=== PATIENT | female | born 1990 | race African-American/Black ===

== ENCOUNTER 2017-10-10 09:12 | Inpatient (IN) | payer SELFPAY, MEDICARE ==
[2017-10-10 10:10] LABS: ADD MAN DIFF? NO
[2017-10-10 10:18] LABS: BASO % 1 % (0-3); EOS % 1 % (0-3); HEMATOCRIT 29.9 % (36.0-47.0); HEMOGLOBIN 9.7 g/dL (12.0-15.5); LYMPH # 0.8 x10^3/uL (1.0-4.8); LYMPH % 16 % (24-48); MEAN CORPUSCULAR HEMOGLOBIN 27 pg (25-35); MEAN CORPUSCULAR HGB CONC 33 g/dL (31-37); MEAN CORPUSCULAR VOLUME 83 fL (79-100); MONO # 0.3 x10^3/uL (0.0-1.1); MONO % 7 % (0-9); NEUT # 3.6 x10^3uL (1.8-7.7); NEUT % 76 % (31-73); PLATELET COUNT 118 x10^3/uL (140-400); RED BLOOD COUNT 3.63 x10^6/uL (3.50-5.40); WHITE BLOOD COUNT 4.8 x10^3/uL (4.0-11.0)
[2017-10-10] MEDS: hydrALAZINE 20 MG/ML VIAL. IVP ×8 (10:20→19:43)
[2017-10-10 10:22] LABS: ANION GAP 11 (6-14); BLOOD UREA NITROGEN 45 mg/dL (7-20); CALCIUM 8.9 mg/dL (8.5-10.1); CARBON DIOXIDE 25 mmol/L (21-32); CHLORIDE 101 mmol/L (98-107); CREATININE 5.6 mg/dL (0.6-1.0); GLUCOSE 120 mg/dL (70-99); POTASSIUM 3.2 mmol/L (3.5-5.1); SODIUM 137 mmol/L (136-145)
[2017-10-10] MEDS ORDERED: ONDANSETRON PF 4 MG/2 ML VIAL. IV ×4 (11:45→14:45)
[2017-10-10] MEDS ORDERED: MAGNESIUM SULFATE 2GM 50 ML IV ×2 (13:15)
[2017-10-10] MEDS ORDERED: ACETAMINOPHEN 325 MG TABLET. PO ×2 (14:45)
[2017-10-10] MEDS ORDERED: DOCUSATE SODIUM 100 MG CAPSULE. PO ×2 (14:45)
[2017-10-10] MEDS ORDERED: MORPHINE SULFATE 2 MG/ML DISP.SYRIN. IV ×2 (14:45)
[2017-10-10] MEDS ORDERED: traMADol 50 MG TABLET PO ×2 (14:45)
[2017-10-10] MEDS: LABETALOL 20 MG/4 ML DISP.SYRIN. IVP ×4 (14:49→18:40)
[2017-10-10] MEDS ORDERED: HALOPERIDOL LACTATE 5 MG/ML VIAL. IVP ×2 (15:00)
[2017-10-10] MEDS: LABETALOL HCL 200 MG TABLET PO ×4 (15:30→20:51)
[2017-10-10] MEDS: FOLIC ACID 1 MG TABLET. PO ×4 (15:30→20:55)
[2017-10-10] MEDS ORDERED: IV NORMAL SALINE 1000ML BAG 1,000 ML IV ×4 (15:56)
[2017-10-10] MEDS ORDERED: diphenhydrAMINE 50 MG/ML VIAL IV ×2 (16:00)
[2017-10-10] MEDS ORDERED: ALBUMIN HUMAN 25% 200 ML IV ×2 (16:00)
[2017-10-10] MEDS ORDERED: DIALYSIS PATIENT. MC ×2 (16:00)
[2017-10-10] MEDS ORDERED: ACETAMINOPHEN 500 MG TABLET PO ×2 (16:00)
[2017-10-10] MEDS ORDERED: LABETALOL 20 MG/4 ML DISP.SYRIN. IVP ×2 (16:00)
[2017-10-10] MEDS: hydrOXYzine PAMOATE 25 MG CAPSULE PO ×4 (17:00→20:54)
[2017-10-10 17:12] LABS: THYROID STIM HORMONE (TSH) 1.193 uIU/mL (0.358-3.74)
[2017-10-10 17:53] LABS: VITAMIN-B12 610 pg/mL (247-911)
[2017-10-10] MEDS ORDERED: POTASSIUM CHLORIDE 20 MEQ TABLET.ER. PO ×2 (18:15)
[2017-10-10] MEDS: diphenhydrAMINE 50 MG/ML VIAL IV ×2 (19:07)
[2017-10-10] MEDS: ERGOCALCIFEROL (VITAMIN D2) 50,000 UNIT CAPSULE. PO ×2 (20:49)
[2017-10-10] MEDS: FAMOTIDINE 20 MG TABLET. PO ×2 (20:49)
[2017-10-10] MEDS: TORSEMIDE 20 MG TABLET. PO ×2 (20:51)
[2017-10-10] MEDS: SPIRONOLACTONE 25 MG TABLET PO ×2 (20:51)
[2017-10-10] MEDS: LOSARTAN POTASSIUM 50 MG TABLET. PO ×2 (20:51)
[2017-10-10] MEDS: QUEtiapine 25 MG TABLET. PO ×2 (20:51)
[2017-10-10] MEDS: amLODIPine BESYLATE 10 MG TABLET PO ×2 (20:53)
[2017-10-10] MEDS: HEPARIN PF for SUB-Q USE 5,000 UNIT/0.5 ML VIAL. SQ ×2 (21:05)
[2017-10-11] MEDS: LABETALOL HCL 200 MG TABLET PO ×6 (00:01→21:24)
[2017-10-11] MEDS: HEPARIN PF for SUB-Q USE 5,000 UNIT/0.5 ML VIAL. SQ ×6 (04:54→22:36)
[2017-10-11 04:57] LABS: ADD MAN DIFF? NO
[2017-10-11 05:12] LABS: BASO % 1 % (0-3); EOS # 0.1 x10^3/uL (0.0-0.7); EOS % 1 % (0-3); HEMATOCRIT 31.1 % (36.0-47.0); HEMOGLOBIN 10.2 g/dL (12.0-15.5); LYMPH # 1.2 x10^3/uL (1.0-4.8); LYMPH % 29 % (24-48); MEAN CORPUSCULAR HEMOGLOBIN 27 pg (25-35); MEAN CORPUSCULAR HGB CONC 33 g/dL (31-37); MEAN CORPUSCULAR VOLUME 83 fL (79-100); MONO # 0.4 x10^3/uL (0.0-1.1); MONO % 11 % (0-9); NEUT # 2.3 x10^3uL (1.8-7.7); NEUT % 58 % (31-73); PLATELET COUNT 146 x10^3/uL (140-400); RED BLOOD COUNT 3.77 x10^6/uL (3.50-5.40); RED CELL DISTRIBUTION WIDTH 16.1 % (11.5-14.5)
[2017-10-11 05:33] LABS: BARBITURATES NEG (NEG); BENZODIAZEPINES NEG (NEG); CANNABINOIDS POS (NEG); COCAINE NEG (NEG); METHADONE NEG (NEG); OPIATES NEG (NEG); PHENCYCLIDINE NEG (NEG)
[2017-10-11 05:34] LABS: AMPHETAMINE/METHAMPHETAMINE NEG (NEG); ETHANOL, URINE NEG (NEG)
[2017-10-11 05:50] LABS: ALBUMIN 3.3 g/dL (3.4-5.0); ANION GAP 13 (6-14); BLOOD UREA NITROGEN 29 mg/dL (7-20); CALCIUM 9.2 mg/dL (8.5-10.1); CARBON DIOXIDE 28 mmol/L (21-32); CHLORIDE 99 mmol/L (98-107); GFR 16.1; GLUCOSE 81 mg/dL (70-99); MAGNESIUM 1.9 mg/dL (1.8-2.4); PHOSPHORUS 4.4 mg/dL (2.6-4.7); SODIUM 140 mmol/L (136-145)
[2017-10-11 05:54] LABS: POTASSIUM 2.9 mmol/L (3.5-5.1)
[2017-10-11] MEDS: FOLIC ACID 1 MG TABLET. PO ×2 (08:22)
[2017-10-11] MEDS: POTASSIUM CHLORIDE 20 MEQ TABLET.ER. PO ×6 (08:22→21:25)
[2017-10-11] MEDS: cloNIDine HCL 0.1 MG TABLET PO ×2 (08:22)
[2017-10-11] MEDS: hydrOXYzine PAMOATE 25 MG CAPSULE PO ×8 (08:23→21:25)
[2017-10-11] MEDS: amLODIPine BESYLATE 10 MG TABLET PO ×2 (08:24)
[2017-10-11] MEDS: SPIRONOLACTONE 25 MG TABLET PO ×2 (08:25)
[2017-10-11] MEDS: TORSEMIDE 20 MG TABLET. PO ×2 (08:25)
[2017-10-11] MEDS: LOSARTAN POTASSIUM 50 MG TABLET. PO ×2 (08:25)
[2017-10-11] MEDS ORDERED: ERGOCALCIFEROL (VITAMIN D2) 50,000 UNIT CAPSULE. PO ×2 (12:15)
[2017-10-11] MEDS ORDERED: DIALYSIS PATIENT. MC ×4 (15:45)
[2017-10-11 20:10] LABS: PROGESTERONE <0.1 ng/mL (.)
[2017-10-11] MEDS: PHENYTOIN SODIUM EXTENDED 100 MG CAPSULE PO ×2 (21:25)
[2017-10-11] MEDS: QUEtiapine 25 MG TABLET. PO ×2 (21:26)
[2017-10-12 05:19] LABS: ALBUMIN 2.9 g/dL (3.4-5.0); ANION GAP 10 (6-14); BLOOD UREA NITROGEN 40 mg/dL (7-20); CALCIUM 9.4 mg/dL (8.5-10.1); CARBON DIOXIDE 27 mmol/L (21-32); CHLORIDE 104 mmol/L (98-107); CREATININE 5.7 mg/dL (0.6-1.0); GFR 10.7; GLUCOSE 84 mg/dL (70-99); PHOSPHORUS 5.1 mg/dL (2.6-4.7); POTASSIUM 4.2 mmol/L (3.5-5.1); SODIUM 141 mmol/L (136-145)
[2017-10-12] MEDS: HEPARIN PF for SUB-Q USE 5,000 UNIT/0.5 ML VIAL. SQ ×4 (05:38→14:00)
[2017-10-12] MEDS: hydrOXYzine PAMOATE 25 MG CAPSULE PO ×6 (09:02→17:15)
[2017-10-12] MEDS: SPIRONOLACTONE 25 MG TABLET PO ×2 (09:02)
[2017-10-12] MEDS: POTASSIUM CHLORIDE 20 MEQ TABLET.ER. PO ×4 (09:03→14:00)
[2017-10-12] MEDS: amLODIPine BESYLATE 10 MG TABLET PO ×2 (09:03)
[2017-10-12] MEDS: LOSARTAN POTASSIUM 50 MG TABLET. PO ×2 (09:04)
[2017-10-12] MEDS: LABETALOL HCL 200 MG TABLET PO ×2 (09:04)
[2017-10-12] MEDS: FOLIC ACID 1 MG TABLET. PO ×2 (09:04)
[2017-10-12] MEDS ORDERED: IV NORMAL SALINE 1000ML BAG 1,000 ML IV ×2 (13:44)
[2017-10-12] MEDS ORDERED: DIALYSIS PATIENT. MC ×4 (13:45)
[2017-10-12] MEDS ORDERED: FAMOTIDINE 20 MG TABLET. PO ×2 (21:00)
== END 2017-10-12 18:31 | disposition home or self-care (01) | DRG 77 ==
LOC: ER 09:12 → 5 NORTH 12:20
PROC: 5A1D70Z Performance of Urinary Filtration, Intermittent, Less than 6 Hours Per Day (ICD-10-PCS; principal; 2017-10-12)
DX: I67.4 Hypertensive encephalopathy (principal); N18.6 End stage renal disease; G93.41 Metabolic encephalopathy; D69.6 Thrombocytopenia, unspecified; I12.0 Hypertensive chronic kidney disease with stage 5 chronic kidney disease or end stage renal disease; I16.1 Hypertensive emergency; E87.6 Hypokalemia; E55.9 Vitamin D deficiency, unspecified; F41.9 Anxiety disorder, unspecified; D63.1 Anemia in chronic kidney disease; F12.10 Cannabis abuse, uncomplicated; Z99.2 Dependence on renal dialysis; G40.909 Epilepsy, unspecified, not intractable, without status epilepticus; Z85.72 Personal history of non-Hodgkin lymphomas; Z88.8 Allergy status to other drugs, medicaments and biological substances; Z91.048 Other nonmedicinal substance allergy status; Z91.15 Patient's noncompliance with renal dialysis; Z82.49 Family history of ischemic heart disease and other diseases of the circulatory system
CPT/HCPCS: 36415; 80048; 80069; 80307; 82306; 82607; 83735; 84144; 84443; 84702; 85025; 93005; 93931; 95816; 96374; 96376; 99285; 99285-25; J0360; J1200; J2060; J3490; Q0177

== ENCOUNTER 2017-10-13 13:46 | Inpatient (IN) | payer SELFPAY ==
[2017-10-13 14:30] LABS: ADD MAN DIFF? NO
[2017-10-13] MEDS: hydrALAZINE 20 MG/ML VIAL. IVP ×3 (14:36→20:19)
[2017-10-13 14:41] LABS: ANION GAP 10 (6-14); BLOOD UREA NITROGEN 23 mg/dL (7-20); BUN/CREATININE RATIO 5 (6-20); CALCIUM 9.4 mg/dL (8.5-10.1); CARBON DIOXIDE 27 mmol/L (21-32); CHLORIDE 98 mmol/L (98-107); CREATININE 4.6 mg/dL (0.6-1.0); GFR 13.7; GLUCOSE 170 mg/dL (70-99); INR 1.2 (0.8-1.1); PARTIAL THROMBOPLASTIN TIME 34 SEC (24-38); POTASSIUM 3.8 mmol/L (3.5-5.1); PROTHROMBIN TIME PATIENT 14.3 SEC (11.7-14.0); SODIUM 135 mmol/L (136-145)
[2017-10-13 14:46] LABS: BASO % 1 % (0-3); EOS # 0.3 x10^3/uL (0.0-0.7); EOS % 7 % (0-3); HEMATOCRIT 34.6 % (36.0-47.0); HEMOGLOBIN 11.4 g/dL (12.0-15.5); LYMPH # 0.9 x10^3/uL (1.0-4.8); LYMPH % 24 % (24-48); MEAN CORPUSCULAR HEMOGLOBIN 27 pg (25-35); MEAN CORPUSCULAR HGB CONC 33 g/dL (31-37); MEAN CORPUSCULAR VOLUME 82 fL (79-100); MONO # 0.5 x10^3/uL (0.0-1.1); MONO % 14 % (0-9); NEUT # 1.9 x10^3uL (1.8-7.7); NEUT % 53 % (31-73); PLATELET COUNT 196 x10^3/uL (140-400); RED BLOOD COUNT 4.21 x10^6/uL (3.50-5.40); RED CELL DISTRIBUTION WIDTH 15.5 % (11.5-14.5); WHITE BLOOD COUNT 3.7 x10^3/uL (4.0-11.0)
[2017-10-13 14:47] LABS: ALBUMIN 3.3 g/dL (3.4-5.0); ALBUMIN/GLOBULIN RATIO 0.7 (1.0-1.7); ALK PHOS 110 U/L (46-116); ALT (SGPT) 25 U/L (14-59); AST (SGOT) 17 U/L (15-37); TOTAL BILIRUBIN 0.5 mg/dL (0.2-1.0); TOTAL PROTEIN 8.2 g/dL (6.4-8.2)
[2017-10-13 14:50] LABS: TROPONINI 0.046 ng/mL (0.000-0.055)
[2017-10-13 14:53] LABS: NT-PRO BNP 26160 pg/mL (0-124)
[2017-10-13] MEDS ORDERED: MORPHINE SULFATE 2 MG/ML DISP.SYRIN. IV (15:30)
[2017-10-13] MEDS ORDERED: ONDANSETRON PF 4 MG/2 ML VIAL. IV ×2 (15:30→16:00)
[2017-10-13] MEDS: ACETAMINOPHEN 325 MG TABLET. PO (15:34)
[2017-10-13] MEDS ORDERED: diphenhydrAMINE HCL 25 MG CAPSULE PO (16:00)
[2017-10-13] MEDS: oxyCODONE/APAP 5/325 1 TAB TABLET PO ×2 (17:36→21:33)
[2017-10-13] MEDS: LABETALOL 20 MG/4 ML DISP.SYRIN. IVP (17:37)
[2017-10-13 19:25] LABS: TROPONINI 0.064 ng/mL (0.000-0.055)
[2017-10-13] MEDS: QUEtiapine 25 MG TABLET. PO (21:32)
[2017-10-13] MEDS: FAMOTIDINE 20 MG TABLET. PO (21:32)
[2017-10-13] MEDS: hydrOXYzine PAMOATE 25 MG CAPSULE PO (21:32)
[2017-10-13] MEDS: LABETALOL HCL 200 MG TABLET PO (21:33)
[2017-10-13 22:13] LABS: BILIRUBIN,URINE SMALL (NEG); CLARITY,URINE CLEAR; COLOR,URINE YELLOW; GLUCOSE,URINE NEGATIVE (NEG); NITRITE,URINE NEGATIVE (NEG); PROTEIN,URINE >=300 mg/dL (NEG-TRACE)
[2017-10-13 22:17] LABS: TROPONINI 0.074 ng/mL (0.000-0.055)
[2017-10-13 22:19] LABS: BACTERIA,URINE FEW /HPF (0-FEW); BARBITURATES NEG (NEG); BENZODIAZEPINES NEG (NEG); CANNABINOIDS POS (NEG); COCAINE NEG (NEG); METHADONE NEG (NEG); OPIATES NEG (NEG); PHENCYCLIDINE NEG (NEG); RBC,URINE 0 /HPF (0-2); SQUAMOUS EPITHELIAL CELL,UR MOD /LPF
[2017-10-13 22:20] LABS: AMPHETAMINE/METHAMPHETAMINE NEG (NEG); ETHANOL, URINE NEG (NEG)
[2017-10-14 08:13] LABS: ADD MAN DIFF? NO
[2017-10-14 08:22] LABS: BASO % 1 % (0-3); EOS # 0.2 x10^3/uL (0.0-0.7); EOS % 8 % (0-3); HEMATOCRIT 37.2 % (36.0-47.0); LYMPH % 34 % (24-48); MEAN CORPUSCULAR HEMOGLOBIN 27 pg (25-35); MEAN CORPUSCULAR HGB CONC 32 g/dL (31-37); MEAN CORPUSCULAR VOLUME 82 fL (79-100); MONO # 0.5 x10^3/uL (0.0-1.1); MONO % 16 % (0-9); NEUT # 1.2 x10^3uL (1.8-7.7); NEUT % 40 % (31-73); PLATELET COUNT 203 x10^3/uL (140-400); RED BLOOD COUNT 4.51 x10^6/uL (3.50-5.40); RED CELL DISTRIBUTION WIDTH 16.1 % (11.5-14.5); WHITE BLOOD COUNT 2.9 x10^3/uL (4.0-11.0)
[2017-10-14 08:31] LABS: ANION GAP 11 (6-14); BLOOD UREA NITROGEN 27 mg/dL (7-20); CALCIUM 9.9 mg/dL (8.5-10.1); CARBON DIOXIDE 28 mmol/L (21-32); CHLORIDE 98 mmol/L (98-107); CREATININE 5.3 mg/dL (0.6-1.0); GFR 11.7; GLUCOSE 96 mg/dL (70-99); SODIUM 137 mmol/L (136-145)
[2017-10-14] MEDS ORDERED: LOSARTAN POTASSIUM 50 MG TABLET. PO (09:00)
[2017-10-14] MEDS: diphenhydrAMINE 50 MG/ML VIAL IVP (09:45)
[2017-10-14] MEDS ORDERED: DIALYSIS PATIENT. MC (09:45)
[2017-10-14] MEDS: LOSARTAN POTASSIUM 50 MG TABLET. PO (09:45)
[2017-10-14] MEDS: FOLIC ACID 1 MG TABLET. PO (09:46)
[2017-10-14] MEDS: hydrOXYzine PAMOATE 25 MG CAPSULE PO ×4 (09:46→20:05)
[2017-10-14] MEDS: amLODIPine BESYLATE 10 MG TABLET PO (09:47)
[2017-10-14] MEDS: CALCIUM CARBONATE 500 MG TABLET PO (09:47)
[2017-10-14] MEDS: LABETALOL 20 MG/4 ML DISP.SYRIN. IVP (12:00)
[2017-10-14] MEDS: ALBUTEROL SULFATE 2.5 MG/3 ML NEBU. NEB (14:00)
[2017-10-14] MEDS: TORSEMIDE 20 MG TABLET. PO (14:02)
[2017-10-14] MEDS: LABETALOL HCL 200 MG TABLET PO ×2 (14:03→20:05)
[2017-10-14] MEDS: SPIRONOLACTONE 25 MG TABLET PO (14:03)
[2017-10-14] MEDS: QUEtiapine 25 MG TABLET. PO (20:04)
[2017-10-14] MEDS: oxyCODONE/APAP 5/325 1 TAB TABLET PO (20:05)
[2017-10-14] MEDS: ONDANSETRON PF 4 MG/2 ML VIAL. IV (21:03)
[2017-10-15] MEDS: oxyCODONE/APAP 5/325 1 TAB TABLET PO ×2 (02:26→19:17)
[2017-10-15] MEDS: hydrOXYzine PAMOATE 25 MG CAPSULE PO ×4 (09:02→20:55)
[2017-10-15] MEDS: LABETALOL HCL 200 MG TABLET PO ×2 (09:02→20:55)
[2017-10-15] MEDS: TORSEMIDE 20 MG TABLET. PO (09:02)
[2017-10-15] MEDS: SPIRONOLACTONE 25 MG TABLET PO (09:03)
[2017-10-15] MEDS: FOLIC ACID 1 MG TABLET. PO (09:04)
[2017-10-15] MEDS: amLODIPine BESYLATE 10 MG TABLET PO (09:04)
[2017-10-15] MEDS: CALCIUM CARBONATE 500 MG TABLET PO (09:04)
[2017-10-15] MEDS: LOSARTAN POTASSIUM 50 MG TABLET. PO (09:04)
[2017-10-15] MEDS: levETIRAcetam 250 MG TABLET PO ×2 (17:33→20:55)
[2017-10-15] MEDS: QUEtiapine 25 MG TABLET. PO (20:55)
[2017-10-16] MEDS: oxyCODONE/APAP 5/325 1 TAB TABLET PO (03:42)
[2017-10-16] MEDS: TORSEMIDE 20 MG TABLET. PO (07:43)
[2017-10-16] MEDS: FOLIC ACID 1 MG TABLET. PO (07:44)
[2017-10-16] MEDS: SPIRONOLACTONE 25 MG TABLET PO (07:44)
[2017-10-16] MEDS: LOSARTAN POTASSIUM 50 MG TABLET. PO (07:44)
[2017-10-16] MEDS: levETIRAcetam 250 MG TABLET PO ×2 (07:44→20:47)
[2017-10-16] MEDS: amLODIPine BESYLATE 10 MG TABLET PO (07:45)
[2017-10-16] MEDS: CALCIUM CARBONATE 500 MG TABLET PO (07:45)
[2017-10-16] MEDS: LABETALOL HCL 200 MG TABLET PO ×2 (07:45→20:47)
[2017-10-16] MEDS: hydrOXYzine PAMOATE 25 MG CAPSULE PO (07:45)
[2017-10-16] MEDS ORDERED: FAMOTIDINE 20 MG TABLET. PO (15:00)
[2017-10-16] MEDS: QUEtiapine 25 MG TABLET. PO (20:47)
[2017-10-16] MEDS: FAMOTIDINE 20 MG TABLET. PO (20:47)
[2017-10-17] MEDS ORDERED: IV NORMAL SALINE 1000ML BAG 1,000 ML IV ×2 (08:13)
[2017-10-17] MEDS ORDERED: DIALYSIS PATIENT. MC ×2 (08:15)
[2017-10-17] MEDS: TORSEMIDE 20 MG TABLET. PO (13:27)
[2017-10-17] MEDS: CALCIUM CARBONATE 500 MG TABLET PO (13:27)
[2017-10-17] MEDS: LOSARTAN POTASSIUM 50 MG TABLET. PO (13:28)
[2017-10-17] MEDS: amLODIPine BESYLATE 10 MG TABLET PO (13:28)
[2017-10-17] MEDS: SPIRONOLACTONE 25 MG TABLET PO (13:29)
[2017-10-17] MEDS: CARVEDILOL 3.125 MG TABLET. PO ×2 (13:29→17:42)
[2017-10-17] MEDS: FOLIC ACID 1 MG TABLET. PO (13:30)
[2017-10-17] MEDS: levETIRAcetam 250 MG TABLET PO ×2 (13:30→21:15)
[2017-10-17] MEDS: LABETALOL HCL 200 MG TABLET PO ×2 (13:30→21:16)
[2017-10-17] MEDS: QUEtiapine 25 MG TABLET. PO (21:16)
[2017-10-18] MEDS: LABETALOL HCL 200 MG TABLET PO ×3 (09:00→20:43)
[2017-10-18] MEDS: SPIRONOLACTONE 25 MG TABLET PO (09:21)
[2017-10-18] MEDS: levETIRAcetam 250 MG TABLET PO ×2 (09:21→20:43)
[2017-10-18] MEDS: amLODIPine BESYLATE 10 MG TABLET PO (09:21)
[2017-10-18] MEDS: FOLIC ACID 1 MG TABLET. PO (09:22)
[2017-10-18] MEDS: CALCIUM CARBONATE 500 MG TABLET PO (09:22)
[2017-10-18] MEDS: LOSARTAN POTASSIUM 50 MG TABLET. PO (09:22)
[2017-10-18] MEDS: TORSEMIDE 20 MG TABLET. PO (09:22)
[2017-10-18 12:16] LABS: HEP B SURFACE ABDY Reactive (.); HEP B SURFACE AG Negative (Negative)
[2017-10-18] MEDS: DOXAZOSIN MESYLATE 1 MG TABLET. PO (12:16)
[2017-10-18] MEDS: QUEtiapine 25 MG TABLET. PO (20:43)
[2017-10-18] MEDS: FAMOTIDINE 20 MG TABLET. PO (20:44)
[2017-10-19 03:51] LABS: ADD MAN DIFF? NO
[2017-10-19 03:57] LABS: BASO % 1 % (0-3); EOS # 0.3 x10^3/uL (0.0-0.7); EOS % 7 % (0-3); HEMATOCRIT 33.2 % (36.0-47.0); HEMOGLOBIN 10.8 g/dL (12.0-15.5); LYMPH # 1.2 x10^3/uL (1.0-4.8); LYMPH % 29 % (24-48); MEAN CORPUSCULAR HEMOGLOBIN 27 pg (25-35); MEAN CORPUSCULAR HGB CONC 33 g/dL (31-37); MEAN CORPUSCULAR VOLUME 82 fL (79-100); MONO # 0.5 x10^3/uL (0.0-1.1); MONO % 14 % (0-9); NEUT % 49 % (31-73); PLATELET COUNT 194 x10^3/uL (140-400); RED BLOOD COUNT 4.05 x10^6/uL (3.50-5.40); RED CELL DISTRIBUTION WIDTH 15.5 % (11.5-14.5)
[2017-10-19 04:11] LABS: ANION GAP 8 (6-14); BLOOD UREA NITROGEN 55 mg/dL (7-20); CALCIUM 9.3 mg/dL (8.5-10.1); CARBON DIOXIDE 30 mmol/L (21-32); CHLORIDE 95 mmol/L (98-107); CREATININE 6.4 mg/dL (0.6-1.0); GFR 9.4; GLUCOSE 82 mg/dL (70-99); POTASSIUM 4.6 mmol/L (3.5-5.1); SODIUM 133 mmol/L (136-145)
[2017-10-19] MEDS: LOSARTAN POTASSIUM 50 MG TABLET. PO (08:13)
[2017-10-19] MEDS: TORSEMIDE 20 MG TABLET. PO (08:14)
[2017-10-19] MEDS: CALCIUM CARBONATE 500 MG TABLET PO (08:14)
[2017-10-19] MEDS: DOXAZOSIN MESYLATE 1 MG TABLET. PO (08:14)
[2017-10-19] MEDS: FOLIC ACID 1 MG TABLET. PO (08:14)
[2017-10-19] MEDS: levETIRAcetam 250 MG TABLET PO ×2 (08:14→20:26)
[2017-10-19] MEDS: amLODIPine BESYLATE 10 MG TABLET PO (08:15)
[2017-10-19] MEDS: LABETALOL HCL 200 MG TABLET PO ×2 (08:15→20:26)
[2017-10-19] MEDS ORDERED: IV NORMAL SALINE 1000ML BAG 1,000 ML IV (13:19)
[2017-10-19] MEDS ORDERED: DIALYSIS PATIENT. MC (13:30)
[2017-10-19] MEDS: QUEtiapine 25 MG TABLET. PO (20:26)
[2017-10-20 06:38] LABS: ADD MAN DIFF? NO
[2017-10-20 06:51] LABS: BASO % 1 % (0-3); EOS # 0.2 x10^3/uL (0.0-0.7); EOS % 7 % (0-3); HEMATOCRIT 34.1 % (36.0-47.0); LYMPH # 0.9 x10^3/uL (1.0-4.8); LYMPH % 28 % (24-48); MEAN CORPUSCULAR HEMOGLOBIN 27 pg (25-35); MEAN CORPUSCULAR HGB CONC 32 g/dL (31-37); MEAN CORPUSCULAR VOLUME 83 fL (79-100); MONO # 0.4 x10^3/uL (0.0-1.1); MONO % 12 % (0-9); NEUT # 1.7 x10^3uL (1.8-7.7); NEUT % 53 % (31-73); PLATELET COUNT 179 x10^3/uL (140-400); RED BLOOD COUNT 4.13 x10^6/uL (3.50-5.40); RED CELL DISTRIBUTION WIDTH 15.7 % (11.5-14.5); WHITE BLOOD COUNT 3.2 x10^3/uL (4.0-11.0)
[2017-10-20 07:02] LABS: ANION GAP 5 (6-14); BLOOD UREA NITROGEN 33 mg/dL (7-20); CALCIUM 9.3 mg/dL (8.5-10.1); CARBON DIOXIDE 35 mmol/L (21-32); CHLORIDE 99 mmol/L (98-107); CREATININE 4.1 mg/dL (0.6-1.0); GFR 15.7; GLUCOSE 83 mg/dL (70-99); POTASSIUM 4.3 mmol/L (3.5-5.1); SODIUM 139 mmol/L (136-145)
[2017-10-20] MEDS: FOLIC ACID 1 MG TABLET. PO (09:20)
[2017-10-20] MEDS: levETIRAcetam 250 MG TABLET PO ×2 (09:20→21:06)
[2017-10-20] MEDS: ERGOCALCIFEROL (VITAMIN D2) 50,000 UNIT CAPSULE. PO (09:20)
[2017-10-20] MEDS: CALCIUM CARBONATE 500 MG TABLET PO (09:21)
[2017-10-20] MEDS: LABETALOL HCL 200 MG TABLET PO ×2 (09:21→21:07)
[2017-10-20] MEDS: DOXAZOSIN MESYLATE 1 MG TABLET. PO (09:21)
[2017-10-20] MEDS: TORSEMIDE 20 MG TABLET. PO (09:21)
[2017-10-20] MEDS: amLODIPine BESYLATE 10 MG TABLET PO (09:22)
[2017-10-20] MEDS: LOSARTAN POTASSIUM 50 MG TABLET. PO (09:23)
[2017-10-20] MEDS: ONDANSETRON PF 4 MG/2 ML VIAL. IV (18:28)
[2017-10-20] MEDS: FAMOTIDINE 20 MG TABLET. PO (21:06)
[2017-10-20] MEDS: QUEtiapine 25 MG TABLET. PO (21:06)
[2017-10-21 06:43] LABS: ADD MAN DIFF? NO
[2017-10-21 07:09] LABS: ANION GAP 10 (6-14); BLOOD UREA NITROGEN 58 mg/dL (7-20); CALCIUM 9.9 mg/dL (8.5-10.1); CARBON DIOXIDE 29 mmol/L (21-32); CHLORIDE 98 mmol/L (98-107); CREATININE 5.2 mg/dL (0.6-1.0); GFR 11.8; GLUCOSE 89 mg/dL (70-99); POTASSIUM 4.4 mmol/L (3.5-5.1); SODIUM 137 mmol/L (136-145)
[2017-10-21 07:10] LABS: BASO % 1 % (0-3); EOS # 0.3 x10^3/uL (0.0-0.7); EOS % 7 % (0-3); HEMATOCRIT 33.5 % (36.0-47.0); HEMOGLOBIN 10.8 g/dL (12.0-15.5); LYMPH % 28 % (24-48); MEAN CORPUSCULAR HEMOGLOBIN 27 pg (25-35); MEAN CORPUSCULAR HGB CONC 32 g/dL (31-37); MEAN CORPUSCULAR VOLUME 82 fL (79-100); MONO # 0.4 x10^3/uL (0.0-1.1); MONO % 12 % (0-9); NEUT # 1.8 x10^3uL (1.8-7.7); NEUT % 51 % (31-73); PLATELET COUNT 168 x10^3/uL (140-400); RED BLOOD COUNT 4.07 x10^6/uL (3.50-5.40); RED CELL DISTRIBUTION WIDTH 15.4 % (11.5-14.5); WHITE BLOOD COUNT 3.4 x10^3/uL (4.0-11.0)
[2017-10-21] MEDS ORDERED: IV NORMAL SALINE 1000ML BAG 1,000 ML IV ×2 (07:35)
[2017-10-21] MEDS ORDERED: DIALYSIS PATIENT. MC (07:45)
[2017-10-21] MEDS ORDERED: diphenhydrAMINE 50 MG/ML VIAL IV ×2 (07:45)
[2017-10-21] MEDS ORDERED: ACETAMINOPHEN 500 MG TABLET PO (07:45)
[2017-10-21] MEDS: CALCIUM CARBONATE 500 MG TABLET PO (14:27)
[2017-10-21] MEDS: DOXAZOSIN MESYLATE 1 MG TABLET. PO (14:27)
[2017-10-21] MEDS: TORSEMIDE 20 MG TABLET. PO (14:27)
[2017-10-21] MEDS: LOSARTAN POTASSIUM 50 MG TABLET. PO (14:27)
[2017-10-21] MEDS: levETIRAcetam 250 MG TABLET PO (14:28)
[2017-10-21] MEDS: amLODIPine BESYLATE 10 MG TABLET PO (14:28)
[2017-10-21] MEDS: LABETALOL HCL 200 MG TABLET PO (14:28)
[2017-10-21] MEDS: FOLIC ACID 1 MG TABLET. PO (14:28)
== END 2017-10-21 16:19 | disposition home or self-care (01) | DRG 77 ==
LOC: ER 13:46 → ED HOLD 14:58 → 2 SOUTH 20:06
PROC: 5A1D70Z Performance of Urinary Filtration, Intermittent, Less than 6 Hours Per Day (ICD-10-PCS; principal; 2017-10-14)
PROC: 5A1D70Z Performance of Urinary Filtration, Intermittent, Less than 6 Hours Per Day (ICD-10-PCS; 2017-10-17)
PROC: 5A1D70Z Performance of Urinary Filtration, Intermittent, Less than 6 Hours Per Day (ICD-10-PCS; 2017-10-19)
PROC: 5A1D70Z Performance of Urinary Filtration, Intermittent, Less than 6 Hours Per Day (ICD-10-PCS; 2017-10-21)
DX: I67.4 Hypertensive encephalopathy (principal); G93.41 Metabolic encephalopathy; I13.2 Hypertensive heart and chronic kidney disease with heart failure and with stage 5 chronic kidney disease, or end stage renal disease; N18.6 End stage renal disease; I50.33 Acute on chronic diastolic (congestive) heart failure; I16.1 Hypertensive emergency; F41.9 Anxiety disorder, unspecified; F12.10 Cannabis abuse, uncomplicated; R56.9 Unspecified convulsions; D63.1 Anemia in chronic kidney disease; Z82.49 Family history of ischemic heart disease and other diseases of the circulatory system; Z85.71 Personal history of Hodgkin lymphoma; Z91.19 Patient's noncompliance with other medical treatment and regimen; Z99.2 Dependence on renal dialysis; Z90.49 Acquired absence of other specified parts of digestive tract; Z91.041 Radiographic dye allergy status; Z91.048 Other nonmedicinal substance allergy status
CPT/HCPCS: 36415; 70450; 71045; 80048; 80053; 80307; 81001; 83880; 84484; 85025; 85610; 85730; 86704; 86705; 86706; 87086; 87340; 93005; 93306; 96374; 96375; 99285; 99285-25; J0360; J2060; J2405; J3490; J7050; Q0177

== ENCOUNTER 2017-12-13 11:15 | Emergency (ER) | payer OTHER ==
[2017-12-13] MEDS: IOHEXOL 240 MG/ML 50ML VIAL. PO (12:15)
[2017-12-13] MEDS ORDERED: CONTRAST GIVEN MC (12:15)
[2017-12-13 12:36] LABS: ADD MAN DIFF? NO
[2017-12-13 12:43] LABS: BASO % 1 % (0-3); EOS # 0.1 x10^3/uL (0.0-0.7); EOS % 2 % (0-3); HEMATOCRIT 29.1 % (36.0-47.0); HEMOGLOBIN 9.7 g/dL (12.0-15.5); LYMPH # 0.6 x10^3/uL (1.0-4.8); LYMPH % 10 % (24-48); MEAN CORPUSCULAR HEMOGLOBIN 27 pg (25-35); MEAN CORPUSCULAR HGB CONC 33 g/dL (31-37); MEAN CORPUSCULAR VOLUME 81 fL (79-100); MONO # 0.5 x10^3/uL (0.0-1.1); MONO % 9 % (0-9); NEUT # 4.4 x10^3uL (1.8-7.7); NEUT % 78 % (31-73); PLATELET COUNT 130 x10^3/uL (140-400); RED BLOOD COUNT 3.61 x10^6/uL (3.50-5.40); WHITE BLOOD COUNT 5.6 x10^3/uL (4.0-11.0)
[2017-12-13] MEDS: MORPHINE SULFATE 4 MG/ML DISP.SYRIN. IV (12:46)
[2017-12-13] MEDS: hydrALAZINE 20 MG/ML VIAL. IVP (12:47)
[2017-12-13 12:53] LABS: ANION GAP 11 (6-14); BLOOD UREA NITROGEN 55 mg/dL (7-20); BUN/CREATININE RATIO 12 (6-20); CALCIUM 8.8 mg/dL (8.5-10.1); CARBON DIOXIDE 24 mmol/L (21-32); CHLORIDE 102 mmol/L (98-107); CREATININE 4.7 mg/dL (0.6-1.0); GFR 13.3; GLUCOSE 95 mg/dL (70-99); POTASSIUM 3.6 mmol/L (3.5-5.1); SODIUM 137 mmol/L (136-145)
[2017-12-13 12:58] LABS: ALBUMIN 3.1 g/dL (3.4-5.0); ALBUMIN/GLOBULIN RATIO 0.7 (1.0-1.7); ALK PHOS 144 U/L (46-116); ALT (SGPT) 48 U/L (14-59); AST (SGOT) 51 U/L (15-37); LIPASE 277 U/L (73-393); TOTAL BILIRUBIN 0.9 mg/dL (0.2-1.0); TOTAL PROTEIN 7.4 g/dL (6.4-8.2)
[2017-12-13 13:51] LABS: BILIRUBIN,URINE NEGATIVE (NEG); CLARITY,URINE CLEAR; COLOR,URINE YELLOW; GLUCOSE,URINE NEGATIVE (NEG); NITRITE,URINE NEGATIVE (NEG); PROTEIN,URINE >=300 mg/dL (NEG-TRACE); UROBILINOGEN,URINE 0.2 mg/dL (0.2 mg/dL)
[2017-12-13 13:53] LABS: URINE HCG POC HCG NEGATIVE (Negative)
[2017-12-13 14:20] LABS: BACTERIA,URINE 0 /HPF (0-FEW); SQUAMOUS EPITHELIAL CELL,UR FEW /LPF
== END 2017-12-13 14:28 | disposition home or self-care (01) ==
LOC: ER 11:15
DX: R10.13 Epigastric pain (principal); R11.0 Nausea; R19.7 Diarrhea, unspecified; I12.0 Hypertensive chronic kidney disease with stage 5 chronic kidney disease or end stage renal disease; N18.6 End stage renal disease; Z99.2 Dependence on renal dialysis; Z90.49 Acquired absence of other specified parts of digestive tract; Z85.71 Personal history of Hodgkin lymphoma; Z88.8 Allergy status to other drugs, medicaments and biological substances; Z88.6 Allergy status to analgesic agent; Z91.041 Radiographic dye allergy status
CPT/HCPCS: 36415; 74176; 80053; 81001; 81025; 83690; 85025; 87086; 93005; 96374; 96375; 99285-25; J0360; J2270; Q9966

== ENCOUNTER 2018-03-14 02:10 | Inpatient (IN) | payer OTHER ==
[2018-03-14 03:26] LABS: BILIRUBIN,URINE NEGATIVE (NEG); CLARITY,URINE CLEAR; COLOR,URINE YELLOW; GLUCOSE,URINE NEGATIVE (NEG); NITRITE,URINE NEGATIVE (NEG); PH,URINE 7.5; PROTEIN,URINE 100 mg/dL (NEG-TRACE); UROBILINOGEN,URINE 0.2 mg/dL (0.2 mg/dL)
[2018-03-14] MEDS ORDERED: 0.9 % SOD CHL for STERILE FIELD 10 ML DISP.SYRIN. (03:36)
[2018-03-14 03:44] LABS: BACTERIA,URINE FEW /HPF (0-FEW); SQUAMOUS EPITHELIAL CELL,UR FEW /LPF
[2018-03-14] MEDS: MORPHINE SULFATE 4 MG/ML DISP.SYRIN. IV ×3 (04:14→12:41)
[2018-03-14] MEDS: hydrALAZINE 20 MG/ML VIAL. IVP ×4 (04:14→18:23)
[2018-03-14 04:18] LABS: ADD MAN DIFF? NO
[2018-03-14 04:25] LABS: BASO % 1 % (0-3); EOS # 0.2 x10^3/uL (0.0-0.7); EOS % 4 % (0-3); HEMATOCRIT 32.3 % (36.0-47.0); HEMOGLOBIN 10.7 g/dL (12.0-15.5); LYMPH # 0.8 x10^3/uL (1.0-4.8); LYMPH % 16 % (24-48); MEAN CORPUSCULAR HEMOGLOBIN 28 pg (25-35); MEAN CORPUSCULAR HGB CONC 33 g/dL (31-37); MEAN CORPUSCULAR VOLUME 84 fL (79-100); MONO # 0.6 x10^3/uL (0.0-1.1); MONO % 13 % (0-9); NEUT # 3.2 x10^3uL (1.8-7.7); NEUT % 66 % (31-73); PLATELET COUNT 101 x10^3/uL (140-400); RED BLOOD COUNT 3.84 x10^6/uL (3.50-5.40); RED CELL DISTRIBUTION WIDTH 14.8 % (11.5-14.5); WHITE BLOOD COUNT 4.9 x10^3/uL (4.0-11.0)
[2018-03-14] MEDS: LIDO:MAALOX 1:1 20 ML SINGLE DOSE. PO (04:33)
[2018-03-14 04:37] LABS: ANION GAP 11 (6-14); BLOOD UREA NITROGEN 52 mg/dL (7-20); CALCIUM 8.5 mg/dL (8.5-10.1); CARBON DIOXIDE 29 mmol/L (21-32); CHLORIDE 100 mmol/L (98-107); CREATININE 5.5 mg/dL (0.6-1.0); GFR 11.1; GLUCOSE 76 mg/dL (70-99); POTASSIUM 3.8 mmol/L (3.5-5.1); SODIUM 140 mmol/L (136-145)
[2018-03-14 04:43] LABS: ALBUMIN 3.4 g/dL (3.4-5.0); ALK PHOS 88 U/L (46-116); ALT (SGPT) 17 U/L (14-59); AST (SGOT) 21 U/L (15-37); DIRECT BILIRUBIN 0.1 mg/dL (0.0-0.2); LIPASE 289 U/L (73-393); TOTAL BILIRUBIN 0.5 mg/dL (0.2-1.0); TOTAL PROTEIN 7.8 g/dL (6.4-8.2)
[2018-03-14 04:45] LABS: LACTIC ACID 0.8 mmol/L (0.4-2.0); TROPONINI 0.025 ng/mL (0.000-0.055)
[2018-03-14 04:47] LABS: D-DIMER 0.31 ug/mlFEU (0.00-0.50)
[2018-03-14 04:52] LABS: NEG OBC UR NEG; POS OBC UR POS; U PREG PATIENT NEGATIVE (NEG)
[2018-03-14] MEDS: NITROGLYCERIN SUBLINGUAL 0.4 MG BOTTLE OF 25. SL (05:10)
[2018-03-14] MEDS ORDERED: MORPHINE SULFATE 10 MG/ML VIAL. (05:32)
[2018-03-14] MEDS: MORPHINE SULFATE 10 MG/ML VIAL. IV (05:37)
[2018-03-14] MEDS: LORazepam 1 MG TABLET PO (07:19)
[2018-03-14] MEDS: ACETAMINOPHEN 325 MG TABLET. PO (07:23)
[2018-03-14] MEDS: LABETALOL 20 MG/4 ML DISP.SYRIN. IVP ×2 (08:55→21:01)
[2018-03-14] MEDS: LABETALOL HCL 200 MG TABLET PO ×2 (09:00→20:34)
[2018-03-14] MEDS: amLODIPine BESYLATE 10 MG TABLET PO (09:44)
[2018-03-14] MEDS: cloNIDine HCL 0.2 MG TABLET PO ×2 (09:44→20:35)
[2018-03-14 10:31] LABS: TROPONINI 0.296 ng/mL (0.000-0.055)
[2018-03-14 10:40] LABS: INR 1.2 (0.8-1.1); PARTIAL THROMBOPLASTIN TIME 36 SEC (24-38); PROTHROMBIN TIME PATIENT 14.4 SEC (11.7-14.0)
[2018-03-14] MEDS: ONDANSETRON PF 4 MG/2 ML VIAL. IV (12:41)
[2018-03-14] MEDS: ALTEPLASE 2 MG VIAL INT CAT (12:58)
[2018-03-14 16:39] LABS: TROPONINI 0.264 ng/mL (0.000-0.055)
[2018-03-14] MEDS: PROCHLORPERAZINE 10 MG/2 ML VIAL. IV (18:52)
[2018-03-14] MEDS: levETIRAcetam 250 MG TABLET PO (20:35)
[2018-03-14] MEDS: QUEtiapine 25 MG TABLET. PO (20:37)
[2018-03-15] MEDS: hydrALAZINE 20 MG/ML VIAL. IVP ×2 (08:19→14:36)
[2018-03-15] MEDS: REGADENOSON 0.4 MG/5 ML DISP.SYRIN. IV (08:57)
[2018-03-15] MEDS: levETIRAcetam 250 MG TABLET PO ×2 (09:00→20:17)
[2018-03-15] MEDS: cloNIDine HCL 0.2 MG TABLET PO ×2 (09:00→20:17)
[2018-03-15] MEDS: LOSARTAN POTASSIUM 50 MG TABLET. PO ×2 (09:00→16:05)
[2018-03-15] MEDS: TORSEMIDE 20 MG TABLET. PO ×2 (09:00→16:05)
[2018-03-15] MEDS: amLODIPine BESYLATE 10 MG TABLET PO ×2 (09:00→16:03)
[2018-03-15] MEDS: LABETALOL HCL 200 MG TABLET PO ×2 (09:00→20:16)
[2018-03-15] MEDS: ONDANSETRON PF 4 MG/2 ML VIAL. IV (09:50)
[2018-03-15] MEDS: MORPHINE SULFATE 2 MG/ML DISP.SYRIN. IV ×2 (10:24→15:34)
[2018-03-15 13:32] LABS: ANION GAP 11 (6-14); BLOOD UREA NITROGEN 37 mg/dL (7-20); CALCIUM 9.8 mg/dL (8.5-10.1); CARBON DIOXIDE 29 mmol/L (21-32); CHLORIDE 97 mmol/L (98-107); CREATININE 5.4 mg/dL (0.6-1.0); GFR 11.3; GLUCOSE 122 mg/dL (70-99); POTASSIUM 4.6 mmol/L (3.5-5.1); SODIUM 137 mmol/L (136-145)
[2018-03-15] MEDS: LORazepam 1 MG TABLET PO (14:35)
[2018-03-15] MEDS ORDERED: NITROGLYCERIN SUBLINGUAL 0.4 MG BOTTLE OF 25. SL (15:45)
[2018-03-15] MEDS: NITROGLYCERIN SUBLINGUAL 0.4 MG BOTTLE OF 25. SL (15:48)
[2018-03-15] MEDS: IBUPROFEN 600 MG TABLET. PO (16:42)
[2018-03-15] MEDS: PANTOPRAZOLE 40 MG TABLET.DR. PO (16:44)
[2018-03-15] MEDS: QUEtiapine 25 MG TABLET. PO (20:17)
[2018-03-15] MEDS: HYDROcodone/APAP 5/325MG 1 TAB TABLET PO (21:35)
[2018-03-16] MEDS: PANTOPRAZOLE 40 MG TABLET.DR. PO (08:00)
[2018-03-16] MEDS: cloNIDine HCL 0.2 MG TABLET PO ×2 (09:00→21:17)
[2018-03-16] MEDS: levETIRAcetam 250 MG TABLET PO ×2 (09:00→21:17)
[2018-03-16] MEDS: LABETALOL HCL 200 MG TABLET PO ×2 (09:00→21:16)
[2018-03-16] MEDS ORDERED: IV NORMAL SALINE 1000ML BAG 1,000 ML IV (09:35)
[2018-03-16] MEDS ORDERED: DIALYSIS PATIENT. MC ×2 (09:45)
[2018-03-16] MEDS: LOSARTAN POTASSIUM 50 MG TABLET. PO (12:07)
[2018-03-16] MEDS: TORSEMIDE 20 MG TABLET. PO (12:08)
[2018-03-16] MEDS: amLODIPine BESYLATE 10 MG TABLET PO (12:08)
[2018-03-16] MEDS: HYDROcodone/APAP 5/325MG 1 TAB TABLET PO (13:18)
[2018-03-16] MEDS: LIDO:MAALOX 1:1 20 ML SINGLE DOSE. PO (14:38)
[2018-03-16] MEDS: MORPHINE SULFATE 2 MG/ML DISP.SYRIN. IV (15:39)
[2018-03-16] MEDS: QUEtiapine 25 MG TABLET. PO (21:16)
[2018-03-17] MEDS: PANTOPRAZOLE 40 MG TABLET.DR. PO (07:44)
[2018-03-17] MEDS: amLODIPine BESYLATE 10 MG TABLET PO (09:00)
[2018-03-17] MEDS: LABETALOL HCL 200 MG TABLET PO (09:00)
[2018-03-17] MEDS: LOSARTAN POTASSIUM 50 MG TABLET. PO (09:00)
[2018-03-17] MEDS: cloNIDine HCL 0.2 MG TABLET PO (09:00)
[2018-03-17] MEDS: TORSEMIDE 20 MG TABLET. PO (09:30)
[2018-03-17] MEDS: HYDROcodone/APAP 5/325MG 1 TAB TABLET PO ×2 (09:33→15:36)
[2018-03-17] MEDS: levETIRAcetam 250 MG TABLET PO (09:33)
[2018-03-17] MEDS: POLYETHYLENE GLYCOL 3350 17 GM PACKET. PO (11:30)
[2018-03-17] MEDS: HEPARIN PF 500 UNIT/5 ML DISP.SYRIN. IV (15:35)
== END 2018-03-17 15:45 | disposition home or self-care (01) | DRG 205 ==
LOC: ER 02:10 → 4 NORTH 03-15 18:08
PROC: 5A1D70Z Performance of Urinary Filtration, Intermittent, Less than 6 Hours Per Day (ICD-10-PCS; principal; 2018-03-16)
DX: M94.0 Chondrocostal junction syndrome [Tietze] (principal); N18.6 End stage renal disease; I16.1 Hypertensive emergency; I12.0 Hypertensive chronic kidney disease with stage 5 chronic kidney disease or end stage renal disease; F41.9 Anxiety disorder, unspecified; D63.1 Anemia in chronic kidney disease; E21.3 Hyperparathyroidism, unspecified; Z21 Asymptomatic human immunodeficiency virus [HIV] infection status; Z99.2 Dependence on renal dialysis; Z79.899 Other long term (current) drug therapy; Z85.72 Personal history of non-Hodgkin lymphomas; Z92.21 Personal history of antineoplastic chemotherapy; Z90.49 Acquired absence of other specified parts of digestive tract; Z88.3 Allergy status to other anti-infective agents; Z88.8 Allergy status to other drugs, medicaments and biological substances; Z82.49 Family history of ischemic heart disease and other diseases of the circulatory system; Z80.9 Family history of malignant neoplasm, unspecified
CPT/HCPCS: 36415; 71045; 71250; 74176; 78452; 80048; 80076; 81001; 81025; 83605; 83690; 84484; 85025; 85379; 85610; 85730; 93005; 93017; 96374; 96375; 96376; 99285; 99285-25; A9500; J0360; J0780; J2270; J2405; J2785; J2997; J3490

== ENCOUNTER 2018-03-17 20:23 | Inpatient (IN) | payer OTHER ==
[2018-03-17 20:54] LABS: ADD MAN DIFF? NO
[2018-03-17 20:57] LABS: BASO % 1 % (0-3); EOS # 0.4 x10^3/uL (0.0-0.7); EOS % 8 % (0-3); HEMATOCRIT 41.3 % (36.0-47.0); HEMOGLOBIN 13.7 g/dL (12.0-15.5); LYMPH % 19 % (24-48); MEAN CORPUSCULAR HEMOGLOBIN 28 pg (25-35); MEAN CORPUSCULAR HGB CONC 33 g/dL (31-37); MEAN CORPUSCULAR VOLUME 84 fL (79-100); MONO # 0.7 x10^3/uL (0.0-1.1); MONO % 14 % (0-9); NEUT # 2.9 x10^3uL (1.8-7.7); NEUT % 57 % (31-73); PLATELET COUNT 162 x10^3/uL (140-400); RED BLOOD COUNT 4.92 x10^6/uL (3.50-5.40); RED CELL DISTRIBUTION WIDTH 14.6 % (11.5-14.5)
[2018-03-17 21:11] LABS: ANION GAP 13 (6-14); BLOOD UREA NITROGEN 60 mg/dL (7-20); CALCIUM 9.4 mg/dL (8.5-10.1); CARBON DIOXIDE 28 mmol/L (21-32); CHLORIDE 91 mmol/L (98-107); CREATININE 8.7 mg/dL (0.6-1.0); GFR 6.5; GLUCOSE 109 mg/dL (70-99); POTASSIUM 5.9 mmol/L (3.5-5.1); SODIUM 132 mmol/L (136-145)
[2018-03-17 21:23] LABS: TROPONINI < 0.017 ng/mL (0.000-0.055)
[2018-03-17] MEDS: MORPHINE SULFATE 2 MG/ML DISP.SYRIN. IV (22:06)
[2018-03-17] MEDS: CALCIUM GLUCONATE 1,000 MG/10 ML VIAL. IVP (23:07)
[2018-03-17] MEDS: INSULIN REGULAR 100 UNIT/ML 3ML VIAL. IV (23:16)
[2018-03-17] MEDS: DEXTROSE 50% 25 GM / 50ML DISP.SYRIN. IV (23:17)
[2018-03-17] MEDS ORDERED: ACETAMINOPHEN 325 MG TABLET. PO (23:30)
[2018-03-18] MEDS: MORPHINE SULFATE 2 MG/ML DISP.SYRIN. IV (01:15)
[2018-03-18] MEDS: hydrALAZINE 20 MG/ML VIAL. IVP ×3 (05:23→20:13)
[2018-03-18] MEDS: LABETALOL 20 MG/4 ML DISP.SYRIN. IVP ×3 (06:03→21:47)
[2018-03-18] MEDS ORDERED: IV NORMAL SALINE 1000ML BAG 1,000 ML IV ×2 (07:52)
[2018-03-18] MEDS ORDERED: DIALYSIS PATIENT. MC ×2 (08:00)
[2018-03-18] MEDS ORDERED: C.DIFF MED SCREEN BY RX. MC (09:00)
[2018-03-18] MEDS: QUEtiapine 50 MG TAB.ER.24H. PO (09:00)
[2018-03-18 14:29] LABS: THYROID STIM HORMONE (TSH) 0.871 uIU/mL (0.358-3.74)
[2018-03-18] MEDS: ZOLPIDEM 5 MG TABLET. PO (19:26)
[2018-03-19] MEDS: QUEtiapine 50 MG TAB.ER.24H. PO (08:10)
[2018-03-19] MEDS: ALPRAZolam 0.5 MG TABLET PO (08:10)
[2018-03-19] MEDS: hydrALAZINE 20 MG/ML VIAL. IVP ×2 (08:12→11:39)
[2018-03-19] MEDS: ACETAMINOPHEN 325 MG TABLET. PO (16:16)
[2018-03-19] MEDS: amLODIPine BESYLATE 10 MG TABLET PO (16:17)
[2018-03-19] MEDS: TORSEMIDE 20 MG TABLET. PO (16:17)
[2018-03-19] MEDS: levETIRAcetam 250 MG TABLET PO ×2 (16:17→20:57)
[2018-03-19] MEDS: LOSARTAN POTASSIUM 50 MG TABLET. PO (16:18)
[2018-03-19] MEDS: PANTOPRAZOLE 40 MG TABLET.DR. PO (16:18)
[2018-03-19] MEDS: cloNIDine HCL 0.2 MG TABLET PO (20:57)
[2018-03-19] MEDS: ZOLPIDEM 5 MG TABLET. PO (20:57)
[2018-03-19] MEDS: LABETALOL HCL 200 MG TABLET PO (20:58)
[2018-03-20 04:42] LABS: ADD MAN DIFF? NO
[2018-03-20 04:47] LABS: BASO # 0.1 x10^3/uL (0.0-0.2); BASO % 2 % (0-3); EOS # 0.2 x10^3/uL (0.0-0.7); EOS % 5 % (0-3); HEMATOCRIT 34.2 % (36.0-47.0); HEMOGLOBIN 11.2 g/dL (12.0-15.5); LYMPH # 0.8 x10^3/uL (1.0-4.8); LYMPH % 26 % (24-48); MEAN CORPUSCULAR HEMOGLOBIN 28 pg (25-35); MEAN CORPUSCULAR HGB CONC 33 g/dL (31-37); MEAN CORPUSCULAR VOLUME 84 fL (79-100); MONO # 0.5 x10^3/uL (0.0-1.1); MONO % 15 % (0-9); NEUT # 1.7 x10^3uL (1.8-7.7); NEUT % 52 % (31-73); PLATELET COUNT 130 x10^3/uL (140-400); RED BLOOD COUNT 4.06 x10^6/uL (3.50-5.40); RED CELL DISTRIBUTION WIDTH 14.2 % (11.5-14.5); WHITE BLOOD COUNT 3.2 x10^3/uL (4.0-11.0)
[2018-03-20 05:05] LABS: ANION GAP 10 (6-14); BLOOD UREA NITROGEN 77 mg/dL (7-20); CALCIUM 8.7 mg/dL (8.5-10.1); CARBON DIOXIDE 27 mmol/L (21-32); CHLORIDE 94 mmol/L (98-107); CREATININE 8.4 mg/dL (0.6-1.0); GFR 6.8; GLUCOSE 85 mg/dL (70-99); POTASSIUM 4.3 mmol/L (3.5-5.1); SODIUM 131 mmol/L (136-145)
[2018-03-20] MEDS: ACETAMINOPHEN 325 MG TABLET. PO (05:53)
[2018-03-20] MEDS: ALPRAZolam 0.5 MG TABLET PO (05:58)
[2018-03-20] MEDS: levETIRAcetam 250 MG TABLET PO (08:11)
[2018-03-20] MEDS: QUEtiapine 50 MG TAB.ER.24H. PO (08:11)
[2018-03-20] MEDS: TORSEMIDE 20 MG TABLET. PO (08:12)
[2018-03-20] MEDS: PANTOPRAZOLE 40 MG TABLET.DR. PO (08:12)
[2018-03-20] MEDS: amLODIPine BESYLATE 10 MG TABLET PO (08:12)
[2018-03-20] MEDS: LABETALOL HCL 200 MG TABLET PO (08:13)
[2018-03-20] MEDS: cloNIDine HCL 0.2 MG TABLET PO (08:14)
[2018-03-20] MEDS: LOSARTAN POTASSIUM 50 MG TABLET. PO (08:14)
== END 2018-03-20 11:30 | disposition home or self-care (01) | DRG 205 ==
LOC: 5 SOUTH 03-18 00:01 → ER 20:23
PROC: 5A1D70Z Performance of Urinary Filtration, Intermittent, Less than 6 Hours Per Day (ICD-10-PCS; principal; 2018-03-18)
DX: M94.0 Chondrocostal junction syndrome [Tietze] (principal); N18.6 End stage renal disease; I13.11 Hypertensive heart and chronic kidney disease without heart failure, with stage 5 chronic kidney disease, or end stage renal disease; C81.90 Hodgkin lymphoma, unspecified, unspecified site; E87.5 Hyperkalemia; F41.9 Anxiety disorder, unspecified; Z88.8 Allergy status to other drugs, medicaments and biological substances; Z91.041 Radiographic dye allergy status; E11.22 Type 2 diabetes mellitus with diabetic chronic kidney disease; E21.3 Hyperparathyroidism, unspecified; Z82.49 Family history of ischemic heart disease and other diseases of the circulatory system; Z80.9 Family history of malignant neoplasm, unspecified; Z83.3 Family history of diabetes mellitus; Z76.5 Malingerer [conscious simulation]; Z91.19 Patient's noncompliance with other medical treatment and regimen; Z99.2 Dependence on renal dialysis; Z21 Asymptomatic human immunodeficiency virus [HIV] infection status
CPT/HCPCS: 36415; 80048; 84443; 84484; 85025; 93005; 96374; 96375; 96376; 99285; 99285-25; J0360; J0610; J1815; J2060; J2270; J3490; J7042

== ENCOUNTER 2018-03-21 12:34 | Emergency (ER) | payer OTHER ==
[2018-03-21] MEDS ORDERED: POTASSIUM CHLORIDE 20 MEQ TABLET.ER. PO (13:45)
[2018-03-21 14:47] LABS: ADD MAN DIFF? NO
[2018-03-21 15:00] LABS: BASO % 1 % (0-3); EOS # 0.2 x10^3/uL (0.0-0.7); EOS % 6 % (0-3); HEMATOCRIT 33.2 % (36.0-47.0); HEMOGLOBIN 11.1 g/dL (12.0-15.5); LYMPH # 0.5 x10^3/uL (1.0-4.8); LYMPH % 17 % (24-48); MEAN CORPUSCULAR HEMOGLOBIN 28 pg (25-35); MEAN CORPUSCULAR HGB CONC 33 g/dL (31-37); MEAN CORPUSCULAR VOLUME 83 fL (79-100); MONO # 0.4 x10^3/uL (0.0-1.1); MONO % 13 % (0-9); NEUT % 64 % (31-73); PLATELET COUNT 113 x10^3/uL (140-400); RED CELL DISTRIBUTION WIDTH 13.9 % (11.5-14.5); WHITE BLOOD COUNT 3.1 x10^3/uL (4.0-11.0)
[2018-03-21 15:09] LABS: ANION GAP 9 (6-14); BLOOD UREA NITROGEN 54 mg/dL (7-20); CALCIUM 8.7 mg/dL (8.5-10.1); CARBON DIOXIDE 29 mmol/L (21-32); CHLORIDE 97 mmol/L (98-107); CREATININE 5.8 mg/dL (0.6-1.0); GFR 10.4; GLUCOSE 88 mg/dL (70-99); POTASSIUM 3.6 mmol/L (3.5-5.1); SODIUM 135 mmol/L (136-145)
[2018-03-21 15:21] LABS: TROPONINI 0.017 ng/mL (0.000-0.055)
== END 2018-03-21 17:20 | disposition home or self-care (01) ==
LOC: ER 12:34
DX: R53.1 Weakness (principal); I12.0 Hypertensive chronic kidney disease with stage 5 chronic kidney disease or end stage renal disease; N18.6 End stage renal disease; Z99.2 Dependence on renal dialysis; Z88.5 Allergy status to narcotic agent; Z88.8 Allergy status to other drugs, medicaments and biological substances; Z91.041 Radiographic dye allergy status
CPT/HCPCS: 36415; 71045; 80048; 84484; 85025; 93005; 99285-25

== ENCOUNTER 2018-05-18 21:35 | Inpatient (IN) | payer OTHER ==
[~2018-05-18] VITALS: Ht 170.2 cm; Wt 68.5 kg
[~2018-05-18 21:35] MED LIST: AMLO10TA4 PO; AMLO10TA6 PO; AMOX1TAB58 PO; AMOX1TAB9 PO; CALC500T PO; CLON0.2T PO; CLON1PAT2 TD; DARU800T2 PO; DILT120C80 PO; DILT180C29 PO; DILT240C2 PO; DILT240C77 PO; DILT360C PO; DOXA2TAB2 PO; ERGO500027 PO; FAMO20TA5 PO; FOLI1TAB16 PO; HYDR-2758 PO; HYDR25TA PO; LABE200T4 PO; LACO150T PO; LEVE250T30 PO; LEVE500T6 PO; LISI-334 PO; LORA-434 PO; LOSA100T7 PO; LOSA50TA7 PO; NITR0.4T SL; NYST100054 PO; PANT20TA2 PO; Pantoprazole PO; QUET50TA5 PO; SPIR50TA4 PO; TORS20TA2 PO; TRIM300C17 PO
--- NOTE | 2018-05-18 22:11 | PHYS DOC ---
Past Medical History Past Medical History: Anxiety, Cancer, HIV, Hypertension, Renal Failure, Seizure, Other Additional Past Medical Histor: dialysis, hodgkins Past Surgical History: Appendectomy, Cholecystectomy, Other Additional Past Surgical Histo: L)upper arm fistula,R)upper chest port Alcohol Use: None Drug Use: None Adult General Chief Complaint Chief Complaint: LACERATION/AVULSION HPI HPI Patient is a 27-year-old female who has multiple medical problems, including a past history of Hodgkin's lymphoma, HIV infection, as well as ESRD, and an epilepsy disorder, who currently takes Keppra 250 mg twice daily, presents to the emergency department for evaluation. She reportedly had a seizure about 3 hours ago at home, but afterward appeared fine and ate dinner. She then went into her bedroom, and the patient's mother reports that she then found the patient with blood coming from her left forehead. She appears to have a laceration which is obscured by dried blood on her left eyebrow at this time. It is presumed that she might of had another seizure. She complains of chest discomfort, and generalized myalgias and malaise. She is not having any significant shortness of breath. She does report a generalized headache. Her last tetanus immunization is within the past year. She denies any neck pain or extremity pain or injuries. There are no alleviating or exacerbating factors to the patient's symptoms. The patient's last hemodialysis was today. She reports taking a dose of her Keppra this morning, and once again after dialysis. She is followed by Dr. Villeda, nephrology, after moving to this area from [place] about 9 months ago, but she does not otherwise have any physicians who she sees regularly. There are no alleviating, or exacerbating factors to her symptoms otherwise. Review of Systems Review of Systems Constitutional: Denies fever or chills [] Eyes: Denies change in visual acuity, redness, or eye pain [] HENT: Denies nasal congestion or sore throat [] Respiratory: Denies cough or shortness of breath [] Cardiovascular: The patient denies any shortness of breath, chest pain, palpitations, or orthopnea [] GI: Denies abdominal pain, nausea, vomiting, bloody stools or diarrhea [] : Denies dysuria or hematuria [] Musculoskeletal: Denies back pain or joint pain [] Integument: Denies rash or skin lesions [] Neurologic: Denies behavior change, lethargy, focal weakness or sensory changes [] Endocrine: Denies polyuria or polydipsia [] All other systems were reviewed and found to be within normal limits, except as documented in this note. Current Medications Current Medications Current Medications Medications (Trade) Dose Ordered Sig/Jackelyn Start Time Stop Time Status Last Admin Dose Admin Fentanyl Citrate (Fentanyl 2ml Vial) 50 mcg 1X ONCE 05/19/18 00:15 05/19/18 00:16 05/19/18 00:01 50 MCG Labetalol HCl (Normodyne Iv Push) 20 mg 1X ONCE 05/18/18 23:00 05/18/18 23:01 DC 05/18/18 22:57 20 MG Levetiracetam 500 mg/Dextrose 105 ml @ 420 mls/hr 1X ONCE 05/18/18 23:00 05/18/18 23:14 DC 05/18/18 22:56 420 MLS/HR Potassium Chloride (Klor-Con) 40 meq 1X ONCE 05/19/18 00:15 05/19/18 00:16 UNV Allergies Allergies Allergies Coded Allergies Type Severity Reaction Last Updated Verified diphenhydramine Allergy Severe Anxiety 03/18/18 Yes povidone-iodine Allergy Intermediate 10/11/17 Yes soap Allergy Intermediate 10/11/17 Yes lorazepam Allergy Mild Anxiety 03/18/18 Yes lisinopril Adverse Reaction Mild 11/04/17 Yes Physical Exam Physical Exam PHYSICAL EXAM: CONSTITUTIONAL: Well developed, well nourished HEAD: normocephalic, atraumatic EENT: PERRL, EOMI. Conjunctivae normal color, sclerae non-icteric; moist mucous membranes. There is tenderness to palpation above the left eyebrow. There is some fresh blood, with some dried blood on the left eyebrow, suggesting an underlying laceration. NECK: Supple, non-tender; no meningismus.There is full, painless range of motion of the cervical spine, without any focal bony midline tenderness to palpation. LUNGS: Lungs CTA, breathing even and unlabored. Normal air movement. HEART: Regular rate and rhythm, no murmur CHEST: No deformity; non-tender ABDOMEN: The abdomen is soft, there is mild diffuse tenderness to palpation of the abdomen without focal tenderness, rebound, or guarding, no masses or bruits. EXTREM: Normal ROM; no deformity, no calf tenderness. Normal pulses palpable in all extremities. There is no pedal edema. There is an AV fistula in the left arm. SKIN: No rash; no diaphoresis NEURO: Alert; normal speech and cognition; CN's grossly intact; strength grossly intact without focal deficit. BACK: No CVA TTP.There is no bony tenderness to palpation of the thoracic or lumbar spine. Current Patient Data Vital Signs Vital Signs Date Time Temp Pulse Resp B/P (MAP) Pulse Ox O2 Delivery O2 Flow Rate FiO2 05/18/18 22:57 99 210/108 05/18/18 22:06 98.4 18 99 Room Air 98.4 Lab Values Laboratory Tests Test 05/18/18 22:47 05/18/18 23:15 05/18/18 23:20 White Blood Count 7.0 x10^3/uL (4.0-11.0) Red Blood Count 3.63 x10^6/uL (3.50-5.40) Hemoglobin 9.9 g/dL (12.0-15.5) L Hematocrit 29.6 % (36.0-47.0) L Mean Corpuscular Volume 82 fL (79-100) Mean Corpuscular Hemoglobin 27 pg (25-35) Mean Corpuscular Hemoglobin Concent 33 g/dL (31-37) Red Cell Distribution Width 16.0 % (11.5-14.5) H Platelet Count 74 x10^3/uL (140-400) L Neutrophils (%) (Auto) 76 % (31-73) H Lymphocytes (%) (Auto) 9 % (24-48) L Monocytes (%) (Auto) 9 % (0-9) Eosinophils (%) (Auto) 5 % (0-3) H Basophils (%) (Auto) 1 % (0-3) Neutrophils # (Auto) 5.3 x10^3uL (1.8-7.7) Lymphocytes # (Auto) 0.7 x10^3/uL (1.0-4.8) L Monocytes # (Auto) 0.6 x10^3/uL (0.0-1.1) Eosinophils # (Auto) 0.3 x10^3/uL (0.0-0.7) Basophils # (Auto) 0.0 x10^3/uL (0.0-0.2) Maternal Serum HCG Beta Subunit 7 mIU/mL (0-5) H Prothrombin Time 13.8 SEC (11.7-14.0) Prothrombin Time INR 1.1 (0.8-1.1) Sodium Level 138 mmol/L (136-145) Potassium Level 2.9 mmol/L (3.5-5.1) *L Chloride Level 98 mmol/L (98-107) Carbon Dioxide Level 30 mmol/L (21-32) Anion Gap 10 (6-14) Blood Urea Nitrogen 21 mg/dL (7-20) H Creatinine 3.2 mg/dL (0.6-1.0) H Estimated GFR (Cockcroft-Gault) 20.7 BUN/Creatinine Ratio 7 (6-20) Glucose Level 119 mg/dL (70-99) H Calcium Level 9.1 mg/dL (8.5-10.1) Magnesium Level 1.7 mg/dL (1.8-2.4) L Total Bilirubin 1.0 mg/dL (0.2-1.0) Aspartate Amino Transferase (AST) 33 U/L (15-37) Alanine Aminotransferase (ALT) 30 U/L (14-59) Alkaline Phosphatase 106 U/L (46-116) Creatine Kinase 126 U/L (26-192) Creatine Kinase MB (Mass) 0.7 ng/mL (0.0-3.6) Creatine Kinase MB Relative Index 0.6 % (0-4) Troponin I Quantitative 0.225 ng/mL (0.000-0.055) AL-Lpo-E-Type Natriuretic Peptide > 77525 pg/mL (0-124) H Total Protein 8.3 g/dL (6.4-8.2) H Albumin 3.4 g/dL (3.4-5.0) Albumin/Globulin Ratio 0.7 (1.0-1.7) L Lipase 233 U/L (73-393) Laboratory Tests 05/18/18 22:47 Laboratory Tests 05/18/18 23:20 EKG EKG [Normal sinus rhythm at a rate of 112 beats for minute, left axis deviation, normal intervals, nonspecific ST/T changes without acute ischemic changes noted. Left ventricular hypertrophy pattern is present.] Radiology/Procedures Radiology/Procedures [ER physician preliminary chest XR interpretation: Cardiomegaly without acute disease.] PROCEDURE: CT HEAD WO CONTRAST PQRS Compliance Statement: One or more of the following individualized dose reduction techniques were utilized for this examination: 1. Automated exposure control 2. Adjustment of the mA and/or kV according to patient size 3. Use of iterative reconstruction technique CT HEAD WITHOUT CONTRAST History: seizure , head injury Comparison: CT head without contrast, October 13, 2017. Procedure: Axial images are obtained of the head from the skull base through the vertex without IV contrast. Findings: The ventricles and sulci are normal for the patient's age. No mass-effect, midline shift, hemorrhage, extra-axial fluid collection, or obvious acute infarction is identified. Basilar cisterns are patent. Bone windows demonstrate no acute calvarial abnormality. There is moderate left frontal scalp and left orbit preseptal hematoma. The globes are intact. The visualized paranasal sinuses are clear. Mastoid air cells are well aerated. IMPRESSION: 1. No acute intracranial abnormality. 2. Moderate left orbit preseptal hematoma. Course & Med Decision Making Course & Med Decision Making Pertinent Labs and Imaging studies reviewed. (See chart for details) [LACERATION PROCEDURE NOTE: After cleansing the left eyebrow area of some dried blood and pieces of paper towel that were adherent to the eyebrow, there is a 1 cm wound just superior to the left eyebrow that was visualized. Bleeding was controlled there was no foreign body seen. The wound was closed with tissue skin adhesive without difficulty.] 12:10 AM: The patient's condition remains stable. She has not had any recurrent seizures, but she states that she has had her last seizure was many months ago, she apparently had 2 episodes of seizures today. I discussed the case with the hospitalist will admit the patient overnight for further observation. Neurology consult be obtained in the morning. The patient states that she does not have a local neurologist since moving to this area many months ago. Dragon Disclaimer Dragon Disclaimer This electronic medical record was generated, in whole or in part, using a voice recognition dictation system. Departure Departure Impression: Primary Impression: Seizure Additional Impressions: Hypokalemia Closed head injury Disposition: ADMITTED INPATIENT Admitting Physician: Other (Lj) Condition: STABLE Referrals: NO PCP (PCP) Problem Qualifiers RENE LANDEROS MD May 18, 2018 22:10
--- NOTE | 2018-05-18 22:27 | RAD ---
RS Compliance Statement: One or more of the following individualized dose reduction techniques were utilized for this examination: 1. Automated exposure control 2. Adjustment of the mA and/or kV according to patient size 3. Use of iterative reconstruction technique CT HEAD WITHOUT CONTRAST History: seizure , head injury Comparison: CT head without contrast, October 13, 2017. Procedure: Axial images are obtained of the head from the skull base through the vertex without IV contrast. Findings: The ventricles and sulci are normal for the patient's age. No mass-effect, midline shift, hemorrhage, extra-axial fluid collection, or obvious acute infarction is identified. Basilar cisterns are patent. Bone windows demonstrate no acute calvarial abnormality. There is moderate left frontal scalp and left orbit preseptal hematoma. The globes are intact. The visualized paranasal sinuses are clear. Mastoid air cells are well aerated. IMPRESSION: 1. No acute intracranial abnormality. 2. Moderate left orbit preseptal hematoma. Electronically signed by: Gene Fuentes MD (05/18/2018 10:24 PM) [id number]
--- NOTE | 2018-05-18 22:31 | EKG ---
[facility] [address] [place] [address] Test Date: 2018-05-18 Test Time: 22:27:25 Pat Name: FRANCA MILES Department: Room: Gender: F Hem Inspector: KAREN : 1990 Requested By: RENE LANDEROS Order Number: [id number] Reading MD: Sanket Santamaria Measurements Intervals [place] Rate: 112 P: 62 [place]: 140 QRS: -29 QRSD: 94 T: 82 QT: 362 QTc: 495 Interpretive Statements SINUS TACHYCARDIA LEFT ATRIAL ABNORMALITY LEFTWARD AXIS CONSIDER LEFT VENTRICULAR HYPERTROPHY ABNORMAL ECG Electronically Signed On 05-22-2018 12:05:16 CDT by Sanket Santamaria
[2018-05-18] MEDS ORDERED: levETIRAcetam 500 MG in IV DEXTROSE 5% 100ML 100 ML IV ONE (23:00)
[2018-05-18] MEDS ORDERED: LABETALOL 20 MG/4 ML DISP.SYRIN. IVP ONE (23:00)
[2018-05-18 23:07] LABS: BASO % 1 % (0-3); EOS # 0.3 x10^3/uL (0.0-0.7); EOS % 5 % (0-3); HEMATOCRIT 29.6 % (36.0-47.0); HEMOGLOBIN 9.9 g/dL (12.0-15.5); LYMPH # 0.7 x10^3/uL (1.0-4.8); LYMPH % 9 % (24-48); MEAN CORPUSCULAR HEMOGLOBIN 27 pg (25-35); MEAN CORPUSCULAR HGB CONC 33 g/dL (31-37); MEAN CORPUSCULAR VOLUME 82 fL (79-100); MONO # 0.6 x10^3/uL (0.0-1.1); MONO % 9 % (0-9); NEUT # 5.3 x10^3uL (1.8-7.7); NEUT % 76 % (31-73); PLATELET COUNT 74 x10^3/uL (140-400); RED BLOOD COUNT 3.63 x10^6/uL (3.50-5.40)
[2018-05-18 23:45] LABS: PROTHROMBIN TIME PATIENT 13.8 SEC (11.7-14.0)
[2018-05-18 23:59] LABS: ALBUMIN 3.4 g/dL (3.4-5.0); ALBUMIN/GLOBULIN RATIO 0.7 (1.0-1.7); CALCIUM 9.1 mg/dL (8.5-10.1); CREATININE 3.2 mg/dL (0.6-1.0); GFR 20.7; MAGNESIUM 1.7 mg/dL (1.8-2.4); TOTAL PROTEIN 8.3 g/dL (6.4-8.2)
[2018-05-19] VITALS (9 sets, daily range): BP systolic 118–218; BP diastolic 58–130
[2018-05-19 00:02] LABS: POTASSIUM 2.9 mmol/L (3.5-5.1)
[2018-05-19 00:06] LABS: CREATINE KINASE 126 U/L (26-192)
[2018-05-19] MEDS ORDERED: fentaNYL PF VIAL 100 MCG/2 ML VIAL IV ONE (00:15)
[2018-05-19] MEDS ORDERED: POTASSIUM CHLORIDE 20 MEQ TABLET.ER. PO ONE (00:15)
[2018-05-19] MEDS: fentaNYL PF VIAL 100 MCG/2 ML VIAL IV PRN ×5 (03:26→21:13)
--- NOTE | 2018-05-19 05:23 | RAD ---
Indication:Seizure TECHNIQUE:Portable AP chest X-ray COMPARISON: 04/18/2018 FINDINGS: Stable position of right chest wall Chemo-Port. Heart is moderately enlarged in size. Lungs are clear. No pneumothorax or effusion. Visualized bony thorax within normal limits. IMPRESSION: Stable mild thyromegaly. No acute pulmonary process. Electronically signed by: Brian Marino DO (05/19/2018 5:20 AM) [id number]
[2018-05-19] MEDS: cloNIDine HCL 0.2 MG TABLET PO SCH ×2 (08:40→21:12)
[2018-05-19] MEDS: amLODIPine BESYLATE 10 MG TABLET PO SCH (08:41)
[2018-05-19] MEDS ORDERED: IV NORMAL SALINE 1000ML BAG 1,000 ML IV PRN ×2 (09:09)
[2018-05-19] MEDS ORDERED: DIALYSIS PATIENT. MC PRN (09:15)
[2018-05-19] MEDS: levETIRAcetam 500 MG TABLET PO SCH ×2 (09:17→21:11)
--- NOTE | 2018-05-19 09:54 | PDOC2 ---
NEUROLOGY CONSULT Date of Admission Date of Admission DATE: 05/19/18 TIME: 09:46 Reason for Consult Reason for Consult: Epilepsy Referring Physician Referring Physician: Dr. Gabriel Davidson Source Source: Chart review, Patient History of Present Illness History of Present Illness The patient is a 27-year-old right-handed female with a history of epilepsy since age 12. She also has HIV positivity and renal failure. She has a history of Hodgkin's lymphoma. She had at least 2 seizures yesterday. With the 2nd one, she fell and struck her left forehead and has headache as well as left rib pain. She has had EEG and MRI studies in the past, all negative. There is no history of stroke. She has had no further seizures here. Past Medical History Cardiovascular: HTN CENTRAL NERVOUS SYSTEM: Seizure GI: GERD Heme/Onc: Cancer (Hodgkin's lymphoma) Psych: Anxiety, Depression Infectious disease: HIV Renal/: Chronic renal failure Past Surgical History Past Surgical History: Appendectomy, Cholecystectomy, Other ( left arm dialysis fistula) Family History Family History: No pertinent hx ( negative for epilepsy) Social History Social History Single, lives with mother, recently moved here from [place], no alcohol, tobacco , street drugs Current Medications Current Medications Current Medications Levetiracetam 500 mg/Dextrose 105 ml @ 420 mls/hr 1X ONCE IV Last administered on 05/18/18at 22:56; Start 05/18/18 at 23:00; Stop 05/18/18 at 23:14 ; Status DC Labetalol HCl (Normodyne Iv Push) 20 mg 1X ONCE IVP Last administered on at 22:57; Start 05/18/18 at 23:00; Stop 05/18/18 at 23:01; Status DC Fentanyl Citrate (Fentanyl 2ml Vial) 50 mcg 1X ONCE IV Last administered on at 00:01; Start 05/19/18 at 00:15; Stop 05/19/18 at 00:16; Status DC Potassium Chloride (Klor-Con) 40 meq 1X ONCE PO Last administered on at 00:14; Start 05/19/18 at 00:15; Stop 05/19/18 at 00:18; Status DC Amlodipine Besylate (Norvasc) 10 mg DAILY PO Last administered on 05/19/18at 08: 41; Start 05/19/18 at 09:00 Clonidine HCl (Catapres) 0.2 mg BID PO Last administered on 05/19/18at 08:40; Start 05/19/18 at 09:00 Diltiazem HCl (Cardizem 24hr Cd) 240 mg DAILY PO Last administered on at 08:40; Start 05/19/18 at 09:00 Fentanyl Citrate (Fentanyl 2ml Vial) 50 mcg PRN Q3HRS PRN IV SEVERE PAIN Last administered on 05/19/18at 08:42; Start 05/19/18 at 03:00 Levetiracetam (Keppra) 500 mg BID PO Last administered on 05/19/18at 09:17; Start 05/19/18 at 09:00 Sodium Chloride 1,000 ml @ 1,000 mls/hr Q1H PRN IV hypotension; Start 05/19/18 at 09:09; Stop 05/19/18 at 15:08; Status Cancel Sodium Chloride 1,000 ml @ 400 mls/hr Q2H30M PRN IV PATENCY; Start 05/19/18 at 09:09; Stop 05/19/18 at 21:08; Status Cancel Info (PHARMACY MONITORING -- do not chart) 1 each PRN DAILY PRN MC SEE COMMENTS ; Start 05/19/18 at 09:15; Status Cancel Active Scripts Active [Pantoprazole] 40 MG Tablet.dr 40 Mg PO DAILYAC Ativan (Lorazepam) 1 Mg Tablet 1 Mg PO PRN Q6HRS PRN 30 Days Hydrocodone-Apap 5-325 (Hydrocodone Bit/Acetaminophen) 1 Each Tablet 1 Tab PO PRN Q6HRS PRN 30 Days Diltiazem 24Hr Cd (Diltiazem HCl) 240 Mg Cap.er.24h 240 Mg PO DAILY 30 Days Nitrostat (Nitroglycerin) 0.4 Mg Tab.subl 0.4 Mg SL PRN Q5MIN PRN 30 Days Reported Seroquel (Quetiapine Fumarate) 50 Mg Tablet 50 Mg PO HS Torsemide 20 Mg Tablet 1 Tab PO DAILY Labetalol Hcl 200 Mg Tablet 1 Tab PO BID Levetiracetam 500 Mg Tablet 250 Mg PO BID Clonidine Hcl 0.2 Mg Tablet 1 Tab PO BID Norvasc (Amlodipine Besylate) 10 Mg Tablet 10 Mg PO DAILY Labetalol Hcl 200 Mg Tablet 400 Mg PO BID Allergies Allergies: Coded Allergies: diphenhydramine (Verified Allergy, Severe, Anxiety, 03/18/18) Makes her feel "crazy" povidone-iodine (Verified Allergy, Intermediate, 10/11/17) soap (Verified Allergy, Intermediate, 10/11/17) lorazepam (Verified Allergy, Mild, Anxiety, 03/18/18) lisinopril (Verified Adverse Reaction, Mild, 11/04/17) Altered mental status per pt ROS Review of System Negative for fevers, chills, weight loss, shortness of breath, chest pain, indigestion, hematochezia, melena, dysuria. Full 14-point review systems is negative. Physical Exam Physical Examination General: Well-developed, well-nourished, Black female, who appears to be in pain HEENT: Normocephalic. Left forehead contusion and swollen around left orbit. Temporal arteriespulsatile and nontender. Neck: Supple without bruit, no meningismus Musculoskeletal: Stability:see neurologic. Gait exam:see neurologic. Tone:see neurologic. Strength:see neurologic. Neurological: Mental Status:intact, orientation, memory, attention span/concentration, language, fund of knowledge normal. Cranial Nerves:Pupils equal and reactive to light, extraocular movements areintact, visual miller are full to confrontation. Facial sensation is normal. There is no facial asymmetry, other than that from acute injury. Vestibulo-ocular reflex is intact. Palate elvates and tongue protrudes in midline. All other cranial related problems are negative except as mentioned before.Reflexes:2+ and symmetric with flexor plantar responses. Motor:5/5 strength with normal tone and bulk. Coordination: Finger-nose finger and [id number] testing are normal. Rapid alternating movements and fine finger movements are intact. Gait:Normal, including tandem. Sensory:Normal pinprick, vibration, light touch, proprioception. Vitals VITALS Vital Signs Date Time Temp Pulse Resp B/P (MAP) Pulse Ox O2 Delivery O2 Flow Rate FiO2 05/19/18 09:17 87 167/103 (124) 05/19/18 09:12 Room Air 05/19/18 07:00 98.1 14 97 98.1 Labs Labs Laboratory Tests Test 05/18/18 22:47 9/27/18 23:15 05/18/18 23:20 White Blood Count 7.0 x10^3/uL (4.0-11.0) Red Blood Count 3.63 x10^6/uL (3.50-5.40) Hemoglobin 9.9 g/dL (12.0-15.5) Hematocrit 29.6 % (36.0-47.0) Mean Corpuscular Volume 82 fL (79-100) Mean Corpuscular Hemoglobin 27 pg (25-35) Mean Corpuscular Hemoglobin Concent 33 g/dL (31-37) Red Cell Distribution Width 16.0 % (11.5-14.5) Platelet Count 74 x10^3/uL (140-400) Neutrophils (%) (Auto) 76 % (31-73) Lymphocytes (%) (Auto) 9 % (24-48) Monocytes (%) (Auto) 9 % (0-9) Eosinophils (%) (Auto) 5 % (0-3) Basophils (%) (Auto) 1 % (0-3) Neutrophils # (Auto) 5.3 x10^3uL (1.8-7.7) Lymphocytes # (Auto) 0.7 x10^3/uL (1.0-4.8) Monocytes # (Auto) 0.6 x10^3/uL (0.0-1.1) Eosinophils # (Auto) 0.3 x10^3/uL (0.0-0.7) Basophils # (Auto) 0.0 x10^3/uL (0.0-0.2) Maternal Serum HCG Beta Subunit 7 mIU/mL (0-5) Prothrombin Time 13.8 SEC (11.7-14.0) Prothromb Time International Ratio 1.1 (0.8-1.1) Sodium Level 138 mmol/L (136-145) Potassium Level 2.9 mmol/L (3.5-5.1) Chloride Level 98 mmol/L (98-107) Carbon Dioxide Level 30 mmol/L (21-32) Anion Gap 10 (6-14) Blood Urea Nitrogen 21 mg/dL (7-20) Creatinine 3.2 mg/dL (0.6-1.0) Estimated GFR (Cockcroft-Gault) 20.7 BUN/Creatinine Ratio 7 (6-20) Glucose Level 119 mg/dL (70-99) Calcium Level 9.1 mg/dL (8.5-10.1) Magnesium Level 1.7 mg/dL (1.8-2.4) Total Bilirubin 1.0 mg/dL (0.2-1.0) Aspartate Amino Transf (AST/SGOT) 33 U/L (15-37) Alanine Aminotransferase (ALT/SGPT) 30 U/L (14-59) Alkaline Phosphatase 106 U/L (46-116) Creatine Kinase 126 U/L (26-192) Creatine Kinase MB (Mass) 0.7 ng/mL (0.0-3.6) Creatine Kinase MB Relative Index 0.6 % (0-4) Troponin I Quantitative 0.225 ng/mL (0.000-0.055) DN-Sei-A-Type Natriuretic Peptide > 37147 pg/mL (0-124) Total Protein 8.3 g/dL (6.4-8.2) Albumin 3.4 g/dL (3.4-5.0) Albumin/Globulin Ratio 0.7 (1.0-1.7) Lipase 233 U/L (73-393) Laboratory Tests Test 05/18/18 22:47 05/18/18 23:15 05/18/18 23:20 White Blood Count 7.0 x10^3/uL (4.0-11.0) Red Blood Count 3.63 x10^6/uL (3.50-5.40) Hemoglobin 9.9 g/dL (12.0-15.5) Hematocrit 29.6 % (36.0-47.0) Mean Corpuscular Volume 82 fL (79-100) Mean Corpuscular Hemoglobin 27 pg (25-35) Mean Corpuscular Hemoglobin Concent 33 g/dL (31-37) Red Cell Distribution Width 16.0 % (11.5-14.5) Platelet Count 74 x10^3/uL (140-400) Neutrophils (%) (Auto) 76 % (31-73) Lymphocytes (%) (Auto) 9 % (24-48) Monocytes (%) (Auto) 9 % (0-9) Eosinophils (%) (Auto) 5 % (0-3) Basophils (%) (Auto) 1 % (0-3) Neutrophils # (Auto) 5.3 x10^3uL (1.8-7.7) Lymphocytes # (Auto) 0.7 x10^3/uL (1.0-4.8) Monocytes # (Auto) 0.6 x10^3/uL (0.0-1.1) Eosinophils # (Auto) 0.3 x10^3/uL (0.0-0.7) Basophils # (Auto) 0.0 x10^3/uL (0.0-0.2) Maternal Serum HCG Beta Subunit 7 mIU/mL (0-5) Prothrombin Time 13.8 SEC (11.7-14.0) Prothromb Time International Ratio 1.1 (0.8-1.1) Sodium Level 138 mmol/L (136-145) Potassium Level 2.9 mmol/L (3.5-5.1) Chloride Level 98 mmol/L (98-107) Carbon Dioxide Level 30 mmol/L (21-32) Anion Gap 10 (6-14) Blood Urea Nitrogen 21 mg/dL (7-20) Creatinine 3.2 mg/dL (0.6-1.0) Estimated GFR (Cockcroft-Gault) 20.7 BUN/Creatinine Ratio 7 (6-20) Glucose Level 119 mg/dL (70-99) Calcium Level 9.1 mg/dL (8.5-10.1) Magnesium Level 1.7 mg/dL (1.8-2.4) Total Bilirubin 1.0 mg/dL (0.2-1.0) Aspartate Amino Transf (AST/SGOT) 33 U/L (15-37) Alanine Aminotransferase (ALT/SGPT) 30 U/L (14-59) Alkaline Phosphatase 106 U/L (46-116) Creatine Kinase 126 U/L (26-192) Creatine Kinase MB (Mass) 0.7 ng/mL (0.0-3.6) Creatine Kinase MB Relative Index 0.6 % (0-4) Troponin I Quantitative 0.225 ng/mL (0.000-0.055) NT-Jlv-G-Type Natriuretic Peptide > 47259 pg/mL (0-124) Total Protein 8.3 g/dL (6.4-8.2) Albumin 3.4 g/dL (3.4-5.0) Albumin/Globulin Ratio 0.7 (1.0-1.7) Lipase 233 U/L (73-393) Images Images CT head: The ventricles and sulci are normal for the patient's age. No mass-effect, midline shift, hemorrhage, extra-axial fluid collection, or obvious acute infarction is identified. Basilar cisterns are patent. Bone windows demonstrate no acute calvarial abnormality. There is moderate left frontal scalp and left orbit preseptal hematoma. The globes are intact. The visualized paranasal sinuses are clear. Mastoid air cells are well aerated. IMPRESSION: 1. No acute intracranial abnormality. 2. Moderate left orbit preseptal hematoma. Assessment/Plan Assessment/Plan Impression: Epilepsy Closed head injury Multiple medical problems including renal failure and positive HIV as well as history of Hodgkin's lymphoma Recommendations: I increased the levetiracetam dose to 500 mg BID Because of persistent headache and head injury I will check in MRI I see no need to repeat EEG studies Aim for discharge as soon as tomorrow. Thank you for letting the help of the patient's care. STACIE SEGOVIA MD May 19, 2018 09:54
--- NOTE | 2018-05-19 11:58 | PDOC ---
PROGRESS NOTES Chief Complaint Chief Complaint Seizure with laceration to left eyebrow Past history of Hodgkin's lymphoma HIV infection ESRD on HD Epilepsy disorder History of Present Illness History of Present Illness Ms. Patterson is a 27 year old female with a PMH of HIV, ESRD, Hodgkin lymphoma and epilepsy disorder who presented to the ED after multiple seizures and a probable head laceration secondary to the seizure. Pt seen and examined Pt drowsy and lethargic, resting in NAD VSS DW nursing Vitals Vitals Vital Signs Date Time Temp Pulse Resp B/P (MAP) Pulse Ox O2 Delivery O2 Flow Rate FiO2 05/19/18 11:00 81 14 148/87 (107) 97 Room Air 05/19/18 07:00 98.1 98.1 Physical Exam General: No acute distress Heart: Regular rate, Normal S1, Normal S2 Lungs: Clear Abdomen: Soft Extremities: No clubbing Skin: No rashes Labs LABS Laboratory Tests Test 05/18/18 22:47 05/18/18 23:15 05/18/18 23:20 White Blood Count 7.0 x10^3/uL (4.0-11.0) Red Blood Count 3.63 x10^6/uL (3.50-5.40) Hemoglobin 9.9 g/dL (12.0-15.5) Hematocrit 29.6 % (36.0-47.0) Mean Corpuscular Volume 82 fL (79-100) Mean Corpuscular Hemoglobin 27 pg (25-35) Mean Corpuscular Hemoglobin Concent 33 g/dL (31-37) Red Cell Distribution Width 16.0 % (11.5-14.5) Platelet Count 74 x10^3/uL (140-400) Neutrophils (%) (Auto) 76 % (31-73) Lymphocytes (%) (Auto) 9 % (24-48) Monocytes (%) (Auto) 9 % (0-9) Eosinophils (%) (Auto) 5 % (0-3) Basophils (%) (Auto) 1 % (0-3) Neutrophils # (Auto) 5.3 x10^3uL (1.8-7.7) Lymphocytes # (Auto) 0.7 x10^3/uL (1.0-4.8) Monocytes # (Auto) 0.6 x10^3/uL (0.0-1.1) Eosinophils # (Auto) 0.3 x10^3/uL (0.0-0.7) Basophils # (Auto) 0.0 x10^3/uL (0.0-0.2) Maternal Serum HCG Beta Subunit 7 mIU/mL (0-5) Prothrombin Time 13.8 SEC (11.7-14.0) Prothromb Time International Ratio 1.1 (0.8-1.1) Sodium Level 138 mmol/L (136-145) Potassium Level 2.9 mmol/L (3.5-5.1) Chloride Level 98 mmol/L (98-107) Carbon Dioxide Level 30 mmol/L (21-32) Anion Gap 10 (6-14) Blood Urea Nitrogen 21 mg/dL (7-20) Creatinine 3.2 mg/dL (0.6-1.0) Estimated GFR (Cockcroft-Gault) 20.7 BUN/Creatinine Ratio 7 (6-20) Glucose Level 119 mg/dL (70-99) Calcium Level 9.1 mg/dL (8.5-10.1) Magnesium Level 1.7 mg/dL (1.8-2.4) Total Bilirubin 1.0 mg/dL (0.2-1.0) Aspartate Amino Transf (AST/SGOT) 33 U/L (15-37) Alanine Aminotransferase (ALT/SGPT) 30 U/L (14-59) Alkaline Phosphatase 106 U/L (46-116) Creatine Kinase 126 U/L (26-192) Creatine Kinase MB (Mass) 0.7 ng/mL (0.0-3.6) Creatine Kinase MB Relative Index 0.6 % (0-4) Troponin I Quantitative 0.225 ng/mL (0.000-0.055) DC-Vhm-U-Type Natriuretic Peptide > 01968 pg/mL (0-124) Total Protein 8.3 g/dL (6.4-8.2) Albumin 3.4 g/dL (3.4-5.0) Albumin/Globulin Ratio 0.7 (1.0-1.7) Lipase 233 U/L (73-393) Review of Systems Review of Systems Pt complains fo headache, complains of generalized weakness. Pt feels tired. Assessment and Plan Assessmemt and Plan Problems Medical Problems: (1) Closed head injury Status: Acute (2) Hypokalemia Status: Acute (3) Seizure Status: Acute Assessment: Seizure with laceration to left eyebrow Past history of Hodgkin's lymphoma HIV infection ESRD on HD Epilepsy disorder Plan: F/u neurology; appreciate input F/u nephrology; appreciate input Cardiac monitoring Continue HD for ESRD Seizure precautions Home medications Comment Review of Relevant I have reviewed the following items fiona (where applicable) has been applied. Labs Laboratory Tests Test 05/18/18 22:47 05/18/18 23:15 05/18/18 23:20 White Blood Count 7.0 x10^3/uL (4.0-11.0) Red Blood Count 3.63 x10^6/uL (3.50-5.40) Hemoglobin 9.9 g/dL (12.0-15.5) Hematocrit 29.6 % (36.0-47.0) Mean Corpuscular Volume 82 fL (79-100) Mean Corpuscular Hemoglobin 27 pg (25-35) Mean Corpuscular Hemoglobin Concent 33 g/dL (31-37) Red Cell Distribution Width 16.0 % (11.5-14.5) Platelet Count 74 x10^3/uL (140-400) Neutrophils (%) (Auto) 76 % (31-73) Lymphocytes (%) (Auto) 9 % (24-48) Monocytes (%) (Auto) 9 % (0-9) Eosinophils (%) (Auto) 5 % (0-3) Basophils (%) (Auto) 1 % (0-3) Neutrophils # (Auto) 5.3 x10^3uL (1.8-7.7) Lymphocytes # (Auto) 0.7 x10^3/uL (1.0-4.8) Monocytes # (Auto) 0.6 x10^3/uL (0.0-1.1) Eosinophils # (Auto) 0.3 x10^3/uL (0.0-0.7) Basophils # (Auto) 0.0 x10^3/uL (0.0-0.2) Maternal Serum HCG Beta Subunit 7 mIU/mL (0-5) Prothrombin Time 13.8 SEC (11.7-14.0) Prothromb Time International Ratio 1.1 (0.8-1.1) Sodium Level 138 mmol/L (136-145) Potassium Level 2.9 mmol/L (3.5-5.1) Chloride Level 98 mmol/L (98-107) Carbon Dioxide Level 30 mmol/L (21-32) Anion Gap 10 (6-14) Blood Urea Nitrogen 21 mg/dL (7-20) Creatinine 3.2 mg/dL (0.6-1.0) Estimated GFR (Cockcroft-Gault) 20.7 BUN/Creatinine Ratio 7 (6-20) Glucose Level 119 mg/dL (70-99) Calcium Level 9.1 mg/dL (8.5-10.1) Magnesium Level 1.7 mg/dL (1.8-2.4) Total Bilirubin 1.0 mg/dL (0.2-1.0) Aspartate Amino Transf (AST/SGOT) 33 U/L (15-37) Alanine Aminotransferase (ALT/SGPT) 30 U/L (14-59) Alkaline Phosphatase 106 U/L (46-116) Creatine Kinase 126 U/L (26-192) Creatine Kinase MB (Mass) 0.7 ng/mL (0.0-3.6) Creatine Kinase MB Relative Index 0.6 % (0-4) Troponin I Quantitative 0.225 ng/mL (0.000-0.055) WW-Zdv-X-Type Natriuretic Peptide > 33892 pg/mL (0-124) Total Protein 8.3 g/dL (6.4-8.2) Albumin 3.4 g/dL (3.4-5.0) Albumin/Globulin Ratio 0.7 (1.0-1.7) Lipase 233 U/L (73-393) Laboratory Tests Test 05/18/18 22:47 05/18/18 23:15 05/18/18 23:20 White Blood Count 7.0 x10^3/uL (4.0-11.0) Red Blood Count 3.63 x10^6/uL (3.50-5.40) Hemoglobin 9.9 g/dL (12.0-15.5) Hematocrit 29.6 % (36.0-47.0) Mean Corpuscular Volume 82 fL (79-100) Mean Corpuscular Hemoglobin 27 pg (25-35) Mean Corpuscular Hemoglobin Concent 33 g/dL (31-37) Red Cell Distribution Width 16.0 % (11.5-14.5) Platelet Count 74 x10^3/uL (140-400) Neutrophils (%) (Auto) 76 % (31-73) Lymphocytes (%) (Auto) 9 % (24-48) Monocytes (%) (Auto) 9 % (0-9) Eosinophils (%) (Auto) 5 % (0-3) Basophils (%) (Auto) 1 % (0-3) Neutrophils # (Auto) 5.3 x10^3uL (1.8-7.7) Lymphocytes # (Auto) 0.7 x10^3/uL (1.0-4.8) Monocytes # (Auto) 0.6 x10^3/uL (0.0-1.1) Eosinophils # (Auto) 0.3 x10^3/uL (0.0-0.7) Basophils # (Auto) 0.0 x10^3/uL (0.0-0.2) Maternal Serum HCG Beta Subunit 7 mIU/mL (0-5) Prothrombin Time 13.8 SEC (11.7-14.0) Prothromb Time International Ratio 1.1 (0.8-1.1) Sodium Level 138 mmol/L (136-145) Potassium Level 2.9 mmol/L (3.5-5.1) Chloride Level 98 mmol/L (98-107) Carbon Dioxide Level 30 mmol/L (21-32) Anion Gap 10 (6-14) Blood Urea Nitrogen 21 mg/dL (7-20) Creatinine 3.2 mg/dL (0.6-1.0) Estimated GFR (Cockcroft-Gault) 20.7 BUN/Creatinine Ratio 7 (6-20) Glucose Level 119 mg/dL (70-99) Calcium Level 9.1 mg/dL (8.5-10.1) Magnesium Level 1.7 mg/dL (1.8-2.4) Total Bilirubin 1.0 mg/dL (0.2-1.0) Aspartate Amino Transf (AST/SGOT) 33 U/L (15-37) Alanine Aminotransferase (ALT/SGPT) 30 U/L (14-59) Alkaline Phosphatase 106 U/L (46-116) Creatine Kinase 126 U/L (26-192) Creatine Kinase MB (Mass) 0.7 ng/mL (0.0-3.6) Creatine Kinase MB Relative Index 0.6 % (0-4) Troponin I Quantitative 0.225 ng/mL (0.000-0.055) NZ-Byt-B-Type Natriuretic Peptide > 01929 pg/mL (0-124) Total Protein 8.3 g/dL (6.4-8.2) Albumin 3.4 g/dL (3.4-5.0) Albumin/Globulin Ratio 0.7 (1.0-1.7) Lipase 233 U/L (73-393) Medications Current Medications Levetiracetam 500 mg/Dextrose 105 ml @ 420 mls/hr 1X ONCE IV Last administered on 05/18/18at 22:56; Start 05/18/18 at 23:00; Stop 05/18/18 at 23:14 ; Status DC Labetalol HCl (Normodyne Iv Push) 20 mg 1X ONCE IVP Last administered on at 22:57; Start 05/18/18 at 23:00; Stop 05/18/18 at 23:01; Status DC Fentanyl Citrate (Fentanyl 2ml Vial) 50 mcg 1X ONCE IV Last administered on at 00:01; Start 05/19/18 at 00:15; Stop 05/19/18 at 00:16; Status DC Potassium Chloride (Klor-Con) 40 meq 1X ONCE PO Last administered on at 00:14; Start 05/19/18 at 00:15; Stop 05/19/18 at 00:18; Status DC Amlodipine Besylate (Norvasc) 10 mg DAILY PO Last administered on 05/19/18at 08: 41; Start 05/19/18 at 09:00 Clonidine HCl (Catapres) 0.2 mg BID PO Last administered on 05/19/18at 08:40; Start 05/19/18 at 09:00 Diltiazem HCl (Cardizem 24hr Cd) 240 mg DAILY PO Last administered on at 08:40; Start 05/19/18 at 09:00 Fentanyl Citrate (Fentanyl 2ml Vial) 50 mcg PRN Q3HRS PRN IV SEVERE PAIN Last administered on 05/19/18at 08:42; Start 05/19/18 at 03:00 Levetiracetam (Keppra) 500 mg BID PO Last administered on 05/19/18at 09:17; Start 05/19/18 at 09:00 Sodium Chloride 1,000 ml @ 1,000 mls/hr Q1H PRN IV hypotension; Start 05/19/18 at 09:09; Stop 05/19/18 at 15:08; Status Cancel Sodium Chloride 1,000 ml @ 400 mls/hr Q2H30M PRN IV PATENCY; Start 05/19/18 at 09:09; Stop 05/19/18 at 21:08; Status Cancel Info (PHARMACY MONITORING -- do not chart) 1 each PRN DAILY PRN MC SEE COMMENTS ; Start 05/19/18 at 09:15; Status Cancel Active Scripts Active [Pantoprazole] 40 MG Tablet.dr 40 Mg PO DAILYAC Ativan (Lorazepam) 1 Mg Tablet 1 Mg PO PRN Q6HRS PRN 30 Days Hydrocodone-Apap 5-325 (Hydrocodone Bit/Acetaminophen) 1 Each Tablet 1 Tab PO PRN Q6HRS PRN 30 Days Diltiazem 24Hr Cd (Diltiazem HCl) 240 Mg Cap.er.24h 240 Mg PO DAILY 30 Days Nitrostat (Nitroglycerin) 0.4 Mg Tab.subl 0.4 Mg SL PRN Q5MIN PRN 30 Days Reported Seroquel (Quetiapine Fumarate) 50 Mg Tablet 50 Mg PO HS Torsemide 20 Mg Tablet 1 Tab PO DAILY Labetalol Hcl 200 Mg Tablet 1 Tab PO BID Levetiracetam 500 Mg Tablet 250 Mg PO BID Clonidine Hcl 0.2 Mg Tablet 1 Tab PO BID Norvasc (Amlodipine Besylate) 10 Mg Tablet 10 Mg PO DAILY Labetalol Hcl 200 Mg Tablet 400 Mg PO BID Vitals/I & O Vital Sign - Last 24 Hours 05/18/18 05/18/18 05/19/18 05/19/18 22:06 22:57 00:31 02:52 Temp 98.4 98.4 98.4 98.4 Pulse 110 99 103 Resp 18 16 B/P (MAP) 214/113 (146) 210/108 218/127 (157) Pulse Ox 99 99 O2 Delivery Room Air Room Air 9/28/18 9/28/18 9/28/18 9/28/18 03:26 03:27 03:56 07:00 Temp 98.4 98.1 98.4 98.1 Pulse 96 99 Resp 16 16 14 B/P (MAP) 181/108 (132) 180/113 (135) Pulse Ox 99 99 99 97 O2 Delivery Room Air Room Air 05/19/18 05/19/18 05/19/18 05/19/18 08:40 08:40 08:41 08:42 Pulse 99 B/P (MAP) 181/126 181/126 181/126 O2 Delivery Nasal Cannula 05/19/18 05/19/18 05/19/18 09:12 09:17 11:00 Pulse 87 81 Resp 14 B/P (MAP) 167/103 (124) 148/87 (107) Pulse Ox 97 O2 Delivery Room Air Room Air Intake and Output 05/18/18 05/18/18 05/19/18 15:00 23:00 07:00 Intake Total 100 ml Balance 100 ml LEANDRA CARRENO III DO May 19, 2018 11:58
--- NOTE | 2018-05-19 17:04 | RAD ---
MRI of the brain without contrast 05/19/2018 Clinical History: Seizures. Technique: Unenhanced T1-weighted sagittal and axial, T2-weighted axial and coronal and FLAIR and diffusion-weighted axial images of the brain were obtained. Additionally thin section FLAIR coronal images through the temporal lobes were obtained. Findings: Comparison is made to patient's CT scan of the head dated 05/18/2018. The ventricles and sulci are within normal limits in size and configuration. Patchy and a few small scattered areas of increased signal intensity are seen within the periventricular and subcortical white matter of both cerebral hemispheres which are felt to most likely represent areas of minimal small vessel ischemic disease. No acute parenchymal abnormality is seen. No extra-axial fluid collection is seen. There is no MRI evidence of acute ischemia/infarction. Images through the temporal lobes are within normal limits. Mild mucosal thickening is seen scattered throughout the paranasal sinuses. There are minimal bilateral mastoid effusions. Normal flow voids are seen within the major vascular structures surrounding the brain parenchyma. Impression: No acute parenchymal abnormality is seen. Electronically signed by: Joseph Hogue MD (05/19/2018 5:01 PM) [id number]
[2018-05-19] MEDS ORDERED: FUROSEMIDE 40 MG/4 ML VIAL. IVP ONE (23:45)
[2018-05-20] MEDS: fentaNYL PF VIAL 100 MCG/2 ML VIAL IV PRN ×6 (00:10→23:55)
[2018-05-20 02:29] VITALS: BP 180/112
[2018-05-20 07:10] VITALS: BP 190/112
[2018-05-20] MEDS ORDERED: IV NORMAL SALINE 1000ML BAG 1,000 ML IV PRN ×2 (08:00)
[2018-05-20] MEDS ORDERED: DIALYSIS PATIENT. MC PRN ×2 (10:45)
[2018-05-20] MEDS: amLODIPine BESYLATE 10 MG TABLET PO SCH (11:26)
[2018-05-20] MEDS: cloNIDine HCL 0.2 MG TABLET PO SCH ×2 (11:27→20:48)
--- NOTE | 2018-05-20 11:34 | PDOC ---
PROGRESS NOTES Chief Complaint Chief Complaint Seizure with laceration to left eyebrow Past history of Hodgkin's lymphoma HIV infection ESRD on HD Epilepsy disorder History of Present Illness History of Present Illness Pt seen and examined in dialysis Pt at baseline VSS DW nursing Vitals Vitals Vital Signs Date Time Temp Pulse Resp B/P (MAP) Pulse Ox O2 Delivery O2 Flow Rate FiO2 05/20/18 11:27 110 179/121 05/20/18 08:51 18 99 Room Air 05/20/18 07:10 97.9 97.9 Physical Exam General: Cooperative, No acute distress Heart: Regular rate, Normal S1, Normal S2 Lungs: Clear Abdomen: Normal bowel sounds, Soft Extremities: No clubbing, No cyanosis Skin: No rashes, No significant lesion Review of Systems Review of Systems Denies fever Mild hunger pain Assessment and Plan Assessmemt and Plan Assessment: Seizure with laceration to left eyebrow Past history of Hodgkin's lymphoma HIV infection ESRD on HD Epilepsy disorder Plan: HD Discharge Comment Review of Relevant I have reviewed the following items fiona (where applicable) has been applied. Labs Laboratory Tests Test 05/18/18 22:47 05/18/18 23:15 05/18/18 23:20 White Blood Count 7.0 x10^3/uL (4.0-11.0) Red Blood Count 3.63 x10^6/uL (3.50-5.40) Hemoglobin 9.9 g/dL (12.0-15.5) Hematocrit 29.6 % (36.0-47.0) Mean Corpuscular Volume 82 fL (79-100) Mean Corpuscular Hemoglobin 27 pg (25-35) Mean Corpuscular Hemoglobin Concent 33 g/dL (31-37) Red Cell Distribution Width 16.0 % (11.5-14.5) Platelet Count 74 x10^3/uL (140-400) Neutrophils (%) (Auto) 76 % (31-73) Lymphocytes (%) (Auto) 9 % (24-48) Monocytes (%) (Auto) 9 % (0-9) Eosinophils (%) (Auto) 5 % (0-3) Basophils (%) (Auto) 1 % (0-3) Neutrophils # (Auto) 5.3 x10^3uL (1.8-7.7) Lymphocytes # (Auto) 0.7 x10^3/uL (1.0-4.8) Monocytes # (Auto) 0.6 x10^3/uL (0.0-1.1) Eosinophils # (Auto) 0.3 x10^3/uL (0.0-0.7) Basophils # (Auto) 0.0 x10^3/uL (0.0-0.2) Maternal Serum HCG Beta Subunit 7 mIU/mL (0-5) Prothrombin Time 13.8 SEC (11.7-14.0) Prothromb Time International Ratio 1.1 (0.8-1.1) Sodium Level 138 mmol/L (136-145) Potassium Level 2.9 mmol/L (3.5-5.1) Chloride Level 98 mmol/L (98-107) Carbon Dioxide Level 30 mmol/L (21-32) Anion Gap 10 (6-14) Blood Urea Nitrogen 21 mg/dL (7-20) Creatinine 3.2 mg/dL (0.6-1.0) Estimated GFR (Cockcroft-Gault) 20.7 BUN/Creatinine Ratio 7 (6-20) Glucose Level 119 mg/dL (70-99) Calcium Level 9.1 mg/dL (8.5-10.1) Magnesium Level 1.7 mg/dL (1.8-2.4) Total Bilirubin 1.0 mg/dL (0.2-1.0) Aspartate Amino Transf (AST/SGOT) 33 U/L (15-37) Alanine Aminotransferase (ALT/SGPT) 30 U/L (14-59) Alkaline Phosphatase 106 U/L (46-116) Creatine Kinase 126 U/L (26-192) Creatine Kinase MB (Mass) 0.7 ng/mL (0.0-3.6) Creatine Kinase MB Relative Index 0.6 % (0-4) Troponin I Quantitative 0.225 ng/mL (0.000-0.055) WK-Hci-S-Type Natriuretic Peptide > 09862 pg/mL (0-124) Total Protein 8.3 g/dL (6.4-8.2) Albumin 3.4 g/dL (3.4-5.0) Albumin/Globulin Ratio 0.7 (1.0-1.7) Lipase 233 U/L (73-393) Medications Current Medications Levetiracetam 500 mg/Dextrose 105 ml @ 420 mls/hr 1X ONCE IV Last administered on 05/18/18at 22:56; Start 05/18/18 at 23:00; Stop 05/18/18 at 23:14 ; Status DC Labetalol HCl (Normodyne Iv Push) 20 mg 1X ONCE IVP Last administered on at 22:57; Start 05/18/18 at 23:00; Stop 05/18/18 at 23:01; Status DC Fentanyl Citrate (Fentanyl 2ml Vial) 50 mcg 1X ONCE IV Last administered on at 00:01; Start 05/19/18 at 00:15; Stop 05/19/18 at 00:16; Status DC Potassium Chloride (Klor-Con) 40 meq 1X ONCE PO Last administered on at 00:14; Start 05/19/18 at 00:15; Stop 05/19/18 at 00:18; Status DC Amlodipine Besylate (Norvasc) 10 mg DAILY PO Last administered on 05/20/18at 11: 26; Start 05/19/18 at 09:00 Clonidine HCl (Catapres) 0.2 mg BID PO Last administered on 05/20/18at 11:27; Start 05/19/18 at 09:00 Diltiazem HCl (Cardizem 24hr Cd) 240 mg DAILY PO Last administered on at 11:26; Start 05/19/18 at 09:00 Fentanyl Citrate (Fentanyl 2ml Vial) 50 mcg PRN Q3HRS PRN IV SEVERE PAIN Last administered on 05/20/18at 08:51; Start 05/19/18 at 03:00 Levetiracetam (Keppra) 500 mg BID PO Last administered on 05/19/18at 21:11; Start 05/19/18 at 09:00 Sodium Chloride 1,000 ml @ 1,000 mls/hr Q1H PRN IV hypotension; Start 05/19/18 at 09:09; Stop 05/19/18 at 15:08; Status Cancel Sodium Chloride 1,000 ml @ 400 mls/hr Q2H30M PRN IV PATENCY; Start 05/19/18 at 09:09; Stop 05/19/18 at 21:08; Status Cancel Info (PHARMACY MONITORING -- do not chart) 1 each PRN DAILY PRN MC SEE COMMENTS ; Start 05/19/18 at 09:15; Status Cancel Furosemide (Lasix) 40 mg 1X ONCE IVP Last administered on 05/19/18at 23:41; Start 05/19/18 at 23:45; Stop 05/19/18 at 23:46; Status DC Sodium Chloride 1,000 ml @ 1,000 mls/hr Q1H PRN IV hypotension; Start 05/20/18 at 08:00; Stop 05/20/18 at 13:59 Sodium Chloride 1,000 ml @ 400 mls/hr Q2H30M PRN IV PATENCY; Start 05/20/18 at 08:00; Stop 05/20/18 at 19:59 Info (PHARMACY MONITORING -- do not chart) 1 each PRN DAILY PRN MC SEE COMMENTS ; Start 05/20/18 at 10:45; Status UNV Info (PHARMACY MONITORING -- do not chart) 1 each PRN DAILY PRN MC SEE COMMENTS ; Start 05/20/18 at 10:45 Active Scripts Active [Pantoprazole] 40 MG Tablet.dr 40 Mg PO DAILYAC Ativan (Lorazepam) 1 Mg Tablet 1 Mg PO PRN Q6HRS PRN 30 Days Hydrocodone-Apap 5-325 (Hydrocodone Bit/Acetaminophen) 1 Each Tablet 1 Tab PO PRN Q6HRS PRN 30 Days Diltiazem 24Hr Cd (Diltiazem HCl) 240 Mg Cap.er.24h 240 Mg PO DAILY 30 Days Nitrostat (Nitroglycerin) 0.4 Mg Tab.subl 0.4 Mg SL PRN Q5MIN PRN 30 Days Reported Seroquel (Quetiapine Fumarate) 50 Mg Tablet 50 Mg PO HS Torsemide 20 Mg Tablet 1 Tab PO DAILY Labetalol Hcl 200 Mg Tablet 1 Tab PO BID Levetiracetam 500 Mg Tablet 250 Mg PO BID Clonidine Hcl 0.2 Mg Tablet 1 Tab PO BID Norvasc (Amlodipine Besylate) 10 Mg Tablet 10 Mg PO DAILY Labetalol Hcl 200 Mg Tablet 400 Mg PO BID Vitals/I & O Vital Sign - Last 24 Hours 05/19/18 05/19/18 05/19/18 05/19/18 14:06 15:00 16:40 17:44 Temp 98.1 98.1 Pulse 85 68 Resp 14 18 B/P (MAP) 155/87 (109) 118/58 (78) Pulse Ox 97 100 O2 Delivery Room Air Room Air Room Air Room Air 05/19/18 05/19/18 05/19/18 05/19/18 18:57 19:41 21:12 21:13 Temp 98.1 98.1 Pulse 85 96 Resp 16 B/P (MAP) 168/102 (124) 168/102 Pulse Ox 100 O2 Delivery Room Air Room Air Room Air 05/19/18 05/20/18 05/20/18 05/20/18 23:18 00:10 00:57 02:29 Temp 98.6 98.5 98.6 98.5 Pulse 16 87 Resp 16 16 16 16 B/P (MAP) 213/130 (157) 180/112 (134) Pulse Ox 99 99 O2 Delivery Room Air Room Air Room Air Room Air 05/20/18 05/20/18 05/20/18 05/20/18 07:10 08:00 08:51 11:26 Temp 97.9 97.9 Pulse 87 110 Resp 16 18 B/P (MAP) 190/112 (138) 179/121 Pulse Ox 99 99 O2 Delivery Room Air Room Air Room Air 05/20/18 05/20/18 11:26 11:27 Pulse 110 110 B/P (MAP) 179/121 179/121 Intake and Output 05/19/18 05/19/18 05/20/18 15:00 23:00 07:00 Intake Total 540 ml 1240 ml Balance 540 ml 1240 ml LEANDRA CARRENO III DO May 20, 2018 11:34
[2018-05-20] MEDS: levETIRAcetam 500 MG TABLET PO SCH ×2 (12:09→20:48)
--- NOTE | 2018-05-20 13:27 | PDOC2 ---
CONSULT Date of Consult Date of Consult DATE: 05/20/18 TIME: 13:23 Reason for Consult Reason for Consult: ESRD AND HTN Referring Physician Referring Physician: BAKARI Identification/Chief Complaint Chief Complaint SEIZURE Source Source: Chart review, Patient History of Present Illness Reason for Visit: THIS IS A 27 YR OLD WITH SEIZURE. LABS C/W ESRD AND LOW K. HAD OP HD VIA HER AV ACCESS ON . LAST HD WAS ON TUESDAY. ESRD DUE TO HTN Past Medical History Cardiovascular: HTN CENTRAL NERVOUS SYSTEM: Seizure GI: GERD Heme/Onc: Cancer (Hodgkin's lymphoma) Psych: Anxiety, Depression Infectious disease: HIV Renal/: Chronic renal failure Endocrine: Hyperparathyroidism Past Surgical History Past Surgical History: Appendectomy, Cholecystectomy, Other ( left arm dialysis fistula) Family History Family History: Heart Disease Social History ALCOHOL: none Drugs: None Lives: with Family Current Problem List Problem List Problems Medical Problems: (1) Closed head injury Status: Acute (2) Hypokalemia Status: Acute (3) Seizure Status: Acute Current Medications Current Medications Current Medications Levetiracetam 500 mg/Dextrose 105 ml @ 420 mls/hr 1X ONCE IV Last administered on 05/18/18at 22:56; Start 05/18/18 at 23:00; Stop 05/18/18 at 23:14 ; Status DC Labetalol HCl (Normodyne Iv Push) 20 mg 1X ONCE IVP Last administered on at 22:57; Start 05/18/18 at 23:00; Stop 05/18/18 at 23:01; Status DC Fentanyl Citrate (Fentanyl 2ml Vial) 50 mcg 1X ONCE IV Last administered on at 00:01; Start 05/19/18 at 00:15; Stop 05/19/18 at 00:16; Status DC Potassium Chloride (Klor-Con) 40 meq 1X ONCE PO Last administered on at 00:14; Start 05/19/18 at 00:15; Stop 05/19/18 at 00:18; Status DC Amlodipine Besylate (Norvasc) 10 mg DAILY PO Last administered on 05/20/18at 11: 26; Start 05/19/18 at 09:00 Clonidine HCl (Catapres) 0.2 mg BID PO Last administered on 05/20/18at 11:27; Start 05/19/18 at 09:00 Diltiazem HCl (Cardizem 24hr Cd) 240 mg DAILY PO Last administered on at 11:26; Start 05/19/18 at 09:00 Fentanyl Citrate (Fentanyl 2ml Vial) 50 mcg PRN Q3HRS PRN IV SEVERE PAIN Last administered on 05/20/18at 12:10; Start 05/19/18 at 03:00 Levetiracetam (Keppra) 500 mg BID PO Last administered on 05/20/18at 12:09; Start 05/19/18 at 09:00 Sodium Chloride 1,000 ml @ 1,000 mls/hr Q1H PRN IV hypotension; Start 05/19/18 at 09:09; Stop 05/19/18 at 15:08; Status Cancel Sodium Chloride 1,000 ml @ 400 mls/hr Q2H30M PRN IV PATENCY; Start 05/19/18 at 09:09; Stop 05/19/18 at 21:08; Status Cancel Info (PHARMACY MONITORING -- do not chart) 1 each PRN DAILY PRN MC SEE COMMENTS ; Start 05/19/18 at 09:15; Status Cancel Furosemide (Lasix) 40 mg 1X ONCE IVP Last administered on 05/19/18at 23:41; Start 05/19/18 at 23:45; Stop 05/19/18 at 23:46; Status DC Sodium Chloride 1,000 ml @ 1,000 mls/hr Q1H PRN IV hypotension; Start 05/20/18 at 08:00; Stop 05/20/18 at 13:59 Sodium Chloride 1,000 ml @ 400 mls/hr Q2H30M PRN IV PATENCY; Start 05/20/18 at 08:00; Stop 05/20/18 at 19:59 Info (PHARMACY MONITORING -- do not chart) 1 each PRN DAILY PRN MC SEE COMMENTS ; Start 05/20/18 at 10:45; Status UNV Info (PHARMACY MONITORING -- do not chart) 1 each PRN DAILY PRN MC SEE COMMENTS ; Start 05/20/18 at 10:45 Active Scripts Active [Pantoprazole] 40 MG Tablet.dr 40 Mg PO DAILYAC Ativan (Lorazepam) 1 Mg Tablet 1 Mg PO PRN Q6HRS PRN 30 Days Hydrocodone-Apap 5-325 (Hydrocodone Bit/Acetaminophen) 1 Each Tablet 1 Tab PO PRN Q6HRS PRN 30 Days Diltiazem 24Hr Cd (Diltiazem HCl) 240 Mg Cap.er.24h 240 Mg PO DAILY 30 Days Nitrostat (Nitroglycerin) 0.4 Mg Tab.subl 0.4 Mg SL PRN Q5MIN PRN 30 Days Reported Seroquel (Quetiapine Fumarate) 50 Mg Tablet 50 Mg PO HS Torsemide 20 Mg Tablet 1 Tab PO DAILY Labetalol Hcl 200 Mg Tablet 1 Tab PO BID Levetiracetam 500 Mg Tablet 250 Mg PO BID Clonidine Hcl 0.2 Mg Tablet 1 Tab PO BID Norvasc (Amlodipine Besylate) 10 Mg Tablet 10 Mg PO DAILY Labetalol Hcl 200 Mg Tablet 400 Mg PO BID Allergies Allergies: Coded Allergies: diphenhydramine (Verified Allergy, Severe, Anxiety, 03/18/18) Makes her feel "crazy" povidone-iodine (Verified Allergy, Intermediate, 10/11/17) soap (Verified Allergy, Intermediate, 10/11/17) lorazepam (Verified Allergy, Mild, Anxiety, 03/18/18) lisinopril (Verified Adverse Reaction, Mild, 11/04/17) Altered mental status per pt ROS Review of System FULL ROS NEG Neurological: Yes Other (SEIZURE) Physical Exam General: Alert, Oriented X3, Cooperative, No acute distress HEENT: Atraumatic, PERRLA Lungs: Clear to auscultation Heart: Regular rate, Normal S1 Abdomen: Normal bowel sounds, No tenderness Skin: No breakdown Neuro: Normal speech, Strength at 5/5 X4 ext, Cranial nerves 3-12 NL Psych/Mental Status: Mental status NL, Mood NL MUSCULOSKELETAL: No deformity, No swelling Vitals VITALS Vital Signs Date Time Temp Pulse Resp B/P (MAP) Pulse Ox O2 Delivery O2 Flow Rate FiO2 05/20/18 12:10 16 99 Room Air 05/20/18 11:27 110 179/121 05/20/18 07:10 97.9 97.9 Labs Labs Laboratory Tests Test 05/18/18 22:47 05/18/18 23:15 05/18/18 23:20 White Blood Count 7.0 x10^3/uL (4.0-11.0) Red Blood Count 3.63 x10^6/uL (3.50-5.40) Hemoglobin 9.9 g/dL (12.0-15.5) Hematocrit 29.6 % (36.0-47.0) Mean Corpuscular Volume 82 fL (79-100) Mean Corpuscular Hemoglobin 27 pg (25-35) Mean Corpuscular Hemoglobin Concent 33 g/dL (31-37) Red Cell Distribution Width 16.0 % (11.5-14.5) Platelet Count 74 x10^3/uL (140-400) Neutrophils (%) (Auto) 76 % (31-73) Lymphocytes (%) (Auto) 9 % (24-48) Monocytes (%) (Auto) 9 % (0-9) Eosinophils (%) (Auto) 5 % (0-3) Basophils (%) (Auto) 1 % (0-3) Neutrophils # (Auto) 5.3 x10^3uL (1.8-7.7) Lymphocytes # (Auto) 0.7 x10^3/uL (1.0-4.8) Monocytes # (Auto) 0.6 x10^3/uL (0.0-1.1) Eosinophils # (Auto) 0.3 x10^3/uL (0.0-0.7) Basophils # (Auto) 0.0 x10^3/uL (0.0-0.2) Maternal Serum HCG Beta Subunit 7 mIU/mL (0-5) Prothrombin Time 13.8 SEC (11.7-14.0) Prothromb Time International Ratio 1.1 (0.8-1.1) Sodium Level 138 mmol/L (136-145) Potassium Level 2.9 mmol/L (3.5-5.1) Chloride Level 98 mmol/L (98-107) Carbon Dioxide Level 30 mmol/L (21-32) Anion Gap 10 (6-14) Blood Urea Nitrogen 21 mg/dL (7-20) Creatinine 3.2 mg/dL (0.6-1.0) Estimated GFR (Cockcroft-Gault) 20.7 BUN/Creatinine Ratio 7 (6-20) Glucose Level 119 mg/dL (70-99) Calcium Level 9.1 mg/dL (8.5-10.1) Magnesium Level 1.7 mg/dL (1.8-2.4) Total Bilirubin 1.0 mg/dL (0.2-1.0) Aspartate Amino Transf (AST/SGOT) 33 U/L (15-37) Alanine Aminotransferase (ALT/SGPT) 30 U/L (14-59) Alkaline Phosphatase 106 U/L (46-116) Creatine Kinase 126 U/L (26-192) Creatine Kinase MB (Mass) 0.7 ng/mL (0.0-3.6) Creatine Kinase MB Relative Index 0.6 % (0-4) Troponin I Quantitative 0.225 ng/mL (0.000-0.055) HS-Byh-G-Type Natriuretic Peptide > 07744 pg/mL (0-124) Total Protein 8.3 g/dL (6.4-8.2) Albumin 3.4 g/dL (3.4-5.0) Albumin/Globulin Ratio 0.7 (1.0-1.7) Lipase 233 U/L (73-393) Assessment/Plan Assessment/Plan IMP ESRD MALIGNANT HTN NON COMPLIANCE ANEMIA SEIZURE HYPOKALEMIA PLAN HD TODAY RESUME HOME BP MEDS K REPLACED WITH HD ENC MED COMPLIANCE HOLD JAIMEE TILL HTN CONTROL IS BETTER EVERARDO BURDICK MD May 20, 2018 13:27
[2018-05-20 15:10] VITALS: BP 151/104
[2018-05-20 19:15] VITALS: BP 178/107
[2018-05-20 23:30] VITALS: BP 195/112
[2018-05-21] MEDS: fentaNYL PF VIAL 100 MCG/2 ML VIAL IV PRN ×3 (03:23→10:59)
[2018-05-21 03:36] VITALS: BP 169/94
[2018-05-21 07:00] VITALS: BP 179/103
[2018-05-21] MEDS: cloNIDine HCL 0.2 MG TABLET PO SCH (07:38)
[2018-05-21] MEDS: amLODIPine BESYLATE 10 MG TABLET PO SCH (07:39)
[2018-05-21] MEDS: levETIRAcetam 500 MG TABLET PO SCH (07:39)
--- NOTE | 2018-05-21 10:40 | PDOC ---
Renal-Progress Notes Subjective Notes Notes NO NEW COMPLAINTS History of Present Illness Hx of present illness STABLE Vitals Vitals Vital Signs Date Time Temp Pulse Resp B/P (MAP) Pulse Ox O2 Delivery O2 Flow Rate FiO2 05/21/18 08:00 Room Air 05/21/18 07:39 84 179/103 05/21/18 07:38 16 100 05/21/18 07:00 97.7 97.7 Weight Weight [ ] I.O. Intake and Output Intake and Output 05/21/18 07:00 Intake Total 1050 ml Balance 1050 ml Intake Oral 1050 ml # Voids 4 Review of Systems Constitutional: yes: alert, oriented Ears/Nose/Throat: Yes: no symptom reported Eyes: Yes: no symptom reported Pulmonary: Yes no symptom reported Cardiovascular: Yes no symptom reported Genitourinary: Yes: no symptom reported Musculoskeletal: Yes: no symptom reported Psychiatric/Neurological: Yes: no symptom reported Endocrine: Yes: no symptom reported Physical Exam General Appearance: no apparent distress Skin: warm Heart: S1S2 Abdomen: soft, bowel sounds present Genitourinary: bladder flat Extremities: pulses present Neurology: alert, oriented Assessment Assessment IMP ESRD ANEMIA MALIGNANT HTN SEIZURES PLAN CONT BP MEDS ENC COMPLIANCE HD TTS EVERARDO BURDICK MD May 21, 2018 10:39
[2018-05-21 11:10] VITALS: BP 142/93
--- NOTE | 2018-05-21 11:52 | PDOC ---
PROGRESS NOTES Chief Complaint Chief Complaint Seizure with laceration to left eyebrow Past history of Hodgkin's lymphoma HIV infection ESRD on HD Epilepsy disorder History of Present Illness History of Present Illness Pt seen and examined Pt alert & oriented; affect appropriate Pt at baseline and would like to go home at some point today. Pt was not feeling well yesterday and stayed overnight. VSS DW nursing Vitals Vitals Vital Signs Date Time Temp Pulse Resp B/P (MAP) Pulse Ox O2 Delivery O2 Flow Rate FiO2 05/21/18 10:59 100 Room Air 05/21/18 07:39 84 179/103 05/21/18 07:38 16 05/21/18 07:00 97.7 97.7 Physical Exam General: Alert, Oriented X3, Cooperative, No acute distress Heart: Regular rate, Normal S1 Lungs: Clear Abdomen: Normal bowel sounds, No tenderness Extremities: No clubbing, No cyanosis Skin: No breakdown Review of Systems Review of Systems Pt denies angina, denies SOA. Assessment and Plan Assessmemt and Plan Problems Medical Problems: (1) Closed head injury Status: Acute (2) Hypokalemia Status: Acute (3) Seizure Status: Acute Assessment: Seizure with laceration to left eyebrow Past history of Hodgkin's lymphoma HIV infection ESRD on HD Epilepsy disorder Plan: Pt at baseline Probable discharge today is stable Home medications Comment Review of Relevant I have reviewed the following items fiona (where applicable) has been applied. Medications Current Medications Levetiracetam 500 mg/Dextrose 105 ml @ 420 mls/hr 1X ONCE IV Last administered on 05/18/18at 22:56; Start 05/18/18 at 23:00; Stop 05/18/18 at 23:14 ; Status DC Labetalol HCl (Normodyne Iv Push) 20 mg 1X ONCE IVP Last administered on at 22:57; Start 05/18/18 at 23:00; Stop 05/18/18 at 23:01; Status DC Fentanyl Citrate (Fentanyl 2ml Vial) 50 mcg 1X ONCE IV Last administered on at 00:01; Start 05/19/18 at 00:15; Stop 05/19/18 at 00:16; Status DC Potassium Chloride (Klor-Con) 40 meq 1X ONCE PO Last administered on at 00:14; Start 05/19/18 at 00:15; Stop 05/19/18 at 00:18; Status DC Amlodipine Besylate (Norvasc) 10 mg DAILY PO Last administered on 05/21/18at 07: 39; Start 05/19/18 at 09:00 Clonidine HCl (Catapres) 0.2 mg BID PO Last administered on 05/21/18at 07:38; Start 05/19/18 at 09:00 Diltiazem HCl (Cardizem 24hr Cd) 240 mg DAILY PO Last administered on at 07:38; Start 05/19/18 at 09:00 Fentanyl Citrate (Fentanyl 2ml Vial) 50 mcg PRN Q3HRS PRN IV SEVERE PAIN Last administered on 05/21/18at 10:59; Start 05/19/18 at 03:00 Levetiracetam (Keppra) 500 mg BID PO Last administered on 05/21/18at 07:39; Start 05/19/18 at 09:00 Sodium Chloride 1,000 ml @ 1,000 mls/hr Q1H PRN IV hypotension; Start 05/19/18 at 09:09; Stop 05/19/18 at 15:08; Status Cancel Sodium Chloride 1,000 ml @ 400 mls/hr Q2H30M PRN IV PATENCY; Start 05/19/18 at 09:09; Stop 05/19/18 at 21:08; Status Cancel Info (PHARMACY MONITORING -- do not chart) 1 each PRN DAILY PRN MC SEE COMMENTS ; Start 05/19/18 at 09:15; Status Cancel Furosemide (Lasix) 40 mg 1X ONCE IVP Last administered on 05/19/18at 23:41; Start 05/19/18 at 23:45; Stop 05/19/18 at 23:46; Status DC Sodium Chloride 1,000 ml @ 1,000 mls/hr Q1H PRN IV hypotension; Start 05/20/18 at 08:00; Stop 05/20/18 at 13:59; Status DC Sodium Chloride 1,000 ml @ 400 mls/hr Q2H30M PRN IV PATENCY; Start 05/20/18 at 08:00; Stop 05/20/18 at 19:59; Status DC Info (PHARMACY MONITORING -- do not chart) 1 each PRN DAILY PRN MC SEE COMMENTS ; Start 05/20/18 at 10:45; Status UNV Info (PHARMACY MONITORING -- do not chart) 1 each PRN DAILY PRN MC SEE COMMENTS ; Start 05/20/18 at 10:45 Active Scripts Active [Pantoprazole] 40 MG Tablet.dr 40 Mg PO DAILYAC Ativan (Lorazepam) 1 Mg Tablet 1 Mg PO PRN Q6HRS PRN 30 Days Hydrocodone-Apap 5-325 (Hydrocodone Bit/Acetaminophen) 1 Each Tablet 1 Tab PO PRN Q6HRS PRN 30 Days Diltiazem 24Hr Cd (Diltiazem HCl) 240 Mg Cap.er.24h 240 Mg PO DAILY 30 Days Nitrostat (Nitroglycerin) 0.4 Mg Tab.subl 0.4 Mg SL PRN Q5MIN PRN 30 Days Reported Seroquel (Quetiapine Fumarate) 50 Mg Tablet 50 Mg PO HS Torsemide 20 Mg Tablet 1 Tab PO DAILY Labetalol Hcl 200 Mg Tablet 1 Tab PO BID Levetiracetam 500 Mg Tablet 250 Mg PO BID Clonidine Hcl 0.2 Mg Tablet 1 Tab PO BID Norvasc (Amlodipine Besylate) 10 Mg Tablet 10 Mg PO DAILY Labetalol Hcl 200 Mg Tablet 400 Mg PO BID Vitals/I & O Vital Sign - Last 24 Hours 05/20/18 05/20/18 05/20/18 05/20/18 12:10 15:10 15:16 16:28 Temp 98.0 98.0 Pulse 93 Resp 16 20 18 B/P (MAP) 151/104 (120) Pulse Ox 99 98 99 99 O2 Delivery Room Air Room Air Room Air 05/20/18 05/20/18 05/20/18 05/20/18 19:15 19:44 20:48 20:49 Temp 98.2 98.2 Pulse 87 87 Resp 18 16 B/P (MAP) 178/107 (130) 178/107 Pulse Ox 98 O2 Delivery Room Air Room Air Room Air 05/20/18 05/20/18 05/21/18 05/21/18 23:30 23:55 03:23 03:36 Temp 98.2 97.7 98.2 97.7 Pulse 92 82 Resp 20 16 16 18 B/P (MAP) 195/112 (139) 169/94 (119) Pulse Ox 98 98 O2 Delivery Room Air Room Air Room Air 05/21/18 05/21/18 05/21/18 05/21/18 04:06 07:00 07:38 07:38 Temp 97.7 97.7 Pulse 84 84 84 Resp 16 16 B/P (MAP) 179/103 (128) 179/103 179/103 Pulse Ox 100 O2 Delivery Room Air Room Air 05/21/18 05/21/18 05/21/18 05/21/18 07:38 07:39 08:00 10:59 Pulse 84 Resp 16 B/P (MAP) 179/103 Pulse Ox 100 100 O2 Delivery Room Air Room Air Room Air Intake and Output 05/20/18 05/20/18 05/21/18 15:00 23:00 07:00 Intake Total 750 ml 300 ml Balance 750 ml 300 ml LEANDRA CARRENO III DO May 21, 2018 11:52
[2018-05-21] MEDS ORDERED: LEVE500T56 PO (12:14)
[2018-05-22] MEDS ORDERED: PANT20TA2 PO (04:23)
[2018-05-22] MEDS ORDERED: NITR0.4T22 SL (04:23)
[2018-05-22] MEDS ORDERED: QUET50TA5 PO (04:23)
--- NOTE | 2018-05-22 10:48 | DS ---
DATE OF DISCHARGE: 05/21/2018 ADMISSION DIAGNOSES: Seizures and hypokalemia, end-stage renal disease, human immunodeficiency virus. DISCHARGE DIAGNOSIS: Resolving seizures. HOSPITAL COURSE: The patient is a pleasant 27-year-old female who has HIV and end-stage renal disease. She is on dialysis. She presented with a seizure at this time, we admitted her again. She does get admitted about once or twice a month. We consulted Neurology, did some physical therapy and occupational therapy and adjusted her meds, did some dialysis. The patient was seen and examined yesterday morning, she was doing well. We discharged to home with close outpatient followup. DISPOSITION: Home. ACTIVITY: As tolerated. DIET: Low sodium. MEDICATIONS: Please see the MRAD. TOTAL TIME: 32 minutes. LEANDRA CARRENO DO DR: STUART/laurita JOB#: [id number] / [id number]
--- NOTE | 2018-05-23 18:49 | HP ---
ADMIT DATE: 05/19/2018 CHIEF COMPLAINT: Seizure. This is a redictated H and P. HISTORY OF PRESENT ILLNESS: The patient is a pleasant middle-aged -[place] female well known to our service. She has end-stage renal disease and HIV and she is on dialysis. At this time, she presented with seizure. She has a known previous history of seizures and is on Keppra 500 b.i.d. I have discussed the case with the ER physician. He had to sew lacerated eyebrow. We are going to go ahead and admit the patient and consult Dr. Thomas of the Neurology Service. PAST MEDICAL HISTORY: HIV; lymphoma; end-stage renal disease, on dialysis; depression; anxiety; seizures. ALLERGIES: BENADRYL, LISINOPRIL, LORAZEPAM, POVIDONE AND SOAP. FAMILY HISTORY: Coronary artery disease. SOCIAL HISTORY: She does not drink, smoke or take drugs. She just moved here from [place]. MEDICATIONS: Reviewed, please refer to the MRAD. REVIEW OF SYSTEMS: GENERAL: No history of weight change, weakness or fevers. SKIN: No bruising, hair changes or rashes. EYES: No blurred, double or loss of vision. NOSE AND THROAT: No history of nosebleeds, hoarseness or sore throat. HEART: No history of palpitations, chest pain or shortness of breath on exertion. LUNGS: Denies cough, hemoptysis, wheezing or shortness of breath. GASTROINTESTINAL: Denies changes in appetite, nausea, vomiting, diarrhea or constipation. GENITOURINARY: No history of frequency, urgency, hesitancy or nocturia. NEUROLOGIC: Denies history of numbness, tingling, tremor. She complains of weakness. PSYCHIATRIC: No history of panic, anxiety or depression. ENDOCRINE: No history of heat or cold intolerance, polyuria or polydipsia. EXTREMITIES: Denies muscle weakness, joint pain, pain on walking or stiffness. PHYSICAL EXAMINATION: VITAL SIGNS: Temperature afebrile, pulse 98, respirations 18, blood pressure 170/90. GENERAL: She is sleeping, she awakens, flat affect, but this is her baseline. HEART: Normal S1, S2. LUNGS: Clear. ABDOMEN: Soft. EXTREMITIES: No edema. SKIN: No rashes. ENDOCRINE: No thyromegaly. LYMPHATICS: No cervical nodes. HEMATOPOIETIC: No bruising. HEENT: She has a laceration above the left eye. LABORATORY DATA: Hemoglobin is 9.9. ASSESSMENT AND PLAN: Acute on chronic seizures. The patient will be admitted. We will consult Dr. Thomas, check a Keppra level. Seizure precautions, cardiac monitoring. Consult Nephrology for dialysis. Continue home medicines. PROGNOSIS: Guarded. LEANDRA CARRENO DO DR: STUART/laurita JOB#: [id number] / [id number]
== END 2018-05-21 13:00 | disposition home or self-care (01) | DRG 100 ==
LOC: ER 21:35 → 2 NORTH 05-19 00:19
PROVIDERS: ADMIT Internal Medicine; ATTEND Internal Medicine
PROC: 5A1D70Z Performance of Urinary Filtration, Intermittent, Less than 6 Hours Per Day (ICD-10-PCS; principal; 2018-05-19)
PROC: 5A1D70Z Performance of Urinary Filtration, Intermittent, Less than 6 Hours Per Day (ICD-10-PCS; 2018-05-20)
DX: G40.909 Epilepsy, unspecified, not intractable, without status epilepticus (principal); N18.6 End stage renal disease; I12.0 Hypertensive chronic kidney disease with stage 5 chronic kidney disease or end stage renal disease; D64.9 Anemia, unspecified; E87.6 Hypokalemia; K21.9 Gastro-esophageal reflux disease without esophagitis; M79.1 Myalgia; S01.112A Laceration without foreign body of left eyelid and periocular area, initial encounter; E21.3 Hyperparathyroidism, unspecified; F32.9 Major depressive disorder, single episode, unspecified; F41.9 Anxiety disorder, unspecified; S01.91XA Laceration without foreign body of unspecified part of head, initial encounter; S09.90XA Unspecified injury of head, initial encounter; X58.XXXA Exposure to other specified factors, initial encounter; Z85.71 Personal history of Hodgkin lymphoma; Z90.49 Acquired absence of other specified parts of digestive tract; Z91.19 Patient's noncompliance with other medical treatment and regimen; Z99.2 Dependence on renal dialysis; Z88.8 Allergy status to other drugs, medicaments and biological substances; Z91.048 Other nonmedicinal substance allergy status; Z21 Asymptomatic human immunodeficiency virus [HIV] infection status
CPT/HCPCS: 12011; 36415; 70450; 70551; 71045; 80053; 80177; 82553; 83690; 83735; 83880; 84484; 84702; 85025; 85610; 93005; 96365; 96375; J1940; J1953; J3010; J3490; 99285-25

== ENCOUNTER 2018-08-17 14:12 | Inpatient (IN) | payer OTHER ==
[~2018-08-17] VITALS: Ht 165.1 cm; Wt 65.8 kg
[2018-08-17] VITALS (7 sets, daily range): BP systolic 111–134; BP diastolic 57–82
[~2018-08-17 14:12] MED LIST changes: -DILT120C80 PO; +DILT120C85 PO; -DILT240C77 PO; +DILT240C82 PO; -HYDR-2758 PO; +HYDR-2761 PO; +LEVE500T56 PO; +LOSA-73 PO; +LOSA100T14 PO; -LOSA100T7 PO; -LOSA50TA7 PO; +NITR0.4T22 SL; +OXYC5TAB4 PO; +SUCR1TAB35 PO
--- NOTE | 2018-08-17 15:00 | PHYS DOC ---
Past Medical History Past Medical History: Cancer, Hypertension, Renal Disease, Renal Failure, Seizure Additional Past Medical Histor: dialysis, hodgkins Past Surgical History: Appendectomy, Cholecystectomy Additional Past Surgical Histo: L)upper arm fistula,R)upper chest port Alcohol Use: None Drug Use: None Adult General Chief Complaint Chief Complaint: SEIZURE HPI HPI Patient is a 27 year old female with history of seizure and chronic renal failure on hemodialysis brought in by EMS because of seizure. Patient had a seizure disorder 2 hours after starting dialysis today that was witnessed with dialysis staff without loss of urine and bowel. Patient complaining of mild headache. Patient states she did not miss her seizure medication but did not sleep well last night. Patient states her last seizure was a few days ago and she has had seizures since age of 12 and does not have a neurologist or seizures specialist. Patient denies using drugs or alcohol. Review of Systems Review of Systems Constitutional: Denies fever or chills [] Eyes: Denies change in visual acuity, redness, or eye pain [] HENT: Denies nasal congestion or sore throat [] Respiratory: Denies cough or shortness of breath [] Cardiovascular: No additional information not addressed in HPI [] GI: Denies abdominal pain, nausea, vomiting, bloody stools or diarrhea [] : Denies dysuria or hematuria [] Musculoskeletal: Denies back pain or joint pain [] Integument: Denies rash or skin lesions [] Neurologic: Reports headache, denies focal weakness or sensory changes [] Endocrine: Denies polyuria or polydipsia [] All other systems were reviewed and found to be within normal limits, except as documented in this note. Current Medications Current Medications Current Medications Medications (Trade) Dose Ordered Sig/Jackelyn Start Time Stop Time Status Last Admin Dose Admin Levetiracetam 1000 mg/Dextrose 110 ml @ 440 mls/hr 1X ONCE 08/17/18 16:00 08/17/18 16:14 08/17/18 16:08 440 MLS/HR Lorazepam (Ativan) 2 mg 1X ONCE 08/17/18 16:00 08/17/18 16:01 DC 08/17/18 16:09 2 MG Allergies Allergies Allergies Coded Allergies Type Severity Reaction Last Updated Verified diphenhydramine Allergy Severe Anxiety 08/17/18 Yes povidone-iodine Allergy Intermediate 08/17/18 Yes soap Allergy Intermediate 08/17/18 Yes lisinopril Adverse Reaction Intermediate 08/17/18 Yes lorazepam Adverse Reaction Intermediate Anxiety 08/17/18 Yes Physical Exam Physical Exam Constitutional: Well developed, well nourished, mild distress, non-toxic appearance. [] HENT: Normocephalic, atraumatic Eyes: PERRLA, EOMI, conjunctiva normal, no discharge. [] Neck: Normal range of motion, no tenderness, supple, no stridor. [] Cardiovascular:Heart rate regular rhythm, no murmur [] Lungs & Thorax: Bilateral breath sounds clear to auscultation [] Abdomen: Bowel sounds normal, soft, no tenderness, no masses, no pulsatile masses. [] Skin: Warm, dry, no erythema, no rash. [] Back: No tenderness, no CVA tenderness. [] Extremities: No tenderness, no cyanosis, no clubbing, ROM intact, no edema. [] Neurologic: Alert and oriented X 3, normal motor function, normal sensory function, no focal deficits noted. [] Psychologic: Affect normal, judgement normal, mood normal. [] Current Patient Data Vital Signs Vital Signs Date Time Temp Pulse Resp B/P (MAP) Pulse Ox O2 Delivery O2 Flow Rate FiO2 08/17/18 14:12 97.8 80 18 190/120 (143) 96 Room Air 97.8 Lab Values Laboratory Tests Test 08/17/18 15:30 White Blood Count 3.0 x10^3/uL (4.0-11.0) L Red Blood Count 4.22 x10^6/uL (3.50-5.40) Hemoglobin 11.6 g/dL (12.0-15.5) L Hematocrit 34.7 % (36.0-47.0) L Mean Corpuscular Volume 82 fL (79-100) Mean Corpuscular Hemoglobin 27 pg (25-35) Mean Corpuscular Hemoglobin Concent 33 g/dL (31-37) Red Cell Distribution Width 15.5 % (11.5-14.5) H Platelet Count 100 x10^3/uL (140-400) L Neutrophils (%) (Auto) 55 % (31-73) Lymphocytes (%) (Auto) 21 % (24-48) L Monocytes (%) (Auto) 16 % (0-9) H Eosinophils (%) (Auto) 7 % (0-3) H Basophils (%) (Auto) 1 % (0-3) Neutrophils # (Auto) 1.6 x10^3uL (1.8-7.7) L Lymphocytes # (Auto) 0.6 x10^3/uL (1.0-4.8) L Monocytes # (Auto) 0.5 x10^3/uL (0.0-1.1) Eosinophils # (Auto) 0.2 x10^3/uL (0.0-0.7) Basophils # (Auto) 0.0 x10^3/uL (0.0-0.2) Sodium Level 137 mmol/L (136-145) Potassium Level 3.5 mmol/L (3.5-5.1) Chloride Level 96 mmol/L (98-107) L Carbon Dioxide Level 32 mmol/L (21-32) Anion Gap 9 (6-14) Blood Urea Nitrogen 25 mg/dL (7-20) H Creatinine 4.1 mg/dL (0.6-1.0) H Estimated GFR (Cockcroft-Gault) 15.6 BUN/Creatinine Ratio 6 (6-20) Glucose Level 90 mg/dL (70-99) Calcium Level 9.3 mg/dL (8.5-10.1) Total Bilirubin Pending Aspartate Amino Transferase (AST) Pending Alanine Aminotransferase (ALT) Pending Alkaline Phosphatase Pending Total Protein Pending Albumin Pending Albumin/Globulin Ratio Pending Laboratory Tests 08/17/18 15:30 Laboratory Tests 08/17/18 15:30 EKG EKG EKG interpreted by me. EKG at 1548 showed normal sinus rhythm at rate of 79, left fourth axis, incomplete right bundle branch block, T-wave abnormalities in lateral leads, prolonged QT at 422, no acute ST and T-wave abnormalities. Radiology/Procedures Radiology/Procedures [] Course & Med Decision Making Course & Med Decision Making Pertinent Labs reviewed. (See chart for details) Evaluation of patient in ER showed 27-year-old female patient with history of seizure brought in because of episode of seizure during dialysis.While patient was in ER she complaining of chest pain and did have a seizure with rolling her eyes back and increase of heart rate and decrease of O2 sat that last about 5 minutes until had 2 mg of Ativan IV. Dr Smith accepted admission at 1600. Dragon Disclaimer Dragon Disclaimer This electronic medical record was generated, in whole or in part, using a voice recognition dictation system. Departure Departure Impression: Primary Impression: Status epilepticus Additional Impressions: Hypertensive emergency ESRD (end stage renal disease) Anxiety Disposition: ADMITTED INPATIENT (at 1601) Admitting Physician: Other (Dr. Smith accepted admission at 1600) Condition: GUARDED Referrals: NO PCP (PCP) Problem Qualifiers RODGER WALKER MD Aug 17, 2018 15:00
[2018-08-17 15:42] LABS: BASO % 1 % (0-3); EOS # 0.2 x10^3/uL (0.0-0.7); EOS % 7 % (0-3); HEMATOCRIT 34.7 % (36.0-47.0); HEMOGLOBIN 11.6 g/dL (12.0-15.5); LYMPH # 0.6 x10^3/uL (1.0-4.8); LYMPH % 21 % (24-48); MEAN CORPUSCULAR HEMOGLOBIN 27 pg (25-35); MEAN CORPUSCULAR HGB CONC 33 g/dL (31-37); MEAN CORPUSCULAR VOLUME 82 fL (79-100); MONO # 0.5 x10^3/uL (0.0-1.1); MONO % 16 % (0-9); NEUT # 1.6 x10^3uL (1.8-7.7); NEUT % 55 % (31-73); PLATELET COUNT 100 x10^3/uL (140-400); RED BLOOD COUNT 4.22 x10^6/uL (3.50-5.40); RED CELL DISTRIBUTION WIDTH 15.5 % (11.5-14.5)
[2018-08-17 15:55] LABS: CALCIUM 9.3 mg/dL (8.5-10.1); CREATININE 4.1 mg/dL (0.6-1.0); GFR 15.6; POTASSIUM 3.5 mmol/L (3.5-5.1)
[2018-08-17] MEDS ORDERED: levETIRAcetam 1,000 MG in IV DEXTROSE 5% 100ML 100 ML IV ONE (16:00)
[2018-08-17 16:11] LABS: ALBUMIN 3.7 g/dL (3.4-5.0); ALBUMIN/GLOBULIN RATIO 0.6 (1.0-1.7); TOTAL BILIRUBIN 0.8 mg/dL (0.2-1.0); TOTAL PROTEIN 9.8 g/dL (6.4-8.2)
[2018-08-17] MEDS ORDERED: LABETALOL 20 MG/4 ML DISP.SYRIN. IVP ONE (16:45)
--- NOTE | 2018-08-17 17:23 | PDOC1 ---
History and Physical Date of Admission Date of Admission DATE: 08/17/18 TIME: 17:18 Identification/Chief Complaint Chief Complaint Seizure Source Source: Chart review, Patient History of Present Illness History of Present Illness Patient is a 27 yo female w/ PMHx of poorly controlled HTN, Epilepsy since age 12, HIV positive and ESRD on HD Tu[facility] as well as h/o hodgkins lymphoma who p/w seizure. She experienced a seizure 2 hours after starting dialysis today that was witnessed with dialysis staff without loss of urine and bowel. Patient complaining of mild headache. Patient states she did not miss her seizure medication but did not sleep at all last night and states her mother noted she has not slept for the past 2 nights, finds her awake every time she gets up to go to the restroom. Patient states her last seizure was a few days ago and she does not have a neurologist despite her long-standing seizure history. Patient denies using drugs or alcohol. She denies any F/C/Cough /N/V In ED she was noted with systolic BP > 220 and diastolic BP > 110 not improved significantly by labetalol. Admitted to ICU for further care. Past Medical History Cardiovascular: HTN CENTRAL NERVOUS SYSTEM: Seizure GI: GERD Heme/Onc: Cancer Psych: Anxiety, Depression Rheumatologic: Fibromyalgia Infectious disease: HIV Renal/: Chronic renal failure Endocrine: Hyperparathyroidism Past Surgical History Past Surgical History: Cholecystectomy, Other Family History Family History: Heart Disease Family History: Parent, Grandparents Social History Smoke: No ALCOHOL: none Drugs: None Current Medications Current Medications Current Medications Lorazepam (Ativan) 2 mg 1X ONCE IV Last administered on 08/17/18at 16:09; Start 08/17/18 at 16:00; Stop 08/17/18 at 16:01; Status DC Levetiracetam 1000 mg/Dextrose 110 ml @ 440 mls/hr 1X ONCE IV Last administered on 08/17/18at 16:08; Start 08/17/18 at 16:00; Stop 08/17/18 at 16 :14; Status DC Labetalol HCl (Normodyne Iv Push) 20 mg 1X ONCE IVP Last administered on 08/17at 16:49; Start 08/17/18 at 16:45; Stop 08/17/18 at 16:46; Status DC Active Scripts Active Oxycodone Hcl Immed.release (Oxycodone Hcl) 5 Mg Tablet 5 Mg PO PRN DAILY PRN 6 Days Carafate (Sucralfate) 1 Gm Tablet 1 Gm PO BIDWMEALS 30 Days Reported NITROGLYCERIN SubLingual (Nitroglycerin) 0.4 Mg Tab.subl 0.4 Mg SL PRN Q5MIN PRN Protonix (Pantoprazole Sodium) 20 Mg Tablet.dr 40 Mg PO DAILY Seroquel (Quetiapine Fumarate) 50 Mg Tablet 1 Tab PO QHS Keppra (Levetiracetam) 500 Mg Tablet 500 Mg PO BID Clonidine Hcl 0.2 Mg Tablet 1 Tab PO BID Norvasc (Amlodipine Besylate) 10 Mg Tablet 10 Mg PO DAILY Allergies Allergies: Coded Allergies: diphenhydramine (Verified Allergy, Severe, Anxiety, 08/17/18) Makes her feel "crazy" povidone-iodine (Verified Allergy, Intermediate, 08/17/18) soap (Verified Allergy, Intermediate, 08/17/18) lisinopril (Verified Adverse Reaction, Intermediate, 08/17/18) Altered mental status per pt ROS General: YES: Fatigue, Malaise; No: Chills, Night Sweats, Appetite, Other PSYCHOLOGICAL ROS: YES: Anxiety, Irritablity, Sleep disturbances; No: Behavioral Disorder, Concentration difficultie, Decreased libido, Depression, Disorientation, Hallucinations, Hostility, Memory difficulties, Mood Swings, Obsessive thoughts, Physical abuse, Sexual abuse, Suicidal ideation , Other Eyes: No Blurry vision, No Decreased vision, No Double vision, No Dry eyes, No Excessive tearing, No Eye Pain, No Itchy Eyes, No Loss of vision, No Photophobia , No Scotomata, No Uses contacts, No Uses glasses, No Other HEENT: No: Heacaches, Visual Changes, Hearing change, Nasal congestion, Nasal discharge, Oral lesions, Sinus pain, Sore Throat, Epistaxis, Sneezing, Snoring, Tinnitus, Vertigo, Vocal changes, Other ALLERGY AND IMMUNOLOGY: No: Hives, Insect Bite Sensitivity, Itchy/Watery Eyes, Nasal Congestion, Post Nasal Drip, Seasonal Allergies, Other Hematological and Lymphatic: No: Bleeding Problems, Blood Clots, Blood Transfusions, Brusing, Night Sweats, Pallor, Swollen Lymph Nodes, Other ENDOCRINE: No: Breast Changes, Galactorrhea, Hair Pattern Changes, Hot Flashes , Malaise/lethargy, Mood Swings, Palpitations, Polydipsia/polyuria, Skin Changes , Temperature Intolerance, Unexpected Weight Changes, Other Breast: No New/Changing Breast Lumps, No Nipple changes, No Nipple discharge, No Other Respiratory: No: Cough, Hemoptysis, Orthopnea, Pleuritic Pain, Shortness of breath, SOB with excertion, Sputum Changes, Stridor, Tachypnea, Wheezing, Other Cardiovascular: No Chest Pain, No Palpitations, No Orthopnea, No Paroxysmal Noc. Dyspnea, No Edema, No Lt Headedness, No Other Gastrointestinal: No Nausea, No Vomiting, No Abdominal Pain, No Diarrhea, No Constipation, No Melena, No Hematochezia, No Other Genitourinary: No Dysuria, No Frequency, No Incontinence, No Hematuria, No Retention, No Discharge, No Urgency, No Pain, No Flank Pain, No Other, No , No , No , No , No , No , No Musculoskeletal: No Gait Disturbance, No Joint Pain, No Joint Stiffness, No Joint Swelling, No Muscle Pain, No Muscular Weakness, No Pain In:, No Swelling In:, No Other Neurological: No Behavorial Changes, No Bowel/Bladder ControlChng, No Confusion , No Dizziness, No Gait Disturbance, No Headaches, No Impaired Coord/balance, No Memory Loss, No Numbness/Tingling, No Seizures, No Speech Problems, No Tremors, No Visual Changes, No Weakness, No Other Skin: No Dry Skin, No Eczema, No Hair Changes, No Lumps, No Mole Changes, No Mottling, No Nail Changes, No Pruritus, No Rash, No Skin Lesion Changes, No Other, No Acne Physical Exam General: Alert, Oriented X3, Cooperative, No acute distress HEENT: Atraumatic, PERRLA, EOMI, Mucous membr. moist/pink Lungs: Clear to auscultation, Normal air movement Heart: S1S2, RRR, no gallops Abdomen: Normal bowel sounds, Soft, No tenderness, No hepatosplenomegaly, No masses Rectal Exam: not examined Extremities: No clubbing, No cyanosis, No edema, Normal pulses, No tenderness/ swelling, Other (LUE dialysis fistula with access ports) Skin: No rashes, No breakdown, No significant lesion Neuro: Normal gait, Normal speech, Strength at 5/5 X4 ext, Normal tone, Sensation intact, Cranial nerves 3-12 NL, Reflexes 2+ Psych/Mental Status: Mental status NL, Mood NL Vitals Vitals Vital Signs Date Time Temp Pulse Resp B/P (MAP) Pulse Ox O2 Delivery O2 Flow Rate FiO2 08/17/18 16:49 82 188/116 08/17/18 14:12 97.8 18 96 Room Air 97.8 Labs Labs Laboratory Tests Test 08/17/18 15:30 White Blood Count 3.0 x10^3/uL (4.0-11.0) Red Blood Count 4.22 x10^6/uL (3.50-5.40) Hemoglobin 11.6 g/dL (12.0-15.5) Hematocrit 34.7 % (36.0-47.0) Mean Corpuscular Volume 82 fL (79-100) Mean Corpuscular Hemoglobin 27 pg (25-35) Mean Corpuscular Hemoglobin Concent 33 g/dL (31-37) Red Cell Distribution Width 15.5 % (11.5-14.5) Platelet Count 100 x10^3/uL (140-400) Neutrophils (%) (Auto) 55 % (31-73) Lymphocytes (%) (Auto) 21 % (24-48) Monocytes (%) (Auto) 16 % (0-9) Eosinophils (%) (Auto) 7 % (0-3) Basophils (%) (Auto) 1 % (0-3) Neutrophils # (Auto) 1.6 x10^3uL (1.8-7.7) Lymphocytes # (Auto) 0.6 x10^3/uL (1.0-4.8) Monocytes # (Auto) 0.5 x10^3/uL (0.0-1.1) Eosinophils # (Auto) 0.2 x10^3/uL (0.0-0.7) Basophils # (Auto) 0.0 x10^3/uL (0.0-0.2) Sodium Level 137 mmol/L (136-145) Potassium Level 3.5 mmol/L (3.5-5.1) Chloride Level 96 mmol/L (98-107) Carbon Dioxide Level 32 mmol/L (21-32) Anion Gap 9 (6-14) Blood Urea Nitrogen 25 mg/dL (7-20) Creatinine 4.1 mg/dL (0.6-1.0) Estimated GFR (Cockcroft-Gault) 15.6 BUN/Creatinine Ratio 6 (6-20) Glucose Level 90 mg/dL (70-99) Calcium Level 9.3 mg/dL (8.5-10.1) Total Bilirubin 0.8 mg/dL (0.2-1.0) Aspartate Amino Transf (AST/SGOT) 21 U/L (15-37) Alanine Aminotransferase (ALT/SGPT) 16 U/L (14-59) Alkaline Phosphatase 93 U/L (46-116) Troponin I Quantitative < 0.017 ng/mL (0.000-0.055) Total Protein 9.8 g/dL (6.4-8.2) Albumin 3.7 g/dL (3.4-5.0) Albumin/Globulin Ratio 0.6 (1.0-1.7) Laboratory Tests Test 08/17/18 15:30 White Blood Count 3.0 x10^3/uL (4.0-11.0) Red Blood Count 4.22 x10^6/uL (3.50-5.40) Hemoglobin 11.6 g/dL (12.0-15.5) Hematocrit 34.7 % (36.0-47.0) Mean Corpuscular Volume 82 fL (79-100) Mean Corpuscular Hemoglobin 27 pg (25-35) Mean Corpuscular Hemoglobin Concent 33 g/dL (31-37) Red Cell Distribution Width 15.5 % (11.5-14.5) Platelet Count 100 x10^3/uL (140-400) Neutrophils (%) (Auto) 55 % (31-73) Lymphocytes (%) (Auto) 21 % (24-48) Monocytes (%) (Auto) 16 % (0-9) Eosinophils (%) (Auto) 7 % (0-3) Basophils (%) (Auto) 1 % (0-3) Neutrophils # (Auto) 1.6 x10^3uL (1.8-7.7) Lymphocytes # (Auto) 0.6 x10^3/uL (1.0-4.8) Monocytes # (Auto) 0.5 x10^3/uL (0.0-1.1) Eosinophils # (Auto) 0.2 x10^3/uL (0.0-0.7) Basophils # (Auto) 0.0 x10^3/uL (0.0-0.2) Sodium Level 137 mmol/L (136-145) Potassium Level 3.5 mmol/L (3.5-5.1) Chloride Level 96 mmol/L (98-107) Carbon Dioxide Level 32 mmol/L (21-32) Anion Gap 9 (6-14) Blood Urea Nitrogen 25 mg/dL (7-20) Creatinine 4.1 mg/dL (0.6-1.0) Estimated GFR (Cockcroft-Gault) 15.6 BUN/Creatinine Ratio 6 (6-20) Glucose Level 90 mg/dL (70-99) Calcium Level 9.3 mg/dL (8.5-10.1) Total Bilirubin 0.8 mg/dL (0.2-1.0) Aspartate Amino Transf (AST/SGOT) 21 U/L (15-37) Alanine Aminotransferase (ALT/SGPT) 16 U/L (14-59) Alkaline Phosphatase 93 U/L (46-116) Troponin I Quantitative < 0.017 ng/mL (0.000-0.055) Total Protein 9.8 g/dL (6.4-8.2) Albumin 3.7 g/dL (3.4-5.0) Albumin/Globulin Ratio 0.6 (1.0-1.7) VTE Prophylaxis Ordered VTE Prophylaxis Devices: No VTE Pharmacological Prophylaxi: Yes Assessment/Plan Assessment/Plan A/P: Seizure - given lorazepam to hope, reload her keppra, consult neurology. This may have been precipitated by lack of sleep, will give sleep aid Insomnia - may have precipitated her seizure. Trazodone and seroquel in conjunction with lorazepam as sleep aids tonight ESRD - LUE fistula, dialyzed today, due tuesday, will consult nephrology as she also has very difficult to control HTN History of Hodgkin's lymphoma - off chemo Hypertensive emergency - systolic > 230 and diastolic > 120. Low threshold for cardene gtt. Restart home meds, labetalol 20mg IV q 4 hours Anemia of chronic renal dz - stable Pancytopenia - historically since her cancer treatment. will monitor FEN - Renal PPX - heparin FULL CODE ICU for HTN emergency RIFFEL,CHRISTOPHER S MD Aug 17, 2018 17:23
[2018-08-17] MEDS ORDERED: amLODIPine BESYLATE 10 MG TABLET PO SCH (18:30)
[2018-08-17] MEDS ORDERED: LABETALOL 20 MG/4 ML DISP.SYRIN. IVP PRN (18:30)
[2018-08-17] MEDS: cloNIDine HCL 0.2 MG TABLET PO SCH (20:55)
[2018-08-17] MEDS ORDERED: QUEtiapine 25 MG TABLET. PO SCH (21:00)
[2018-08-17] MEDS ORDERED: traZODone 100 MG TABLET. PO ONE (21:00)
[2018-08-17] MEDS ORDERED: levETIRAcetam 500 MG TABLET PO SCH (21:00)
[2018-08-18] VITALS (16 sets, daily range): BP systolic 113–147; BP diastolic 63–91
[2018-08-18] MEDS: fentaNYL PF VIAL 100 MCG/2 ML VIAL IV PRN ×2 (03:32→07:23)
[2018-08-18 05:42] LABS: ALBUMIN 3.2 g/dL (3.4-5.0); ALBUMIN/GLOBULIN RATIO 0.6 (1.0-1.7); CALCIUM 9.2 mg/dL (8.5-10.1); CREATININE 5.1 mg/dL (0.6-1.0); GFR 12.1; MAGNESIUM 1.7 mg/dL (1.8-2.4); TOTAL BILIRUBIN 0.7 mg/dL (0.2-1.0); TOTAL PROTEIN 8.6 g/dL (6.4-8.2)
[2018-08-18 05:44] LABS: BASO % 2 % (0-3); EOS # 0.2 x10^3/uL (0.0-0.7); EOS % 8 % (0-3); HEMATOCRIT 33.3 % (36.0-47.0); LYMPH # 0.4 x10^3/uL (1.0-4.8); LYMPH % 19 % (24-48); MEAN CORPUSCULAR HEMOGLOBIN 27 pg (25-35); MEAN CORPUSCULAR HGB CONC 33 g/dL (31-37); MEAN CORPUSCULAR VOLUME 82 fL (79-100); MONO # 0.4 x10^3/uL (0.0-1.1); MONO % 16 % (0-9); NEUT # 1.2 x10^3uL (1.8-7.7); NEUT % 55 % (31-73); PLATELET COUNT 82 x10^3/uL (140-400); RED BLOOD COUNT 4.05 x10^6/uL (3.50-5.40); RED CELL DISTRIBUTION WIDTH 15.8 % (11.5-14.5); WHITE BLOOD COUNT 2.2 x10^3/uL (4.0-11.0)
--- NOTE | 2018-08-18 06:22 | EKG ---
[facility] [address] [place] [id number] Test Date: 2018-08-17 Test Time: 15:45:09 Pat Name: FRANCA MILES Department: Room: Gender: F Patient Care: : 1990 Requested By: RODGER WALKER Order Number: [id number] Reading MD: Measurements Intervals [place] Rate: 80 P: -74 CT: 120 QRS: -10 QRSD: 96 T: 67 QT: 420 QTc: 488 Interpretive Statements SUPRAVENTRICULAR RHYTHM LEFTWARD AXIS INCOMPLETE RIGHT BUNDLE BRANCH BLOCK PROLONGED QT NO SPECIFIC ECG ABNORMALITIES RI6.01 No previous ECG available for comparison
[2018-08-18] MEDS: cloNIDine HCL 0.2 MG TABLET PO SCH (07:23)
[2018-08-18] MEDS ORDERED: SUCRALFATE 1 GM TABLET. PO SCH (07:30)
[2018-08-18] MEDS ORDERED: PANTOPRAZOLE 40 MG TABLET.DR. PO SCH (07:30)
--- NOTE | 2018-08-18 08:15 | PDOC ---
PROGRESS NOTES Chief Complaint Chief Complaint Seizure Insomnia ESRD History of Hodgkin's lymphoma Hypertensive emergency Anemia of chronic renal dz Pancytopenia History of Present Illness History of Present Illness 27 yo female w/ PMHx of poorly controlled HTN, Epilepsy since age 12, HIV positive and ESRD on HD [facility] as well as h/o hodgkins lymphoma who p/w seizure. She moved here from [place] on 09/2017 and has not established any PCP, oncologist, HIV specialist. She experienced a seizure 2 hours after starting dialysis 08/17/18 that was witnessed with dialysis staff without loss of urine and bowel. Patient complaining of mild headache. Patient states she did not miss her seizure medication but did not sleep at all last night and states her mother noted she has not slept for the past 2 nights, finds her awake every time she gets up to go to the restroom. Patient states her last seizure was a few days ago and she does not have a neurologist despite her long-standing seizure history. Patient denies using drugs or alcohol. She denies any F/C/Cough /N/V In ED she was noted with systolic BP > 220 and diastolic BP > 110 not improved significantly by labetalol. Admitted to ICU for further care. Overnight slept with addition of trazodone and seroquel. BP came down once her home meds were reinitiated and cardene GTT for a few hours. No further seizure activity. She c/o abdominal pain usually improved by hot tea, carafate, PPI, but is specifically requesting IV fentanyl to treat this. A/P: Seizure - given lorazepam to hope, reload her keppra, consulted neurology. This may have been precipitated by lack of sleep, will give sleep aid and continue home keppra Insomnia - may have precipitated her seizure. Trazodone and seroquel in conjunction with lorazepam as sleep aids tonight. Will d/c with this prescription ESRD - LUE fistula, dialyzed today, due Tuesday, will consult nephrology as she also has very difficult to control HTN History of Hodgkin's lymphoma - off chemo Hypertensive emergency - Abated. Systolic > 230 and diastolic > 120. Restart home meds, labetalol 20mg IV q 4 hours Anemia of chronic renal dz - stable Pancytopenia - historically since her cancer treatment. will monitor FEN - Renal PPX - Heparin FULL CODE ICU for HTN emergency, however, she can likely d/c later today for f/u with nephrology, dialysis tomorrow and needs PCP. Vitals Vitals Vital Signs Date Time Temp Pulse Resp B/P (MAP) Pulse Ox O2 Delivery O2 Flow Rate FiO2 08/18/18 08:00 64 16 134/78 (96) 100 Nasal Cannula 2.0 08/18/18 07:00 98.1 98.1 Physical Exam General: Alert, Oriented X3, Cooperative, No acute distress Lungs: Clear Abdomen: Normal bowel sounds, Soft, No tenderness, No hepatosplenomegaly, No masses Extremities: No clubbing, No cyanosis, No edema, Normal pulses, No tenderness/ swelling, Other (LUE dialysis fistula with access ports) Skin: No rashes, No breakdown, No significant lesion Labs LABS Laboratory Tests Test 08/17/18 15:30 08/18/18 05:00 White Blood Count 3.0 x10^3/uL (4.0-11.0) 2.2 x10^3/uL (4.0-11.0) Red Blood Count 4.22 x10^6/uL (3.50-5.40) 4.05 x10^6/uL (3.50-5.40) Hemoglobin 11.6 g/dL (12.0-15.5) 11.0 g/dL (12.0-15.5) Hematocrit 34.7 % (36.0-47.0) 33.3 % (36.0-47.0) Mean Corpuscular Volume 82 fL (79-100) 82 fL (79-100) Mean Corpuscular Hemoglobin 27 pg (25-35) 27 pg (25-35) Mean Corpuscular Hemoglobin Concent 33 g/dL (31-37) 33 g/dL (31-37) Red Cell Distribution Width 15.5 % (11.5-14.5) 15.8 % (11.5-14.5) Platelet Count 100 x10^3/uL (140-400) 82 x10^3/uL (140-400) Neutrophils (%) (Auto) 55 % (31-73) 55 % (31-73) Lymphocytes (%) (Auto) 21 % (24-48) 19 % (24-48) Monocytes (%) (Auto) 16 % (0-9) 16 % (0-9) Eosinophils (%) (Auto) 7 % (0-3) 8 % (0-3) Basophils (%) (Auto) 1 % (0-3) 2 % (0-3) Neutrophils # (Auto) 1.6 x10^3uL (1.8-7.7) 1.2 x10^3uL (1.8-7.7) Lymphocytes # (Auto) 0.6 x10^3/uL (1.0-4.8) 0.4 x10^3/uL (1.0-4.8) Monocytes # (Auto) 0.5 x10^3/uL (0.0-1.1) 0.4 x10^3/uL (0.0-1.1) Eosinophils # (Auto) 0.2 x10^3/uL (0.0-0.7) 0.2 x10^3/uL (0.0-0.7) Basophils # (Auto) 0.0 x10^3/uL (0.0-0.2) 0.0 x10^3/uL (0.0-0.2) Sodium Level 137 mmol/L (136-145) 138 mmol/L (136-145) Potassium Level 3.5 mmol/L (3.5-5.1) 4.0 mmol/L (3.5-5.1) Chloride Level 96 mmol/L (98-107) 98 mmol/L (98-107) Carbon Dioxide Level 32 mmol/L (21-32) 30 mmol/L (21-32) Anion Gap 9 (6-14) 10 (6-14) Blood Urea Nitrogen 25 mg/dL (7-20) 32 mg/dL (7-20) Creatinine 4.1 mg/dL (0.6-1.0) 5.1 mg/dL (0.6-1.0) Estimated GFR (Cockcroft-Gault) 15.6 12.1 BUN/Creatinine Ratio 6 (6-20) 6 (6-20) Glucose Level 90 mg/dL (70-99) 84 mg/dL (70-99) Calcium Level 9.3 mg/dL (8.5-10.1) 9.2 mg/dL (8.5-10.1) Total Bilirubin 0.8 mg/dL (0.2-1.0) 0.7 mg/dL (0.2-1.0) Aspartate Amino Transf (AST/SGOT) 21 U/L (15-37) 18 U/L (15-37) Alanine Aminotransferase (ALT/SGPT) 16 U/L (14-59) 14 U/L (14-59) Alkaline Phosphatase 93 U/L (46-116) 83 U/L (46-116) Troponin I Quantitative < 0.017 ng/mL (0.000-0.055) Total Protein 9.8 g/dL (6.4-8.2) 8.6 g/dL (6.4-8.2) Albumin 3.7 g/dL (3.4-5.0) 3.2 g/dL (3.4-5.0) Albumin/Globulin Ratio 0.6 (1.0-1.7) 0.6 (1.0-1.7) Magnesium Level 1.7 mg/dL (1.8-2.4) Comment Review of Relevant I have reviewed the following items fiona (where applicable) has been applied. Labs Laboratory Tests Test 08/17/18 15:30 08/18/18 05:00 White Blood Count 3.0 x10^3/uL (4.0-11.0) 2.2 x10^3/uL (4.0-11.0) Red Blood Count 4.22 x10^6/uL (3.50-5.40) 4.05 x10^6/uL (3.50-5.40) Hemoglobin 11.6 g/dL (12.0-15.5) 11.0 g/dL (12.0-15.5) Hematocrit 34.7 % (36.0-47.0) 33.3 % (36.0-47.0) Mean Corpuscular Volume 82 fL (79-100) 82 fL (79-100) Mean Corpuscular Hemoglobin 27 pg (25-35) 27 pg (25-35) Mean Corpuscular Hemoglobin Concent 33 g/dL (31-37) 33 g/dL (31-37) Red Cell Distribution Width 15.5 % (11.5-14.5) 15.8 % (11.5-14.5) Platelet Count 100 x10^3/uL (140-400) 82 x10^3/uL (140-400) Neutrophils (%) (Auto) 55 % (31-73) 55 % (31-73) Lymphocytes (%) (Auto) 21 % (24-48) 19 % (24-48) Monocytes (%) (Auto) 16 % (0-9) 16 % (0-9) Eosinophils (%) (Auto) 7 % (0-3) 8 % (0-3) Basophils (%) (Auto) 1 % (0-3) 2 % (0-3) Neutrophils # (Auto) 1.6 x10^3uL (1.8-7.7) 1.2 x10^3uL (1.8-7.7) Lymphocytes # (Auto) 0.6 x10^3/uL (1.0-4.8) 0.4 x10^3/uL (1.0-4.8) Monocytes # (Auto) 0.5 x10^3/uL (0.0-1.1) 0.4 x10^3/uL (0.0-1.1) Eosinophils # (Auto) 0.2 x10^3/uL (0.0-0.7) 0.2 x10^3/uL (0.0-0.7) Basophils # (Auto) 0.0 x10^3/uL (0.0-0.2) 0.0 x10^3/uL (0.0-0.2) Sodium Level 137 mmol/L (136-145) 138 mmol/L (136-145) Potassium Level 3.5 mmol/L (3.5-5.1) 4.0 mmol/L (3.5-5.1) Chloride Level 96 mmol/L (98-107) 98 mmol/L (98-107) Carbon Dioxide Level 32 mmol/L (21-32) 30 mmol/L (21-32) Anion Gap 9 (6-14) 10 (6-14) Blood Urea Nitrogen 25 mg/dL (7-20) 32 mg/dL (7-20) Creatinine 4.1 mg/dL (0.6-1.0) 5.1 mg/dL (0.6-1.0) Estimated GFR (Cockcroft-Gault) 15.6 12.1 BUN/Creatinine Ratio 6 (6-20) 6 (6-20) Glucose Level 90 mg/dL (70-99) 84 mg/dL (70-99) Calcium Level 9.3 mg/dL (8.5-10.1) 9.2 mg/dL (8.5-10.1) Total Bilirubin 0.8 mg/dL (0.2-1.0) 0.7 mg/dL (0.2-1.0) Aspartate Amino Transf (AST/SGOT) 21 U/L (15-37) 18 U/L (15-37) Alanine Aminotransferase (ALT/SGPT) 16 U/L (14-59) 14 U/L (14-59) Alkaline Phosphatase 93 U/L (46-116) 83 U/L (46-116) Troponin I Quantitative < 0.017 ng/mL (0.000-0.055) Total Protein 9.8 g/dL (6.4-8.2) 8.6 g/dL (6.4-8.2) Albumin 3.7 g/dL (3.4-5.0) 3.2 g/dL (3.4-5.0) Albumin/Globulin Ratio 0.6 (1.0-1.7) 0.6 (1.0-1.7) Magnesium Level 1.7 mg/dL (1.8-2.4) Laboratory Tests Test 08/17/18 15:30 08/18/18 05:00 White Blood Count 3.0 x10^3/uL (4.0-11.0) 2.2 x10^3/uL (4.0-11.0) Red Blood Count 4.22 x10^6/uL (3.50-5.40) 4.05 x10^6/uL (3.50-5.40) Hemoglobin 11.6 g/dL (12.0-15.5) 11.0 g/dL (12.0-15.5) Hematocrit 34.7 % (36.0-47.0) 33.3 % (36.0-47.0) Mean Corpuscular Volume 82 fL (79-100) 82 fL (79-100) Mean Corpuscular Hemoglobin 27 pg (25-35) 27 pg (25-35) Mean Corpuscular Hemoglobin Concent 33 g/dL (31-37) 33 g/dL (31-37) Red Cell Distribution Width 15.5 % (11.5-14.5) 15.8 % (11.5-14.5) Platelet Count 100 x10^3/uL (140-400) 82 x10^3/uL (140-400) Neutrophils (%) (Auto) 55 % (31-73) 55 % (31-73) Lymphocytes (%) (Auto) 21 % (24-48) 19 % (24-48) Monocytes (%) (Auto) 16 % (0-9) 16 % (0-9) Eosinophils (%) (Auto) 7 % (0-3) 8 % (0-3) Basophils (%) (Auto) 1 % (0-3) 2 % (0-3) Neutrophils # (Auto) 1.6 x10^3uL (1.8-7.7) 1.2 x10^3uL (1.8-7.7) Lymphocytes # (Auto) 0.6 x10^3/uL (1.0-4.8) 0.4 x10^3/uL (1.0-4.8) Monocytes # (Auto) 0.5 x10^3/uL (0.0-1.1) 0.4 x10^3/uL (0.0-1.1) Eosinophils # (Auto) 0.2 x10^3/uL (0.0-0.7) 0.2 x10^3/uL (0.0-0.7) Basophils # (Auto) 0.0 x10^3/uL (0.0-0.2) 0.0 x10^3/uL (0.0-0.2) Sodium Level 137 mmol/L (136-145) 138 mmol/L (136-145) Potassium Level 3.5 mmol/L (3.5-5.1) 4.0 mmol/L (3.5-5.1) Chloride Level 96 mmol/L (98-107) 98 mmol/L (98-107) Carbon Dioxide Level 32 mmol/L (21-32) 30 mmol/L (21-32) Anion Gap 9 (6-14) 10 (6-14) Blood Urea Nitrogen 25 mg/dL (7-20) 32 mg/dL (7-20) Creatinine 4.1 mg/dL (0.6-1.0) 5.1 mg/dL (0.6-1.0) Estimated GFR (Cockcroft-Gault) 15.6 12.1 BUN/Creatinine Ratio 6 (6-20) 6 (6-20) Glucose Level 90 mg/dL (70-99) 84 mg/dL (70-99) Calcium Level 9.3 mg/dL (8.5-10.1) 9.2 mg/dL (8.5-10.1) Total Bilirubin 0.8 mg/dL (0.2-1.0) 0.7 mg/dL (0.2-1.0) Aspartate Amino Transf (AST/SGOT) 21 U/L (15-37) 18 U/L (15-37) Alanine Aminotransferase (ALT/SGPT) 16 U/L (14-59) 14 U/L (14-59) Alkaline Phosphatase 93 U/L (46-116) 83 U/L (46-116) Troponin I Quantitative < 0.017 ng/mL (0.000-0.055) Total Protein 9.8 g/dL (6.4-8.2) 8.6 g/dL (6.4-8.2) Albumin 3.7 g/dL (3.4-5.0) 3.2 g/dL (3.4-5.0) Albumin/Globulin Ratio 0.6 (1.0-1.7) 0.6 (1.0-1.7) Magnesium Level 1.7 mg/dL (1.8-2.4) Medications Current Medications Lorazepam (Ativan) 2 mg 1X ONCE IV Last administered on 08/17/18at 16:09; Start 08/17/18 at 16:00; Stop 08/17/18 at 16:01; Status DC Levetiracetam 1000 mg/Dextrose 110 ml @ 440 mls/hr 1X ONCE IV Last administered on 08/17/18at 16:08; Start 08/17/18 at 16:00; Stop 08/17/18 at 16 :14; Status DC Labetalol HCl (Normodyne Iv Push) 20 mg 1X ONCE IVP Last administered on 08/17at 16:49; Start 08/17/18 at 16:45; Stop 08/17/18 at 16:46; Status DC Nicardipine HCl 50 mg/Sodium Chloride 270 ml @ 27 mls/hr CONT PRN IV SEE I/O RECORD Last administered on 08/17/18at 18:39; Start 08/17/18 at 18:15 Levetiracetam (Keppra) 500 mg BID PO ; Start 08/18/18 at 09:00 Amlodipine Besylate (Norvasc) 10 mg DAILY PO Last administered on 08/18/18 07 :22; Start 08/17/18 at 18:30 Clonidine HCl (Catapres) 0.2 mg BID PO Last administered on 08/18/18at 07:23; Start 08/17/18 at 21:00 Levetiracetam (Keppra) 500 mg BID PO ; Start 08/17/18 at 21:00; Status UNV Pantoprazole Sodium (Protonix) 40 mg DAILYAC PO Last administered on at 07:22; Start 08/18/18 at 07:30 Quetiapine Fumarate (SEROquel) 50 mg QHS PO Last administered on 08/17/18at 20: 54; Start 08/17/18 at 21:00 Sucralfate (Carafate) 1 gm BIDAC PO Last administered on 08/18/18at 07:21; Start 08/18/18 at 07:30 Labetalol HCl (Normodyne Iv Push) 20 mg PRN Q2HR PRN IVP HYPERTENSION, SEE COMMENTS Last administered on 08/17/18at 20:27; Start 08/17/18 at 18:30 Lorazepam (Ativan) 2 mg PRN Q2HRS PRN IV ANXIETY / AGITATION; Start 08/17/18 at 18:30 Trazodone HCl (Desyrel) 100 mg 1X ONCE PO Last administered on 08/17/18at 20: 54; Start 08/17/18 at 21:00; Stop 08/17/18 at 21:01; Status DC Fentanyl Citrate (Fentanyl 2ml Vial) 25 mcg PRN Q3HRS PRN IV PAIN Last administered on 08/18/18at 07:23; Start 08/18/18 at 03:15 Active Scripts Active Oxycodone Hcl Immed.release (Oxycodone Hcl) 5 Mg Tablet 5 Mg PO PRN DAILY PRN 6 Days Carafate (Sucralfate) 1 Gm Tablet 1 Gm PO BIDWMEALS 30 Days Reported NITROGLYCERIN SubLingual (Nitroglycerin) 0.4 Mg Tab.subl 0.4 Mg SL PRN Q5MIN PRN Protonix (Pantoprazole Sodium) 20 Mg Tablet.dr 40 Mg PO DAILY Seroquel (Quetiapine Fumarate) 50 Mg Tablet 1 Tab PO QHS Keppra (Levetiracetam) 500 Mg Tablet 500 Mg PO BID Clonidine Hcl 0.2 Mg Tablet 1 Tab PO BID Norvasc (Amlodipine Besylate) 10 Mg Tablet 10 Mg PO DAILY Vitals/I & O Vital Sign - Last 24 Hours 08/17/18 08/17/18 08/17/18 08/17/18 14:12 14:45 15:30 16:00 Temp 97.8 97.8 Pulse 80 86 88 82 Resp 18 18 B/P (MAP) 190/120 (143) Pulse Ox 96 96 96 100 O2 Delivery Room Air 08/17/18 08/17/18 08/17/18 08/17/18 16:30 16:45 16:49 17:15 Pulse 82 84 82 76 Resp 18 18 B/P (MAP) 188/116 Pulse Ox 100 100 100 08/17/18 08/17/18 08/17/18 08/17/18 17:45 19:00 19:30 20:00 Temp 98.0 98.0 Pulse 80 86 82 Resp 18 19 16 B/P (MAP) 134/74 (94) 134/79 (97) Pulse Ox 100 97 98 O2 Delivery Room Air Room Air Room Air 08/17/18 08/17/18 08/17/18 08/17/18 20:00 20:27 20:55 21:00 Pulse 82 96 86 76 Resp 16 15 B/P (MAP) 133/71 (91) 133/71 142/80 133/82 (99) Pulse Ox 100 100 O2 Delivery Room Air Room Air 08/17/18 08/17/18 08/17/18 08/17/18 22:00 23:00 23:59 23:59 Temp 97.7 97.7 Pulse 74 76 76 Resp 17 16 15 B/P (MAP) 111/57 (75) 117/57 (77) 119/62 (81) Pulse Ox 100 100 99 O2 Delivery Room Air Room Air Room Air Room Air 08/18/18 08/18/18 08/18/18 08/18/18 01:00 02:00 03:00 03:32 Pulse 74 78 78 Resp 16 16 18 18 B/P (MAP) 119/63 (81) 128/72 (90) 128/78 (95) Pulse Ox 100 100 100 100 O2 Delivery Room Air Room Air Room Air Room Air 08/18/18 08/18/18 08/18/18 08/18/18 04:00 04:00 05:00 06:00 Temp 98.6 98.6 Pulse 74 69 70 Resp 18 18 18 B/P (MAP) 123/73 (90) 126/70 (88) 125/78 (94) Pulse Ox 100 100 100 O2 Delivery Room Air Room Air Room Air Nasal Cannula O2 Flow Rate 2.0 08/18/18 08/18/18 08/18/18 08/18/18 07:00 07:22 07:23 07:23 Temp 98.1 98.1 Pulse 71 75 75 Resp 16 16 B/P (MAP) 147/91 (109) 149/91 147/91 Pulse Ox 97 97 O2 Delivery Nasal Cannula Nasal Cannula O2 Flow Rate 2.0 2.0 08/18/18 08/18/18 08/18/18 07:40 07:55 08:00 Pulse 64 Resp 16 16 B/P (MAP) 134/78 (96) Pulse Ox 100 100 O2 Delivery Nasal Cannula Nasal Cannula Nasal Cannula O2 Flow Rate 2.0 2.0 2.0 Intake and Output 08/17/18 08/17/18 08/18/18 15:01 23:01 07:01 Intake Total 262 ml 0 ml Balance 262 ml 0 ml TEO VERDUZCO MD Aug 18, 2018 08:15
[2018-08-18] MEDS ORDERED: levETIRAcetam 500 MG TABLET PO SCH (09:00)
[2018-08-18] MEDS ORDERED: MAGNESIUM OXIDE 400 MG TABLET PO SCH (09:00)
--- NOTE | 2018-08-18 09:00 | PDOC2 ---
NEUROLOGY CONSULT Date of Admission Date of Admission DATE: 08/18/18 TIME: 08:53 History of Present Illness History of Present Illness The patient is a 27-year-old right-handed female with history of epilepsy dating back 10 years. She had a seizure in dialysis yesterday. She has Non- Hodgkins lymphoma with chemotherapy. I just saw her 2 weeks ago for the same issues. I felt that was a provoked seizure related to hypertension and sleep deprivation. Indeed, she is back in with hypertensive crisis as well as 2 or 3 days of sleep deprivation. She does take Seroquel for sleep, but it does not help much. She has never been through counseling or cognitive behavioral therapy. She does deny depression now, but has a history of it. She denies any history of stroke or head injury. Past Medical History Cardiovascular: HTN CENTRAL NERVOUS SYSTEM: Seizure GI: GERD Heme/Onc: Cancer (non-Hodgkin's lymphoma) Psych: Anxiety, Depression Rheumatologic: Fibromyalgia (?) Infectious disease: HIV Renal/: Chronic renal failure (dialysis) Past Surgical History Past Surgical History: Cholecystectomy, Other (left arm dialysis fistula) Family History Family History: Cancer, Other (negative for seizures) Social History Social History Single, 2 children, no alcohol or tobacco Current Medications Current Medications Current Medications Lorazepam (Ativan) 2 mg 1X ONCE IV Last administered on 08/17/18at 16:09; Start 08/17/18 at 16:00; Stop 08/17/18 at 16:01; Status DC Levetiracetam 1000 mg/Dextrose 110 ml @ 440 mls/hr 1X ONCE IV Last administered on 08/17/18at 16:08; Start 08/17/18 at 16:00; Stop 08/17/18 at 16 :14; Status DC Labetalol HCl (Normodyne Iv Push) 20 mg 1X ONCE IVP Last administered on 08/17at 16:49; Start 08/17/18 at 16:45; Stop 08/17/18 at 16:46; Status DC Nicardipine HCl 50 mg/Sodium Chloride 270 ml @ 27 mls/hr CONT PRN IV SEE I/O RECORD Last administered on 08/17/18at 18:39; Start 08/17/18 at 18:15 Levetiracetam (Keppra) 500 mg BID PO Last administered on 08/18/18at 08:20; Start 08/18/18 at 09:00 Amlodipine Besylate (Norvasc) 10 mg DAILY PO Last administered on 08/18/18 07 :22; Start 08/17/18 at 18:30 Clonidine HCl (Catapres) 0.2 mg BID PO Last administered on 08/18/18 07:23; Start 08/17/18 at 21:00 Levetiracetam (Keppra) 500 mg BID PO ; Start 08/17/18 at 21:00; Status UNV Pantoprazole Sodium (Protonix) 40 mg DAILYAC PO Last administered on 07:22; Start 08/18/18 at 07:30 Quetiapine Fumarate (SEROquel) 50 mg QHS PO Last administered on 08/17/18 20: 54; Start 08/17/18 at 21:00 Sucralfate (Carafate) 1 gm BIDAC PO Last administered on 08/18/18 07:21; Start 08/18/18 at 07:30 Labetalol HCl (Normodyne Iv Push) 20 mg PRN Q2HR PRN IVP HYPERTENSION, SEE COMMENTS Last administered on 08/17/18at 20:27; Start 08/17/18 at 18:30 Lorazepam (Ativan) 2 mg PRN Q2HRS PRN IV ANXIETY / AGITATION; Start 08/17/18 at 18:30 Trazodone HCl (Desyrel) 100 mg 1X ONCE PO Last administered on 08/17/18at 20: 54; Start 08/17/18 at 21:00; Stop 08/17/18 at 21:01; Status DC Fentanyl Citrate (Fentanyl 2ml Vial) 25 mcg PRN Q3HRS PRN IV PAIN Last administered on 08/18/18 07:23; Start 08/18/18 at 03:15 Magnesium Oxide (Magnesium Oxide) 400 mg DAILY PO Last administered on 08:21; Start 08/18/18 at 09:00 Active Scripts Active Oxycodone Hcl Immed.release (Oxycodone Hcl) 5 Mg Tablet 5 Mg PO PRN DAILY PRN 6 Days Carafate (Sucralfate) 1 Gm Tablet 1 Gm PO BIDWMEALS 30 Days Reported NITROGLYCERIN SubLingual (Nitroglycerin) 0.4 Mg Tab.subl 0.4 Mg SL PRN Q5MIN PRN Protonix (Pantoprazole Sodium) 20 Mg Tablet.dr 40 Mg PO DAILY Seroquel (Quetiapine Fumarate) 50 Mg Tablet 1 Tab PO QHS Keppra (Levetiracetam) 500 Mg Tablet 500 Mg PO BID Clonidine Hcl 0.2 Mg Tablet 1 Tab PO BID Norvasc (Amlodipine Besylate) 10 Mg Tablet 10 Mg PO DAILY Allergies Allergies: Coded Allergies: povidone-iodine (Verified Allergy, Intermediate, 08/17/18) soap (Verified Allergy, Intermediate, 08/17/18) diphenhydramine (Verified Adverse Reaction, Severe, Anxiety, 08/18/18) Makes her feel "crazy" lisinopril (Verified Adverse Reaction, Intermediate, 08/17/18) Altered mental status per pt ROS Review of System Negative for fever, chills, weight loss, shortness of breath, chest pain, indigestion, hematochezia, melena, and dysuria. Full 14-point review of systems is negative. Physical Exam Physical Examination General: Well-developed, well-nourished, black female, in no acute distress HEENT: Normocephalic andatraumatic. Tympanic membranes clear.Temporal arteries pulsatile and nontender.Fundoscopic exam unremarkable Neck: Supple without bruit, no meningismus Musculoskeletal: Stability:see neurologic. Gait exam:see neurologic. Tone:see neurologic. Strength:see neurologic. Neurological: Mental Status:intact, orientation, memory, attention span/concentration, language, fund of knowledge normal. Cranial Nerves:Pupils equal and reactive to light, extraocular movements areintact, visual miller are full to confrontation. Facial sensation is normal. There is no facial asymmetry. Vestibulo-ocular reflex is intact. Palate elevates and tongue protrudes in midline. All other cranial related problems are negative except as mentioned before.Reflexes:2+ and symmetric with flexor plantar responses. Motor:5/5 strength with normal tone and bulk. Coordination:Finger-nose finger and heel-to -severino testing are normal. Rapid alternating movements and fine finger movements are intact. Gait:not tested. Sensory:Normal pinprick, vibration, light touch, proprioception. Vitals VITALS Vital Signs Date Time Temp Pulse Resp B/P (MAP) Pulse Ox O2 Delivery O2 Flow Rate FiO2 12/28/18 08:00 64 16 134/78 (96) 100 Nasal Cannula 2.0 08/18/18 07:00 98.1 98.1 Labs Labs Laboratory Tests Test 08/17/18 15:30 08/18/18 05:00 White Blood Count 3.0 x10^3/uL (4.0-11.0) 2.2 x10^3/uL (4.0-11.0) Red Blood Count 4.22 x10^6/uL (3.50-5.40) 4.05 x10^6/uL (3.50-5.40) Hemoglobin 11.6 g/dL (12.0-15.5) 11.0 g/dL (12.0-15.5) Hematocrit 34.7 % (36.0-47.0) 33.3 % (36.0-47.0) Mean Corpuscular Volume 82 fL (79-100) 82 fL (79-100) Mean Corpuscular Hemoglobin 27 pg (25-35) 27 pg (25-35) Mean Corpuscular Hemoglobin Concent 33 g/dL (31-37) 33 g/dL (31-37) Red Cell Distribution Width 15.5 % (11.5-14.5) 15.8 % (11.5-14.5) Platelet Count 100 x10^3/uL (140-400) 82 x10^3/uL (140-400) Neutrophils (%) (Auto) 55 % (31-73) 55 % (31-73) Lymphocytes (%) (Auto) 21 % (24-48) 19 % (24-48) Monocytes (%) (Auto) 16 % (0-9) 16 % (0-9) Eosinophils (%) (Auto) 7 % (0-3) 8 % (0-3) Basophils (%) (Auto) 1 % (0-3) 2 % (0-3) Neutrophils # (Auto) 1.6 x10^3uL (1.8-7.7) 1.2 x10^3uL (1.8-7.7) Lymphocytes # (Auto) 0.6 x10^3/uL (1.0-4.8) 0.4 x10^3/uL (1.0-4.8) Monocytes # (Auto) 0.5 x10^3/uL (0.0-1.1) 0.4 x10^3/uL (0.0-1.1) Eosinophils # (Auto) 0.2 x10^3/uL (0.0-0.7) 0.2 x10^3/uL (0.0-0.7) Basophils # (Auto) 0.0 x10^3/uL (0.0-0.2) 0.0 x10^3/uL (0.0-0.2) Sodium Level 137 mmol/L (136-145) 138 mmol/L (136-145) Potassium Level 3.5 mmol/L (3.5-5.1) 4.0 mmol/L (3.5-5.1) Chloride Level 96 mmol/L (98-107) 98 mmol/L (98-107) Carbon Dioxide Level 32 mmol/L (21-32) 30 mmol/L (21-32) Anion Gap 9 (6-14) 10 (6-14) Blood Urea Nitrogen 25 mg/dL (7-20) 32 mg/dL (7-20) Creatinine 4.1 mg/dL (0.6-1.0) 5.1 mg/dL (0.6-1.0) Estimated GFR (Cockcroft-Gault) 15.6 12.1 BUN/Creatinine Ratio 6 (6-20) 6 (6-20) Glucose Level 90 mg/dL (70-99) 84 mg/dL (70-99) Calcium Level 9.3 mg/dL (8.5-10.1) 9.2 mg/dL (8.5-10.1) Total Bilirubin 0.8 mg/dL (0.2-1.0) 0.7 mg/dL (0.2-1.0) Aspartate Amino Transf (AST/SGOT) 21 U/L (15-37) 18 U/L (15-37) Alanine Aminotransferase (ALT/SGPT) 16 U/L (14-59) 14 U/L (14-59) Alkaline Phosphatase 93 U/L (46-116) 83 U/L (46-116) Troponin I Quantitative < 0.017 ng/mL (0.000-0.055) Total Protein 9.8 g/dL (6.4-8.2) 8.6 g/dL (6.4-8.2) Albumin 3.7 g/dL (3.4-5.0) 3.2 g/dL (3.4-5.0) Albumin/Globulin Ratio 0.6 (1.0-1.7) 0.6 (1.0-1.7) Magnesium Level 1.7 mg/dL (1.8-2.4) Laboratory Tests Test 08/17/18 15:30 08/18/18 05:00 White Blood Count 3.0 x10^3/uL (4.0-11.0) 2.2 x10^3/uL (4.0-11.0) Red Blood Count 4.22 x10^6/uL (3.50-5.40) 4.05 x10^6/uL (3.50-5.40) Hemoglobin 11.6 g/dL (12.0-15.5) 11.0 g/dL (12.0-15.5) Hematocrit 34.7 % (36.0-47.0) 33.3 % (36.0-47.0) Mean Corpuscular Volume 82 fL (79-100) 82 fL (79-100) Mean Corpuscular Hemoglobin 27 pg (25-35) 27 pg (25-35) Mean Corpuscular Hemoglobin Concent 33 g/dL (31-37) 33 g/dL (31-37) Red Cell Distribution Width 15.5 % (11.5-14.5) 15.8 % (11.5-14.5) Platelet Count 100 x10^3/uL (140-400) 82 x10^3/uL (140-400) Neutrophils (%) (Auto) 55 % (31-73) 55 % (31-73) Lymphocytes (%) (Auto) 21 % (24-48) 19 % (24-48) Monocytes (%) (Auto) 16 % (0-9) 16 % (0-9) Eosinophils (%) (Auto) 7 % (0-3) 8 % (0-3) Basophils (%) (Auto) 1 % (0-3) 2 % (0-3) Neutrophils # (Auto) 1.6 x10^3uL (1.8-7.7) 1.2 x10^3uL (1.8-7.7) Lymphocytes # (Auto) 0.6 x10^3/uL (1.0-4.8) 0.4 x10^3/uL (1.0-4.8) Monocytes # (Auto) 0.5 x10^3/uL (0.0-1.1) 0.4 x10^3/uL (0.0-1.1) Eosinophils # (Auto) 0.2 x10^3/uL (0.0-0.7) 0.2 x10^3/uL (0.0-0.7) Basophils # (Auto) 0.0 x10^3/uL (0.0-0.2) 0.0 x10^3/uL (0.0-0.2) Sodium Level 137 mmol/L (136-145) 138 mmol/L (136-145) Potassium Level 3.5 mmol/L (3.5-5.1) 4.0 mmol/L (3.5-5.1) Chloride Level 96 mmol/L (98-107) 98 mmol/L (98-107) Carbon Dioxide Level 32 mmol/L (21-32) 30 mmol/L (21-32) Anion Gap 9 (6-14) 10 (6-14) Blood Urea Nitrogen 25 mg/dL (7-20) 32 mg/dL (7-20) Creatinine 4.1 mg/dL (0.6-1.0) 5.1 mg/dL (0.6-1.0) Estimated GFR (Cockcroft-Gault) 15.6 12.1 BUN/Creatinine Ratio 6 (6-20) 6 (6-20) Glucose Level 90 mg/dL (70-99) 84 mg/dL (70-99) Calcium Level 9.3 mg/dL (8.5-10.1) 9.2 mg/dL (8.5-10.1) Total Bilirubin 0.8 mg/dL (0.2-1.0) 0.7 mg/dL (0.2-1.0) Aspartate Amino Transf (AST/SGOT) 21 U/L (15-37) 18 U/L (15-37) Alanine Aminotransferase (ALT/SGPT) 16 U/L (14-59) 14 U/L (14-59) Alkaline Phosphatase 93 U/L (46-116) 83 U/L (46-116) Troponin I Quantitative < 0.017 ng/mL (0.000-0.055) Total Protein 9.8 g/dL (6.4-8.2) 8.6 g/dL (6.4-8.2) Albumin 3.7 g/dL (3.4-5.0) 3.2 g/dL (3.4-5.0) Albumin/Globulin Ratio 0.6 (1.0-1.7) 0.6 (1.0-1.7) Magnesium Level 1.7 mg/dL (1.8-2.4) Assessment/Plan Assessment/Plan Impression: Epilepsy since age 12, breakthrough seizures again provoked this time with sleep deprivation, hypertension, renal disease. Normal examination now. Hypertensive urgency HIV-positive History of lymphoma Recommendations: I'm holding off on additional neurological studies such as MRI of the brain and EEG given the normal exam and the provocative factors for the breakthrough seizures. Continue [facility] Referral for cognitive behavioral therapy to treat depression and insomnia. She does not have a neurologist, she can follow-up with me in 6 weeks. Thank you for letting me help with the patient's care. STACIE SEGOVIA MD Aug 18, 2018 09:00
--- NOTE | 2018-08-18 09:16 | PDOC2 ---
KARINA MULTANI SEISMIC SURVEY ASSISTANT 08/18/18 0916: CARDIAC CONSULT DATE OF CONSULT Date of Consult DATE: 08/18/18 TIME: 08:56 REASON FOR CONSULT Reason for Consult: HTN crisis REFERRING PHYSICIAN Referring Physician: Sarah SOURCE Source: Chart review, Patient HISTORY OF PRESENT ILLNESS HISTORY OF PRESENT ILLNESS This is a pleasant 27 yo female admitted for witnessed seizure. Pt had seizure during dialysis. Upon admission she was noted with high BP. Currently she appears to be on post ictal phase still feeling drowsy. Denies any chest pain or SOA. Otherwise pt has told emelia she has been complaint with her medications including her BP meds clonidine and norvasc. She moved here from [place] on 2017 and has not established any PCP, oncologist, HIV specialist. She does see Dr. Villeda as her outpt senior clinical data analyst. PAST MEDICAL HISTORY Past Medical History Cardiovascular: HTN CENTRAL NERVOUS SYSTEM: Seizure GI: GERD Heme/Onc: Hodgkin remission for 2 yrs Psych: Anxiety, Depression Rheumatologic: Fibromyalgia Infectious disease: HIV tested positive over a yr ago Renal/: ESRD chemo induced per pt Endocrine: Hyperparathyroidism Grav: 2 Para: 2 PAST SURGICAL HISTORY Past Surgical History: Appendectomy, Cholecystectomy, (x2), Other ( LAV fistula) FAMILY HISTORY Family History: Heart Disease SOCIAL HISTORY Smoke: No ALCOHOL: none Drugs: None Lives: with Family CURRENT MEDICATIONS CURRENT MEDICATIONS Current Medications Medications (Trade) Dose Ordered Sig/Jackelyn Route PRN Reason Start Time Stop Time Status Last Admin Dose Admin Lorazepam (Ativan) 2 mg 1X ONCE IV 08/17/18 16:00 08/17/18 16:01 DC 08/17/18 16:09 Levetiracetam 1000 mg/Dextrose 110 ml @ 440 mls/hr 1X ONCE IV 08/17/18 16:00 08/17/18 16:14 DC 08/17/18 16:08 Labetalol HCl (Normodyne Iv Push) 20 mg 1X ONCE IVP 08/17/18 16:45 08/17/18 16:46 DC 08/17/18 16:49 Nicardipine HCl 50 mg/Sodium Chloride 270 ml @ 27 mls/hr CONT PRN IV SEE I/O RECORD 08/17/18 18:15 08/17/18 18:39 Levetiracetam (Keppra) 500 mg BID PO 08/18/18 09:00 08/18/18 08:20 Amlodipine Besylate (Norvasc) 10 mg DAILY PO 08/17/18 18:30 08/18/18 07:22 Clonidine HCl (Catapres) 0.2 mg BID PO 08/17/18 21:00 08/18/18 07:23 Pantoprazole Sodium (Protonix) 40 mg DAILYAC PO 08/18/18 07:30 08/18/18 07:22 Quetiapine Fumarate (SEROquel) 50 mg QHS PO 08/17/18 21:00 08/17/18 20:54 Sucralfate (Carafate) 1 gm BIDAC PO 08/18/18 07:30 08/18/18 07:21 Labetalol HCl (Normodyne Iv Push) 20 mg PRN Q2HR PRN IVP HYPERTENSION, SEE COMMENTS 08/17/18 18:30 08/17/18 20:27 Trazodone HCl (Desyrel) 100 mg 1X ONCE PO 08/17/18 21:00 08/17/18 21:01 DC 08/17/18 20:54 Fentanyl Citrate (Fentanyl 2ml Vial) 25 mcg PRN Q3HRS PRN IV PAIN 08/18/18 03:15 08/18/18 07:23 Magnesium Oxide (Magnesium Oxide) 400 mg DAILY PO 08/18/18 09:00 08/18/18 08:21 ALLERGIES ALLERGIES: Coded Allergies: povidone-iodine (Verified Allergy, Intermediate, 08/17/18) soap (Verified Allergy, Intermediate, 08/17/18) diphenhydramine (Verified Adverse Reaction, Severe, Anxiety, 08/18/18) Makes her feel "crazy" lisinopril (Verified Adverse Reaction, Intermediate, 08/17/18) Altered mental status per pt ROS Review of System 14 point ROS evaluated with pertinent positives noted per HPI PHYSICAL EXAM General: Alert, Oriented X3, Cooperative, No acute distress HEENT: Atraumatic, Mucous membr. moist/pink Lungs: Clear to auscultation, Normal air movement Heart: Regular rate (SR), Normal S1, Normal S2, Other (?diastolic murmur to SP border vs reflected bruit from AV fistula) Abdomen: Soft, No tenderness Extremities: No cyanosis, No edema Skin: No breakdown, No significant lesion Neuro: Normal speech, Sensation intact Psych/Mental Status: Mental status NL, Mood NL MUSCULOSKELETAL: Full range of motion without pain VITALS VITALS Vital Signs Date Time Temp Pulse Resp B/P (MAP) Pulse Ox O2 Delivery O2 Flow Rate FiO2 08/18/18 08:00 64 16 134/78 (96) 100 Nasal Cannula 2.0 08/18/18 07:00 98.1 98.1 LABS Lab: Laboratory Tests Test 08/17/18 15:30 08/18/18 05:00 White Blood Count 3.0 x10^3/uL (4.0-11.0) 2.2 x10^3/uL (4.0-11.0) Red Blood Count 4.22 x10^6/uL (3.50-5.40) 4.05 x10^6/uL (3.50-5.40) Hemoglobin 11.6 g/dL (12.0-15.5) 11.0 g/dL (12.0-15.5) Hematocrit 34.7 % (36.0-47.0) 33.3 % (36.0-47.0) Mean Corpuscular Volume 82 fL (79-100) 82 fL (79-100) Mean Corpuscular Hemoglobin 27 pg (25-35) 27 pg (25-35) Mean Corpuscular Hemoglobin Concent 33 g/dL (31-37) 33 g/dL (31-37) Red Cell Distribution Width 15.5 % (11.5-14.5) 15.8 % (11.5-14.5) Platelet Count 100 x10^3/uL (140-400) 82 x10^3/uL (140-400) Neutrophils (%) (Auto) 55 % (31-73) 55 % (31-73) Lymphocytes (%) (Auto) 21 % (24-48) 19 % (24-48) Monocytes (%) (Auto) 16 % (0-9) 16 % (0-9) Eosinophils (%) (Auto) 7 % (0-3) 8 % (0-3) Basophils (%) (Auto) 1 % (0-3) 2 % (0-3) Neutrophils # (Auto) 1.6 x10^3uL (1.8-7.7) 1.2 x10^3uL (1.8-7.7) Lymphocytes # (Auto) 0.6 x10^3/uL (1.0-4.8) 0.4 x10^3/uL (1.0-4.8) Monocytes # (Auto) 0.5 x10^3/uL (0.0-1.1) 0.4 x10^3/uL (0.0-1.1) Eosinophils # (Auto) 0.2 x10^3/uL (0.0-0.7) 0.2 x10^3/uL (0.0-0.7) Basophils # (Auto) 0.0 x10^3/uL (0.0-0.2) 0.0 x10^3/uL (0.0-0.2) Sodium Level 137 mmol/L (136-145) 138 mmol/L (136-145) Potassium Level 3.5 mmol/L (3.5-5.1) 4.0 mmol/L (3.5-5.1) Chloride Level 96 mmol/L (98-107) 98 mmol/L (98-107) Carbon Dioxide Level 32 mmol/L (21-32) 30 mmol/L (21-32) Anion Gap 9 (6-14) 10 (6-14) Blood Urea Nitrogen 25 mg/dL (7-20) 32 mg/dL (7-20) Creatinine 4.1 mg/dL (0.6-1.0) 5.1 mg/dL (0.6-1.0) Estimated GFR (Cockcroft-Gault) 15.6 12.1 BUN/Creatinine Ratio 6 (6-20) 6 (6-20) Glucose Level 90 mg/dL (70-99) 84 mg/dL (70-99) Calcium Level 9.3 mg/dL (8.5-10.1) 9.2 mg/dL (8.5-10.1) Total Bilirubin 0.8 mg/dL (0.2-1.0) 0.7 mg/dL (0.2-1.0) Aspartate Amino Transf (AST/SGOT) 21 U/L (15-37) 18 U/L (15-37) Alanine Aminotransferase (ALT/SGPT) 16 U/L (14-59) 14 U/L (14-59) Alkaline Phosphatase 93 U/L (46-116) 83 U/L (46-116) Troponin I Quantitative < 0.017 ng/mL (0.000-0.055) Total Protein 9.8 g/dL (6.4-8.2) 8.6 g/dL (6.4-8.2) Albumin 3.7 g/dL (3.4-5.0) 3.2 g/dL (3.4-5.0) Albumin/Globulin Ratio 0.6 (1.0-1.7) 0.6 (1.0-1.7) Magnesium Level 1.7 mg/dL (1.8-2.4) ASSESSMENT/PLAN ASSESSMENT/PLAN 1. Seizure: neurology following 2. Accelerated HTN: resolved. Likely from missed meds with associated seizure. EKG SR with LVH 3. Pancytopenia 4. ESRD 5. Hx of Hodgkins 6. Hx of HIV Recommendations 1. Cardene off, responding well with restarting home clonidine and norvasc. 2. TTE today 3. Fluid off loading per HD. 4. Will need referral to HIV specialist, PCP and oncologist CONRADO VALVERDE MD 08/18/18 1649: CARDIAC CONSULT ASSESSMENT/PLAN ASSESSMENT/PLAN Patient seen and examined. Agree with TRACK LAYING MACHINE OPERATOR's assessment and plan. Accelerated hypertension probably secondary to noncompliance Blood pressure better controlled since admission and she is currently off Cardene 2-D echo showed LVEF 55% Continue hemodialysis per nephrology team Thank you for your consultation KARINA MULTANI APRN Aug 18, 2018 09:16 CONRADO VALVERDE MD Aug 18, 2018 16:49
--- NOTE | 2018-08-18 10:36 | CARD ---
MR#: [id number] Date of Study: 08/18/2018 Ordering Physician: KARINA MULTANI, Referring Physician: TEO VERDUZCO, Tech: Jaimie Stock [facility] APPROVED REPORT EXAM: LIMITED Two-dimensional and M-mode echocardiogram with Doppler and color Doppler. Other Information Quality : GoodHR: 65bpm Rhythm : NSR INDICATION Abnormal ECG 2D DIMENSIONS RVDd3.1 (2.9-3.5cm)Left Atrium(2D)3.4 (1.6-4.0cm) IVSd1.1 (0.7-1.1cm)Aortic Root(2D)3.4 (2.0-3.7cm) LVDd5.2 (3.9-5.9cm)PWd1.2 (0.7-1.1cm) LVDs3.8 (2.5-4.0cm)FS (%) 26.5 % SV66.6 mlLVEF(%)51.5 (>50%) Mitral Valve MV E Peak Gr.8mmHgMV E Mean Gr.3mmHg Tricuspid Valve TR P. [id number]/sRAP [id number] TR Peak Gr.[id number] LEFT VENTRICLE The left ventricle is normal size. There is mild concentric left ventricular hypertrophy. Left ventri bogdan systolic function is normal. The Ejection Fraction is 55%. There is normal LV segmental wall maribeth on. RIGHT VENTRICLE The right ventricle is normal size. There is normal right ventricular wall thickness. The right ventr icular systolic function is normal. ATRIA The left atrium size is normal. The right atrium size is normal. The interatrial septum is intact wit h no evidence for an atrial septal defect or patent foramen ovale as noted on 2-D or Doppler imaging. AORTIC VALVE The aortic valve is trileaflet. The aortic valve is normal in structure and function. Doppler and Col or Flow revealed no significant aortic regurgitation. MITRAL VALVE The mitral valve is normal in structure and function. There is no evidence of mitral valve prolapse. There is no mitral valve stenosis. Doppler and Color-flow revealed mild mitral regurgitation. TRICUSPID VALVE The tricuspid valve is normal in structure and function. Doppler and Color Flow revealed trace tricus pid regurgitation. The PA pressure was estimated at 26 mmHg. There is no tricuspid valve prolapse or vegetation. There is no tricuspid valve stenosis. GREAT VESSELS na PERICARDIAL EFFUSION There is no evidence of significant pericardial effusion. Critical Notification Critical Value: No <Conclusion> Left ventricle systolic function is normal. The Ejection Fraction is 55%. There is normal LV segmental wall motion. There is mild concentric left ventricular hypertrophy. Mild mitral regurgitation. Trace tricuspid regurgitation. The PA pressure was estimated at 26 mmHg. There is no evidence of significant pericardial effusion. Signed by : Sanket Santamaria, Electronically Approved : 08/18/2018 10:35:41
--- NOTE | 2018-08-18 11:03 | PDOC2 ---
CONSULT Date of Consult Date of Consult DATE: 08/18/18 TIME: 10:47 Reason for Consult Reason for Consult: ESRD TTS Identification/Chief Complaint Chief Complaint Seizures on HD yesterday Source Source: Chart review, Patient History of Present Illness Reason for Visit: Patient is a 27 yo female w/ ESRD on HD TTS , poorly controlled HTN, Epilepsy since age 12, HIV positive , h/o hodgkins lymphoma admitted with seizure. She experienced a seizure 2 hours after starting dialysis as OP yesterday , witnessed by dialysis staff.She states she did not miss her seizure medication .She does not have a neurologist despite her long-standing seizure history. She denies any F/C/Cough /N/V. States her Chest is hurting but points towards upper abdomen- Chronic. Has RRF as per pt, denies anySymptoms of UTI Her last seizure prior to this episode was a few days ago . She denies using drugs or alcohol. In ED systolic BP > 220 and diastolic BP > 110 not improved significantly by labetalol. Past Medical History Cardiovascular: HTN CENTRAL NERVOUS SYSTEM: Seizure GI: GERD Heme/Onc: Cancer (non-Hodgkin's lymphoma) Psych: Anxiety, Depression Rheumatologic: Fibromyalgia (?) Infectious disease: HIV Renal/: Chronic renal failure (dialysis) Endocrine: Hyperparathyroidism Grav: 2 Para: 2 Past Surgical History Past Surgical History: Appendectomy, Cholecystectomy, (x2), Other ( LAV fistula) Family History Family History: Heart Disease Social History Social History: Parent, Grandparents No ALCOHOL: none Drugs: None Lives: with Family Current Medications Current Medications Current Medications Lorazepam (Ativan) 2 mg 1X ONCE IV Last administered on 08/17/18at 16:09; Start 08/17/18 at 16:00; Stop 08/17/18 at 16:01; Status DC Levetiracetam 1000 mg/Dextrose 110 ml @ 440 mls/hr 1X ONCE IV Last administered on 08/17/18at 16:08; Start 08/17/18 at 16:00; Stop 08/17/18 at 16 :14; Status DC Labetalol HCl (Normodyne Iv Push) 20 mg 1X ONCE IVP Last administered on 08/17at 16:49; Start 08/17/18 at 16:45; Stop 08/17/18 at 16:46; Status DC Nicardipine HCl 50 mg/Sodium Chloride 270 ml @ 27 mls/hr CONT PRN IV SEE I/O RECORD Last administered on 08/17/18 18:39; Start 08/17/18 at 18:15 Levetiracetam (Keppra) 500 mg BID PO Last administered on 08/18/18 08:20; Start 08/18/18 at 09:00 Amlodipine Besylate (Norvasc) 10 mg DAILY PO Last administered on 08/18/18at 07 :22; Start 08/17/18 at 18:30 Clonidine HCl (Catapres) 0.2 mg BID PO Last administered on 08/18/18 07:23; Start 08/17/18 at 21:00 Levetiracetam (Keppra) 500 mg BID PO ; Start 08/17/18 at 21:00; Status UNV Pantoprazole Sodium (Protonix) 40 mg DAILYAC PO Last administered on 07:22; Start 08/18/18 at 07:30 Quetiapine Fumarate (SEROquel) 50 mg QHS PO Last administered on 08/17/18at 20: 54; Start 08/17/18 at 21:00 Sucralfate (Carafate) 1 gm BIDAC PO Last administered on 08/18/18 07:21; Start 08/18/18 at 07:30 Labetalol HCl (Normodyne Iv Push) 20 mg PRN Q2HR PRN IVP HYPERTENSION, SEE COMMENTS Last administered on 08/17/18at 20:27; Start 08/17/18 at 18:30 Lorazepam (Ativan) 2 mg PRN Q2HRS PRN IV ANXIETY / AGITATION; Start 08/17/18 at 18:30 Trazodone HCl (Desyrel) 100 mg 1X ONCE PO Last administered on 08/17/18at 20: 54; Start 08/17/18 at 21:00; Stop 08/17/18 at 21:01; Status DC Fentanyl Citrate (Fentanyl 2ml Vial) 25 mcg PRN Q3HRS PRN IV PAIN Last administered on 08/18/18 07:23; Start 08/18/18 at 03:15 Magnesium Oxide (Magnesium Oxide) 400 mg DAILY PO Last administered on at 08:21; Start 08/18/18 at 09:00 Active Scripts Active Oxycodone Hcl Immed.release (Oxycodone Hcl) 5 Mg Tablet 5 Mg PO PRN DAILY PRN 6 Days Carafate (Sucralfate) 1 Gm Tablet 1 Gm PO BIDWMEALS 30 Days Reported NITROGLYCERIN SubLingual (Nitroglycerin) 0.4 Mg Tab.subl 0.4 Mg SL PRN Q5MIN PRN Protonix (Pantoprazole Sodium) 20 Mg Tablet.dr 40 Mg PO DAILY Seroquel (Quetiapine Fumarate) 50 Mg Tablet 1 Tab PO QHS Keppra (Levetiracetam) 500 Mg Tablet 500 Mg PO BID Clonidine Hcl 0.2 Mg Tablet 1 Tab PO BID Norvasc (Amlodipine Besylate) 10 Mg Tablet 10 Mg PO DAILY Allergies Allergies: Coded Allergies: povidone-iodine (Verified Allergy, Intermediate, 08/17/18) soap (Verified Allergy, Intermediate, 08/17/18) diphenhydramine (Verified Adverse Reaction, Severe, Anxiety, 08/18/18) Makes her feel "crazy" lisinopril (Verified Adverse Reaction, Intermediate, 08/17/18) Altered mental status per pt ROS Review of System As per HPI Physical Exam Physical Exam General: No acute distress HEENT: Mucous membr. moist/pink neck Supple Lungs: Clear to auscultation, Heart: RRR Abdomen: Soft, No tenderness Extremities: No LE edema, Lt AV access , good thrill and Bruit Skin: No rash Neuro: grossly normal - No shukla Skin No rash Vital Signs Vital Signs Date Time Temp Pulse Resp B/P (MAP) Pulse Ox O2 Delivery O2 Flow Rate FiO2 08/18/18 10:00 65 16 123/75 (91) 96 Room Air 08/18/18 09:00 2.0 08/18/18 07:00 98.1 98.1 Assessment & Plan ESRD- On HD TTS- Dr. Villeda Last HD yesterday as OP, didn't complete treatment due to Sz Labs stable, Currently No emergent Indication for HD Tomorrow as per her schedule if inpatient , if dced HD at Op unit Seizure - On HD yesterday Long standing hx, On Sz meds As per Neurology HTN- Very High BP on admission , was on Cardene drip for an hour BP at goal this am Cardiology has been consulted by primary History of Hodgkin's lymphoma - off chemo Anemia of chronic renal dz - Pancytopenia - historically since her cancer treatment. Discussed a/p with Pt and RN Labs Labs Laboratory Tests Test 08/17/18 15:30 08/18/18 05:00 White Blood Count 3.0 x10^3/uL (4.0-11.0) 2.2 x10^3/uL (4.0-11.0) Red Blood Count 4.22 x10^6/uL (3.50-5.40) 4.05 x10^6/uL (3.50-5.40) Hemoglobin 11.6 g/dL (12.0-15.5) 11.0 g/dL (12.0-15.5) Hematocrit 34.7 % (36.0-47.0) 33.3 % (36.0-47.0) Mean Corpuscular Volume 82 fL (79-100) 82 fL (79-100) Mean Corpuscular Hemoglobin 27 pg (25-35) 27 pg (25-35) Mean Corpuscular Hemoglobin Concent 33 g/dL (31-37) 33 g/dL (31-37) Red Cell Distribution Width 15.5 % (11.5-14.5) 15.8 % (11.5-14.5) Platelet Count 100 x10^3/uL (140-400) 82 x10^3/uL (140-400) Neutrophils (%) (Auto) 55 % (31-73) 55 % (31-73) Lymphocytes (%) (Auto) 21 % (24-48) 19 % (24-48) Monocytes (%) (Auto) 16 % (0-9) 16 % (0-9) Eosinophils (%) (Auto) 7 % (0-3) 8 % (0-3) Basophils (%) (Auto) 1 % (0-3) 2 % (0-3) Neutrophils # (Auto) 1.6 x10^3uL (1.8-7.7) 1.2 x10^3uL (1.8-7.7) Lymphocytes # (Auto) 0.6 x10^3/uL (1.0-4.8) 0.4 x10^3/uL (1.0-4.8) Monocytes # (Auto) 0.5 x10^3/uL (0.0-1.1) 0.4 x10^3/uL (0.0-1.1) Eosinophils # (Auto) 0.2 x10^3/uL (0.0-0.7) 0.2 x10^3/uL (0.0-0.7) Basophils # (Auto) 0.0 x10^3/uL (0.0-0.2) 0.0 x10^3/uL (0.0-0.2) Sodium Level 137 mmol/L (136-145) 138 mmol/L (136-145) Potassium Level 3.5 mmol/L (3.5-5.1) 4.0 mmol/L (3.5-5.1) Chloride Level 96 mmol/L (98-107) 98 mmol/L (98-107) Carbon Dioxide Level 32 mmol/L (21-32) 30 mmol/L (21-32) Anion Gap 9 (6-14) 10 (6-14) Blood Urea Nitrogen 25 mg/dL (7-20) 32 mg/dL (7-20) Creatinine 4.1 mg/dL (0.6-1.0) 5.1 mg/dL (0.6-1.0) Estimated GFR (Cockcroft-Gault) 15.6 12.1 BUN/Creatinine Ratio 6 (6-20) 6 (6-20) Glucose Level 90 mg/dL (70-99) 84 mg/dL (70-99) Calcium Level 9.3 mg/dL (8.5-10.1) 9.2 mg/dL (8.5-10.1) Total Bilirubin 0.8 mg/dL (0.2-1.0) 0.7 mg/dL (0.2-1.0) Aspartate Amino Transf (AST/SGOT) 21 U/L (15-37) 18 U/L (15-37) Alanine Aminotransferase (ALT/SGPT) 16 U/L (14-59) 14 U/L (14-59) Alkaline Phosphatase 93 U/L (46-116) 83 U/L (46-116) Troponin I Quantitative < 0.017 ng/mL (0.000-0.055) Total Protein 9.8 g/dL (6.4-8.2) 8.6 g/dL (6.4-8.2) Albumin 3.7 g/dL (3.4-5.0) 3.2 g/dL (3.4-5.0) Albumin/Globulin Ratio 0.6 (1.0-1.7) 0.6 (1.0-1.7) Magnesium Level 1.7 mg/dL (1.8-2.4) Laboratory Tests Test 08/17/18 15:30 08/18/18 05:00 White Blood Count 3.0 x10^3/uL (4.0-11.0) 2.2 x10^3/uL (4.0-11.0) Red Blood Count 4.22 x10^6/uL (3.50-5.40) 4.05 x10^6/uL (3.50-5.40) Hemoglobin 11.6 g/dL (12.0-15.5) 11.0 g/dL (12.0-15.5) Hematocrit 34.7 % (36.0-47.0) 33.3 % (36.0-47.0) Mean Corpuscular Volume 82 fL (79-100) 82 fL (79-100) Mean Corpuscular Hemoglobin 27 pg (25-35) 27 pg (25-35) Mean Corpuscular Hemoglobin Concent 33 g/dL (31-37) 33 g/dL (31-37) Red Cell Distribution Width 15.5 % (11.5-14.5) 15.8 % (11.5-14.5) Platelet Count 100 x10^3/uL (140-400) 82 x10^3/uL (140-400) Neutrophils (%) (Auto) 55 % (31-73) 55 % (31-73) Lymphocytes (%) (Auto) 21 % (24-48) 19 % (24-48) Monocytes (%) (Auto) 16 % (0-9) 16 % (0-9) Eosinophils (%) (Auto) 7 % (0-3) 8 % (0-3) Basophils (%) (Auto) 1 % (0-3) 2 % (0-3) Neutrophils # (Auto) 1.6 x10^3uL (1.8-7.7) 1.2 x10^3uL (1.8-7.7) Lymphocytes # (Auto) 0.6 x10^3/uL (1.0-4.8) 0.4 x10^3/uL (1.0-4.8) Monocytes # (Auto) 0.5 x10^3/uL (0.0-1.1) 0.4 x10^3/uL (0.0-1.1) Eosinophils # (Auto) 0.2 x10^3/uL (0.0-0.7) 0.2 x10^3/uL (0.0-0.7) Basophils # (Auto) 0.0 x10^3/uL (0.0-0.2) 0.0 x10^3/uL (0.0-0.2) Sodium Level 137 mmol/L (136-145) 138 mmol/L (136-145) Potassium Level 3.5 mmol/L (3.5-5.1) 4.0 mmol/L (3.5-5.1) Chloride Level 96 mmol/L (98-107) 98 mmol/L (98-107) Carbon Dioxide Level 32 mmol/L (21-32) 30 mmol/L (21-32) Anion Gap 9 (6-14) 10 (6-14) Blood Urea Nitrogen 25 mg/dL (7-20) 32 mg/dL (7-20) Creatinine 4.1 mg/dL (0.6-1.0) 5.1 mg/dL (0.6-1.0) Estimated GFR (Cockcroft-Gault) 15.6 12.1 BUN/Creatinine Ratio 6 (6-20) 6 (6-20) Glucose Level 90 mg/dL (70-99) 84 mg/dL (70-99) Calcium Level 9.3 mg/dL (8.5-10.1) 9.2 mg/dL (8.5-10.1) Total Bilirubin 0.8 mg/dL (0.2-1.0) 0.7 mg/dL (0.2-1.0) Aspartate Amino Transf (AST/SGOT) 21 U/L (15-37) 18 U/L (15-37) Alanine Aminotransferase (ALT/SGPT) 16 U/L (14-59) 14 U/L (14-59) Alkaline Phosphatase 93 U/L (46-116) 83 U/L (46-116) Troponin I Quantitative < 0.017 ng/mL (0.000-0.055) Total Protein 9.8 g/dL (6.4-8.2) 8.6 g/dL (6.4-8.2) Albumin 3.7 g/dL (3.4-5.0) 3.2 g/dL (3.4-5.0) Albumin/Globulin Ratio 0.6 (1.0-1.7) 0.6 (1.0-1.7) Magnesium Level 1.7 mg/dL (1.8-2.4) Review All relevant outside records, renal labs, imaging studies, telemetry/EKG's were reviewed. ARTEM TURK MD Aug 18, 2018 11:03
--- NOTE | 2018-08-18 12:16 | PDOC3 ---
Discharge Summary Visit Information Date of Admission: Aug 17, 2018 Date of Discharge: Aug 18, 2018 Admitting Diagnosis: Seizure, HTN emergency Final Diagnosis Seizure, HTN emergency Brief Hospital Course Allergies Allergies Coded Allergies Type Severity Reaction Last Updated Verified povidone-iodine Allergy Intermediate 08/17/18 Yes soap Allergy Intermediate 08/17/18 Yes diphenhydramine Adverse Reaction Severe Anxiety 08/18/18 Yes lisinopril Adverse Reaction Intermediate 08/17/18 Yes Vital Signs Vital Signs Date Time Temp Pulse Resp B/P (MAP) Pulse Ox O2 Delivery O2 Flow Rate FiO2 08/18/18 11:01 67 16 115/66 (82) 97 Room Air 08/18/18 09:00 2.0 08/18/18 07:00 98.1 98.1 Lab Results Laboratory Tests Test 08/17/18 15:30 08/18/18 05:00 White Blood Count 3.0 x10^3/uL (4.0-11.0) 2.2 x10^3/uL (4.0-11.0) Red Blood Count 4.22 x10^6/uL (3.50-5.40) 4.05 x10^6/uL (3.50-5.40) Hemoglobin 11.6 g/dL (12.0-15.5) 11.0 g/dL (12.0-15.5) Hematocrit 34.7 % (36.0-47.0) 33.3 % (36.0-47.0) Mean Corpuscular Volume 82 fL (79-100) 82 fL (79-100) Mean Corpuscular Hemoglobin 27 pg (25-35) 27 pg (25-35) Mean Corpuscular Hemoglobin Concent 33 g/dL (31-37) 33 g/dL (31-37) Red Cell Distribution Width 15.5 % (11.5-14.5) 15.8 % (11.5-14.5) Platelet Count 100 x10^3/uL (140-400) 82 x10^3/uL (140-400) Neutrophils (%) (Auto) 55 % (31-73) 55 % (31-73) Lymphocytes (%) (Auto) 21 % (24-48) 19 % (24-48) Monocytes (%) (Auto) 16 % (0-9) 16 % (0-9) Eosinophils (%) (Auto) 7 % (0-3) 8 % (0-3) Basophils (%) (Auto) 1 % (0-3) 2 % (0-3) Neutrophils # (Auto) 1.6 x10^3uL (1.8-7.7) 1.2 x10^3uL (1.8-7.7) Lymphocytes # (Auto) 0.6 x10^3/uL (1.0-4.8) 0.4 x10^3/uL (1.0-4.8) Monocytes # (Auto) 0.5 x10^3/uL (0.0-1.1) 0.4 x10^3/uL (0.0-1.1) Eosinophils # (Auto) 0.2 x10^3/uL (0.0-0.7) 0.2 x10^3/uL (0.0-0.7) Basophils # (Auto) 0.0 x10^3/uL (0.0-0.2) 0.0 x10^3/uL (0.0-0.2) Sodium Level 137 mmol/L (136-145) 138 mmol/L (136-145) Potassium Level 3.5 mmol/L (3.5-5.1) 4.0 mmol/L (3.5-5.1) Chloride Level 96 mmol/L (98-107) 98 mmol/L (98-107) Carbon Dioxide Level 32 mmol/L (21-32) 30 mmol/L (21-32) Anion Gap 9 (6-14) 10 (6-14) Blood Urea Nitrogen 25 mg/dL (7-20) 32 mg/dL (7-20) Creatinine 4.1 mg/dL (0.6-1.0) 5.1 mg/dL (0.6-1.0) Estimated GFR (Cockcroft-Gault) 15.6 12.1 BUN/Creatinine Ratio 6 (6-20) 6 (6-20) Glucose Level 90 mg/dL (70-99) 84 mg/dL (70-99) Calcium Level 9.3 mg/dL (8.5-10.1) 9.2 mg/dL (8.5-10.1) Total Bilirubin 0.8 mg/dL (0.2-1.0) 0.7 mg/dL (0.2-1.0) Aspartate Amino Transf (AST/SGOT) 21 U/L (15-37) 18 U/L (15-37) Alanine Aminotransferase (ALT/SGPT) 16 U/L (14-59) 14 U/L (14-59) Alkaline Phosphatase 93 U/L (46-116) 83 U/L (46-116) Troponin I Quantitative < 0.017 ng/mL (0.000-0.055) Total Protein 9.8 g/dL (6.4-8.2) 8.6 g/dL (6.4-8.2) Albumin 3.7 g/dL (3.4-5.0) 3.2 g/dL (3.4-5.0) Albumin/Globulin Ratio 0.6 (1.0-1.7) 0.6 (1.0-1.7) Magnesium Level 1.7 mg/dL (1.8-2.4) Laboratory Tests Test 08/17/18 15:30 08/18/18 05:00 White Blood Count 3.0 x10^3/uL (4.0-11.0) 2.2 x10^3/uL (4.0-11.0) Red Blood Count 4.22 x10^6/uL (3.50-5.40) 4.05 x10^6/uL (3.50-5.40) Hemoglobin 11.6 g/dL (12.0-15.5) 11.0 g/dL (12.0-15.5) Hematocrit 34.7 % (36.0-47.0) 33.3 % (36.0-47.0) Mean Corpuscular Volume 82 fL (79-100) 82 fL (79-100) Mean Corpuscular Hemoglobin 27 pg (25-35) 27 pg (25-35) Mean Corpuscular Hemoglobin Concent 33 g/dL (31-37) 33 g/dL (31-37) Red Cell Distribution Width 15.5 % (11.5-14.5) 15.8 % (11.5-14.5) Platelet Count 100 x10^3/uL (140-400) 82 x10^3/uL (140-400) Neutrophils (%) (Auto) 55 % (31-73) 55 % (31-73) Lymphocytes (%) (Auto) 21 % (24-48) 19 % (24-48) Monocytes (%) (Auto) 16 % (0-9) 16 % (0-9) Eosinophils (%) (Auto) 7 % (0-3) 8 % (0-3) Basophils (%) (Auto) 1 % (0-3) 2 % (0-3) Neutrophils # (Auto) 1.6 x10^3uL (1.8-7.7) 1.2 x10^3uL (1.8-7.7) Lymphocytes # (Auto) 0.6 x10^3/uL (1.0-4.8) 0.4 x10^3/uL (1.0-4.8) Monocytes # (Auto) 0.5 x10^3/uL (0.0-1.1) 0.4 x10^3/uL (0.0-1.1) Eosinophils # (Auto) 0.2 x10^3/uL (0.0-0.7) 0.2 x10^3/uL (0.0-0.7) Basophils # (Auto) 0.0 x10^3/uL (0.0-0.2) 0.0 x10^3/uL (0.0-0.2) Sodium Level 137 mmol/L (136-145) 138 mmol/L (136-145) Potassium Level 3.5 mmol/L (3.5-5.1) 4.0 mmol/L (3.5-5.1) Chloride Level 96 mmol/L (98-107) 98 mmol/L (98-107) Carbon Dioxide Level 32 mmol/L (21-32) 30 mmol/L (21-32) Anion Gap 9 (6-14) 10 (6-14) Blood Urea Nitrogen 25 mg/dL (7-20) 32 mg/dL (7-20) Creatinine 4.1 mg/dL (0.6-1.0) 5.1 mg/dL (0.6-1.0) Estimated GFR (Cockcroft-Gault) 15.6 12.1 BUN/Creatinine Ratio 6 (6-20) 6 (6-20) Glucose Level 90 mg/dL (70-99) 84 mg/dL (70-99) Calcium Level 9.3 mg/dL (8.5-10.1) 9.2 mg/dL (8.5-10.1) Total Bilirubin 0.8 mg/dL (0.2-1.0) 0.7 mg/dL (0.2-1.0) Aspartate Amino Transf (AST/SGOT) 21 U/L (15-37) 18 U/L (15-37) Alanine Aminotransferase (ALT/SGPT) 16 U/L (14-59) 14 U/L (14-59) Alkaline Phosphatase 93 U/L (46-116) 83 U/L (46-116) Troponin I Quantitative < 0.017 ng/mL (0.000-0.055) Total Protein 9.8 g/dL (6.4-8.2) 8.6 g/dL (6.4-8.2) Albumin 3.7 g/dL (3.4-5.0) 3.2 g/dL (3.4-5.0) Albumin/Globulin Ratio 0.6 (1.0-1.7) 0.6 (1.0-1.7) Magnesium Level 1.7 mg/dL (1.8-2.4) Brief Hospital Course Ms Patterson is a 27 yo female w/ PMHx of poorly controlled HTN, Epilepsy since age 12, HIV positive and ESRD on HD TuThSa as well as h/o hodgkins lymphoma who p/w seizure. She moved here from [place] on 09/2017 and has not established any PCP, oncologist, HIV specialist. She experienced a seizure 2 hours after starting dialysis 08/17/18 that was witnessed with dialysis staff without loss of urine and bowel. Patient complaining of mild headache. Patient states she did not miss her seizure medication but did not sleep at all last night and states her mother noted she has not slept for the past 2 nights, finds her awake every time she gets up to go to the restroom. Patient states her last seizure was a few days ago and she does not have a neurologist despite her long-standing seizure history. Patient denies using drugs or alcohol. She denies any F/C/Cough /N/V In ED she was noted with systolic BP > 220 and diastolic BP > 110 not improved significantly by labetalol. Admitted to ICU for further care. Overnight slept with addition of trazodone and seroquel. BP came down once her home meds were reinitiated and cardene GTT for a few hours. No further seizure activity. She c/o abdominal pain usually improved by hot tea, carafate, PPI, but is specifically requesting IV fentanyl to treat this, though infrequently. Seen by neurology, ok with 6 week f/u. Seen by cardiology, ECHO: Left ventricle systolic function is normal. The Ejection Fraction is 55%. There is normal LV segmental wall motion. There is mild concentric left ventricular hypertrophy. Mild mitral regurgitation. Trace tricuspid regurgitation. The PA pressure was estimated at 26 mmHg. There is no evidence of significant pericardial effusion. This is fairly consistent with a long-standing hypertension. She will be discharged into the care of her mother, no driving for 6 months, needs PCP, psych. SW and PAT team have given her resources for outpatient f/u. A/P: Seizure - given lorazepam to hope, reload her keppra, consulted neurology. This may have been precipitated by lack of sleep, will give sleep aid and continue home keppra Insomnia - may have precipitated her seizure. Trazodone and seroquel in conjunction with lorazepam as sleep aids prn. Will d/c with this prescription and ESRD - LUYulisa fistula, dialyzed 08/17, due Tuesday, seen by nephrology as she also has very difficult to control HTN History of Hodgkin's lymphoma - off chemo Hypertensive emergency - Abated. Systolic > 230 and diastolic > 120. Restart home meds, labetalol 20mg IV q 4 hours Anemia of chronic renal dz - stable Pancytopenia - historically since her cancer treatment. will monitor HIV - needs ID outpatient, however, with her history of compliance difficulties she has not seen our ID group, given referrals as she needs viral titers and CD4 counts and anti-retroviral care, but she shows little interest in having this. Will have PAT team to see her for mental health resources as treating depression may get her into a position to be motivated to care for her own health Discharge Information Condition at Discharge: Improved Follow Up: Weeks (2) Disposition/Orders: D/C to Home Scheduled Amlodipine Besylate (Norvasc) 10 Mg Tablet, 10 MG PO DAILY, (Reported) Entered as Reported by: ASHLEY FAYE on 02/27/181751 Last Action: Continued on 08/17/181818 by MARY ENRIQUE Clonidine Hcl (Clonidine Hcl) 0.2 Mg Tablet, 1 TAB PO BID, #60 Ref 5 (Reported) Entered as Reported by: WILLIE ALEX RN on 03/14/18 0732 Last Action: Continued on 08/17/181818 by MARY ENRIQUE Levetiracetam (Keppra) 500 Mg Tablet, 500 MG PO BID, (Reported) Entered as Reported by: MADISON FERNANDEZ on 05/21/18 1214 Last Action: Continued on 08/17/181818 by MARY ENRIQUE Pantoprazole Sodium (Protonix) 20 Mg Tablet.dr, 40 MG PO DAILY, (Reported) Entered as Reported by: MELISSA COLVIN on 05/22/18422 Last Action: Converted on 08/17/181818 by MARY ENRIQUE Quetiapine Fumarate (Seroquel) 50 Mg Tablet, 1 TAB PO QHS, #30 Ref 2 (Reported) Entered as Reported by: MELISSA COLVIN on 05/22/18422 Last Action: Converted on 08/17/181818 by MARY ENRIQUE Sucralfate (Carafate) 1 Gm Tablet, 1 GM PO BIDWMEALS for 30 Days, #60 Ref 2 Prescribed by: TEO VERDUZCO MD on 05/25/18 1024 Last Action: Converted on 08/17/181818 by MARY ENRIQUE Trazodone Hcl (Trazodone Hcl) 100 Mg Tablet, 1 TAB PO QHS for prnnightly for 30 Days, #30 Ref 1 Prescribed by: TEO VERUDZCO MD on 08/18/18 1314 Scheduled PRN Nitroglycerin (NITROGLYCERIN SubLingual) 0.4 Mg Tab.subl, 0.4 MG SL PRN Q5MIN PRN for CHEST PAIN, (Reported) Entered as Reported by: MELISSA COLVIN on 05/22/18422 Last Action: Reviewed on 08/17/181818 by MARY ENRIQUE Oxycodone Hcl (Oxycodone Hcl Immed.release ) 5 Mg Tablet, 5 MG PO PRN DAILY PRN for MODERATE TO SEVERE PAIN for 6 Days, #6 Prescribed by: TEO VERDUZCO MD on 05/25/18 1024 TEO VERDUZCO MD Aug 18, 2018 12:16
[2018-08-18] MEDS ORDERED: TRAZ-86 PO (13:14)
[2018-08-18] MEDS ORDERED: PROCHLORPERAZINE 10 MG/2 ML VIAL. IV PRN (13:15)
== END 2018-08-18 16:25 | disposition home or self-care (01) | DRG 100 ==
LOC: ER 14:12 → 1 WEST ICU 16:02
PROVIDERS: ADMIT Internal Medicine; ATTEND Internal Medicine
DX: G40.911 Epilepsy, unspecified, intractable, with status epilepticus (principal); N18.6 End stage renal disease; I16.1 Hypertensive emergency; C85.90 Non-Hodgkin lymphoma, unspecified, unspecified site; D61.818 Other pancytopenia; I12.0 Hypertensive chronic kidney disease with stage 5 chronic kidney disease or end stage renal disease; F32.9 Major depressive disorder, single episode, unspecified; F41.9 Anxiety disorder, unspecified; I34.0 Nonrheumatic mitral (valve) insufficiency; K21.9 Gastro-esophageal reflux disease without esophagitis; E21.3 Hyperparathyroidism, unspecified; M79.7 Fibromyalgia; Z21 Asymptomatic human immunodeficiency virus [HIV] infection status; Z72.820 Sleep deprivation; Z85.71 Personal history of Hodgkin lymphoma; Z90.49 Acquired absence of other specified parts of digestive tract; Z91.19 Patient's noncompliance with other medical treatment and regimen; Z99.2 Dependence on renal dialysis
CPT/HCPCS: 36415; 80053; 83735; 84484; 85025; 87641; 93005; 93308; 93325; 96374; 96375; J0780; J1953; J2060; J3010; J3490; J7050; 99285-25; J7030

== ENCOUNTER 2018-09-15 02:01 | Emergency (ER) | payer OTHER ==
[~2018-09-15] VITALS: Ht 165.1 cm; Wt 65.8 kg
[~2018-09-15 02:01] MED LIST changes: +TRAZ-86 PO
[2018-09-15] MEDS ORDERED: MORPHINE SULFATE 10 MG/ML VIAL. IV ONE (03:00)
[2018-09-15 03:30] LABS: BASO % 1 % (0-3); EOS # 0.3 x10^3/uL (0.0-0.7); EOS % 10 % (0-3); HEMATOCRIT 29.5 % (36.0-47.0); HEMOGLOBIN 9.6 g/dL (12.0-15.5); LYMPH # 0.7 x10^3/uL (1.0-4.8); LYMPH % 24 % (24-48); MEAN CORPUSCULAR HEMOGLOBIN 27 pg (25-35); MEAN CORPUSCULAR HGB CONC 32 g/dL (31-37); MEAN CORPUSCULAR VOLUME 83 fL (79-100); MONO # 0.4 x10^3/uL (0.0-1.1); MONO % 14 % (0-9); NEUT # 1.7 x10^3uL (1.8-7.7); NEUT % 52 % (31-73); PLATELET COUNT 68 x10^3/uL (140-400); RED BLOOD COUNT 3.56 x10^6/uL (3.50-5.40); RED CELL DISTRIBUTION WIDTH 15.7 % (11.5-14.5); WHITE BLOOD COUNT 3.2 x10^3/uL (4.0-11.0)
[2018-09-15 03:36] LABS: CALCIUM 8.9 mg/dL (8.5-10.1); CREATININE 4.2 mg/dL (0.6-1.0); GFR 15.1
[2018-09-15] MEDS ORDERED: POTASSIUM CHLORIDE 20 MEQ/15 ML ORAL LIQUID. PO ONE (04:00)
[2018-09-15] MEDS ORDERED: MORPHINE SULFATE 4 MG/ML VIAL. IV ONE (04:00)
--- NOTE | 2018-09-15 05:00 | PHYS DOC ---
Past Medical History Past Medical History: Cancer, HIV, Hypertension, Renal Disease, Renal Failure, Seizure Additional Past Medical Histor: dialysis, hodgkins Past Surgical History: Appendectomy, Cholecystectomy Additional Past Surgical Histo: L)upper arm fistula,R)upper chest port Alcohol Use: None Drug Use: None Adult General Chief Complaint Chief Complaint: CHEST WALL PAIN HPI HPI Patient is a 27 year old female who presents with chest pain. Patient has been having pain over the last couple days. [facility] because she states the pain became too severe. And she did not have any pain medications at home. Pain is sternal in nature. It is worse with deep inspiration and with palpation. It does not cause her to be short of breath. She has not had a fever, chills, cough. She has no prior history of thrombotic disease. The patient does have a remote history of Hodgkin's lymphoma which was treated. She does have end-stage renal disease and known hypertension. Of note, the patient was recently in [facility] where she was also admitted to a hospital there. She was discharged from the hospital 3 days ago. The patient states there was some concern that her port a catheter in the right chest was infected although it was not removed. Patient cannot be more specific about her visit the [facility]. Again, she has had no fever. Review of Systems Review of Systems Constitutional: Denies fever or chills Eyes: Denies change in visual acuity HENT: Denies nasal congestion Respiratory: Denies cough or shortness of breath Cardiovascular: No additional information not addressed in HPI GI: Denies abdominal pain, nausea : Denies dysuria or hematuria Musculoskeletal: Denies back pain Integument: Denies rash or skin lesions Neurologic: Denies headache All other systems were reviewed and found to be within normal limits, except as documented in this note. Current Medications Current Medications Current Medications Medications (Trade) Dose Ordered Sig/Jackelyn Start Time Stop Time Status Last Admin Dose Admin Morphine Sulfate (Morphine Sulfate) 4 mg 1X ONCE 09/15/18 04:00 09/15/18 04:02 DC 09/15/18 04:08 4 MG Potassium Chloride (KCl Oral Soln) 40 meq 1X ONCE 09/15/18 04:00 09/15/18 04:02 DC 09/15/18 04:07 40 MEQ Allergies Allergies Allergies Coded Allergies Type Severity Reaction Last Updated Verified povidone-iodine Allergy Intermediate 08/17/18 Yes soap Allergy Intermediate 08/17/18 Yes diphenhydramine Adverse Reaction Severe Anxiety 08/18/18 Yes lisinopril Adverse Reaction Intermediate 08/17/18 Yes Physical Exam Physical Exam Constitutional: Well developed, well nourished, no acute distress, non-toxic appearance HENT: Normocephalic, atraumatic, bilateral external ears normal Eyes: PERRLA, EOMI, conjunctiva normal Neck: Normal range of motion Cardiovascular:Heart rate regular rhythm, no murmur Lungs & Thorax: Bilateral breath sounds clear to auscultation, + able to reproduce the patient's presenting symptom with palpation of the chest wall. Well-appearing port-a cath in right chest. No local erythema Abdomen: Bowel sounds normal, soft, no tenderness Skin: Warm, dry, no erythema, no rash Back: No tenderness, no CVA tenderness. Extremities: No tenderness, no edema. Fistula in the left arm with good bruit and thrill Neurologic: Alert and oriented X 3 Psychologic: Affect normal Current Patient Data Vital Signs Vital Signs Date Time Temp Pulse Resp B/P (MAP) Pulse Ox O2 Delivery O2 Flow Rate FiO2 09/15/18 04:08 16 97 Room Air 09/15/18 02:01 98.1 80 186/109 (134) 98.1 Lab Values Laboratory Tests Test 09/15/18 03:18 White Blood Count 3.2 x10^3/uL (4.0-11.0) L Red Blood Count 3.56 x10^6/uL (3.50-5.40) Hemoglobin 9.6 g/dL (12.0-15.5) L Hematocrit 29.5 % (36.0-47.0) L Mean Corpuscular Volume 83 fL (79-100) Mean Corpuscular Hemoglobin 27 pg (25-35) Mean Corpuscular Hemoglobin Concent 32 g/dL (31-37) Red Cell Distribution Width 15.7 % (11.5-14.5) H Platelet Count 68 x10^3/uL (140-400) L Neutrophils (%) (Auto) 52 % (31-73) Lymphocytes (%) (Auto) 24 % (24-48) Monocytes (%) (Auto) 14 % (0-9) H Eosinophils (%) (Auto) 10 % (0-3) H Basophils (%) (Auto) 1 % (0-3) Neutrophils # (Auto) 1.7 x10^3uL (1.8-7.7) L Lymphocytes # (Auto) 0.7 x10^3/uL (1.0-4.8) L Monocytes # (Auto) 0.4 x10^3/uL (0.0-1.1) Eosinophils # (Auto) 0.3 x10^3/uL (0.0-0.7) Basophils # (Auto) 0.0 x10^3/uL (0.0-0.2) D-Dimer (Renee) 0.43 ug/mlFEU (0.00-0.50) Sodium Level 138 mmol/L (136-145) Potassium Level 3.0 mmol/L (3.5-5.1) L Chloride Level 101 mmol/L (98-107) Carbon Dioxide Level 28 mmol/L (21-32) Anion Gap 9 (6-14) Blood Urea Nitrogen 21 mg/dL (7-20) H Creatinine 4.2 mg/dL (0.6-1.0) H Estimated GFR (Cockcroft-Gault) 15.1 Glucose Level 92 mg/dL (70-99) Calcium Level 8.9 mg/dL (8.5-10.1) Troponin I Quantitative 0.033 ng/mL (0.000-0.055) Laboratory Tests 09/15/18 03:18 Laboratory Tests 09/15/18 03:18 EKG EKG No STEMI Interpretation Time: 02:10 Radiology/Procedures Radiology/Procedures [] Course & Med Decision Making Course & Med Decision Making Pertinent Labs and Imaging studies reviewed. (See chart for details) Patient is seen and examined immediately on arrival to her room. She has pain that seems mostly musculoskeletal. Pain has been present for over 12 hours. She does not have any history of thrombotic disease. She has no findings concerning for DVT. We will do basic labs. Medications ordered for pain. Her EKG is nonacute. By the PERC criteria, patient rules out for any significant risk for PE. Dimer was ordered as there was no explanation for the patient's pain. The dimer was not elevated. Her chest x-ray did not reveal any acute findings as a source for her pain. Patient's symptoms were much improved after some pain medications in the ER and she was requesting discharge home. She is calling a family member to pick her up. She is encouraged follow-up with her primary care doctor or return to the ER for any new or worsening symptoms. Ching Disclaimer Ching Disclaimer This electronic medical record was generated, in whole or in part, using a voice recognition dictation system. Departure Departure Disposition: HOME, SELF-CARE Condition: GOOD Referrals: NO PCP (PCP) Scripts Hydrocodone/Apap 5-325 (NORCO 5-325 TABLET) 1 Each Tablet 1-2 EACH PO PRN Q6HRS PRN for SEVERE PAIN, #15 as needed for pain Prov: MADISON NUGENT DO 09/15/18 MADISON NUGENT DO Sep 15, 2018 05:00
[2018-09-15 05:37] VITALS: BP 153/94
[2018-09-15] MEDS ORDERED: HYDR-3164 PO (05:40)
--- NOTE | 2018-09-15 05:58 | RAD ---
EXAM: CHEST 1 VIEW History: Chest pain COMPARISON: 05/22/2018 TECHNIQUE: Single portable radiograph of the chest FINDINGS: Mild cardiomegaly. Right-sided Port-A-Cath is unchanged. The costophrenic sulci are clear and well demarcated. IMPRESSION: No radiographic evidence of an acute cardiopulmonary process. Electronically signed by: Marcos Marie MD (09/15/2018 5:54 AM) [facility]
[2018-09-15] MEDS ORDERED: HEPARIN PF 500 UNIT/5 ML DISP.SYRIN. IV ONE (06:15)
--- NOTE | 2018-09-15 06:50 | EKG ---
[facility] [address] [place] [address] Test Date: 2018-09-15 Test Time: 02:09:14 Pat Name: FRANCA MILES Department: Room: Gender: F Stamp Collector: : 1990 Requested By: MADISON NUGENT Order Number: [id number] Reading MD: Measurements Intervals Liberal Rate: 81 P: -127 AL: 166 QRS: -29 QRSD: 106 T: 91 QT: 392 QTc: 461 Interpretive Statements SINUS RHYTHM LEFT ATRIAL ABNORMALITY LEFTWARD AXIS INCOMPLETE RIGHT BUNDLE BRANCH BLOCK ST & T ABNORMALITY, CONSIDER HIGH LATERAL ISCHEMIA OR LEFT VENTRICULAR STRAIN ABNORMAL ECG RI6.01 No previous ECG available for comparison
== END 2018-09-15 06:10 | disposition home or self-care (01) ==
LOC: ER 02:01
DX: R07.89 Other chest pain (principal); I12.0 Hypertensive chronic kidney disease with stage 5 chronic kidney disease or end stage renal disease; N18.6 End stage renal disease; Z99.2 Dependence on renal dialysis; Z90.89 Acquired absence of other organs; Z90.49 Acquired absence of other specified parts of digestive tract; Z91.041 Radiographic dye allergy status; Z88.8 Allergy status to other drugs, medicaments and biological substances; Z91.048 Other nonmedicinal substance allergy status
CPT/HCPCS: 36415; 71045; 80048; 84484; 85025; 85379; 93005; 96374; 96376; 99284; J2270

== ENCOUNTER 2018-11-11 19:43 | Inpatient (IN) | payer OTHER ==
[~2018-11-11] VITALS: Ht 165.1 cm; Wt 65.9 kg
[~2018-11-11 19:43] MED LIST changes: -AMLO10TA6 PO; +AMLO10TA8 PO; -CALC500T PO; +CALC500T31 PO; +HYDR-3164 PO
[2018-11-11 20:40] LABS: BASO % 1 % (0-3); EOS # 0.2 x10^3/uL (0.0-0.7); EOS % 6 % (0-3); HEMATOCRIT 27.7 % (36.0-47.0); HEMOGLOBIN 8.8 g/dL (12.0-15.5); LYMPH # 0.6 x10^3/uL (1.0-4.8); LYMPH % 17 % (24-48); MEAN CORPUSCULAR HEMOGLOBIN 27 pg (25-35); MEAN CORPUSCULAR HGB CONC 32 g/dL (31-37); MEAN CORPUSCULAR VOLUME 86 fL (79-100); MONO # 0.4 x10^3/uL (0.0-1.1); MONO % 11 % (0-9); NEUT # 2.2 x10^3uL (1.8-7.7); NEUT % 66 % (31-73); PLATELET COUNT 90 x10^3/uL (140-400); RED BLOOD COUNT 3.23 x10^6/uL (3.50-5.40); RED CELL DISTRIBUTION WIDTH 15.3 % (11.5-14.5); WHITE BLOOD COUNT 3.3 x10^3/uL (4.0-11.0)
[2018-11-11 20:43] LABS: BILIRUBIN,URINE SMALL (NEG); CLARITY,URINE CLEAR; COLOR,URINE YELLOW; NITRITE,URINE NEGATIVE (NEG); PROTEIN,URINE >=300 mg/dL (NEG-TRACE)
[2018-11-11] MEDS ORDERED: LABETALOL 20 MG/4 ML DISP.SYRIN. IVP ONE ×2 (20:45→22:15)
[2018-11-11] MEDS ORDERED: NITROGLYCERIN OINT 1 GM PACKET. TP ONE (20:45)
[2018-11-11 20:49] LABS: CALCIUM 8.2 mg/dL (8.5-10.1); CREATININE 3.9 mg/dL (0.6-1.0); GFR 16.4; POTASSIUM 3.1 mmol/L (3.5-5.1)
--- NOTE | 2018-11-11 20:50 | RAD ---
PORTABLE CHEST 1V History: CHEST PAIN Comparison: September 15, 2018 Findings: Single view of the chest is submitted Pericardial cardiac silhouette is enlarged. There is again right internal jugular port catheter with tip in superior vena cava. There is no lobar consolidation, pleural fluid, pneumothorax. Impression: 1. There is again enlargement of the pericardial cardiac silhouette. Electronically signed by: Rick Simpson MD (11/11/2018 8:47 PM) [facility]
[2018-11-11 20:51] LABS: HYALINE CASTS, URINE FEW /HPF; SQUAMOUS EPITHELIAL CELL,UR MOD /LPF
[2018-11-11 20:52] LABS: BACTERIA,URINE 0 /HPF (0-FEW)
[2018-11-11 20:55] LABS: ALBUMIN 3.4 g/dL (3.4-5.0); ALBUMIN/GLOBULIN RATIO 0.7 (1.0-1.7); MAGNESIUM 1.5 mg/dL (1.8-2.4); TOTAL BILIRUBIN 0.5 mg/dL (0.2-1.0); TOTAL PROTEIN 8.1 g/dL (6.4-8.2)
[2018-11-11] MEDS ORDERED: MAGNESIUM SULFATE 1GM 100 ML IV ONE (21:30)
[2018-11-11] MEDS ORDERED: HYDROcodone/APAP 5/325MG 1 TAB TABLET PO ONE (21:30)
--- NOTE | 2018-11-11 21:33 | PHYS DOC ---
Past Medical History Past Medical History: Cancer, HIV, Hypertension, Renal Disease, Renal Failure, Seizure Additional Past Medical Histor: dialysis, hodgkins Past Surgical History: Appendectomy, Cholecystectomy Additional Past Surgical Histo: L)upper arm fistula,R)upper chest port Alcohol Use: None Drug Use: None Adult General Chief Complaint Chief Complaint: GENERALIZED BODY ACHES [facility] HPI Patient is a a 28 yo female who presents with complaint of headache, chest pain , and generalized body aches that began around 1300. Patient reports she had dialysis at 1100 and was asymptomatic prior to dialysis. She was able to complete the session, then around 1300 began having a headache, chest pain, and back pain. She describes her chest pain as stabbing pain in the middle of her chest. Her headache is characterized as extreme pain in the back of her head and neck. She reports she took her blood pressure when symptoms began, noticed it was high, and took a dose of clonindine and labetalol. She did not take any other meds. She denies recent hx of respiratory symptoms, abdominal symptoms, or urinary symptoms. Patient has PMH of nonhodgkins lymphoma which was treated with chemo, causing her ESRD and dialysis. She also has epilepsy, on keppra, and last seizure was 2 days ago. Patient denies sick contacts or recent travel. Her PCP is Dr. Cooper. Review of Systems Review of Systems Constitutional: Denies fever or chills [] Eyes: Denies change in visual acuity, redness, or eye pain [] HENT: Denies nasal congestion or sore throat [] Respiratory: Denies cough or shortness of breath [] Cardiovascular: No additional information not addressed in HPI [] GI: Denies abdominal pain, nausea, vomiting, bloody stools or diarrhea [] : Denies dysuria or hematuria [] Musculoskeletal: Denies back pain or joint pain [] Integument: Denies rash or skin lesions [] Neurologic: Denies headache, focal weakness or sensory changes [] Endocrine: Denies polyuria or polydipsia [] All other systems were reviewed and found to be within normal limits, except as documented in this note. Current Medications Current Medications Current Medications Medications (Trade) Dose Ordered Sig/Jackelyn Start Time Stop Time Status Last Admin Dose Admin Acetaminophen/ Hydrocodone Bitart (Lortab 5/325) 2 tab 1X ONCE 11/11/18 21:30 11/11/18 21:31 DC 3/23/19 21:37 2 TAB Labetalol HCl (Normodyne Iv Push) 20 mg 1X ONCE 11/11/18 22:15 11/11/18 22:16 DC 11/11/18 22:19 20 MG Levetiracetam 1000 mg/Dextrose 110 ml @ 440 mls/hr 1X ONCE 11/11/18 22:15 11/11/18 22:29 DC 11/11/18 22:20 440 MLS/HR Lorazepam (Ativan) 1 mg 1X ONCE 11/11/18 22:00 11/11/18 22:01 DC 11/11/18 22:16 1 MG Magnesium Sulfate/ Dextrose 100 ml @ 100 mls/hr 1X ONCE 11/11/18 21:30 11/11/18 22:29 DC 11/11/18 21:38 100 MLS/HR Morphine Sulfate (Morphine Sulfate) 4 mg PRN Q2HR PRN 11/11/18 22:30 11/12/18 22:29 Nitroglycerin (Nitro-Bid Oint) 2 inch 1X ONCE 11/11/18 20:45 11/11/18 20:46 DC 11/11/18 21:00 2 INCH Ondansetron HCl (Zofran) 4 mg PRN Q8HRS PRN 11/11/18 22:30 11/12/18 22:29 Allergies Allergies Allergies Coded Allergies Type Severity Reaction Last Updated Verified povidone-iodine Allergy Intermediate 08/17/18 Yes soap Allergy Intermediate 08/17/18 Yes diphenhydramine Adverse Reaction Severe Anxiety 08/18/18 Yes lisinopril Adverse Reaction Intermediate 08/17/18 Yes Physical Exam Physical Exam Constitutional: Well developed, well nourished, MILD distress, non-toxic appearance. [] HENT: Normocephalic, atraumatic, bilateral external ears normal, oropharynx moist, no oral exudates, nose normal. [] Eyes: PERRLA, EOMI, conjunctiva normal, no discharge. [] Neck: Normal range of motion, no tenderness, supple, no stridor. [] Cardiovascular:Heart rate regular rhythm, 3/6 SYSTOLIC MURMUR NOTED Lungs & Thorax: Bilateral breath sounds clear to auscultation [] Abdomen: Bowel sounds normal, soft, no tenderness, no masses, no pulsatile masses. [] Skin: Warm, dry, no erythema, no rash. [] Back: No tenderness, no CVA tenderness. [] Extremities: No tenderness, no cyanosis, no clubbing, ROM intact,TWO PLUS EDEMA Neurologic: Alert and oriented X 3, normal motor function, normal sensory function, no focal deficits noted. [] Psychologic: Affect normal, judgement normal, mood MILD ANXIETY NOTED Current Patient Data Vital Signs Vital Signs Date Time Temp Pulse Resp B/P (MAP) Pulse Ox O2 Delivery O2 Flow Rate FiO2 11/11/18 22:19 82 204/116 11/11/18 21:37 16 100 Room Air Lab Values Laboratory Tests Test 11/11/18 19:50 11/11/18 20:08 11/11/18 20:25 Urine Collection Type Unknown Urine Color Yellow Urine Clarity Clear Urine pH 6.0 Urine Specific Red[place] 1.025 Urine Protein >=300 mg/dL (NEG-TRACE) Urine Glucose (UA) Negative mg/dL (NEG) Urine Ketones (Stick) Trace mg/dL (NEG) Urine Blood Small (NEG) Urine Nitrite Negative (NEG) Urine Bilirubin Small (NEG) Urine Urobilinogen Dipstick 1.0 mg/dL (0.2 mg/dL) Urine Leukocyte Esterase Negative (NEG) Urine RBC 3-5 /HPF (0-2) Urine WBC 1-4 /HPF (0-4) Urine Squamous Epithelial Cells Mod /LPF Urine Transitional Epithelial Cells Occ /LPF Urine Bacteria 0 /HPF (0-FEW) Urine Hyaline Casts Few /HPF Urine Mucus Mod /LPF POC Urine HCG, Qualitative Hcg negative (Negative) White Blood Count 3.3 x10^3/uL (4.0-11.0) L Red Blood Count 3.23 x10^6/uL (3.50-5.40) L Hemoglobin 8.8 g/dL (12.0-15.5) L Hematocrit 27.7 % (36.0-47.0) L Mean Corpuscular Volume 86 fL (79-100) Mean Corpuscular Hemoglobin 27 pg (25-35) Mean Corpuscular Hemoglobin Concent 32 g/dL (31-37) Red Cell Distribution Width 15.3 % (11.5-14.5) H Platelet Count 90 x10^3/uL (140-400) L Neutrophils (%) (Auto) 66 % (31-73) Lymphocytes (%) (Auto) 17 % (24-48) L Monocytes (%) (Auto) 11 % (0-9) H Eosinophils (%) (Auto) 6 % (0-3) H Basophils (%) (Auto) 1 % (0-3) Neutrophils # (Auto) 2.2 x10^3uL (1.8-7.7) Lymphocytes # (Auto) 0.6 x10^3/uL (1.0-4.8) L Monocytes # (Auto) 0.4 x10^3/uL (0.0-1.1) Eosinophils # (Auto) 0.2 x10^3/uL (0.0-0.7) Basophils # (Auto) 0.0 x10^3/uL (0.0-0.2) Maternal Serum HCG Beta Subunit 8 mIU/mL (0-5) H Sodium Level 135 mmol/L (136-145) L Potassium Level 3.1 mmol/L (3.5-5.1) L Chloride Level 98 mmol/L (98-107) Carbon Dioxide Level 29 mmol/L (21-32) Anion Gap 8 (6-14) Blood Urea Nitrogen 22 mg/dL (7-20) H Creatinine 3.9 mg/dL (0.6-1.0) H Estimated GFR (Cockcroft-Gault) 16.4 BUN/Creatinine Ratio 6 (6-20) Glucose Level 106 mg/dL (70-99) H Calcium Level 8.2 mg/dL (8.5-10.1) L Magnesium Level 1.5 mg/dL (1.8-2.4) L Total Bilirubin 0.5 mg/dL (0.2-1.0) Aspartate Amino Transferase (AST) 25 U/L (15-37) Alanine Aminotransferase (ALT) 33 U/L (14-59) Alkaline Phosphatase 113 U/L (46-116) Troponin I Quantitative 0.019 ng/mL (0.000-0.055) UO-Ycw-W-Type Natriuretic Peptide > 65018 pg/mL (0-124) H Total Protein 8.1 g/dL (6.4-8.2) Albumin 3.4 g/dL (3.4-5.0) Albumin/Globulin Ratio 0.7 (1.0-1.7) L Lipase 184 U/L (73-393) Laboratory Tests 11/11/18 20:25 Laboratory Tests 11/11/18 20:25 EKG EKG [@2045; HR 82BPM; Sinus rhythm. [id number]. Borderline ST elevation in V3, V4, likely d/t poor baseline. ON REPEAT THE ST SEGMENTS LOOK BETTER @2139; HR 81BPM. QTC 511 ] Radiology/Procedures Radiology/Procedures []PROCEDURE: PORTABLE CHEST 1V PORTABLE CHEST 1V History: CHEST PAIN Comparison: September 15, 2018 Findings: Single view of the chest is submitted Pericardial cardiac silhouette is enlarged. There is again right internal jugular port catheter with tip in superior vena cava. There is no lobar consolidation, pleural fluid, pneumothorax. Impression: 1. There is again enlargement of the pericardial cardiac silhouette. Electronically signed by: Rick Simpson MD (11/11/2018 8:47 PM) [facility] Course & Med Decision Making Course & Med Decision Making Pertinent Labs and Imaging studies reviewed. (See chart for details) []This is a 28-year-old female well known to this department history of end- stage renal disease as well as poorly controlled hypertension who is presenting with chest pain. She has very similar presentations in the past I think is partially related to the elevated blood pressure we gave labetalol we gave Nitropaste it is slowly coming down Chest x-ray looks pretty good the first troponin is negative the blood pressure is improving somewhat with labetalol drips. Patient reported that she was having an seizure aura never actually had a seizure week and Ativan we gave Keppra I spoke with Dr. SALAZAR admit for hypertensive urgency well cycle troponins Critical care time was 45 minutes exclusive of procedures. Dragon Disclaimer Dragon Disclaimer This electronic medical record was generated, in whole or in part, using a voice recognition dictation system. Departure Departure Impression: Primary Impression: Hypertensive emergency Disposition: ADMITTED INPATIENT Admitting Physician: Anna Marie Salazar Condition: GUARDED Referrals: NO PCP (PCP) PAWAN WYNNE MD Nov 11, 2018 21:33
[2018-11-11] MEDS ORDERED: levETIRAcetam 1,000 MG in IV DEXTROSE 5% 100ML 100 ML IV ONE (22:15)
[2018-11-11] MEDS ORDERED: ONDANSETRON PF 4 MG/2 ML VIAL. IV PRN (22:30)
[2018-11-12] VITALS (27 sets, daily range): BP systolic 122–226; BP diastolic 58–126
[2018-11-12] MEDS: MORPHINE SULFATE 4 MG/ML VIAL. IV PRN ×4 (04:21→19:00)
[2018-11-12] MEDS ORDERED: LACO50TA PO (04:40)
[2018-11-12] MEDS: LABETALOL 20 MG/4 ML DISP.SYRIN. IVP PRN ×2 (07:35→18:52)
[2018-11-12] MEDS: cloNIDine HCL 0.2 MG TABLET PO SCH ×2 (09:01→21:55)
[2018-11-12] MEDS: hydrALAZINE 20 MG/ML VIAL. IVP PRN ×2 (09:02→18:14)
--- NOTE | 2018-11-12 10:57 | PDOC1 ---
History and Physical Date of Admission Date of Admission DATE: 11/12/18 TIME: 10:57 Identification/Chief Complaint Chief Complaint SEEN IN ER WITH Complaint of headache, chest pain, and generalized body aches that began around 1300 11/11 . Patient reports she had dialysis at 1100 and was asymptomatic prior to dialysis. She was able to complete the session, then around 1300 began having a headache, chest pain, and back pain. She describes her chest pain as stabbing pain in the middle of her chest. Past Medical History Past Medical History Past Medical History Past Medical History: Cancer, HIV, Hypertension, Renal Disease, Renal Failure, Seizure Additional Past Medical Histor: dialysis, hodgkins Past Surgical History: Appendectomy, Cholecystectomy Additional Past Surgical Histo: L)upper arm fistula,R)upper chest port Alcohol Use: None Drug Use: None FAMILY HX ASHD Cardiovascular: HTN CENTRAL NERVOUS SYSTEM: Seizure GI: GERD Heme/Onc: Cancer Psych: Anxiety, Depression Rheumatologic: Fibromyalgia Infectious disease: HIV Renal/: Chronic renal failure Endocrine: Hyperparathyroidism Past Surgical History Past Surgical History: Appendectomy, Cholecystectomy, , Other Family History Family History: Heart Disease Family History: Parent, Grandparents Social History Smoke: No ALCOHOL: none Drugs: None Current Medications Current Medications Current Medications Labetalol HCl (Normodyne Iv Push) 20 mg 1X ONCE IVP Last administered on at 21:00; Start 11/11/18 at 20:45; Stop 11/11/18 at 20:46; Status DC Nitroglycerin (Nitro-Bid Oint) 2 inch 1X ONCE TP Last administered on at 21:00; Start 11/11/18 at 20:45; Stop 11/11/18 at 20:46; Status DC Magnesium Sulfate/ Dextrose 100 ml @ 100 mls/hr 1X ONCE IV Last administered on 11/11/18at 21:38; Start 11/11/18 at 21:30; Stop 11/11/18 at 22:29; Status DC Acetaminophen/ Hydrocodone Bitart (Lortab 5/325) 2 tab 1X ONCE PO Last administered on 11/11/18at 21:37; Start 11/11/18 at 21:30; Stop 11/11/18 at 21:31 ; Status DC Labetalol HCl (Normodyne Iv Push) 20 mg 1X ONCE IVP Last administered on at 22:19; Start 11/11/18 at 22:15; Stop 11/11/18 at 22:16; Status DC Lorazepam (Ativan) 1 mg 1X ONCE IV Last administered on 11/11/18 22:16; Start 11/11/18 at 22:00; Stop 11/11/18 at 22:01; Status DC Levetiracetam 1000 mg/Dextrose 110 ml @ 440 mls/hr 1X ONCE IV Last administered on 11/11/18at 22:20; Start 11/11/18 at 22:15; Stop 11/11/18 at 22:29 ; Status DC Ondansetron HCl (Zofran) 4 mg PRN Q8HRS PRN IV NAUSEA/VOMITING Last administered on 11/12/18 08:22; Start 11/11/18 at 22:30; Stop 11/12/18 at 22:29 Morphine Sulfate (Morphine Sulfate) 4 mg PRN Q2HR PRN IV PAIN Last administered on 11/12/18 04:21; Start 11/11/18 at 22:30; Stop 11/12/18 at 22:29 Labetalol HCl (Normodyne Iv Push) 20 mg PRN Q2HR PRN IVP ELEVATED BP, SEE COMMENTS Last administered on 11/12/18 07:35; Start 11/11/18 at 23:00 Hydralazine HCl (Apresoline Inj) 10 mg PRN Q4HRS PRN IVP ELEVATED BP, SEE COMMENTS Last administered on 11/12/18 09:02; Start 11/12/18 at 09:00 Clonidine HCl (Catapres) 0.2 mg BID PO Last administered on 11/12/18 09:01; Start 11/12/18 at 09:00 Active Scripts Active [place] 5-325 Tablet (Acetaminophen/Hydrocodone Bitart) 1 Each Tablet 1-2 Each PO PRN Q6HRS PRN as needed for pain Trazodone Hcl 100 Mg Tablet 1 Tab PO QHS 30 Days Oxycodone Hcl Immed.release (Oxycodone Hcl) 5 Mg Tablet 5 Mg PO PRN DAILY PRN 6 Days Carafate (Sucralfate) 1 Gm Tablet 1 Gm PO BIDWMEALS 30 Days Reported Vimpat (Lacosamide) 50 Mg Tablet 50 Mg PO DAILY Protonix (Pantoprazole Sodium) 20 Mg Tablet.dr 40 Mg PO DAILY Keppra (Levetiracetam) 500 Mg Tablet 500 Mg PO BID Clonidine Hcl 0.2 Mg Tablet 1 Tab PO BID Allergies Allergies: Coded Allergies: povidone-iodine (Verified Allergy, Intermediate, 08/17/18) soap (Verified Allergy, Intermediate, 08/17/18) diphenhydramine (Verified Adverse Reaction, Severe, Anxiety, 08/18/18) Makes her feel "crazy" lisinopril (Verified Adverse Reaction, Intermediate, 08/17/18) Altered mental status per pt ROS Review of System Review of Systems Review of Systems Constitutional: Denies fever or chills [] Eyes: Denies change in visual acuity, redness, or eye pain [] HENT: Denies nasal congestion or sore throat [] Respiratory: Denies cough or shortness of breath [] Cardiovascular: No additional information not addressed in HPI [] GI: Denies abdominal pain, nausea, vomiting, bloody stools or diarrhea [] : Denies dysuria or hematuria [] Musculoskeletal: Denies back pain or joint pain [] Integument: Denies rash or skin lesions [] Neurologic: Denies headache, focal weakness or sensory changes [] Endocrine: Denies polyuria or polydipsia [] 14 PT systems were reviewed and found to be within normal limits, except as documented Hematological and Lymphatic: No: Bleeding Problems, Blood Clots, Blood Transfusions, Brusing, Night Sweats, Pallor, Swollen Lymph Nodes, Other Gastrointestinal: Yes Nausea, Yes Vomiting Physical Exam Physical Exam Physical Exam Physical Exam Constitutional: Well developed, well nourished, MILD distress, non-toxic appearance. [] HENT: Normocephalic, atraumatic, bilateral external ears normal, oropharynx moist, no oral exudates, nose normal. [] Eyes: PERRLA, EOMI, conjunctiva normal, no discharge. [] Neck: Normal range of motion, no tenderness, supple, no stridor. [] Cardiovascular:Heart rate regular rhythm, 3/6 SYSTOLIC MURMUR NOTED Lungs & Thorax: Bilateral breath sounds clear to auscultation [] Abdomen: Bowel sounds normal, soft, no tenderness, no masses, no pulsatile masses. [] Skin: Warm, dry, no erythema, no rash. [] Back: No tenderness, no CVA tenderness. [] Extremities: No tenderness, no cyanosis, no clubbing, ROM intact,TWO PLUS EDEMA Neurologic: Alert and oriented X 3, normal motor function, normal sensory function, no focal deficits noted. [] Psychologic: Affect normal, judgement normal, mood MILD ANXIETY NOTED Breasts: Not examined Vitals Vitals Vital Signs Date Time Temp Pulse Resp B/P (MAP) Pulse Ox O2 Delivery O2 Flow Rate FiO2 11/12/18 09:02 203/115 11/12/18 07:17 98.5 72 18 94 Room Air 98.5 Labs Labs Laboratory Tests Test 11/11/18 19:50 11/11/18 20:08 11/11/18 20:25 11/12/18 01:15 Urine Collection Type Unknown Urine Color Yellow Urine Clarity Clear Urine pH 6.0 Urine Specific [place] 1.025 Urine Protein >=300 mg/dL (NEG-TRACE) Urine Glucose (UA) Negative mg/dL (NEG) Urine Ketones (Stick) Trace mg/dL (NEG) Urine Blood Small (NEG) Urine Nitrite Negative (NEG) Urine Bilirubin Small (NEG) Urine Urobilinogen Dipstick 1.0 mg/dL (0.2 mg/dL) Urine Leukocyte Esterase Negative (NEG) Urine RBC 3-5 /HPF (0-2) Urine WBC 1-4 /HPF (0-4) Urine Squamous Epithelial Cells Mod /LPF Urine Transitional Epithelial Cells Occ /LPF Urine Bacteria 0 /HPF (0-FEW) Urine Hyaline Casts Few /HPF Urine Mucus Mod /LPF Bedside Urine HCG, Qualitative Hcg negative (Negative) White Blood Count 3.3 x10^3/uL (4.0-11.0) Red Blood Count 3.23 x10^6/uL (3.50-5.40) Hemoglobin 8.8 g/dL (12.0-15.5) Hematocrit 27.7 % (36.0-47.0) Mean Corpuscular Volume 86 fL (79-100) Mean Corpuscular Hemoglobin 27 pg (25-35) Mean Corpuscular Hemoglobin Concent 32 g/dL (31-37) Red Cell Distribution Width 15.3 % (11.5-14.5) Platelet Count 90 x10^3/uL (140-400) Neutrophils (%) (Auto) 66 % (31-73) Lymphocytes (%) (Auto) 17 % (24-48) Monocytes (%) (Auto) 11 % (0-9) Eosinophils (%) (Auto) 6 % (0-3) Basophils (%) (Auto) 1 % (0-3) Neutrophils # (Auto) 2.2 x10^3uL (1.8-7.7) Lymphocytes # (Auto) 0.6 x10^3/uL (1.0-4.8) Monocytes # (Auto) 0.4 x10^3/uL (0.0-1.1) Eosinophils # (Auto) 0.2 x10^3/uL (0.0-0.7) Basophils # (Auto) 0.0 x10^3/uL (0.0-0.2) Maternal Serum HCG Beta Subunit 8 mIU/mL (0-5) Sodium Level 135 mmol/L (136-145) Potassium Level 3.1 mmol/L (3.5-5.1) Chloride Level 98 mmol/L (98-107) Carbon Dioxide Level 29 mmol/L (21-32) Anion Gap 8 (6-14) Blood Urea Nitrogen 22 mg/dL (7-20) Creatinine 3.9 mg/dL (0.6-1.0) Estimated GFR (Cockcroft-Gault) 16.4 BUN/Creatinine Ratio 6 (6-20) Glucose Level 106 mg/dL (70-99) Calcium Level 8.2 mg/dL (8.5-10.1) Magnesium Level 1.5 mg/dL (1.8-2.4) Total Bilirubin 0.5 mg/dL (0.2-1.0) Aspartate Amino Transf (AST/SGOT) 25 U/L (15-37) Alanine Aminotransferase (ALT/SGPT) 33 U/L (14-59) Alkaline Phosphatase 113 U/L (46-116) Troponin I Quantitative 0.019 ng/mL (0.000-0.055) 0.030 ng/mL (0.000-0.055) EG-Wnf-Q-Type Natriuretic Peptide > 67620 pg/mL (0-124) Total Protein 8.1 g/dL (6.4-8.2) Albumin 3.4 g/dL (3.4-5.0) Albumin/Globulin Ratio 0.7 (1.0-1.7) Lipase 184 U/L (73-393) Test 11/12/18 06:05 Troponin I Quantitative 0.025 ng/mL (0.000-0.055) Laboratory Tests Test 11/11/18 19:50 11/11/18 20:08 11/11/18 20:25 11/12/18 01:15 Urine Collection Type Unknown Urine Color Yellow Urine Clarity Clear Urine pH 6.0 Urine Specific [place] 1.025 Urine Protein >=300 mg/dL (NEG-TRACE) Urine Glucose (UA) Negative mg/dL (NEG) Urine Ketones (Stick) Trace mg/dL (NEG) Urine Blood Small (NEG) Urine Nitrite Negative (NEG) Urine Bilirubin Small (NEG) Urine Urobilinogen Dipstick 1.0 mg/dL (0.2 mg/dL) Urine Leukocyte Esterase Negative (NEG) Urine RBC 3-5 /HPF (0-2) Urine WBC 1-4 /HPF (0-4) Urine Squamous Epithelial Cells Mod /LPF Urine Transitional Epithelial Cells Occ /LPF Urine Bacteria 0 /HPF (0-FEW) Urine Hyaline Casts Few /HPF Urine Mucus Mod /LPF Bedside Urine HCG, Qualitative Hcg negative (Negative) White Blood Count 3.3 x10^3/uL (4.0-11.0) Red Blood Count 3.23 x10^6/uL (3.50-5.40) Hemoglobin 8.8 g/dL (12.0-15.5) Hematocrit 27.7 % (36.0-47.0) Mean Corpuscular Volume 86 fL (79-100) Mean Corpuscular Hemoglobin 27 pg (25-35) Mean Corpuscular Hemoglobin Concent 32 g/dL (31-37) Red Cell Distribution Width 15.3 % (11.5-14.5) Platelet Count 90 x10^3/uL (140-400) Neutrophils (%) (Auto) 66 % (31-73) Lymphocytes (%) (Auto) 17 % (24-48) Monocytes (%) (Auto) 11 % (0-9) Eosinophils (%) (Auto) 6 % (0-3) Basophils (%) (Auto) 1 % (0-3) Neutrophils # (Auto) 2.2 x10^3uL (1.8-7.7) Lymphocytes # (Auto) 0.6 x10^3/uL (1.0-4.8) Monocytes # (Auto) 0.4 x10^3/uL (0.0-1.1) Eosinophils # (Auto) 0.2 x10^3/uL (0.0-0.7) Basophils # (Auto) 0.0 x10^3/uL (0.0-0.2) Maternal Serum HCG Beta Subunit 8 mIU/mL (0-5) Sodium Level 135 mmol/L (136-145) Potassium Level 3.1 mmol/L (3.5-5.1) Chloride Level 98 mmol/L (98-107) Carbon Dioxide Level 29 mmol/L (21-32) Anion Gap 8 (6-14) Blood Urea Nitrogen 22 mg/dL (7-20) Creatinine 3.9 mg/dL (0.6-1.0) Estimated GFR (Cockcroft-Gault) 16.4 BUN/Creatinine Ratio 6 (6-20) Glucose Level 106 mg/dL (70-99) Calcium Level 8.2 mg/dL (8.5-10.1) Magnesium Level 1.5 mg/dL (1.8-2.4) Total Bilirubin 0.5 mg/dL (0.2-1.0) Aspartate Amino Transf (AST/SGOT) 25 U/L (15-37) Alanine Aminotransferase (ALT/SGPT) 33 U/L (14-59) Alkaline Phosphatase 113 U/L (46-116) Troponin I Quantitative 0.019 ng/mL (0.000-0.055) 0.030 ng/mL (0.000-0.055) FJ-Mqj-A-Type Natriuretic Peptide > 86723 pg/mL (0-124) Total Protein 8.1 g/dL (6.4-8.2) Albumin 3.4 g/dL (3.4-5.0) Albumin/Globulin Ratio 0.7 (1.0-1.7) Lipase 184 U/L (73-393) Test 11/12/18 06:05 Troponin I Quantitative 0.025 ng/mL (0.000-0.055) Images Images PROCEDURE: PORTABLE CHEST 1V PORTABLE CHEST 1V History: CHEST PAIN Comparison: September 15, 2018 Findings: Single view of the chest is submitted Pericardial cardiac silhouette is enlarged. There is again right internal jugular port catheter with tip in superior vena cava. There is no lobar consolidation, pleural fluid, pneumothorax. Impression: 1. There is again enlargement of the pericardial cardiac silhouette. Electronically signed by: Rick Simpson MD (11/11/2018 8:47 PM) [facility] VTE Prophylaxis Ordered VTE Prophylaxis Devices: No VTE Pharmacological Prophylaxi: Yes Assessment/Plan Assessment/Plan Impression: Hypertensive emergency ESRD ON DIALYSIS Seizure HX History of Hodgkin's lymphoma Anemia of chronic renal dz Pancytopenia chest pain PLAN ADMIT CONSULT NEPHROLOGY CONSULT CARDIOLOGY ECHO CVC ADMIT SERIAL TROPONIN I IV HYDRALAZINE PRN BP SUPPORT home meds 76 min pt exam, chart review,> 50% of time spent with exam, chart review, pt care coordination FUNMILAYO EMERSON MD Nov 12, 2018 10:57
[2018-11-12] MEDS ORDERED: cloNIDine HCL 0.2 MG TABLET PO SCH (11:00)
[2018-11-12] MEDS ORDERED: HYDROcodone/APAP 5/325MG 1 TAB TABLET PO PRN (11:15)
[2018-11-12] MEDS ORDERED: oxyCODONE IR 5 MG TABLET PO PRN (11:15)
--- NOTE | 2018-11-12 11:22 | EKG ---
[facility] [address] [place] [address] Test Date: 2018-11-11 Test Time: 20:45:08 Pat Name: FRANCA MILES Department: Room: 205 1 Gender: F Tester Regulator: : [id number] Requested By: PAWAN WYNNE Order Number: [id number] Reading MD: Arturo Garcia MD Measurements Intervals [place] Rate: 82 P: -8 [place]: 162 QRS: -25 QRSD: 102 T: 66 QT: 426 QTc: 501 Interpretive Statements SINUS RHYTHM NON-SPECIFIC ST/T CHANGES Electronically Signed On 11-13-2018 10:25:41 CDT by Arturo Garcia MD
[2018-11-12] MEDS: PANTOPRAZOLE 40 MG TABLET.DR. PO SCH (12:02)
[2018-11-12] MEDS: LACOSAMIDE 50 MG TABLET PO SCH (12:02)
[2018-11-12] MEDS: levETIRAcetam 500 MG TABLET PO SCH ×2 (12:02→21:55)
[2018-11-12] MEDS: SUCRALFATE 1 GM TABLET. PO SCH (16:30)
--- NOTE | 2018-11-12 16:54 | PDOC2 ---
CONSULT Date of Consult Date of Consult DATE: 11/12/18 TIME: 16:49 Reason for Consult Reason for Consult: Hypertensive emergency Referring Physician Referring Physician: Dr. Faust Identification/Chief Complaint Chief Complaint Body aches and chest discomfort Source Source: Chart review, Patient History of Present Illness Reason for Visit: The patient is a 28-year-old female who was admitted secondary to diffuse body aches and chest discomfort. Initial sets of troponins are not significantly elevated at 0.019, 0.013 and 0.02. Patient however was severely hypertensive on admission and blood pressure is been treated with labetalol with reasonably good effect. She has an extensive medical history including end-stage renal disease on hemodialysis, a history of Hodgkin's disease, possible HIV infection , seizure disorder and hypertension. This morning she is relatively comfortable and fatigue. Her chest discomfort has significantly improved. Past Medical History Cardiovascular: HTN CENTRAL NERVOUS SYSTEM: Seizure GI: GERD Heme/Onc: Cancer Psych: Anxiety, Depression Rheumatologic: Fibromyalgia Infectious disease: HIV Renal/: Chronic renal failure Endocrine: Hyperparathyroidism Past Surgical History Past Surgical History: Appendectomy, Cholecystectomy, , Other ( dialysis fistula) Family History Family History: Heart Disease Social History Social History: Parent, Grandparents No ALCOHOL: none Drugs: None Lives: with Family Current Medications Current Medications Current Medications Labetalol HCl (Normodyne Iv Push) 20 mg 1X ONCE IVP Last administered on at 21:00; Start 11/11/18 at 20:45; Stop 11/11/18 at 20:46; Status DC Nitroglycerin (Nitro-Bid Oint) 2 inch 1X ONCE TP Last administered on at 21:00; Start 11/11/18 at 20:45; Stop 11/11/18 at 20:46; Status DC Magnesium Sulfate/ Dextrose 100 ml @ 100 mls/hr 1X ONCE IV Last administered on 11/11/18at 21:38; Start 11/11/18 at 21:30; Stop 11/11/18 at 22:29; Status DC Acetaminophen/ Hydrocodone Bitart (Lortab 5/325) 2 tab 1X ONCE PO Last administered on 11/11/18at 21:37; Start 11/11/18 at 21:30; Stop 11/11/18 at 21:31 ; Status DC Labetalol HCl (Normodyne Iv Push) 20 mg 1X ONCE IVP Last administered on 22:19; Start 11/11/18 at 22:15; Stop 11/11/18 at 22:16; Status DC Lorazepam (Ativan) 1 mg 1X ONCE IV Last administered on 11/11/18 22:16; Start 11/11/18 at 22:00; Stop 11/11/18 at 22:01; Status DC Levetiracetam 1000 mg/Dextrose 110 ml @ 440 mls/hr 1X ONCE IV Last administered on 11/11/18 22:20; Start 11/11/18 at 22:15; Stop 11/11/18 at 22:29 ; Status DC Ondansetron HCl (Zofran) 4 mg PRN Q8HRS PRN IV NAUSEA/VOMITING Last administered on 11/12/18 08:22; Start 11/11/18 at 22:30; Stop 11/12/18 at 22:29 Morphine Sulfate (Morphine Sulfate) 4 mg PRN Q2HR PRN IV PAIN Last administered on 11/12/18 16:32; Start 11/11/18 at 22:30; Stop 11/12/18 at 22:29 Labetalol HCl (Normodyne Iv Push) 20 mg PRN Q2HR PRN IVP ELEVATED BP, SEE COMMENTS Last administered on 11/12/18 07:35; Start 11/11/18 at 23:00 Hydralazine HCl (Apresoline Inj) 10 mg PRN Q4HRS PRN IVP ELEVATED BP, SEE COMMENTS Last administered on 11/12/18 09:02; Start 11/12/18 at 09:00 Clonidine HCl (Catapres) 0.2 mg BID PO Last administered on 11/12/18 09:01; Start 11/12/18 at 09:00 Clonidine HCl (Catapres) 0.2 mg BID PO ; Start 11/12/18 at 11:00; Status Cancel Acetaminophen/ Hydrocodone Bitart (Lortab 5/325) 1 tab PRN Q6HRS PRN PO SEVERE PAIN; Start 11/12/18 at 11:15 Lacosamide (Vimpat) 50 mg DAILY PO Last administered on 11/12/18 12:02; Start 11/12/18 at 11:00 Levetiracetam (Keppra) 500 mg BID PO Last administered on 11/12/18at 12:02; Start 11/12/18 at 11:00 Oxycodone HCl (Roxicodone) 5 mg PRN DAILY PRN PO BREAKTHROUGH PAIN Last administered on 11/12/18at 12:05; Start 11/12/18 at 11:15 Trazodone HCl (Desyrel) 100 mg QHS PO ; Start 11/12/18 at 21:00 Pantoprazole Sodium (Protonix) 40 mg DAILYAC PO Last administered on 11/12/18at 12:02; Start 11/12/18 at 11:00 Sucralfate (Carafate) 1 gm BIDAC PO Last administered on 11/12/18at 16:30; Start 11/12/18 at 16:30 Active Scripts Active [place] 5-325 Tablet (Acetaminophen/Hydrocodone Bitart) 1 Each Tablet 1-2 Each PO PRN Q6HRS PRN as needed for pain Trazodone Hcl 100 Mg Tablet 1 Tab PO QHS 30 Days Oxycodone Hcl Immed.release (Oxycodone Hcl) 5 Mg Tablet 5 Mg PO PRN DAILY PRN 6 Days Carafate (Sucralfate) 1 Gm Tablet 1 Gm PO BIDWMEALS 30 Days Reported Vimpat (Lacosamide) 50 Mg Tablet 50 Mg PO DAILY Protonix (Pantoprazole Sodium) 20 Mg Tablet.dr 40 Mg PO DAILY Keppra (Levetiracetam) 500 Mg Tablet 500 Mg PO BID Clonidine Hcl 0.2 Mg Tablet 1 Tab PO BID Allergies Allergies: Coded Allergies: povidone-iodine (Verified Allergy, Intermediate, 08/17/18) soap (Verified Allergy, Intermediate, 08/17/18) diphenhydramine (Verified Adverse Reaction, Severe, Anxiety, 08/18/18) Makes her feel "crazy" lisinopril (Verified Adverse Reaction, Intermediate, 08/17/18) Altered mental status per pt ROS General: YES: Fatigue Respiratory: YES: SOB with excertion Cardiovascular: yes Chest Pain Physical Exam General: mild distress Lungs: Clear to auscultation Heart: Regular rate Abdomen: Normal bowel sounds Vitals VITALS Vital Signs Date Time Temp Pulse Resp B/P (MAP) Pulse Ox O2 Delivery O2 Flow Rate FiO2 11/12/18 16:32 98 Room Air 11/12/18 14:56 98.3 81 16 157/93 (114) 98.3 Labs Labs Laboratory Tests Test 11/11/18 19:50 11/11/18 20:08 11/11/18 20:25 11/12/18 01:15 Urine Collection Type Unknown Urine Color Yellow Urine Clarity Clear Urine pH 6.0 Urine Specific [place] 1.025 Urine Protein >=300 mg/dL (NEG-TRACE) Urine Glucose (UA) Negative mg/dL (NEG) Urine Ketones (Stick) Trace mg/dL (NEG) Urine Blood Small (NEG) Urine Nitrite Negative (NEG) Urine Bilirubin Small (NEG) Urine Urobilinogen Dipstick 1.0 mg/dL (0.2 mg/dL) Urine Leukocyte Esterase Negative (NEG) Urine RBC 3-5 /HPF (0-2) Urine WBC 1-4 /HPF (0-4) Urine Squamous Epithelial Cells Mod /LPF Urine Transitional Epithelial Cells Occ /LPF Urine Bacteria 0 /HPF (0-FEW) Urine Hyaline Casts Few /HPF Urine Mucus Mod /LPF Bedside Urine HCG, Qualitative Hcg negative (Negative) White Blood Count 3.3 x10^3/uL (4.0-11.0) Red Blood Count 3.23 x10^6/uL (3.50-5.40) Hemoglobin 8.8 g/dL (12.0-15.5) Hematocrit 27.7 % (36.0-47.0) Mean Corpuscular Volume 86 fL (79-100) Mean Corpuscular Hemoglobin 27 pg (25-35) Mean Corpuscular Hemoglobin Concent 32 g/dL (31-37) Red Cell Distribution Width 15.3 % (11.5-14.5) Platelet Count 90 x10^3/uL (140-400) Neutrophils (%) (Auto) 66 % (31-73) Lymphocytes (%) (Auto) 17 % (24-48) Monocytes (%) (Auto) 11 % (0-9) Eosinophils (%) (Auto) 6 % (0-3) Basophils (%) (Auto) 1 % (0-3) Neutrophils # (Auto) 2.2 x10^3uL (1.8-7.7) Lymphocytes # (Auto) 0.6 x10^3/uL (1.0-4.8) Monocytes # (Auto) 0.4 x10^3/uL (0.0-1.1) Eosinophils # (Auto) 0.2 x10^3/uL (0.0-0.7) Basophils # (Auto) 0.0 x10^3/uL (0.0-0.2) Maternal Serum HCG Beta Subunit 8 mIU/mL (0-5) Sodium Level 135 mmol/L (136-145) Potassium Level 3.1 mmol/L (3.5-5.1) Chloride Level 98 mmol/L (98-107) Carbon Dioxide Level 29 mmol/L (21-32) Anion Gap 8 (6-14) Blood Urea Nitrogen 22 mg/dL (7-20) Creatinine 3.9 mg/dL (0.6-1.0) Estimated GFR (Cockcroft-Gault) 16.4 BUN/Creatinine Ratio 6 (6-20) Glucose Level 106 mg/dL (70-99) Calcium Level 8.2 mg/dL (8.5-10.1) Magnesium Level 1.5 mg/dL (1.8-2.4) Total Bilirubin 0.5 mg/dL (0.2-1.0) Aspartate Amino Transf (AST/SGOT) 25 U/L (15-37) Alanine Aminotransferase (ALT/SGPT) 33 U/L (14-59) Alkaline Phosphatase 113 U/L (46-116) Troponin I Quantitative 0.019 ng/mL (0.000-0.055) 0.030 ng/mL (0.000-0.055) TN-Iak-W-Type Natriuretic Peptide > 91136 pg/mL (0-124) Total Protein 8.1 g/dL (6.4-8.2) Albumin 3.4 g/dL (3.4-5.0) Albumin/Globulin Ratio 0.7 (1.0-1.7) Lipase 184 U/L (73-393) Test 11/12/18 06:05 11/12/18 10:37 Troponin I Quantitative 0.025 ng/mL (0.000-0.055) Glucose (Fingerstick) 136 mg/dL (70-99) Laboratory Tests Test 11/11/18 19:50 11/11/18 20:08 11/11/18 20:25 11/12/18 01:15 Urine Collection Type Unknown Urine Color Yellow Urine Clarity Clear Urine pH 6.0 Urine Specific [place] 1.025 Urine Protein >=300 mg/dL (NEG-TRACE) Urine Glucose (UA) Negative mg/dL (NEG) Urine Ketones (Stick) Trace mg/dL (NEG) Urine Blood Small (NEG) Urine Nitrite Negative (NEG) Urine Bilirubin Small (NEG) Urine Urobilinogen Dipstick 1.0 mg/dL (0.2 mg/dL) Urine Leukocyte Esterase Negative (NEG) Urine RBC 3-5 /HPF (0-2) Urine WBC 1-4 /HPF (0-4) Urine Squamous Epithelial Cells Mod /LPF Urine Transitional Epithelial Cells Occ /LPF Urine Bacteria 0 /HPF (0-FEW) Urine Hyaline Casts Few /HPF Urine Mucus Mod /LPF Bedside Urine HCG, Qualitative Hcg negative (Negative) White Blood Count 3.3 x10^3/uL (4.0-11.0) Red Blood Count 3.23 x10^6/uL (3.50-5.40) Hemoglobin 8.8 g/dL (12.0-15.5) Hematocrit 27.7 % (36.0-47.0) Mean Corpuscular Volume 86 fL (79-100) Mean Corpuscular Hemoglobin 27 pg (25-35) Mean Corpuscular Hemoglobin Concent 32 g/dL (31-37) Red Cell Distribution Width 15.3 % (11.5-14.5) Platelet Count 90 x10^3/uL (140-400) Neutrophils (%) (Auto) 66 % (31-73) Lymphocytes (%) (Auto) 17 % (24-48) Monocytes (%) (Auto) 11 % (0-9) Eosinophils (%) (Auto) 6 % (0-3) Basophils (%) (Auto) 1 % (0-3) Neutrophils # (Auto) 2.2 x10^3uL (1.8-7.7) Lymphocytes # (Auto) 0.6 x10^3/uL (1.0-4.8) Monocytes # (Auto) 0.4 x10^3/uL (0.0-1.1) Eosinophils # (Auto) 0.2 x10^3/uL (0.0-0.7) Basophils # (Auto) 0.0 x10^3/uL (0.0-0.2) Maternal Serum HCG Beta Subunit 8 mIU/mL (0-5) Sodium Level 135 mmol/L (136-145) Potassium Level 3.1 mmol/L (3.5-5.1) Chloride Level 98 mmol/L (98-107) Carbon Dioxide Level 29 mmol/L (21-32) Anion Gap 8 (6-14) Blood Urea Nitrogen 22 mg/dL (7-20) Creatinine 3.9 mg/dL (0.6-1.0) Estimated GFR (Cockcroft-Gault) 16.4 BUN/Creatinine Ratio 6 (6-20) Glucose Level 106 mg/dL (70-99) Calcium Level 8.2 mg/dL (8.5-10.1) Magnesium Level 1.5 mg/dL (1.8-2.4) Total Bilirubin 0.5 mg/dL (0.2-1.0) Aspartate Amino Transf (AST/SGOT) 25 U/L (15-37) Alanine Aminotransferase (ALT/SGPT) 33 U/L (14-59) Alkaline Phosphatase 113 U/L (46-116) Troponin I Quantitative 0.019 ng/mL (0.000-0.055) 0.030 ng/mL (0.000-0.055) HV-Gki-I-Type Natriuretic Peptide > 53824 pg/mL (0-124) Total Protein 8.1 g/dL (6.4-8.2) Albumin 3.4 g/dL (3.4-5.0) Albumin/Globulin Ratio 0.7 (1.0-1.7) Lipase 184 U/L (73-393) Test 11/12/18 06:05 11/12/18 10:37 Troponin I Quantitative 0.025 ng/mL (0.000-0.055) Glucose (Fingerstick) 136 mg/dL (70-99) Images Images Chest x-ray with no acute changes. Stable enlarged cardiac silhouette Assessment/Plan Assessment/Plan 1. Hypertensive emergency. Initially treated with labetalol. Patient's blood pressures under improving control with present medications. We'll continue meds and monitoring. 2. Chest pressure. No significant elevation in troponin. Lexiscan on 03/15/18 showed no ischemia or infarct. Ejection fraction on that test was 51%. More recent echocardiogram showed an ejection fraction of 55% with mild left ventricular hypertrophy. 3. End-stage renal disease on hemodialysis. As per the renal service. 4. Seizure disorder. Continue present treatments. 5. History of Hodgkin's disease. 6. HIV positive. Continue present treatment. Thank you for allowing us to participate in the care of your patient. ASHWIN HOBSON MD Nov 12, 2018 16:54
[2018-11-12] MEDS ORDERED: ABAC1TAB7 PO (19:54)
[2018-11-12] MEDS ORDERED: EMTR200C4 PO (20:01)
[2018-11-12] MEDS ORDERED: SULF1TAB23 PO (20:01)
[2018-11-12] MEDS ORDERED: DOLU50TA PO (20:01)
[2018-11-12] MEDS: traZODone 100 MG TABLET. PO SCH (21:55)
--- NOTE | 2018-11-12 23:03 | CONS ---
DATE OF CONSULTATION: 11/12/2018 REFERRING PHYSICIAN: Dr. Faust. REASON FOR CONSULTATION: Seizure. HISTORY OF PRESENT ILLNESS: The patient is a 28-year-old woman with end-stage renal disease and HIV positive, on hemodialysis. She has had multiple episodes of hypertensive crisis. Related to this. she has had seizures. She does have a seizure disorder dating back to the age of 12. She seems to have breakthrough seizures associated with extenuating circumstances such as sleep deprivation and critically elevated blood pressures. She was previously seen by Dr. Thomas for the same situation. She has been transferred to the intensive care unit and is now on a Cardene drip and the blood pressure is controlled. Nurses describe a tonic seizure with a little bit of clonic activity. She was given Ativan and the seizure activity stopped in 1 minute. She started talking within 4. PAST MEDICAL HISTORY: 1. Lymphoma, treated with chemotherapy. 2. HIV positive. 3. Hypertension. 4. Renal disease. 5. Renal failure, on hemodialysis. 6. Seizure disorder since 12 years of age. 7. Cholecystectomy. 8. Appendectomy. 9. Left upper arm fistula. 10. Upper chest port. ALLERGIES: DIPHENHYDRAMINE, LISINOPRIL, POVIDONE IODINE, AND SOAP. MEDICATIONS PRIOR TO ADMISSION: Abacavir sulfate/lamivudine, acetaminophen/hydrocodone every 6 hours as needed, clonidine 0.2 mg twice per day, Tivicay 50 mg, Emtriva 200 mg every 4 days, Vimpat 50 mg, levetiracetam 500 mg twice per day, oxycodone 5 mg as needed, pantoprazole 40 mg, sucralfate 1 gram twice per day with meals, Bactrim every other day, and trazodone 100 mg nightly. FAMILY HISTORY: Heart disease. SOCIAL HISTORY: She is single. She has 2 boys, age 8 and 10 years of age. Her mom watches the boys for her. She does not smoke tobacco or drink alcohol. She is on disability. REVIEW OF SYSTEMS: She complains of headache. She has had no change of vision, hearing, or cognition. She is not feeling short of breath, having chest or abdominal pain. She says she has back pain. There has been no fever or rash. She has a critically elevated blood pressure. No gastrointestinal or genitourinary complaint. Does not complain of bruising, bleeding, or swelling. She does not currently have psychiatric concerns. PHYSICAL EXAMINATION: VITAL SIGNS: Blood pressure 129/58, pulse 82, respirations 16, and temperature 98.9 degrees Fahrenheit. Her weight was 146 pounds, height 65 inches with a calculated body mass index of 24.3. Oximetry was 100% on 2 liters nasal cannula. GENERAL: She was initially sleepy, but was alert and follows commands well. She was fully oriented. She appeared well groomed and well nourished. NEUROLOGIC: Examination of the cranial nerves revealed visual miller were full to confrontation. Extraocular movements were intact. The eyes were conjugate. Pursuit movements were smooth and saccadic eye movements were without dysmetria. Pupils were 2-3 mm. Funduscopic exam did not reveal papilledema. Facial sensation was intact. The muscles of mastication and facial expression were powerful symmetrically. Hearing was intact to finger rub. The palate arched symmetrically and the tongue was midline with full range of motion. Sternocleidomastoid and trapezius were powerful. Muscle bulk and tone was normal. There was no arm or leg drift. Power was full and symmetric in the upper and lower extremities. Reflexes were 2/4 and symmetric in the upper and lower extremities. The toes are not upgoing. Coordination testing with [id number], [id number], fine motor and rapid alternating movements was well performed. Sensory exam was intact to pain, light touch, proprioception, graphesthesia, cold thermal and vibration. There was no extinction to double simultaneous stimulation. Gait was not testable. Auscultation of the carotid arteries did not reveal bruit. Heart rhythm was regular without a murmur. Peripheral pulses were symmetric in the hands and feet. There was no edema or cyanosis of the extremities. LABORATORY DATA: Review of laboratory data; CBC revealed a low white count of 3.3 with a low hemoglobin of 8.8, hematocrit 27.7, and platelet count at 90. Chemistries revealed capillary blood glucose to range from 96-136. Sodium was low at 135, potassium at 3.1. BUN was 22 and creatinine 3.9. Glucose was 106. Calcium was low at 8.2 with albumin at 3.4 and total protein at 8.1. Magnesium was low at 1.5. Liver enzymes were not elevated. BNP was 35,000. Troponin was not elevated. Lipase was not elevated. Chest x-ray revealed enlargement of the pericardial cardiac silhouette. IMPRESSION: The patient is a 28-year-old woman who has had a seizure disorder since she was 12 years of age. She seems to have breakthrough seizures with extenuating circumstances, with critically elevated blood pressure, and sleep deprivation. She had a seizure this evening and did receive 2 mg of IV Ativan. She is on Keppra 500 mg twice a day and received a supplement after hemodialysis. She is also on Vimpat 50 mg daily. She seems back to her usual self. RECOMMENDATIONS: At this point, I would not alter her regimen. Her blood pressure is now controlled with a Cardene drip. It is unclear why she continues to have critically elevated blood pressures on a fairly regular basis. Neurologic exam was nonfocal. I do not feel she needs an EEG or head imaging at this time. I appreciate being involved in her care. DARRION DAVIS MD DR: ALEJO/laurita JOB#: [id number] / [id number] toby Thomas Dr.
[2018-11-13] VITALS (17 sets, daily range): BP systolic 122–157; BP diastolic 58–88
[2018-11-13 05:30] LABS: BASO % 1 % (0-3); EOS # 0.4 x10^3/uL (0.0-0.7); EOS % 9 % (0-3); HEMATOCRIT 28.3 % (36.0-47.0); HEMOGLOBIN 9.1 g/dL (12.0-15.5); LYMPH # 0.6 x10^3/uL (1.0-4.8); LYMPH % 14 % (24-48); MEAN CORPUSCULAR HEMOGLOBIN 28 pg (25-35); MEAN CORPUSCULAR HGB CONC 32 g/dL (31-37); MEAN CORPUSCULAR VOLUME 86 fL (79-100); MONO # 0.4 x10^3/uL (0.0-1.1); MONO % 9 % (0-9); NEUT # 2.7 x10^3uL (1.8-7.7); NEUT % 67 % (31-73); PLATELET COUNT 110 x10^3/uL (140-400); RED CELL DISTRIBUTION WIDTH 15.4 % (11.5-14.5); WHITE BLOOD COUNT 4.1 x10^3/uL (4.0-11.0)
[2018-11-13 05:46] LABS: ALBUMIN 3.1 g/dL (3.4-5.0); CALCIUM 8.4 mg/dL (8.5-10.1); CREATININE 5.6 mg/dL (0.6-1.0); GFR 10.8; PHOSPHORUS 5.8 mg/dL (2.6-4.7); POTASSIUM 3.2 mmol/L (3.5-5.1)
[2018-11-13] MEDS: PANTOPRAZOLE 40 MG TABLET.DR. PO SCH (07:30)
--- NOTE | 2018-11-13 07:48 | EKG ---
[facility] [address] [place] [address] Test Date: 2018-11-11 Test Time: 21:39:46 Pat Name: FRANCA MILES Department: Room: 112 Gender: F Assisted Living Coordinator: : 1990 Requested By: ASHWIN HOBSON Order Number: [id number] Reading MD: Arturo Garcia MD Measurements Intervals [place] Rate: 81 P: -3 NH: 154 QRS: -26 QRSD: 102 T: 68 QT: 434 QTc: 511 Interpretive Statements SINUS RHYTHM PROLONGED QT NON-SPECIFIC ST/T CHANGES Electronically Signed On 11-13-2018 10:36:52 CDT by Arturo Garcia MD
[2018-11-13] MEDS ORDERED: LAMIVUDINE PO SCH (09:00)
[2018-11-13] MEDS ORDERED: ABACAVIR SULFATE PO SCH (09:00)
[2018-11-13] MEDS ORDERED: EMTRICITABINE 200 MG PO SCH (09:00)
[2018-11-13] MEDS ORDERED: DOLUTEGRAVIR SODIUM 50 MG PO SCH (09:00)
[2018-11-13] MEDS: SUCRALFATE 1 GM TABLET. PO SCH ×2 (09:19→14:38)
[2018-11-13] MEDS: levETIRAcetam 500 MG TABLET PO SCH ×2 (09:19→20:44)
[2018-11-13] MEDS: cloNIDine HCL 0.2 MG TABLET PO SCH ×2 (09:19→20:44)
[2018-11-13] MEDS: LACOSAMIDE 50 MG TABLET PO SCH (09:19)
--- NOTE | 2018-11-13 12:20 | PDOC2 ---
CONSULT Date of Consult Date of Consult DATE: 11/13/18 TIME: 12:09 Reason for Consult Reason for Consult: HTN, ESRD Referring Physician Referring Physician: KHAI Identification/Chief Complaint Chief Complaint SEIZURE Source Source: Chart review, Patient History of Present Illness Reason for Visit: THIS IS A 28 YR OLD ESRD PT WHO CAME TO THE ER WITH GENERALIZED BODY ACHES AND WEAKNESS AFTER HD. SHE HAS ESRD AND IS ON OP HD TTS. RARELY COMPLETES HER TREATMENT ON SAT WHEN SHE STAYED FOR ABOUT 2 HOURS. LABS ARE C/W ESRD. SHE HAS A HX OF SEIZURE SINCE AGE 12 AND BELIEVES SHE IS HAVING MORE OF LATE. NEUROLOGY IS SEEING PT. SHE ALSO HAD CHEST PRESSURE ON ADMIT WITH A BP OF 226/ 118. SHE IS VERY NON COMPLIANT WITH HER MEDS. SW AT DIALYSIS HAS CHECKED WITH HER PHARMACY IN THE PAST AND SHE HAS NOT BEEN PICKING UP HER MEDS. ALSO NOTED TO HAVE PANCYTOPENIA AND A HX OF HIV REPORTED. I DONT BELIEVE SHE IS SEEING ANYONE FOR THESE PROBLEMS IN THE OP SETTING. SINCE ADMIT SHE HAS BEEN ON A CARDENE GTT. IN THE PAST I EXPECT WHEN HER PO MEDS ARE REINTRODUCED HER BP WILL BE WELL CONTROLLED Past Medical History Past Medical History NON COMPLIANCE Cardiovascular: HTN CENTRAL NERVOUS SYSTEM: Seizure GI: GERD Heme/Onc: Cancer Psych: Anxiety, Depression Rheumatologic: Fibromyalgia Infectious disease: HIV Renal/: Chronic renal failure Endocrine: Hyperparathyroidism Past Surgical History Past Surgical History: Appendectomy, Cholecystectomy, , Other ( dialysis fistula) Family History Family History: Heart Disease Social History Social History: Parent, Grandparents No ALCOHOL: none Drugs: None Lives: with Family Current Medications Current Medications Current Medications Labetalol HCl (Normodyne Iv Push) 20 mg 1X ONCE IVP Last administered on at 21:00; Start 11/11/18 at 20:45; Stop 11/11/18 at 20:46; Status DC Nitroglycerin (Nitro-Bid Oint) 2 inch 1X ONCE TP Last administered on at 21:00; Start 11/11/18 at 20:45; Stop 11/11/18 at 20:46; Status DC Magnesium Sulfate/ Dextrose 100 ml @ 100 mls/hr 1X ONCE IV Last administered on 11/11/18at 21:38; Start 11/11/18 at 21:30; Stop 11/11/18 at 22:29; Status DC Acetaminophen/ Hydrocodone Bitart (Lortab 5/325) 2 tab 1X ONCE PO Last administered on 11/11/18at 21:37; Start 11/11/18 at 21:30; Stop 11/11/18 at 21:31 ; Status DC Labetalol HCl (Normodyne Iv Push) 20 mg 1X ONCE IVP Last administered on 22:19; Start 11/11/18 at 22:15; Stop 11/11/18 at 22:16; Status DC Lorazepam (Ativan) 1 mg 1X ONCE IV Last administered on 11/11/18at 22:16; Start 11/11/18 at 22:00; Stop 11/11/18 at 22:01; Status DC Levetiracetam 1000 mg/Dextrose 110 ml @ 440 mls/hr 1X ONCE IV Last administered on 11/11/18 22:20; Start 11/11/18 at 22:15; Stop 11/11/18 at 22:29 ; Status DC Ondansetron HCl (Zofran) 4 mg PRN Q8HRS PRN IV NAUSEA/VOMITING Last administered on 11/12/18 08:22; Start 11/11/18 at 22:30; Stop 11/12/18 at 22:29 ; Status DC Morphine Sulfate (Morphine Sulfate) 4 mg PRN Q2HR PRN IV PAIN Last administered on 11/12/18 19:00; Start 11/11/18 at 22:30; Stop 11/12/18 at 22:29 ; Status DC Labetalol HCl (Normodyne Iv Push) 20 mg PRN Q2HR PRN IVP ELEVATED BP, SEE COMMENTS Last administered on 11/12/18at 18:52; Start 11/11/18 at 23:00 Hydralazine HCl (Apresoline Inj) 10 mg PRN Q4HRS PRN IVP ELEVATED BP, SEE COMMENTS Last administered on 11/12/18at 18:14; Start 11/12/18 at 09:00 Clonidine HCl (Catapres) 0.2 mg BID PO Last administered on 11/13/18 09:19; Start 11/12/18 at 09:00 Clonidine HCl (Catapres) 0.2 mg BID PO ; Start 11/12/18 at 11:00; Status Cancel Acetaminophen/ Hydrocodone Bitart (Lortab 5/325) 1 tab PRN Q6HRS PRN PO SEVERE PAIN; Start 11/12/18 at 11:15 Lacosamide (Vimpat) 50 mg DAILY PO Last administered on 11/13/18 09:19; Start 11/12/18 at 11:00 Levetiracetam (Keppra) 500 mg BID PO Last administered on 11/13/18 09:19; Start 11/12/18 at 11:00 Oxycodone HCl (Roxicodone) 5 mg PRN DAILY PRN PO BREAKTHROUGH PAIN Last administered on 11/12/18at 12:05; Start 11/12/18 at 11:15 Trazodone HCl (Desyrel) 100 mg QHS PO Last administered on 11/12/18at 21:55; Start 11/12/18 at 21:00 Pantoprazole Sodium (Protonix) 40 mg DAILYAC PO Last administered on 11/13/18at 07:30; Start 11/12/18 at 11:00 Sucralfate (Carafate) 1 gm BIDAC PO Last administered on 11/13/18 09:19; Start 11/12/18 at 16:30 Nicardipine HCl 50 mg/Sodium Chloride 250 ml @ 25 mls/hr CONT PRN IV SEE I/O RECORD Last administered on 11/12/18at 20:20; Start 11/12/18 at 19:30 Lorazepam (Ativan) 2 mg STK-MED ONCE .ROUTE ; Start 11/12/18 at 20:09; Stop at 20:12; Status DC Lorazepam (Ativan) 2 mg PRN Q30MIN PRN IV ANXIETY / AGITATION Last administered on 11/12/18at 20:23; Start 11/12/18 at 20:15 Lorazepam (Ativan) 4 mg PRN Q30MIN PRN IV ANXIETY / AGITATION; Start 11/12/18 at 20:30 Emtricitabine (Emtriva) 200 mg Q4DAYS PO ; Start 11/13/18 at 09:00; Status UNV Non-Formulary Medication (Abacavir Sulfate/ Lamivudine (Epzicom Tablet)) 300 mg DAILY PO ; Start 11/13/18 at 09:00; Status UNV Non-Formulary Medication (Dolutegravir Sodium (Tivicay)) 50 mg DAILY PO ; Start 11/13/18 at 09:00; Status UNV Non-Formulary Medication (Sulfamethoxazole/ Trimethoprim (Bactrim 400-80 Mg Tablet)) 1 tab QODAY PO ; Start 11/14/18 at 09:00; Status UNV Active Scripts Active [place] 5-325 Tablet (Acetaminophen/Hydrocodone Bitart) 1 Each Tablet 1-2 Each PO PRN Q6HRS PRN as needed for pain Trazodone Hcl 100 Mg Tablet 1 Tab PO QHS 30 Days Oxycodone Hcl Immed.release (Oxycodone Hcl) 5 Mg Tablet 5 Mg PO PRN DAILY PRN 6 Days Carafate (Sucralfate) 1 Gm Tablet 1 Gm PO BIDWMEALS 30 Days Reported Bactrim 400-80 Mg Tablet (Sulfamethoxazole/Trimethoprim) 1 Each Tablet 1 Tab PO QODAY Tivicay (Dolutegravir Sodium) 50 Mg Tablet 50 Mg PO DAILY Emtriva (Emtricitabine) 200 Mg Capsule 200 Mg PO Q4DAYS Epzicom Tablet (Abacavir Sulfate/Lamivudine) 1 Each Tablet 300 Mg PO DAILY Vimpat (Lacosamide) 50 Mg Tablet 50 Mg PO DAILY Protonix (Pantoprazole Sodium) 20 Mg Tablet.dr 40 Mg PO DAILY Keppra (Levetiracetam) 500 Mg Tablet 500 Mg PO BID Clonidine Hcl 0.2 Mg Tablet 1 Tab PO BID Allergies Allergies: Coded Allergies: povidone-iodine (Verified Allergy, Intermediate, 08/17/18) soap (Verified Allergy, Intermediate, 08/17/18) diphenhydramine (Verified Adverse Reaction, Severe, Anxiety, 08/18/18) Makes her feel "crazy" lisinopril (Verified Adverse Reaction, Intermediate, 08/17/18) Altered mental status per pt ROS General: YES: Fatigue, Appetite PSYCHOLOGICAL ROS: YES: Anxiety, Depression, Disorientation, Hallucinations Eyes: Yes Decreased vision HEENT: YES: Nasal congestion ALLERGY AND IMMUNOLOGY: YES: Seasonal Allergies Respiratory: YES: Cough Cardiovascular: yes Chest Pain Gastrointestinal: Yes Constipation Genitourinary: YES Other (ANURIA) Musculoskeletal: Yes Muscular Weakness Neurological: Yes Dizziness, Yes Seizures, Yes Weakness Physical Exam General: Alert, Oriented X3, Cooperative, No acute distress HEENT: Atraumatic, PERRLA, EOMI, Mucous membr. moist/pink Lungs: Clear to auscultation, Normal air movement Heart: Regular rate, Normal S1, Normal S2, Gallops Abdomen: Normal bowel sounds, Soft, No tenderness Extremities: No clubbing, No cyanosis Neuro: Normal speech, Cranial nerves 3-12 NL Psych/Mental Status: Mental status NL, Mood NL MUSCULOSKELETAL: No joint tenderness, No deformity, No swelling Vitals VITALS Vital Signs Date Time Temp Pulse Resp B/P (MAP) Pulse Ox O2 Delivery O2 Flow Rate FiO2 11/13/18 10:00 79 16 132/65 (87) 97 Nasal Cannula 11/13/18 08:00 2.0 11/13/18 07:00 98.5 98.5 Labs Labs Laboratory Tests Test 11/11/18 19:50 11/11/18 20:08 11/11/18 20:25 11/12/18 01:15 Urine Collection Type Unknown Urine Color Yellow Urine Clarity Clear Urine pH 6.0 Urine Specific [place] 1.025 Urine Protein >=300 mg/dL (NEG-TRACE) Urine Glucose (UA) Negative mg/dL (NEG) Urine Ketones (Stick) Trace mg/dL (NEG) Urine Blood Small (NEG) Urine Nitrite Negative (NEG) Urine Bilirubin Small (NEG) Urine Urobilinogen Dipstick 1.0 mg/dL (0.2 mg/dL) Urine Leukocyte Esterase Negative (NEG) Urine RBC 3-5 /HPF (0-2) Urine WBC 1-4 /HPF (0-4) Urine Squamous Epithelial Cells Mod /LPF Urine Transitional Epithelial Cells Occ /LPF Urine Bacteria 0 /HPF (0-FEW) Urine Hyaline Casts Few /HPF Urine Mucus Mod /LPF Bedside Urine HCG, Qualitative Hcg negative (Negative) White Blood Count 3.3 x10^3/uL (4.0-11.0) Red Blood Count 3.23 x10^6/uL (3.50-5.40) Hemoglobin 8.8 g/dL (12.0-15.5) Hematocrit 27.7 % (36.0-47.0) Mean Corpuscular Volume 86 fL (79-100) Mean Corpuscular Hemoglobin 27 pg (25-35) Mean Corpuscular Hemoglobin Concent 32 g/dL (31-37) Red Cell Distribution Width 15.3 % (11.5-14.5) Platelet Count 90 x10^3/uL (140-400) Neutrophils (%) (Auto) 66 % (31-73) Lymphocytes (%) (Auto) 17 % (24-48) Monocytes (%) (Auto) 11 % (0-9) Eosinophils (%) (Auto) 6 % (0-3) Basophils (%) (Auto) 1 % (0-3) Neutrophils # (Auto) 2.2 x10^3uL (1.8-7.7) Lymphocytes # (Auto) 0.6 x10^3/uL (1.0-4.8) Monocytes # (Auto) 0.4 x10^3/uL (0.0-1.1) Eosinophils # (Auto) 0.2 x10^3/uL (0.0-0.7) Basophils # (Auto) 0.0 x10^3/uL (0.0-0.2) Maternal Serum HCG Beta Subunit 8 mIU/mL (0-5) Sodium Level 135 mmol/L (136-145) Potassium Level 3.1 mmol/L (3.5-5.1) Chloride Level 98 mmol/L (98-107) Carbon Dioxide Level 29 mmol/L (21-32) Anion Gap 8 (6-14) Blood Urea Nitrogen 22 mg/dL (7-20) Creatinine 3.9 mg/dL (0.6-1.0) Estimated GFR (Cockcroft-Gault) 16.4 BUN/Creatinine Ratio 6 (6-20) Glucose Level 106 mg/dL (70-99) Calcium Level 8.2 mg/dL (8.5-10.1) Magnesium Level 1.5 mg/dL (1.8-2.4) Total Bilirubin 0.5 mg/dL (0.2-1.0) Aspartate Amino Transf (AST/SGOT) 25 U/L (15-37) Alanine Aminotransferase (ALT/SGPT) 33 U/L (14-59) Alkaline Phosphatase 113 U/L (46-116) Troponin I Quantitative 0.019 ng/mL (0.000-0.055) 0.030 ng/mL (0.000-0.055) YM-Xhn-T-Type Natriuretic Peptide > 43649 pg/mL (0-124) Total Protein 8.1 g/dL (6.4-8.2) Albumin 3.4 g/dL (3.4-5.0) Albumin/Globulin Ratio 0.7 (1.0-1.7) Lipase 184 U/L (73-393) Test 11/12/18 06:05 11/12/18 10:37 11/12/18 16:55 11/12/18 19:15 Troponin I Quantitative 0.025 ng/mL (0.000-0.055) Glucose (Fingerstick) 136 mg/dL (70-99) 96 mg/dL (70-99) 108 mg/dL (70-99) Test 11/13/18 04:25 White Blood Count 4.1 x10^3/uL (4.0-11.0) Red Blood Count 3.30 x10^6/uL (3.50-5.40) Hemoglobin 9.1 g/dL (12.0-15.5) Hematocrit 28.3 % (36.0-47.0) Mean Corpuscular Volume 86 fL (79-100) Mean Corpuscular Hemoglobin 28 pg (25-35) Mean Corpuscular Hemoglobin Concent 32 g/dL (31-37) Red Cell Distribution Width 15.4 % (11.5-14.5) Platelet Count 110 x10^3/uL (140-400) Neutrophils (%) (Auto) 67 % (31-73) Lymphocytes (%) (Auto) 14 % (24-48) Monocytes (%) (Auto) 9 % (0-9) Eosinophils (%) (Auto) 9 % (0-3) Basophils (%) (Auto) 1 % (0-3) Neutrophils # (Auto) 2.7 x10^3uL (1.8-7.7) Lymphocytes # (Auto) 0.6 x10^3/uL (1.0-4.8) Monocytes # (Auto) 0.4 x10^3/uL (0.0-1.1) Eosinophils # (Auto) 0.4 x10^3/uL (0.0-0.7) Basophils # (Auto) 0.0 x10^3/uL (0.0-0.2) Sodium Level 142 mmol/L (136-145) Potassium Level 3.2 mmol/L (3.5-5.1) Chloride Level 102 mmol/L (98-107) Carbon Dioxide Level 30 mmol/L (21-32) Anion Gap 10 (6-14) Blood Urea Nitrogen 30 mg/dL (7-20) Creatinine 5.6 mg/dL (0.6-1.0) Estimated GFR (Cockcroft-Gault) 10.8 Glucose Level 97 mg/dL (70-99) Calcium Level 8.4 mg/dL (8.5-10.1) Phosphorus Level 5.8 mg/dL (2.6-4.7) Albumin 3.1 g/dL (3.4-5.0) Laboratory Tests Test 11/12/18 16:55 11/12/18 19:15 11/13/18 04:25 Glucose (Fingerstick) 96 mg/dL (70-99) 108 mg/dL (70-99) White Blood Count 4.1 x10^3/uL (4.0-11.0) Red Blood Count 3.30 x10^6/uL (3.50-5.40) Hemoglobin 9.1 g/dL (12.0-15.5) Hematocrit 28.3 % (36.0-47.0) Mean Corpuscular Volume 86 fL (79-100) Mean Corpuscular Hemoglobin 28 pg (25-35) Mean Corpuscular Hemoglobin Concent 32 g/dL (31-37) Red Cell Distribution Width 15.4 % (11.5-14.5) Platelet Count 110 x10^3/uL (140-400) Neutrophils (%) (Auto) 67 % (31-73) Lymphocytes (%) (Auto) 14 % (24-48) Monocytes (%) (Auto) 9 % (0-9) Eosinophils (%) (Auto) 9 % (0-3) Basophils (%) (Auto) 1 % (0-3) Neutrophils # (Auto) 2.7 x10^3uL (1.8-7.7) Lymphocytes # (Auto) 0.6 x10^3/uL (1.0-4.8) Monocytes # (Auto) 0.4 x10^3/uL (0.0-1.1) Eosinophils # (Auto) 0.4 x10^3/uL (0.0-0.7) Basophils # (Auto) 0.0 x10^3/uL (0.0-0.2) Sodium Level 142 mmol/L (136-145) Potassium Level 3.2 mmol/L (3.5-5.1) Chloride Level 102 mmol/L (98-107) Carbon Dioxide Level 30 mmol/L (21-32) Anion Gap 10 (6-14) Blood Urea Nitrogen 30 mg/dL (7-20) Creatinine 5.6 mg/dL (0.6-1.0) Estimated GFR (Cockcroft-Gault) 10.8 Glucose Level 97 mg/dL (70-99) Calcium Level 8.4 mg/dL (8.5-10.1) Phosphorus Level 5.8 mg/dL (2.6-4.7) Albumin 3.1 g/dL (3.4-5.0) Assessment/Plan Assessment/Plan IMP HTN EMERGENCY SEIZURE ESRD ANEMIA-COULD BE MED RELATED SEVERE NON COMPLIANCE HIV HX PANCYTOPENIA-INFECTION VS MED RELATED CHEST PAIN MOST LIKELY DUE TO HIGH BP PLAN HD TTS ENC COMPLIANCE CARDENE GTT NEEDED CARDIOLOGY EVAL NEURO EVALUATION CONSIDER HEME/ONC EVAL ALSO CONSIDER ID EVALUATION WILL FOLLOW EVERARDO BURDICK MD Nov 13, 2018 12:20
--- NOTE | 2018-11-13 13:06 | PDOC ---
PROGRESS NOTES History of Present Illness History of Present Illness Assessment/Plan Assessment/Plan Impression: Hypertensive emergency ESRD ON DIALYSIS Seizure HX History of Hodgkin's lymphoma Anemia of chronic renal dz Pancytopenia chest pain MODERATE TRICUSPID REGURG PULM HTN PLAN ADMIT CONSULT NEPHROLOGY D/W DR BURDICK HX LONG POOR COMPLIANCE CONSULT CARDIOLOGY ECHO ICU ADMIT DUE TO HYPERTENSIVE EMERGENCY SERIAL TROPONIN I IV HYDRALAZINE PRN BP SUPPORT home meds 36 min pt exam, chart review,> 50% of time spent with exam, chart review, pt care coordination Vitals Vitals Vital Signs Date Time Temp Pulse Resp B/P (MAP) Pulse Ox O2 Delivery O2 Flow Rate FiO2 11/13/18 12:00 Nasal Cannula 2.0 11/13/18 12:00 79 16 132/69 (90) 96 11/13/18 07:00 98.5 98.5 Physical Exam Physical Exam Neck: Normal range of motion, no tenderness, supple, no stridor. [] Cardiovascular:Heart rate regular rhythm, 3/6 SYSTOLIC MURMUR NOTED Lungs & Thorax: Bilateral breath sounds clear to auscultation [] Abdomen: Bowel sounds normal, soft, no tenderness, no masses, no pulsatile masses. [] Skin: Warm, dry, no erythema, no rash. [] Back: No tenderness, no CVA tenderness. [] Extremities: No tenderness, no cyanosis, no clubbing, ROM intact,TWO PLUS EDEMA Neurologic: Alert and oriented X 3, normal motor function, normal sensory function, no focal deficits noted. [] Psychologic: Affect normal, judgement normal, mood MILD ANXIETY NOTED Breasts: Not examined General: Alert, Oriented X3, Cooperative, No acute distress, mild distress Heart: Regular rate, Normal S1, Normal S2, Gallops Lungs: Clear Abdomen: Normal bowel sounds, Soft, No tenderness Extremities: No clubbing, No cyanosis, No tenderness/swelling Labs LABS MITRAL VALVE The mitral valve is normal in structure and function. There is no evidence of mitral valve prolapse. There is no mitral valve stenosis. Doppler and Color- flow revealed mild to moderate mitral regurgitation. TRICUSPID VALVE The tricuspid valve is normal in structure and function. Doppler and Color Flow revealed mild to moderate tricuspid regurgitation. There is moderate pulmonary hypertension. The PA pressure was estimated at 45 mmHg. There is no tricuspid valve stenosis. PULMONIC VALVE The pulmonary valve is normal in structure and function. Doppler and Color Flow revealed mild pulmonic valvular regurgitation. There is no pulmonic valvular stenosis. GREAT VESSELS The aortic root is normal in size. The ascending aorta is normal in size. The IVC is normal in size and collapses >50% with inspiration. PERICARDIAL EFFUSION There is no evidence of significant pericardial effusion. Critical Notification Critical Value: No <Conclusion> The left ventricular systolic function is normal and the ejection fraction is within normal range. The Ejection Fraction is 55-60%. There is normal LV segmental wall motion. There is mild concentric left ventricular hypertrophy. Doppler and Color Flow revealed mild aortic regurgitation. Doppler and Color-flow revealed mild to moderate mitral regurgitation. Doppler and Color Flow revealed mild to moderate tricuspid regurgitation. There is moderate pulmonary hypertension. The PA pressure was estimated at 45 mmHg. Doppler and Color Flow revealed mild pulmonic valvular regurgitation. Signed by : Arturo Garcia, Electronically Approved : 05/24/2018 10:51:20 PORTABLE CHEST 1V History: CHEST PAIN Comparison: September 15, 2018 Findings: Single view of the chest is submitted Pericardial cardiac silhouette is enlarged. There is again right internal jugular port catheter with tip in superior vena cava. There is no lobar consolidation, pleural fluid, pneumothorax. Impression: 1. There is again enlargement of the pericardial cardiac silhouette. Electronically signed by: Sedrick Rubin MD (11/11/2018 8:47 PM) [facility] DICTATED and SIGNED BY: SEDRICK RUBIN MD DATE: 11/11/182046 Laboratory Tests Test 11/12/18 16:55 11/12/18 19:15 11/13/18 04:25 Glucose (Fingerstick) 96 mg/dL (70-99) 108 mg/dL (70-99) White Blood Count 4.1 x10^3/uL (4.0-11.0) Red Blood Count 3.30 x10^6/uL (3.50-5.40) Hemoglobin 9.1 g/dL (12.0-15.5) Hematocrit 28.3 % (36.0-47.0) Mean Corpuscular Volume 86 fL (79-100) Mean Corpuscular Hemoglobin 28 pg (25-35) Mean Corpuscular Hemoglobin Concent 32 g/dL (31-37) Red Cell Distribution Width 15.4 % (11.5-14.5) Platelet Count 110 x10^3/uL (140-400) Neutrophils (%) (Auto) 67 % (31-73) Lymphocytes (%) (Auto) 14 % (24-48) Monocytes (%) (Auto) 9 % (0-9) Eosinophils (%) (Auto) 9 % (0-3) Basophils (%) (Auto) 1 % (0-3) Neutrophils # (Auto) 2.7 x10^3uL (1.8-7.7) Lymphocytes # (Auto) 0.6 x10^3/uL (1.0-4.8) Monocytes # (Auto) 0.4 x10^3/uL (0.0-1.1) Eosinophils # (Auto) 0.4 x10^3/uL (0.0-0.7) Basophils # (Auto) 0.0 x10^3/uL (0.0-0.2) Sodium Level 142 mmol/L (136-145) Potassium Level 3.2 mmol/L (3.5-5.1) Chloride Level 102 mmol/L (98-107) Carbon Dioxide Level 30 mmol/L (21-32) Anion Gap 10 (6-14) Blood Urea Nitrogen 30 mg/dL (7-20) Creatinine 5.6 mg/dL (0.6-1.0) Estimated GFR (Cockcroft-Gault) 10.8 Glucose Level 97 mg/dL (70-99) Calcium Level 8.4 mg/dL (8.5-10.1) Phosphorus Level 5.8 mg/dL (2.6-4.7) Albumin 3.1 g/dL (3.4-5.0) Assessment and Plan Assessmemt and Plan Past Medical History Past Medical History: Cancer, HIV, Hypertension, Renal Disease, Renal Failure, Seizure Additional Past Medical Histor: dialysis, hodgkins Past Surgical History: Appendectomy, Cholecystectomy Additional Past Surgical Histo: L)upper arm fistula,R)upper chest port Alcohol Use: None Drug Use: None FAMILY HX ASHD Cardiovascular: HTN CENTRAL NERVOUS SYSTEM: Seizure GI: GERD Heme/Onc: Cancer Psych: Anxiety, Depression Rheumatologic: Fibromyalgia Infectious disease: HIV Renal/: Chronic renal failure Endocrine: Hyperparathyroidism Past Surgical History Past Surgical History: Appendectomy, Cholecystectomy, , Other Family History Family History: Heart Disease Family History: Parent, Grandparents Social History Smoke: No ALCOHOL: none Drugs: None Comment Review of Relevant I have reviewed the following items fiona (where applicable) has been applied. Labs Laboratory Tests Test 11/11/18 19:50 11/11/18 20:08 11/11/18 20:25 11/12/18 01:15 Urine Collection Type Unknown Urine Color Yellow Urine Clarity Clear Urine pH 6.0 Urine Specific [place] 1.025 Urine Protein >=300 mg/dL (NEG-TRACE) Urine Glucose (UA) Negative mg/dL (NEG) Urine Ketones (Stick) Trace mg/dL (NEG) Urine Blood Small (NEG) Urine Nitrite Negative (NEG) Urine Bilirubin Small (NEG) Urine Urobilinogen Dipstick 1.0 mg/dL (0.2 mg/dL) Urine Leukocyte Esterase Negative (NEG) Urine RBC 3-5 /HPF (0-2) Urine WBC 1-4 /HPF (0-4) Urine Squamous Epithelial Cells Mod /LPF Urine Transitional Epithelial Cells Occ /LPF Urine Bacteria 0 /HPF (0-FEW) Urine Hyaline Casts Few /HPF Urine Mucus Mod /LPF Bedside Urine HCG, Qualitative Hcg negative (Negative) White Blood Count 3.3 x10^3/uL (4.0-11.0) Red Blood Count 3.23 x10^6/uL (3.50-5.40) Hemoglobin 8.8 g/dL (12.0-15.5) Hematocrit 27.7 % (36.0-47.0) Mean Corpuscular Volume 86 fL (79-100) Mean Corpuscular Hemoglobin 27 pg (25-35) Mean Corpuscular Hemoglobin Concent 32 g/dL (31-37) Red Cell Distribution Width 15.3 % (11.5-14.5) Platelet Count 90 x10^3/uL (140-400) Neutrophils (%) (Auto) 66 % (31-73) Lymphocytes (%) (Auto) 17 % (24-48) Monocytes (%) (Auto) 11 % (0-9) Eosinophils (%) (Auto) 6 % (0-3) Basophils (%) (Auto) 1 % (0-3) Neutrophils # (Auto) 2.2 x10^3uL (1.8-7.7) Lymphocytes # (Auto) 0.6 x10^3/uL (1.0-4.8) Monocytes # (Auto) 0.4 x10^3/uL (0.0-1.1) Eosinophils # (Auto) 0.2 x10^3/uL (0.0-0.7) Basophils # (Auto) 0.0 x10^3/uL (0.0-0.2) Maternal Serum HCG Beta Subunit 8 mIU/mL (0-5) Sodium Level 135 mmol/L (136-145) Potassium Level 3.1 mmol/L (3.5-5.1) Chloride Level 98 mmol/L (98-107) Carbon Dioxide Level 29 mmol/L (21-32) Anion Gap 8 (6-14) Blood Urea Nitrogen 22 mg/dL (7-20) Creatinine 3.9 mg/dL (0.6-1.0) Estimated GFR (Cockcroft-Gault) 16.4 BUN/Creatinine Ratio 6 (6-20) Glucose Level 106 mg/dL (70-99) Calcium Level 8.2 mg/dL (8.5-10.1) Magnesium Level 1.5 mg/dL (1.8-2.4) Total Bilirubin 0.5 mg/dL (0.2-1.0) Aspartate Amino Transf (AST/SGOT) 25 U/L (15-37) Alanine Aminotransferase (ALT/SGPT) 33 U/L (14-59) Alkaline Phosphatase 113 U/L (46-116) Troponin I Quantitative 0.019 ng/mL (0.000-0.055) 0.030 ng/mL (0.000-0.055) JK-Tno-[id number]-Type Natriuretic Peptide > 07310 pg/mL (0-124) Total Protein 8.1 g/dL (6.4-8.2) Albumin 3.4 g/dL (3.4-5.0) Albumin/Globulin Ratio 0.7 (1.0-1.7) Lipase 184 U/L (73-393) Test 11/12/18 06:05 11/12/18 10:37 11/12/18 16:55 11/12/18 19:15 Troponin I Quantitative 0.025 ng/mL (0.000-0.055) Glucose (Fingerstick) 136 mg/dL (70-99) 96 mg/dL (70-99) 108 mg/dL (70-99) Test 11/13/18 04:25 White Blood Count 4.1 x10^3/uL (4.0-11.0) Red Blood Count 3.30 x10^6/uL (3.50-5.40) Hemoglobin 9.1 g/dL (12.0-15.5) Hematocrit 28.3 % (36.0-47.0) Mean Corpuscular Volume 86 fL (79-100) Mean Corpuscular Hemoglobin 28 pg (25-35) Mean Corpuscular Hemoglobin Concent 32 g/dL (31-37) Red Cell Distribution Width 15.4 % (11.5-14.5) Platelet Count 110 x10^3/uL (140-400) Neutrophils (%) (Auto) 67 % (31-73) Lymphocytes (%) (Auto) 14 % (24-48) Monocytes (%) (Auto) 9 % (0-9) Eosinophils (%) (Auto) 9 % (0-3) Basophils (%) (Auto) 1 % (0-3) Neutrophils # (Auto) 2.7 x10^3uL (1.8-7.7) Lymphocytes # (Auto) 0.6 x10^3/uL (1.0-4.8) Monocytes # (Auto) 0.4 x10^3/uL (0.0-1.1) Eosinophils # (Auto) 0.4 x10^3/uL (0.0-0.7) Basophils # (Auto) 0.0 x10^3/uL (0.0-0.2) Sodium Level 142 mmol/L (136-145) Potassium Level 3.2 mmol/L (3.5-5.1) Chloride Level 102 mmol/L (98-107) Carbon Dioxide Level 30 mmol/L (21-32) Anion Gap 10 (6-14) Blood Urea Nitrogen 30 mg/dL (7-20) Creatinine 5.6 mg/dL (0.6-1.0) Estimated GFR (Cockcroft-Gault) 10.8 Glucose Level 97 mg/dL (70-99) Calcium Level 8.4 mg/dL (8.5-10.1) Phosphorus Level 5.8 mg/dL (2.6-4.7) Albumin 3.1 g/dL (3.4-5.0) Laboratory Tests Test 11/12/18 16:55 11/12/18 19:15 11/13/18 04:25 Glucose (Fingerstick) 96 mg/dL (70-99) 108 mg/dL (70-99) White Blood Count 4.1 x10^3/uL (4.0-11.0) Red Blood Count 3.30 x10^6/uL (3.50-5.40) Hemoglobin 9.1 g/dL (12.0-15.5) Hematocrit 28.3 % (36.0-47.0) Mean Corpuscular Volume 86 fL (79-100) Mean Corpuscular Hemoglobin 28 pg (25-35) Mean Corpuscular Hemoglobin Concent 32 g/dL (31-37) Red Cell Distribution Width 15.4 % (11.5-14.5) Platelet Count 110 x10^3/uL (140-400) Neutrophils (%) (Auto) 67 % (31-73) Lymphocytes (%) (Auto) 14 % (24-48) Monocytes (%) (Auto) 9 % (0-9) Eosinophils (%) (Auto) 9 % (0-3) Basophils (%) (Auto) 1 % (0-3) Neutrophils # (Auto) 2.7 x10^3uL (1.8-7.7) Lymphocytes # (Auto) 0.6 x10^3/uL (1.0-4.8) Monocytes # (Auto) 0.4 x10^3/uL (0.0-1.1) Eosinophils # (Auto) 0.4 x10^3/uL (0.0-0.7) Basophils # (Auto) 0.0 x10^3/uL (0.0-0.2) Sodium Level 142 mmol/L (136-145) Potassium Level 3.2 mmol/L (3.5-5.1) Chloride Level 102 mmol/L (98-107) Carbon Dioxide Level 30 mmol/L (21-32) Anion Gap 10 (6-14) Blood Urea Nitrogen 30 mg/dL (7-20) Creatinine 5.6 mg/dL (0.6-1.0) Estimated GFR (Cockcroft-Gault) 10.8 Glucose Level 97 mg/dL (70-99) Calcium Level 8.4 mg/dL (8.5-10.1) Phosphorus Level 5.8 mg/dL (2.6-4.7) Albumin 3.1 g/dL (3.4-5.0) Medications Current Medications Labetalol HCl (Normodyne Iv Push) 20 mg 1X ONCE IVP Last administered on at 21:00; Start 11/11/18 at 20:45; Stop 11/11/18 at 20:46; Status DC Nitroglycerin (Nitro-Bid Oint) 2 inch 1X ONCE TP Last administered on 21:00; Start 11/11/18 at 20:45; Stop 11/11/18 at 20:46; Status DC Magnesium Sulfate/ Dextrose 100 ml @ 100 mls/hr 1X ONCE IV Last administered on 11/11/18at 21:38; Start 11/11/18 at 21:30; Stop 11/11/18 at 22:29; Status DC Acetaminophen/ Hydrocodone Bitart (Lortab 5/325) 2 tab 1X ONCE PO Last administered on 11/11/18at 21:37; Start 11/11/18 at 21:30; Stop 11/11/18 at 21:31 ; Status DC Labetalol HCl (Normodyne Iv Push) 20 mg 1X ONCE IVP Last administered on at 22:19; Start 11/11/18 at 22:15; Stop 11/11/18 at 22:16; Status DC Lorazepam (Ativan) 1 mg 1X ONCE IV Last administered on 11/11/18at 22:16; Start 11/11/18 at 22:00; Stop 11/11/18 at 22:01; Status DC Levetiracetam 1000 mg/Dextrose 110 ml @ 440 mls/hr 1X ONCE IV Last administered on 11/11/18at 22:20; Start 11/11/18 at 22:15; Stop 11/11/18 at 22:29 ; Status DC Ondansetron HCl (Zofran) 4 mg PRN Q8HRS PRN IV NAUSEA/VOMITING Last administered on 11/12/18 08:22; Start 11/11/18 at 22:30; Stop 11/12/18 at 22:29 ; Status DC Morphine Sulfate (Morphine Sulfate) 4 mg PRN Q2HR PRN IV PAIN Last administered on 11/12/18 19:00; Start 11/11/18 at 22:30; Stop 11/12/18 at 22:29 ; Status DC Labetalol HCl (Normodyne Iv Push) 20 mg PRN Q2HR PRN IVP ELEVATED BP, SEE COMMENTS Last administered on 11/12/18 18:52; Start 11/11/18 at 23:00 Hydralazine HCl (Apresoline Inj) 10 mg PRN Q4HRS PRN IVP ELEVATED BP, SEE COMMENTS Last administered on 11/12/18 18:14; Start 11/12/18 at 09:00 Clonidine HCl (Catapres) 0.2 mg BID PO Last administered on 11/13/18 09:19; Start 11/12/18 at 09:00 Clonidine HCl (Catapres) 0.2 mg BID PO ; Start 11/12/18 at 11:00; Status Cancel Acetaminophen/ Hydrocodone Bitart (Lortab 5/325) 1 tab PRN Q6HRS PRN PO SEVERE PAIN; Start 11/12/18 at 11:15 Lacosamide (Vimpat) 50 mg DAILY PO Last administered on 11/13/18 09:19; Start 11/12/18 at 11:00 Levetiracetam (Keppra) 500 mg BID PO Last administered on 11/13/18 09:19; Start 11/12/18 at 11:00 Oxycodone HCl (Roxicodone) 5 mg PRN DAILY PRN PO BREAKTHROUGH PAIN Last administered on 11/12/18 12:05; Start 11/12/18 at 11:15 Trazodone HCl (Desyrel) 100 mg QHS PO Last administered on 11/12/18 21:55; Start 11/12/18 at 21:00 Pantoprazole Sodium (Protonix) 40 mg DAILYAC PO Last administered on 11/13/18 07:30; Start 11/12/18 at 11:00 Sucralfate (Carafate) 1 gm BIDAC PO Last administered on 11/13/18 09:19; Start 11/12/18 at 16:30 Nicardipine HCl 50 mg/Sodium Chloride 250 ml @ 25 mls/hr CONT PRN IV SEE I/O RECORD Last administered on 11/12/18at 20:20; Start 11/12/18 at 19:30 Lorazepam (Ativan) 2 mg STK-MED ONCE .ROUTE ; Start 11/12/18 at 20:09; Stop at 20:12; Status DC Lorazepam (Ativan) 2 mg PRN Q30MIN PRN IV ANXIETY / AGITATION Last administered on 11/12/18at 20:23; Start 11/12/18 at 20:15 Lorazepam (Ativan) 4 mg PRN Q30MIN PRN IV ANXIETY / AGITATION; Start 11/12/18 at 20:30 Emtricitabine (Emtriva) 200 mg Q4DAYS PO ; Start 11/13/18 at 09:00; Status UNV Non-Formulary Medication (Abacavir Sulfate/ Lamivudine (Epzicom Tablet)) 300 mg DAILY PO ; Start 11/13/18 at 09:00; Status UNV Non-Formulary Medication (Dolutegravir Sodium (Tivicay)) 50 mg DAILY PO ; Start 11/13/18 at 09:00; Status UNV Non-Formulary Medication (Sulfamethoxazole/ Trimethoprim (Bactrim 400-80 Mg Tablet)) 1 tab QODAY PO ; Start 11/14/18 at 09:00; Status UNV Darbepoetin Chris (Aranesp) 60 mcg WEEKLYHS SQ ; Start 11/13/18 at 21:00; Status UNV Active Scripts Active [place] 5-325 Tablet (Acetaminophen/Hydrocodone Bitart) 1 Each Tablet 1-2 Each PO PRN Q6HRS PRN as needed for pain Trazodone Hcl 100 Mg Tablet 1 Tab PO QHS 30 Days Oxycodone Hcl Immed.release (Oxycodone Hcl) 5 Mg Tablet 5 Mg PO PRN DAILY PRN 6 Days Carafate (Sucralfate) 1 Gm Tablet 1 Gm PO BIDWMEALS 30 Days Reported Bactrim 400-80 Mg Tablet (Sulfamethoxazole/Trimethoprim) 1 Each Tablet 1 Tab PO QODAY Tivicay (Dolutegravir Sodium) 50 Mg Tablet 50 Mg PO DAILY Emtriva (Emtricitabine) 200 Mg Capsule 200 Mg PO Q4DAYS Epzicom Tablet (Abacavir Sulfate/Lamivudine) 1 Each Tablet 300 Mg PO DAILY Vimpat (Lacosamide) 50 Mg Tablet 50 Mg PO DAILY Protonix (Pantoprazole Sodium) 20 Mg Tablet.dr 40 Mg PO DAILY Keppra (Levetiracetam) 500 Mg Tablet 500 Mg PO BID Clonidine Hcl 0.2 Mg Tablet 1 Tab PO BID Vitals/I & O Vital Sign - Last 24 Hours 11/12/18 11/12/18 11/12/18 11/12/18 13:09 14:56 16:32 18:08 Temp 98.3 98.3 Pulse 81 81 Resp 16 18 B/P (MAP) 157/93 (114) 224/118 (153) Pulse Ox 98 98 98 O2 Delivery Room Air Room Air Room Air 11/12/18 11/12/18 11/12/18 11/12/18 18:14 18:15 18:45 18:52 Pulse 82 96 Resp 18 18 B/P (MAP) 224/118 180/97 (124) 206/118 (147) 206/118 11/12/18 11/12/18 11/12/18 11/12/18 19:00 19:12 19:33 19:45 Pulse 98 90 Resp 18 18 16 B/P (MAP) 226/126 (159) 167/93 (117) Pulse Ox 98 98 100 O2 Delivery Room Air Room Air Nasal Cannula O2 Flow Rate 2.0 11/12/18 11/12/18 11/12/18 11/12/18 19:55 20:00 20:15 20:30 Temp 98.9 98.9 Pulse 92 102 89 Resp 18 16 16 B/P (MAP) 171/86 (114) 169/88 (115) 140/69 (92) Pulse Ox 100 100 100 O2 Delivery Nasal Cannula Nasal Cannula Nasal Cannula Nasal Cannula O2 Flow Rate 2.0 2.0 2.0 2.0 11/12/18 11/12/18 11/12/18 11/12/18 20:45 21:00 21:15 21:45 Pulse 90 86 86 84 Resp 16 12 13 12 B/P (MAP) 140/67 (91) 134/62 (86) 131/60 (83) 129/58 (81) Pulse Ox 100 100 100 100 O2 Delivery Nasal Cannula Nasal Cannula Nasal Cannula Nasal Cannula O2 Flow Rate 2.0 2.0 2.0 2.0 3/24/19 11/12/18 11/12/18 11/12/18 21:55 22:00 22:30 23:00 Pulse 82 86 88 82 Resp 14 15 12 B/P (MAP) 129/58 133/63 (86) 150/76 (100) 122/61 (81) Pulse Ox 100 100 100 O2 Delivery Nasal Cannula Nasal Cannula Nasal Cannula O2 Flow Rate 2.0 2.0 2.0 11/12/18 11/12/18 11/12/18 11/13/18 23:15 23:30 23:37 00:00 Temp 98.9 98.9 Pulse 82 82 82 Resp 11 24 14 B/P (MAP) 130/62 (84) 123/63 (83) 137/64 (88) Pulse Ox 100 100 100 O2 Delivery Nasal Cannula Nasal Cannula Nasal Cannula Nasal Cannula O2 Flow Rate 2.0 2.0 2.0 2.0 11/13/18 11/13/18 11/13/18 11/13/18 00:30 01:00 02:00 03:00 Pulse 80 80 79 78 Resp 12 12 12 12 B/P (MAP) 131/60 (83) 140/61 (87) 125/58 (80) 122/62 (82) Pulse Ox 100 100 100 100 O2 Delivery Nasal Cannula Nasal Cannula Nasal Cannula Nasal Cannula O2 Flow Rate 2.0 2.0 2.0 2.0 11/13/18 11/13/18 11/13/18 11/13/18 04:00 04:15 05:00 06:00 Temp 98.3 98.3 Pulse 80 74 74 Resp 17 12 13 B/P (MAP) 133/65 (87) 140/72 (94) 126/59 (81) Pulse Ox 100 100 97 O2 Delivery Nasal Cannula Nasal Cannula Nasal Cannula Room Air O2 Flow Rate 2.0 2.0 2.0 11/13/18 11/13/18 11/13/18 11/13/18 07:00 08:00 08:00 09:00 Temp 98.5 98.5 Pulse 72 78 82 Resp 13 14 14 B/P (MAP) 124/65 (84) 126/65 (85) 129/63 (85) Pulse Ox 97 97 97 O2 Delivery Room Air Nasal Cannula Room Air Room Air O2 Flow Rate 2.0 11/13/18 11/13/18 11/13/18 11/13/18 09:19 10:00 11:00 12:00 Pulse 74 79 78 79 Resp 16 16 16 B/P (MAP) 126/63 132/65 (87) 133/65 (87) 132/69 (90) Pulse Ox 97 97 96 O2 Delivery Nasal Cannula Nasal Cannula Nasal Cannula 11/13/18 12:00 O2 Delivery Nasal Cannula O2 Flow Rate 2.0 Intake and Output 11/12/18 11/12/18 11/13/18 15:00 23:00 07:00 Intake Total 100 ml 410 ml Output Total 0 ml 0 ml 0 ml Balance 0 ml 100 ml 410 ml FUNMILAYO EMERSON MD Nov 13, 2018 13:06
--- NOTE | 2018-11-13 13:17 | PDOC ---
CARDIO Progress Notes Date and Time Date of Service 11/13/18 Time of Evaluation 1240 Subjective Subjective: No Chest Pain, No shortness of breath Vitals Vitals Vital Signs Date Time Temp Pulse Resp B/P (MAP) Pulse Ox O2 Delivery O2 Flow Rate FiO2 11/13/18 13:00 77 16 128/70 (89) 96 Nasal Cannula 11/13/18 12:00 2.0 11/13/18 07:00 98.5 98.5 Weight Weight [ ] Input and Output Intake and Output Intake and Output 11/13/18 07:00 Intake Total 510 ml Output Total 0 ml Balance 510 ml Intake Oral 350 ml IV Total 160 ml Output Urine Total 0 ml # Voids 1 Laboratory Labs Laboratory Tests Test 11/12/18 16:55 11/12/18 19:15 11/13/18 04:25 Glucose (Fingerstick) 96 mg/dL (70-99) 108 mg/dL (70-99) White Blood Count 4.1 x10^3/uL (4.0-11.0) Red Blood Count 3.30 x10^6/uL (3.50-5.40) Hemoglobin 9.1 g/dL (12.0-15.5) Hematocrit 28.3 % (36.0-47.0) Mean Corpuscular Volume 86 fL (79-100) Mean Corpuscular Hemoglobin 28 pg (25-35) Mean Corpuscular Hemoglobin Concent 32 g/dL (31-37) Red Cell Distribution Width 15.4 % (11.5-14.5) Platelet Count 110 x10^3/uL (140-400) Neutrophils (%) (Auto) 67 % (31-73) Lymphocytes (%) (Auto) 14 % (24-48) Monocytes (%) (Auto) 9 % (0-9) Eosinophils (%) (Auto) 9 % (0-3) Basophils (%) (Auto) 1 % (0-3) Neutrophils # (Auto) 2.7 x10^3uL (1.8-7.7) Lymphocytes # (Auto) 0.6 x10^3/uL (1.0-4.8) Monocytes # (Auto) 0.4 x10^3/uL (0.0-1.1) Eosinophils # (Auto) 0.4 x10^3/uL (0.0-0.7) Basophils # (Auto) 0.0 x10^3/uL (0.0-0.2) Sodium Level 142 mmol/L (136-145) Potassium Level 3.2 mmol/L (3.5-5.1) Chloride Level 102 mmol/L (98-107) Carbon Dioxide Level 30 mmol/L (21-32) Anion Gap 10 (6-14) Blood Urea Nitrogen 30 mg/dL (7-20) Creatinine 5.6 mg/dL (0.6-1.0) Estimated GFR (Cockcroft-Gault) 10.8 Glucose Level 97 mg/dL (70-99) Calcium Level 8.4 mg/dL (8.5-10.1) Phosphorus Level 5.8 mg/dL (2.6-4.7) Albumin 3.1 g/dL (3.4-5.0) Physical Exam HEENT: Neck Supple W Full Motion Chest: Symmetric LUNGS: Clear to Auscultation Heart: S1S2, RRR Abdomen: Soft N/T Extremities: No Edema Neurology: alert, follow commands Assessment Assessment 1. Malignant hypertension; better controlled. Will resume home labetalol for better control. Supportive care. Encouraged medical therapy compliance 2. Chest pressure, atypical. Most probably secondary to #1. MPI 03/15/18 showed no ischemia or infarct. Recent echo with preserved LV systolic function 3. ESRD on HD. As per renal 4. Seizure disorder 5. History of Hodgkin's Lymphoma 6. HIV positive. ROSS BRENNAN APRN Nov 13, 2018 13:17
[2018-11-13] MEDS ORDERED: POTASSIUM CHLORIDE 20 MEQ TABLET.ER. PO ONE (14:00)
--- NOTE | 2018-11-13 14:17 | RAD ---
. EXAM: Head CT without contrast. HISTORY: Seizure. TECHNIQUE: Computed tomographic images of the head were obtained without intravenous contrast. *One or more of the following individualized dose reduction techniques were utilized for this examination: 1. Automated exposure control. 2. Adjustment of the mA and/or kV according to patient size. 3. Use of iterative reconstruction technique. COMPARISON: 08/09/2018. FINDINGS: There is no acute or subacute extra-axial or intraparenchymal hemorrhage. There is no mass effect or midline shift. There is no hydrocephalus. No abnormal enhancing lesion is seen. The amezquita-white matter differentiation pattern is intact. The visualized portions of the orbits, paranasal sinuses and mastoid air cells are unremarkable. No suspicious calvarial lesion is seen. IMPRESSION: No acute intracranial findings. Electronically signed by: Gianna Flores MD (11/13/2018 2:12 PM) [place] [id number]
--- NOTE | 2018-11-13 14:20 | PDOC ---
PROGRESS NOTES Assessment Assessment IMPRESSION: Metabolic encephalopathy. Hypertensive encephalopathy. Hypertensive emergency, BP 226/123 mmHg. HTN. Seizure. Lymphoma. HIV positive. Renal failure. RECOMMENDATIONS/PLAN: Continue Keppra 500 mg bid. Continue Vimpat 50 mg, increase to 50 mg bid. BP control. Treat medical diseases. Past Medical History HIV, Hypertension, Renal Disease, Renal Failure, Seizure, dialysis, Hodgkin's lymphoma. Cardiovascular: HTN CENTRAL NERVOUS SYSTEM: Seizure GI: GERD Heme/Onc: Cancer Psych: Anxiety, Depression Rheumatologic: Fibromyalgia Infectious disease: HIV Renal/: Chronic renal failure Endocrine: Hyperparathyroidism Past Surgical History Appendectomy, Cholecystectomy, , upper arm fistula,R)upper chest port Family History Heart Disease. Parent, Grandparents Allergies Coded Allergies: povidone-iodine (Verified Allergy, Intermediate, 08/17/18) soap (Verified Allergy, Intermediate, 08/17/18) diphenhydramine (Verified Adverse Reaction, Severe, Anxiety, 08/18/18) Makes her feel "crazy" lisinopril (Verified Adverse Reaction, Intermediate, 08/17/18) Altered mental status per pt DIPHENHYDRAMINE, LISINOPRIL, POVIDONE IODINE, AND SOAP. SOCIAL HISTORY: She is single. She has 2 boys, age 8 and 10 years of age. Her mom watches the boys for her. She does not smoke tobacco or drink alcohol. She is on disability. REVIEW OF SYSTEMS: She complains of headache. She has had no change of vision, hearing, or cognition. She is not feeling short of breath, having chest or abdominal pain. She says she has back pain. There has been no fever or rash. She has a critically elevated blood pressure. No gastrointestinal or genitourinary complaint. Does not complain of bruising, bleeding, or swelling. She does not currently have psychiatric concerns. PHYSICAL EXAMINATION: General appearance in subacute distress. HEENT: Normocephalic and nontraumatic. Eyes, nose, ears, and throat are unremarkable. Neck is supple. No lymphadenopathy. No Crepitus. Cardiovascular: S1, S2, regular rate and rhythm. Pulmonary: Clear to auscultation bilaterally. Abdomen: Bowel sounds are positive. Abdomen is soft, nontender, and nondistended. Extremities: No rash, lesions, or edema. No restriction of range of motion NEUROLOGICAL EXAMINATION: Awake. Oriented to time, place and person. PERRL. EOMI. CN: no focal findings. Muscle tone: within normal. Muscle strength: 5 DTR: 2 Plantar reflex: Flexor response bilaterally Gait: not examined in bed. Sensory exam: no abnormal findings. No cerebellar signs elicited. F-T-N test fine. Objective Objective Vital Signs Date Time Temp Pulse Resp B/P (MAP) Pulse Ox O2 Delivery O2 Flow Rate FiO2 11/13/18 13:00 77 16 128/70 (89) 96 Nasal Cannula 11/13/18 12:00 2.0 11/13/18 07:00 98.5 98.5 Intake and Output 11/13/18 07:00 Intake Total 510 ml Output Total 0 ml Balance 510 ml Intake Oral 350 ml IV Total 160 ml Output Urine Total 0 ml # Voids 1 Vitals Signs Vitals VS - Last 72 Hours, by Label Date Time Temp Pulse Resp B/P (MAP) Pulse Ox O2 Delivery O2 Flow Rate FiO2 11/13/18 13:00 77 16 128/70 (89) 96 Nasal Cannula 11/13/18 12:00 Nasal Cannula 2.0 11/13/18 12:00 79 16 132/69 (90) 96 Nasal Cannula 11/13/18 11:00 78 16 133/65 (87) 97 Nasal Cannula 11/13/18 10:00 79 16 132/65 (87) 97 Nasal Cannula 11/13/18 09:19 74 126/63 11/13/18 09:00 82 14 129/63 (85) 97 Room Air 11/13/18 08:00 78 14 126/65 (85) 97 Room Air 11/13/18 08:00 Nasal Cannula 2.0 11/13/18 07:00 98.5 72 13 124/65 (84) 97 Room Air 98.5 11/13/18 06:00 74 13 126/59 (81) 97 Room Air 11/13/18 05:00 74 12 140/72 (94) 100 Nasal Cannula 2.0 11/13/18 04:15 Nasal Cannula 2.0 11/13/18 04:00 98.3 80 17 133/65 (87) 100 Nasal Cannula 2.0 98.3 11/13/18 03:00 78 12 122/62 (82) 100 Nasal Cannula 2.0 11/13/18 02:00 79 12 125/58 (80) 100 Nasal Cannula 2.0 11/13/18 01:00 80 12 140/61 (87) 100 Nasal Cannula 2.0 11/13/18 00:30 80 12 131/60 (83) 100 Nasal Cannula 2.0 11/13/18 00:00 82 14 137/64 (88) 100 Nasal Cannula 2.0 11/12/18 23:37 Nasal Cannula 2.0 11/12/18 23:30 82 24 123/63 (83) 100 Nasal Cannula 2.0 11/12/18 23:15 98.9 82 11 130/62 (84) 100 Nasal Cannula 2.0 98.9 11/12/18 23:00 82 12 122/61 (81) 100 Nasal Cannula 2.0 11/12/18 22:30 88 15 150/76 (100) 100 Nasal Cannula 2.0 11/12/18 22:00 86 14 133/63 (86) 100 Nasal Cannula 2.0 11/12/18 21:55 82 129/58 11/12/18 21:45 84 12 129/58 (81) 100 Nasal Cannula 2.0 11/12/18 21:15 86 13 131/60 (83) 100 Nasal Cannula 2.0 11/12/18 21:00 86 12 134/62 (86) 100 Nasal Cannula 2.0 11/12/18 20:45 90 16 140/67 (91) 100 Nasal Cannula 2.0 11/12/18 20:30 89 16 140/69 (92) 100 Nasal Cannula 2.0 11/12/18 20:15 102 16 169/88 (115) 100 Nasal Cannula 2.0 11/12/18 20:00 98.9 92 18 171/86 (114) 100 Nasal Cannula 2.0 98.9 11/12/18 19:55 Nasal Cannula 2.0 11/12/18 19:45 90 16 167/93 (117) 100 Nasal Cannula 2.0 11/12/18 19:33 18 98 Room Air 11/12/18 19:12 98 18 226/126 (159) 11/12/18 19:00 98 Room Air 11/12/18 18:52 206/118 11/12/18 18:45 96 18 206/118 (147) 11/12/18 18:15 82 18 180/97 (124) 11/12/18 18:14 224/118 11/12/18 18:08 81 18 224/118 (153) 11/12/18 16:32 98 Room Air 11/12/18 14:56 98.3 81 16 157/93 (114) 98 Room Air 98.3 11/12/18 13:09 98 Room Air 11/12/18 13:06 98 Room Air 11/12/18 12:05 18 98 Room Air 11/12/18 11:37 71 18 145/82 (103) 11/12/18 11:00 97.9 76 15 161/88 (112) 98 Room Air 97.9 11/12/18 09:37 78 18 139/76 (97) 11/12/18 09:07 71 18 156/89 (111) 11/12/18 09:02 203/115 11/12/18 09:01 203/115 11/12/18 08:23 73 18 218/126 (156) 11/12/18 08:07 80 18 192/109 (136) 11/12/18 07:54 Room Air 11/12/18 07:35 191/111 11/12/18 07:17 98.5 72 18 191/111 (137) 94 Room Air 98.5 Laboratory Laboratory Laboratory Tests Test 11/12/18 16:55 11/12/18 19:15 11/13/18 04:25 Glucose (Fingerstick) 96 mg/dL (70-99) 108 mg/dL (70-99) White Blood Count 4.1 x10^3/uL (4.0-11.0) Red Blood Count 3.30 x10^6/uL (3.50-5.40) Hemoglobin 9.1 g/dL (12.0-15.5) Hematocrit 28.3 % (36.0-47.0) Mean Corpuscular Volume 86 fL (79-100) Mean Corpuscular Hemoglobin 28 pg (25-35) Mean Corpuscular Hemoglobin Concent 32 g/dL (31-37) Red Cell Distribution Width 15.4 % (11.5-14.5) Platelet Count 110 x10^3/uL (140-400) Neutrophils (%) (Auto) 67 % (31-73) Lymphocytes (%) (Auto) 14 % (24-48) Monocytes (%) (Auto) 9 % (0-9) Eosinophils (%) (Auto) 9 % (0-3) Basophils (%) (Auto) 1 % (0-3) Neutrophils # (Auto) 2.7 x10^3uL (1.8-7.7) Lymphocytes # (Auto) 0.6 x10^3/uL (1.0-4.8) Monocytes # (Auto) 0.4 x10^3/uL (0.0-1.1) Eosinophils # (Auto) 0.4 x10^3/uL (0.0-0.7) Basophils # (Auto) 0.0 x10^3/uL (0.0-0.2) Sodium Level 142 mmol/L (136-145) Potassium Level 3.2 mmol/L (3.5-5.1) Chloride Level 102 mmol/L (98-107) Carbon Dioxide Level 30 mmol/L (21-32) Anion Gap 10 (6-14) Blood Urea Nitrogen 30 mg/dL (7-20) Creatinine 5.6 mg/dL (0.6-1.0) Estimated GFR (Cockcroft-Gault) 10.8 Glucose Level 97 mg/dL (70-99) Calcium Level 8.4 mg/dL (8.5-10.1) Phosphorus Level 5.8 mg/dL (2.6-4.7) Albumin 3.1 g/dL (3.4-5.0) Medication Medications Current Medications Darbepoetin Chris (Aranesp) 60 mcg WEEKLYHS SQ ; Start 11/13/18 at 21:00 Emtricitabine (Emtriva) 200 mg Q4DAYS PO ; Start 11/13/18 at 09:00; Status UNV Lorazepam (Ativan) 2 mg PRN Q30MIN PRN IV ANXIETY / AGITATION Last administered on 11/12/18at 20:23; Start 11/12/18 at 20:15 Lorazepam (Ativan) 2 mg STK-MED ONCE .ROUTE ; Start 11/12/18 at 20:09; Stop at 20:12; Status DC Lorazepam (Ativan) 4 mg PRN Q30MIN PRN IV ANXIETY / AGITATION; Start 11/12/18 at 20:30 Nicardipine HCl 50 mg/Sodium Chloride 250 ml @ 25 mls/hr CONT PRN IV SEE I/O RECORD Last administered on 11/12/18at 20:20; Start 11/12/18 at 19:30 Non-Formulary Medication (Abacavir Sulfate/ Lamivudine (Epzicom Tablet)) 300 mg DAILY PO ; Start 11/13/18 at 09:00; Status UNV Non-Formulary Medication (Dolutegravir Sodium (Tivicay)) 50 mg DAILY PO ; Start 11/13/18 at 09:00; Status UNV Non-Formulary Medication (Sulfamethoxazole/ Trimethoprim (Bactrim 400-80 Mg Tablet)) 1 tab QODAY PO ; Start 11/14/18 at 09:00; Status UNV Potassium Chloride (Klor-Con) 20 meq 1X ONCE PO ; Start 11/13/18 at 14:00; Stop 11/13/18 at 14:01; Status DC Sucralfate (Carafate) 1 gm BIDAC PO Last administered on 11/13/18at 09:19; Start 11/12/18 at 16:30 Trazodone HCl (Desyrel) 100 mg QHS PO Last administered on 11/12/18at 21:55; Start 11/12/18 at 21:00 Comment Review of Relevant I have reviewed the following items fiona (where applicable) has been applied. RAY COMBS MD Nov 13, 2018 14:20
[2018-11-13] MEDS: traZODone 100 MG TABLET. PO SCH (20:44)
[2018-11-13] MEDS ORDERED: DARBEPOETIN ALFA 60 MCG/0.3 ML DISP.SYRIN. SQ SCH (21:00)
[2018-11-13] MEDS: hydrALAZINE 20 MG/ML VIAL. IVP PRN (23:34)
[2018-11-14] VITALS (7 sets, daily range): BP systolic 155–189; BP diastolic 78–118
[2018-11-14] MEDS: MORPHINE SULFATE 2 MG/ML VIAL. IV PRN ×6 (01:58→23:59)
[2018-11-14] MEDS: hydrALAZINE 20 MG/ML VIAL. IVP PRN ×3 (03:53→23:58)
[2018-11-14] MEDS: LABETALOL 20 MG/4 ML DISP.SYRIN. IVP PRN ×2 (05:34→09:02)
[2018-11-14 05:59] LABS: BASO % 1 % (0-3); EOS # 0.3 x10^3/uL (0.0-0.7); EOS % 11 % (0-3); HEMATOCRIT 30.1 % (36.0-47.0); HEMOGLOBIN 9.7 g/dL (12.0-15.5); LYMPH # 0.6 x10^3/uL (1.0-4.8); LYMPH % 20 % (24-48); MEAN CORPUSCULAR HEMOGLOBIN 28 pg (25-35); MEAN CORPUSCULAR HGB CONC 32 g/dL (31-37); MEAN CORPUSCULAR VOLUME 87 fL (79-100); MONO # 0.4 x10^3/uL (0.0-1.1); MONO % 13 % (0-9); NEUT # 1.7 x10^3uL (1.8-7.7); NEUT % 56 % (31-73); PLATELET COUNT 118 x10^3/uL (140-400); RED BLOOD COUNT 3.48 x10^6/uL (3.50-5.40); RED CELL DISTRIBUTION WIDTH 15.5 % (11.5-14.5)
[2018-11-14 06:25] LABS: CALCIUM 8.7 mg/dL (8.5-10.1); POTASSIUM 3.2 mmol/L (3.5-5.1)
[2018-11-14] MEDS ORDERED: IV NORMAL SALINE 1000ML BAG 1,000 ML IV PRN ×2 (07:24)
[2018-11-14] MEDS: PANTOPRAZOLE 40 MG TABLET.DR. PO SCH (07:30)
[2018-11-14] MEDS: SUCRALFATE 1 GM TABLET. PO SCH ×2 (07:30→17:37)
[2018-11-14] MEDS ORDERED: DIALYSIS PATIENT. MC PRN ×2 (07:30)
[2018-11-14] MEDS ORDERED: LIDOCAINE 1% Multi-Dose 20 ML VIAL. ID ONE (07:30)
--- NOTE | 2018-11-14 08:31 | EKG ---
[facility] [address] [place] [address] Test Date: 2018-11-12 Test Time: 19:21:03 Pat Name: FRANCA MILES Department: Room: 112 Gender: F [employer]: [facility] : 1990 Requested By: ESTEBAN RIDLEY Order Number: [id number] Reading MD: Arturo Garcia MD Measurements Intervals [place] Rate: 92 P: 64 AK: 186 QRS: -26 QRSD: 108 T: 72 QT: 400 QTc: 500 Interpretive Statements SINUS RHYTHM NON-SPECIFIC ST/T CHANGES PROLONGED QT Electronically Signed On 11-14-2018 9:07:50 CDT by Arturo Garcia MD
[2018-11-14] MEDS: cloNIDine HCL 0.2 MG TABLET PO SCH ×2 (09:01→22:14)
--- NOTE | 2018-11-14 09:31 | PDOC2 ---
CONSULT Date of Consult Date of Consult DATE: 11/14/18 TIME: 09:24 Reason for consultation: Thrombocytopenia Consult: Hematology oncology, Dr. Sangita Avendano History of present illness: She is a 28-year-old female with a history of Hodgkin's disease in 2016, HIV was noted at that time, the Hodgkin's went into remission with chemotherapy without recurrence however she has had recent evidence of mild lymphadenopathy and pancytopenia and was recently started on antiretroviral therapy. She has had noncompliance with her antihypertensives and was admitted with hypertensive emergency with chest pain. Still having chest pain and trouble breathing and hypertension, with end-stage renal disease on dialysis. Regarding the thrombocytopenia, it is chronic, mild, improving with antiretroviral therapy, associated with anemia and leukopenia, and bone marrow biopsy may be considered in the near future. 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 Past surgical history: Appendectomy Cholecystectomy AV fistula left upper extremity Right chest port Allergies: Benadryl, lisinopril, iodine, soap Medications: See attached list Social history: Single, 2 young boys, on disability, no tobacco or alcohol or drugs, mother helps care for her boys Family history: Heart disease Review of systems: Chest pain, trouble breathing, decreased urination, headache , neck pain, nausea, numbness and tingling in her hands during dialysis, leg pain, otherwise 10 point review of systems negative Physical exam: Vitals reviewed Gen.: Well-nourished and well-developed w/ neck pain and photophobia HEENT: mucous membranes dry, head normocephalic atraumatic Neck: Supple, no lymphadenopathy Lymph nodes: No palpable lymphadenopathy neck or axilla Lungs: Breathing comfortably, no evidence of respiratory distress Abdomen: Soft, nontender, nondistended Extremities: No cyanosis or signif edema Skin: No obvious rashes or skin breakdown Neuro: Alert and oriented 3 Psych: Normal mood and affect Lab reviewed: White count 3.0, hemoglobin 9.7, platelets 118, neutrophils 1700 Rads reviewed: Mild lymphadenopathy on recent scans and mild splenomegaly at [facility] CT with no acute findings Chest x-ray with enlarged pericardial silhouette Case discussed with: Patient, records reviewed in [employer] and [facility], including labs and radiology, please see note for summary details Assessment and Plan: She is a 28-year-old female with HIV, pancytopenia, history of Hodgkin's, admitted for hypertensive emergency and history of medical noncompliance with end-stage renal disease on dialysis HIV: Would continue her antiretroviral therapy, her HIV viral load was undetectable earlier this month at , she has Bactrim prophylactic, recent CD4 count is less than 200 History of seizures: Per neuro History of hypertensive urgency emergency with chest pain: Per cardiology End-stage renal disease: On dialysis, with Aranesp History of Hodgkin's lymphoma: Does have some pancytopenia that is mild and splenomegaly, could consider bone marrow biopsy in the near future as needed, she'll also continue follow-up with her outpatient oncologist after discharge , will order smear Pancytopenia: On Aranesp, counts slightly improved from earlier this month, suspect much related to HIV, supportive care for now Thank you kindly for this consultation, and please don't hesitate to call with further questions. Past Medical History Cardiovascular: HTN CENTRAL NERVOUS SYSTEM: Seizure GI: GERD Heme/Onc: Cancer Psych: Anxiety, Depression Rheumatologic: Fibromyalgia Infectious disease: HIV Renal/: Chronic renal failure Endocrine: Hyperparathyroidism Past Surgical History Past Surgical History: Appendectomy, Cholecystectomy, , Other ( dialysis fistula) Family History Family History: Heart Disease Social History Social History: Parent, Grandparents No ALCOHOL: none Drugs: None Lives: with Family Current Medications Current Medications Current Medications Labetalol HCl (Normodyne Iv Push) 20 mg 1X ONCE IVP Last administered on at 21:00; Start 11/11/18 at 20:45; Stop 11/11/18 at 20:46; Status DC Nitroglycerin (Nitro-Bid Oint) 2 inch 1X ONCE TP Last administered on at 21:00; Start 11/11/18 at 20:45; Stop 11/11/18 at 20:46; Status DC Magnesium Sulfate/ Dextrose 100 ml @ 100 mls/hr 1X ONCE IV Last administered on 11/11/18at 21:38; Start 11/11/18 at 21:30; Stop 11/11/18 at 22:29; Status DC Acetaminophen/ Hydrocodone Bitart (Lortab 5/325) 2 tab 1X ONCE PO Last administered on 11/11/18 21:37; Start 11/11/18 at 21:30; Stop 11/11/18 at 21:31 ; Status DC Labetalol HCl (Normodyne Iv Push) 20 mg 1X ONCE IVP Last administered on 22:19; Start 11/11/18 at 22:15; Stop 11/11/18 at 22:16; Status DC Lorazepam (Ativan) 1 mg 1X ONCE IV Last administered on 11/11/18at 22:16; Start 11/11/18 at 22:00; Stop 11/11/18 at 22:01; Status DC Levetiracetam 1000 mg/Dextrose 110 ml @ 440 mls/hr 1X ONCE IV Last administered on 11/11/18 22:20; Start 11/11/18 at 22:15; Stop 11/11/18 at 22:29 ; Status DC Ondansetron HCl (Zofran) 4 mg PRN Q8HRS PRN IV NAUSEA/VOMITING Last administered on 11/12/18 08:22; Start 11/11/18 at 22:30; Stop 11/12/18 at 22:29 ; Status DC Morphine Sulfate (Morphine Sulfate) 4 mg PRN Q2HR PRN IV PAIN Last administered on 11/12/18 19:00; Start 11/11/18 at 22:30; Stop 11/12/18 at 22:29 ; Status DC Labetalol HCl (Normodyne Iv Push) 20 mg PRN Q2HR PRN IVP ELEVATED BP, SEE COMMENTS Last administered on 11/14/18 09:02; Start 11/11/18 at 23:00 Hydralazine HCl (Apresoline Inj) 10 mg PRN Q4HRS PRN IVP ELEVATED BP, SEE COMMENTS Last administered on 11/14/18 03:53; Start 11/12/18 at 09:00 Clonidine HCl (Catapres) 0.2 mg BID PO Last administered on 11/14/18 09:01; Start 11/12/18 at 09:00 Clonidine HCl (Catapres) 0.2 mg BID PO ; Start 11/12/18 at 11:00; Status Cancel Acetaminophen/ Hydrocodone Bitart (Lortab 5/325) 1 tab PRN Q6HRS PRN PO SEVERE PAIN Last administered on 11/13/18 17:50; Start 11/12/18 at 11:15 Lacosamide (Vimpat) 50 mg DAILY PO Last administered on 11/13/18 09:19; Start 11/12/18 at 11:00 Levetiracetam (Keppra) 500 mg BID PO Last administered on 11/13/18 20:44; Start 11/12/18 at 11:00 Oxycodone HCl (Roxicodone) 5 mg PRN DAILY PRN PO BREAKTHROUGH PAIN Last administered on 11/12/18 12:05; Start 11/12/18 at 11:15 Trazodone HCl (Desyrel) 100 mg QHS PO Last administered on 11/12/18at 21:55; Start 11/12/18 at 21:00 Pantoprazole Sodium (Protonix) 40 mg DAILYAC PO Last administered on 11/13/18 07:30; Start 11/12/18 at 11:00 Sucralfate (Carafate) 1 gm BIDAC PO Last administered on 11/13/18at 14:38; Start 11/12/18 at 16:30 Nicardipine HCl 50 mg/Sodium Chloride 250 ml @ 25 mls/hr CONT PRN IV SEE I/O RECORD Last administered on 11/12/18at 20:20; Start 11/12/18 at 19:30 Lorazepam (Ativan) 2 mg STK-MED ONCE .ROUTE ; Start 11/12/18 at 20:09; Stop at 20:12; Status DC Lorazepam (Ativan) 2 mg PRN Q30MIN PRN IV ANXIETY / AGITATION Last administered on 11/14/18at 09:02; Start 11/12/18 at 20:15 Lorazepam (Ativan) 4 mg PRN Q30MIN PRN IV ANXIETY / AGITATION; Start 11/12/18 at 20:30 Emtricitabine (Emtriva) 200 mg Q4DAYS PO ; Start 11/13/18 at 09:00; Status UNV Non-Formulary Medication (Abacavir Sulfate/ Lamivudine (Epzicom Tablet)) 300 mg DAILY PO ; Start 11/13/18 at 09:00; Status UNV Non-Formulary Medication (Dolutegravir Sodium (Tivicay)) 50 mg DAILY PO ; Start 11/13/18 at 09:00; Status UNV Non-Formulary Medication (Sulfamethoxazole/ Trimethoprim (Bactrim 400-80 Mg Tablet)) 1 tab QODAY PO ; Start 11/14/18 at 09:00; Status UNV Darbepoetin Chris (Aranesp) 60 mcg WEEKLYHS SQ Last administered on 11/13/18at 20 :44; Start 11/13/18 at 21:00 Potassium Chloride (Klor-Con) 20 meq 1X ONCE PO Last administered on at 14:38; Start 11/13/18 at 14:00; Stop 11/13/18 at 14:01; Status DC Morphine Sulfate (Morphine Sulfate) 1 mg PRN Q2HR PRN IV PAIN Last administered on 11/14/18at 08:14; Start 11/14/18 at 01:15 Sodium Chloride 1,000 ml @ 1,000 mls/hr Q1H PRN IV hypotension; Start 11/14/18 at 07:24; Stop 11/14/18 at 13:23 Sodium Chloride 1,000 ml @ 400 mls/hr Q2H30M PRN IV PATENCY; Start 11/14/18 at 07:24; Stop 11/14/18 at 19:23 Lidocaine HCl (Lidocaine 1% 20ml Vial) 20 ml 1X ONCE ID ; Start 11/14/18 at 07: 30; Stop 11/14/18 at 07:34; Status DC Info (PHARMACY MONITORING -- do not chart) 1 each PRN DAILY PRN MC SEE COMMENTS ; Start 11/14/18 at 07:30; Status UNV Info (PHARMACY MONITORING -- do not chart) 1 each PRN DAILY PRN MC SEE COMMENTS ; Start 11/14/18 at 07:30 Active Scripts Active [place] 5-325 Tablet (Acetaminophen/Hydrocodone Bitart) 1 Each Tablet 1-2 Each PO PRN Q6HRS PRN as needed for pain Trazodone Hcl 100 Mg Tablet 1 Tab PO QHS 30 Days Oxycodone Hcl Immed.release (Oxycodone Hcl) 5 Mg Tablet 5 Mg PO PRN DAILY PRN 6 Days Carafate (Sucralfate) 1 Gm Tablet 1 Gm PO BIDWMEALS 30 Days Reported Bactrim 400-80 Mg Tablet (Sulfamethoxazole/Trimethoprim) 1 Each Tablet 1 Tab PO QODAY Tivicay (Dolutegravir Sodium) 50 Mg Tablet 50 Mg PO DAILY Emtriva (Emtricitabine) 200 Mg Capsule 200 Mg PO Q4DAYS Epzicom Tablet (Abacavir Sulfate/Lamivudine) 1 Each Tablet 300 Mg PO DAILY Vimpat (Lacosamide) 50 Mg Tablet 50 Mg PO DAILY Protonix (Pantoprazole Sodium) 20 Mg Tablet.dr 40 Mg PO DAILY Keppra (Levetiracetam) 500 Mg Tablet 500 Mg PO BID Clonidine Hcl 0.2 Mg Tablet 1 Tab PO BID Allergies Allergies: Coded Allergies: povidone-iodine (Verified Allergy, Intermediate, 08/17/18) soap (Verified Allergy, Intermediate, 08/17/18) diphenhydramine (Verified Adverse Reaction, Severe, Anxiety, 08/18/18) Makes her feel "crazy" lisinopril (Verified Adverse Reaction, Intermediate, 08/17/18) Altered mental status per pt Vitals VITALS Vital Signs Date Time Temp Pulse Resp B/P (MAP) Pulse Ox O2 Delivery O2 Flow Rate FiO2 11/14/18 09:02 95 175/107 11/14/18 08:14 18 99 11/14/18 04:00 98.3 Room Air 98.3 11/13/18 18:54 2.0 Labs Labs Laboratory Tests Test 11/12/18 10:37 11/12/18 16:55 11/12/18 19:15 11/13/18 04:25 Glucose (Fingerstick) 136 mg/dL (70-99) 96 mg/dL (70-99) 108 mg/dL (70-99) White Blood Count 4.1 x10^3/uL (4.0-11.0) Red Blood Count 3.30 x10^6/uL (3.50-5.40) Hemoglobin 9.1 g/dL (12.0-15.5) Hematocrit 28.3 % (36.0-47.0) Mean Corpuscular Volume 86 fL (79-100) Mean Corpuscular Hemoglobin 28 pg (25-35) Mean Corpuscular Hemoglobin Concent 32 g/dL (31-37) Red Cell Distribution Width 15.4 % (11.5-14.5) Platelet Count 110 x10^3/uL (140-400) Neutrophils (%) (Auto) 67 % (31-73) Lymphocytes (%) (Auto) 14 % (24-48) Monocytes (%) (Auto) 9 % (0-9) Eosinophils (%) (Auto) 9 % (0-3) Basophils (%) (Auto) 1 % (0-3) Neutrophils # (Auto) 2.7 x10^3uL (1.8-7.7) Lymphocytes # (Auto) 0.6 x10^3/uL (1.0-4.8) Monocytes # (Auto) 0.4 x10^3/uL (0.0-1.1) Eosinophils # (Auto) 0.4 x10^3/uL (0.0-0.7) Basophils # (Auto) 0.0 x10^3/uL (0.0-0.2) Sodium Level 142 mmol/L (136-145) Potassium Level 3.2 mmol/L (3.5-5.1) Chloride Level 102 mmol/L (98-107) Carbon Dioxide Level 30 mmol/L (21-32) Anion Gap 10 (6-14) Blood Urea Nitrogen 30 mg/dL (7-20) Creatinine 5.6 mg/dL (0.6-1.0) Estimated GFR (Cockcroft-Gault) 10.8 Glucose Level 97 mg/dL (70-99) Calcium Level 8.4 mg/dL (8.5-10.1) Phosphorus Level 5.8 mg/dL (2.6-4.7) Albumin 3.1 g/dL (3.4-5.0) Test 11/14/18 05:40 White Blood Count 3.0 x10^3/uL (4.0-11.0) Red Blood Count 3.48 x10^6/uL (3.50-5.40) Hemoglobin 9.7 g/dL (12.0-15.5) Hematocrit 30.1 % (36.0-47.0) Mean Corpuscular Volume 87 fL (79-100) Mean Corpuscular Hemoglobin 28 pg (25-35) Mean Corpuscular Hemoglobin Concent 32 g/dL (31-37) Red Cell Distribution Width 15.5 % (11.5-14.5) Platelet Count 118 x10^3/uL (140-400) Neutrophils (%) (Auto) 56 % (31-73) Lymphocytes (%) (Auto) 20 % (24-48) Monocytes (%) (Auto) 13 % (0-9) Eosinophils (%) (Auto) 11 % (0-3) Basophils (%) (Auto) 1 % (0-3) Neutrophils # (Auto) 1.7 x10^3uL (1.8-7.7) Lymphocytes # (Auto) 0.6 x10^3/uL (1.0-4.8) Monocytes # (Auto) 0.4 x10^3/uL (0.0-1.1) Eosinophils # (Auto) 0.3 x10^3/uL (0.0-0.7) Basophils # (Auto) 0.0 x10^3/uL (0.0-0.2) Sodium Level 141 mmol/L (136-145) Potassium Level 3.2 mmol/L (3.5-5.1) Chloride Level 102 mmol/L (98-107) Carbon Dioxide Level 27 mmol/L (21-32) Anion Gap 12 (6-14) Blood Urea Nitrogen 34 mg/dL (7-20) Creatinine 6.0 mg/dL (0.6-1.0) Estimated GFR (Cockcroft-Gault) 10.0 Glucose Level 96 mg/dL (70-99) Calcium Level 8.7 mg/dL (8.5-10.1) Laboratory Tests Test 11/14/18 05:40 White Blood Count 3.0 x10^3/uL (4.0-11.0) Red Blood Count 3.48 x10^6/uL (3.50-5.40) Hemoglobin 9.7 g/dL (12.0-15.5) Hematocrit 30.1 % (36.0-47.0) Mean Corpuscular Volume 87 fL (79-100) Mean Corpuscular Hemoglobin 28 pg (25-35) Mean Corpuscular Hemoglobin Concent 32 g/dL (31-37) Red Cell Distribution Width 15.5 % (11.5-14.5) Platelet Count 118 x10^3/uL (140-400) Neutrophils (%) (Auto) 56 % (31-73) Lymphocytes (%) (Auto) 20 % (24-48) Monocytes (%) (Auto) 13 % (0-9) Eosinophils (%) (Auto) 11 % (0-3) Basophils (%) (Auto) 1 % (0-3) Neutrophils # (Auto) 1.7 x10^3uL (1.8-7.7) Lymphocytes # (Auto) 0.6 x10^3/uL (1.0-4.8) Monocytes # (Auto) 0.4 x10^3/uL (0.0-1.1) Eosinophils # (Auto) 0.3 x10^3/uL (0.0-0.7) Basophils # (Auto) 0.0 x10^3/uL (0.0-0.2) Sodium Level 141 mmol/L (136-145) Potassium Level 3.2 mmol/L (3.5-5.1) Chloride Level 102 mmol/L (98-107) Carbon Dioxide Level 27 mmol/L (21-32) Anion Gap 12 (6-14) Blood Urea Nitrogen 34 mg/dL (7-20) Creatinine 6.0 mg/dL (0.6-1.0) Estimated GFR (Cockcroft-Gault) 10.0 Glucose Level 96 mg/dL (70-99) Calcium Level 8.7 mg/dL (8.5-10.1) SANGITA AVENDANO MD Nov 14, 2018 09:31
--- NOTE | 2018-11-14 10:52 | PDOC ---
PROGRESS NOTES History of Present Illness History of Present Illness Assessment/Plan Assessment/Plan Impression: Hypertensive emergency ESRD ON DIALYSIS Seizure HX History of Hodgkin's lymphoma Anemia of chronic renal dz Pancytopenia chest pain MODERATE TRICUSPID REGURG PULM HTN Hypertensive encephalopathy. HIV PLAN ADMIT CONSULT NEPHROLOGY D/W DR BURDICK HX LONG POOR COMPLIANCE CONSULT CARDIOLOGY ECHO ICU ADMIT DUE TO HYPERTENSIVE EMERGENCY SERIAL TROPONIN I IV HYDRALAZINE PRN BP SUPPORT home meds 38 min pt exam, chart review,> 50% of time spent with exam, chart review, pt care coordination Vitals Vitals Vital Signs Date Time Temp Pulse Resp B/P (MAP) Pulse Ox O2 Delivery O2 Flow Rate FiO2 11/14/18 09:45 99 Room Air 11/14/18 09:02 95 175/107 11/14/18 08:14 18 11/14/18 08:00 98.6 98.6 11/13/18 18:54 2.0 Physical Exam Physical Exam Neck: Normal range of motion, no tenderness, supple, no stridor. [] Cardiovascular:Heart rate regular rhythm, 3/6 SYSTOLIC MURMUR NOTED Lungs & Thorax: Bilateral breath sounds clear to auscultation [] Abdomen: Bowel sounds normal, soft, no tenderness, no masses, no pulsatile masses. [] Skin: Warm, dry, no erythema, no rash. [] Back: No tenderness, no CVA tenderness. [] Extremities: No tenderness, no cyanosis, no clubbing, ROM intact,TWO PLUS EDEMA Neurologic: Alert and oriented X 3, normal motor function, normal sensory function, no focal deficits noted. [] Psychologic: Affect normal, judgement normal, mood MILD ANXIETY NOTED Breasts: Not examined General: Alert, Oriented X3, Cooperative, No acute distress, mild distress Heart: Regular rate, Normal S1, Normal S2, Gallops Lungs: Clear Abdomen: Normal bowel sounds, Soft, No tenderness Extremities: No clubbing, No cyanosis, No tenderness/swelling Skin: No significant lesion Labs LABS Laboratory Tests Test 11/14/18 05:40 White Blood Count 3.0 x10^3/uL (4.0-11.0) Red Blood Count 3.48 x10^6/uL (3.50-5.40) Hemoglobin 9.7 g/dL (12.0-15.5) Hematocrit 30.1 % (36.0-47.0) Mean Corpuscular Volume 87 fL (79-100) Mean Corpuscular Hemoglobin 28 pg (25-35) Mean Corpuscular Hemoglobin Concent 32 g/dL (31-37) Red Cell Distribution Width 15.5 % (11.5-14.5) Platelet Count 118 x10^3/uL (140-400) Neutrophils (%) (Auto) 56 % (31-73) Lymphocytes (%) (Auto) 20 % (24-48) Monocytes (%) (Auto) 13 % (0-9) Eosinophils (%) (Auto) 11 % (0-3) Basophils (%) (Auto) 1 % (0-3) Neutrophils # (Auto) 1.7 x10^3uL (1.8-7.7) Lymphocytes # (Auto) 0.6 x10^3/uL (1.0-4.8) Monocytes # (Auto) 0.4 x10^3/uL (0.0-1.1) Eosinophils # (Auto) 0.3 x10^3/uL (0.0-0.7) Basophils # (Auto) 0.0 x10^3/uL (0.0-0.2) Sodium Level 141 mmol/L (136-145) Potassium Level 3.2 mmol/L (3.5-5.1) Chloride Level 102 mmol/L (98-107) Carbon Dioxide Level 27 mmol/L (21-32) Anion Gap 12 (6-14) Blood Urea Nitrogen 34 mg/dL (7-20) Creatinine 6.0 mg/dL (0.6-1.0) Estimated GFR (Cockcroft-Gault) 10.0 Glucose Level 96 mg/dL (70-99) Calcium Level 8.7 mg/dL (8.5-10.1) Comment Review of Relevant I have reviewed the following items fiona (where applicable) has been applied. Labs Laboratory Tests Test 11/12/18 16:55 11/12/18 19:15 11/13/18 04:25 11/14/18 05:40 Glucose (Fingerstick) 96 mg/dL (70-99) 108 mg/dL (70-99) White Blood Count 4.1 x10^3/uL (4.0-11.0) 3.0 x10^3/uL (4.0-11.0) Red Blood Count 3.30 x10^6/uL (3.50-5.40) 3.48 x10^6/uL (3.50-5.40) Hemoglobin 9.1 g/dL (12.0-15.5) 9.7 g/dL (12.0-15.5) Hematocrit 28.3 % (36.0-47.0) 30.1 % (36.0-47.0) Mean Corpuscular Volume 86 fL (79-100) 87 fL (79-100) Mean Corpuscular Hemoglobin 28 pg (25-35) 28 pg (25-35) Mean Corpuscular Hemoglobin Concent 32 g/dL (31-37) 32 g/dL (31-37) Red Cell Distribution Width 15.4 % (11.5-14.5) 15.5 % (11.5-14.5) Platelet Count 110 x10^3/uL (140-400) 118 x10^3/uL (140-400) Neutrophils (%) (Auto) 67 % (31-73) 56 % (31-73) Lymphocytes (%) (Auto) 14 % (24-48) 20 % (24-48) Monocytes (%) (Auto) 9 % (0-9) 13 % (0-9) Eosinophils (%) (Auto) 9 % (0-3) 11 % (0-3) Basophils (%) (Auto) 1 % (0-3) 1 % (0-3) Neutrophils # (Auto) 2.7 x10^3uL (1.8-7.7) 1.7 x10^3uL (1.8-7.7) Lymphocytes # (Auto) 0.6 x10^3/uL (1.0-4.8) 0.6 x10^3/uL (1.0-4.8) Monocytes # (Auto) 0.4 x10^3/uL (0.0-1.1) 0.4 x10^3/uL (0.0-1.1) Eosinophils # (Auto) 0.4 x10^3/uL (0.0-0.7) 0.3 x10^3/uL (0.0-0.7) Basophils # (Auto) 0.0 x10^3/uL (0.0-0.2) 0.0 x10^3/uL (0.0-0.2) Sodium Level 142 mmol/L (136-145) 141 mmol/L (136-145) Potassium Level 3.2 mmol/L (3.5-5.1) 3.2 mmol/L (3.5-5.1) Chloride Level 102 mmol/L (98-107) 102 mmol/L (98-107) Carbon Dioxide Level 30 mmol/L (21-32) 27 mmol/L (21-32) Anion Gap 10 (6-14) 12 (6-14) Blood Urea Nitrogen 30 mg/dL (7-20) 34 mg/dL (7-20) Creatinine 5.6 mg/dL (0.6-1.0) 6.0 mg/dL (0.6-1.0) Estimated GFR (Cockcroft-Gault) 10.8 10.0 Glucose Level 97 mg/dL (70-99) 96 mg/dL (70-99) Calcium Level 8.4 mg/dL (8.5-10.1) 8.7 mg/dL (8.5-10.1) Phosphorus Level 5.8 mg/dL (2.6-4.7) Albumin 3.1 g/dL (3.4-5.0) Laboratory Tests Test 11/14/18 05:40 White Blood Count 3.0 x10^3/uL (4.0-11.0) Red Blood Count 3.48 x10^6/uL (3.50-5.40) Hemoglobin 9.7 g/dL (12.0-15.5) Hematocrit 30.1 % (36.0-47.0) Mean Corpuscular Volume 87 fL (79-100) Mean Corpuscular Hemoglobin 28 pg (25-35) Mean Corpuscular Hemoglobin Concent 32 g/dL (31-37) Red Cell Distribution Width 15.5 % (11.5-14.5) Platelet Count 118 x10^3/uL (140-400) Neutrophils (%) (Auto) 56 % (31-73) Lymphocytes (%) (Auto) 20 % (24-48) Monocytes (%) (Auto) 13 % (0-9) Eosinophils (%) (Auto) 11 % (0-3) Basophils (%) (Auto) 1 % (0-3) Neutrophils # (Auto) 1.7 x10^3uL (1.8-7.7) Lymphocytes # (Auto) 0.6 x10^3/uL (1.0-4.8) Monocytes # (Auto) 0.4 x10^3/uL (0.0-1.1) Eosinophils # (Auto) 0.3 x10^3/uL (0.0-0.7) Basophils # (Auto) 0.0 x10^3/uL (0.0-0.2) Sodium Level 141 mmol/L (136-145) Potassium Level 3.2 mmol/L (3.5-5.1) Chloride Level 102 mmol/L (98-107) Carbon Dioxide Level 27 mmol/L (21-32) Anion Gap 12 (6-14) Blood Urea Nitrogen 34 mg/dL (7-20) Creatinine 6.0 mg/dL (0.6-1.0) Estimated GFR (Cockcroft-Gault) 10.0 Glucose Level 96 mg/dL (70-99) Calcium Level 8.7 mg/dL (8.5-10.1) Medications Current Medications Labetalol HCl (Normodyne Iv Push) 20 mg 1X ONCE IVP Last administered on at 21:00; Start 11/11/18 at 20:45; Stop 11/11/18 at 20:46; Status DC Nitroglycerin (Nitro-Bid Oint) 2 inch 1X ONCE TP Last administered on at 21:00; Start 11/11/18 at 20:45; Stop 11/11/18 at 20:46; Status DC Magnesium Sulfate/ Dextrose 100 ml @ 100 mls/hr 1X ONCE IV Last administered on 11/11/18at 21:38; Start 11/11/18 at 21:30; Stop 11/11/18 at 22:29; Status DC Acetaminophen/ Hydrocodone Bitart (Lortab 5/325) 2 tab 1X ONCE PO Last administered on 11/11/18at 21:37; Start 11/11/18 at 21:30; Stop 11/11/18 at 21:31 ; Status DC Labetalol HCl (Normodyne Iv Push) 20 mg 1X ONCE IVP Last administered on 22:19; Start 11/11/18 at 22:15; Stop 11/11/18 at 22:16; Status DC Lorazepam (Ativan) 1 mg 1X ONCE IV Last administered on 11/11/18 22:16; Start 11/11/18 at 22:00; Stop 11/11/18 at 22:01; Status DC Levetiracetam 1000 mg/Dextrose 110 ml @ 440 mls/hr 1X ONCE IV Last administered on 11/11/18 22:20; Start 11/11/18 at 22:15; Stop 11/11/18 at 22:29 ; Status DC Ondansetron HCl (Zofran) 4 mg PRN Q8HRS PRN IV NAUSEA/VOMITING Last administered on 11/12/18 08:22; Start 11/11/18 at 22:30; Stop 11/12/18 at 22:29 ; Status DC Morphine Sulfate (Morphine Sulfate) 4 mg PRN Q2HR PRN IV PAIN Last administered on 11/12/18 19:00; Start 11/11/18 at 22:30; Stop 11/12/18 at 22:29 ; Status DC Labetalol HCl (Normodyne Iv Push) 20 mg PRN Q2HR PRN IVP ELEVATED BP, SEE COMMENTS Last administered on 11/14/18 09:02; Start 11/11/18 at 23:00 Hydralazine HCl (Apresoline Inj) 10 mg PRN Q4HRS PRN IVP ELEVATED BP, SEE COMMENTS Last administered on 11/14/18 03:53; Start 11/12/18 at 09:00 Clonidine HCl (Catapres) 0.2 mg BID PO Last administered on 11/14/18 09:01; Start 11/12/18 at 09:00 Clonidine HCl (Catapres) 0.2 mg BID PO ; Start 11/12/18 at 11:00; Status Cancel Acetaminophen/ Hydrocodone Bitart (Lortab 5/325) 1 tab PRN Q6HRS PRN PO SEVERE PAIN Last administered on 11/13/18 17:50; Start 11/12/18 at 11:15 Lacosamide (Vimpat) 50 mg DAILY PO Last administered on 11/13/18 09:19; Start 11/12/18 at 11:00 Levetiracetam (Keppra) 500 mg BID PO Last administered on 11/13/18 20:44; Start 11/12/18 at 11:00 Oxycodone HCl (Roxicodone) 5 mg PRN DAILY PRN PO BREAKTHROUGH PAIN Last administered on 11/12/18 12:05; Start 11/12/18 at 11:15 Trazodone HCl (Desyrel) 100 mg QHS PO Last administered on 11/12/18 21:55; Start 11/12/18 at 21:00 Pantoprazole Sodium (Protonix) 40 mg DAILYAC PO Last administered on 11/13/18 07:30; Start 11/12/18 at 11:00 Sucralfate (Carafate) 1 gm BIDAC PO Last administered on 11/13/18 14:38; Start 11/12/18 at 16:30 Nicardipine HCl 50 mg/Sodium Chloride 250 ml @ 25 mls/hr CONT PRN IV SEE I/O RECORD Last administered on 11/12/18at 20:20; Start 11/12/18 at 19:30 Lorazepam (Ativan) 2 mg STK-MED ONCE .ROUTE ; Start 11/12/18 at 20:09; Stop at 20:12; Status DC Lorazepam (Ativan) 2 mg PRN Q30MIN PRN IV ANXIETY / AGITATION Last administered on 11/14/18 09:02; Start 11/12/18 at 20:15 Lorazepam (Ativan) 4 mg PRN Q30MIN PRN IV ANXIETY / AGITATION; Start 11/12/18 at 20:30 Emtricitabine (Emtriva) 200 mg Q4DAYS PO ; Start 11/13/18 at 09:00; Status UNV Non-Formulary Medication (Abacavir Sulfate/ Lamivudine (Epzicom Tablet)) 300 mg DAILY PO ; Start 11/13/18 at 09:00; Status UNV Non-Formulary Medication (Dolutegravir Sodium (Tivicay)) 50 mg DAILY PO ; Start 11/13/18 at 09:00; Status UNV Non-Formulary Medication (Sulfamethoxazole/ Trimethoprim (Bactrim 400-80 Mg Tablet)) 1 tab QODAY PO ; Start 11/14/18 at 09:00; Status UNV Darbepoetin Chris (Aranesp) 60 mcg WEEKLYHS SQ Last administered on 11/13/18at 20 :44; Start 11/13/18 at 21:00 Potassium Chloride (Klor-Con) 20 meq 1X ONCE PO Last administered on at 14:38; Start 11/13/18 at 14:00; Stop 11/13/18 at 14:01; Status DC Morphine Sulfate (Morphine Sulfate) 1 mg PRN Q2HR PRN IV PAIN Last administered on 11/14/18at 08:14; Start 11/14/18 at 01:15 Sodium Chloride 1,000 ml @ 1,000 mls/hr Q1H PRN IV hypotension; Start 11/14/18 at 07:24; Stop 11/14/18 at 13:23 Sodium Chloride 1,000 ml @ 400 mls/hr Q2H30M PRN IV PATENCY; Start 11/14/18 at 07:24; Stop 11/14/18 at 19:23 Lidocaine HCl (Lidocaine 1% 20ml Vial) 20 ml 1X ONCE ID ; Start 11/14/18 at 07: 30; Stop 11/14/18 at 07:34; Status DC Info (PHARMACY MONITORING -- do not chart) 1 each PRN DAILY PRN MC SEE COMMENTS ; Start 11/14/18 at 07:30; Status UNV Info (PHARMACY MONITORING -- do not chart) 1 each PRN DAILY PRN MC SEE COMMENTS ; Start 11/14/18 at 07:30 Active Scripts Active [place] 5-325 Tablet (Acetaminophen/Hydrocodone Bitart) 1 Each Tablet 1-2 Each PO PRN Q6HRS PRN as needed for pain Trazodone Hcl 100 Mg Tablet 1 Tab PO QHS 30 Days Oxycodone Hcl Immed.release (Oxycodone Hcl) 5 Mg Tablet 5 Mg PO PRN DAILY PRN 6 Days Carafate (Sucralfate) 1 Gm Tablet 1 Gm PO BIDWMEALS 30 Days Reported Bactrim 400-80 Mg Tablet (Sulfamethoxazole/Trimethoprim) 1 Each Tablet 1 Tab PO QODAY Tivicay (Dolutegravir Sodium) 50 Mg Tablet 50 Mg PO DAILY Emtriva (Emtricitabine) 200 Mg Capsule 200 Mg PO Q4DAYS Epzicom Tablet (Abacavir Sulfate/Lamivudine) 1 Each Tablet 300 Mg PO DAILY Vimpat (Lacosamide) 50 Mg Tablet 50 Mg PO DAILY Protonix (Pantoprazole Sodium) 20 Mg Tablet.dr 40 Mg PO DAILY Keppra (Levetiracetam) 500 Mg Tablet 500 Mg PO BID Clonidine Hcl 0.2 Mg Tablet 1 Tab PO BID Vitals/I & O Vital Sign - Last 24 Hours 11/13/18 11/13/18 11/13/18 11/13/18 11:00 12:00 12:00 13:00 Pulse 78 79 77 Resp 16 16 16 B/P (MAP) 133/65 (87) 132/69 (90) 128/70 (89) Pulse Ox 97 96 96 O2 Delivery Nasal Cannula Nasal Cannula Nasal Cannula Nasal Cannula O2 Flow Rate 2.0 11/13/18 11/13/18 11/13/18 11/13/18 16:39 17:50 18:54 19:53 Temp 98.5 98.5 Pulse 71 B/P (MAP) 132/70 (90) Pulse Ox 96 96 96 O2 Delivery Nasal Cannula Nasal Cannula Nasal Cannula Room Air O2 Flow Rate 2.0 2.0 2.0 11/13/18 11/13/18 11/13/18 11/14/18 20:00 20:44 23:34 00:00 Temp 98.5 98.3 98.5 98.3 Pulse 73 82 85 103 Resp 17 18 B/P (MAP) 157/88 (111) 157/88 187/103 187/103 (131) Pulse Ox 94 96 O2 Delivery Room Air Room Air 11/14/18 11/14/18 11/14/18 11/14/18 01:58 02:28 03:53 04:00 Temp 98.3 98.3 Pulse 89 92 Resp 18 16 16 B/P (MAP) 185/110 185/110 (135) Pulse Ox 94 95 O2 Delivery Room Air Room Air 11/14/18 11/14/18 11/14/18 11/14/18 05:34 06:30 08:00 08:00 Temp 98.6 98.6 Pulse 110 92 94 Resp 16 B/P (MAP) 198/107 155/78 (103) 158/98 (118) Pulse Ox 95 O2 Delivery Room Air Room Air 11/14/18 11/14/18 11/14/18 11/14/18 08:14 09:01 09:02 09:45 Pulse 95 95 Resp 18 B/P (MAP) 175/107 175/107 Pulse Ox 99 99 O2 Delivery Room Air Intake and Output 11/13/18 11/13/18 11/14/18 14:59 22:59 06:59 Intake Total 220 ml 240 ml Output Total 0 ml 100 ml 0 ml Balance 220 ml -100 ml 240 ml FUNMILAYO EMERSON MD Nov 14, 2018 10:52
[2018-11-14] MEDS: levETIRAcetam 500 MG TABLET PO SCH ×2 (12:04→22:12)
[2018-11-14] MEDS: LACOSAMIDE 50 MG TABLET PO SCH ×2 (12:04→22:14)
--- NOTE | 2018-11-14 12:12 | PDOC ---
Renal-Progress Notes Subjective Notes Notes NO NEW COMPLAINTS History of Present Illness Hx of present illness STABLE Vitals Vitals Vital Signs Date Time Temp Pulse Resp B/P (MAP) Pulse Ox O2 Delivery O2 Flow Rate FiO2 11/14/18 12:04 79 189/118 11/14/18 10:58 18 99 11/14/18 09:45 Room Air 11/14/18 08:00 98.6 98.6 11/13/18 18:54 2.0 Weight Weight [ ] I.O. Intake and Output Intake and Output 11/14/18 06:59 Intake Total 460 ml Output Total 100 ml Balance 360 ml Intake Oral 460 ml Output Urine Total 100 ml Labs Labs Laboratory Tests Test 11/14/18 05:40 White Blood Count 3.0 x10^3/uL (4.0-11.0) Red Blood Count 3.48 x10^6/uL (3.50-5.40) Hemoglobin 9.7 g/dL (12.0-15.5) Hematocrit 30.1 % (36.0-47.0) Mean Corpuscular Volume 87 fL (79-100) Mean Corpuscular Hemoglobin 28 pg (25-35) Mean Corpuscular Hemoglobin Concent 32 g/dL (31-37) Red Cell Distribution Width 15.5 % (11.5-14.5) Platelet Count 118 x10^3/uL (140-400) Neutrophils (%) (Auto) 56 % (31-73) Lymphocytes (%) (Auto) 20 % (24-48) Monocytes (%) (Auto) 13 % (0-9) Eosinophils (%) (Auto) 11 % (0-3) Basophils (%) (Auto) 1 % (0-3) Neutrophils # (Auto) 1.7 x10^3uL (1.8-7.7) Lymphocytes # (Auto) 0.6 x10^3/uL (1.0-4.8) Monocytes # (Auto) 0.4 x10^3/uL (0.0-1.1) Eosinophils # (Auto) 0.3 x10^3/uL (0.0-0.7) Basophils # (Auto) 0.0 x10^3/uL (0.0-0.2) Sodium Level 141 mmol/L (136-145) Potassium Level 3.2 mmol/L (3.5-5.1) Chloride Level 102 mmol/L (98-107) Carbon Dioxide Level 27 mmol/L (21-32) Anion Gap 12 (6-14) Blood Urea Nitrogen 34 mg/dL (7-20) Creatinine 6.0 mg/dL (0.6-1.0) Estimated GFR (Cockcroft-Gault) 10.0 Glucose Level 96 mg/dL (70-99) Calcium Level 8.7 mg/dL (8.5-10.1) Review of Systems Constitutional: yes: alert, oriented Ears/Nose/Throat: Yes: no symptom reported Eyes: Yes: no symptom reported Pulmonary: Yes no symptom reported Cardiovascular: Yes no symptom reported Gastrointestional: Yes: no symptom reported Genitourinary: Yes: no symptom reported Musculoskeletal: Yes: no symptom reported Skin: Yes no symptom reported Psychiatric/Neurological: Yes: seizures Endocrine: Yes: no symptom reported Hematologic/Lymphatic: Yes: no symptom reported Physical Exam General Appearance: no apparent distress Skin: warm Respiratory: bilateral CTA Heart: S1S2 Abdomen: soft Genitourinary: bladder flat Neurology: alert, follow commands Assessment Assessment IMP HTN EMERGENCY-IMPROVED SEIZURE ESRD ANEMIA SEVERE NON COMPLIANCE HIV HX PANCYTOPENIA-ISTABLE CHEST PAIN RESOLVED PLAN HD TODAY UF TO [facility] D/W ATTENDING ENC COMPLIANCE EVERARDO BURDICK MD Nov 14, 2018 12:12
[2018-11-14] MEDS ORDERED: LABETALOL 20 MG/4 ML DISP.SYRIN. IVP PRN (15:00)
[2018-11-14] MEDS ORDERED: POTASSIUM CHLORIDE 20 MEQ TABLET.ER. PO ONE (15:00)
[2018-11-14] MEDS: amLODIPine BESYLATE 10 MG TABLET PO SCH (15:08)
[2018-11-14] MEDS: SULFAMETHOXAZOLE PO SCH (15:12)
[2018-11-14] MEDS: TRIMETHOPRIM PO SCH (15:12)
[2018-11-14] MEDS ORDERED: EMTRICITABINE 200 MG PO SCH (15:30)
[2018-11-14] MEDS ORDERED: LAMO25TA9 PO (15:59)
[2018-11-14] MEDS ORDERED: METR-34 PO (15:59)
[2018-11-14] MEDS ORDERED: DILT120C85 PO (15:59)
[2018-11-14] MEDS ORDERED: DOXA2TAB2 PO (15:59)
[2018-11-14] MEDS ORDERED: FLUT9.9S NS (15:59)
[2018-11-14] MEDS ORDERED: TRIM100T13 PO (15:59)
[2018-11-14] MEDS ORDERED: LABE200T4 PO (15:59)
[2018-11-14] MEDS ORDERED: KETO5DRO24 OS (16:09)
--- NOTE | 2018-11-14 17:04 | PDOC ---
PROGRESS NOTES Assessment Assessment Metabolic encephalopathy. Hypertensive encephalopathy. Hypertensive emergency, BP 226/123 mmHg. HTN. Seizure. Lymphoma. HIV positive. Renal failure. RECOMMENDATIONS/PLAN: Continue Keppra 500 mg bid. Continue Vimpat 50 mg, increased to 50 mg bid. BP control. Treat medical diseases. Past Medical History HIV, Hypertension, Renal Disease, Renal Failure, Seizure, dialysis, Hodgkin's lymphoma. Cardiovascular: HTN CENTRAL NERVOUS SYSTEM: Seizure GI: GERD Heme/Onc: Cancer Psych: Anxiety, Depression Rheumatologic: Fibromyalgia Infectious disease: HIV Renal/: Chronic renal failure Endocrine: Hyperparathyroidism Past Surgical History Appendectomy, Cholecystectomy, , upper arm fistula,R)upper chest port Family History Heart Disease. Parent, Grandparents Allergies Coded Allergies: povidone-iodine (Verified Allergy, Intermediate, 08/17/18) soap (Verified Allergy, Intermediate, 08/17/18) diphenhydramine (Verified Adverse Reaction, Severe, Anxiety, 08/18/18) Makes her feel "crazy" lisinopril (Verified Adverse Reaction, Intermediate, 08/17/18) Altered mental status per pt DIPHENHYDRAMINE, LISINOPRIL, POVIDONE IODINE, AND SOAP. SOCIAL HISTORY: She is single. She has 2 boys, age 8 and 10 years of age. Her mom watches the boys for her. She does not smoke tobacco or drink alcohol. She is on disability. REVIEW OF SYSTEMS: She complains of headache. She has had no change of vision, hearing, or cognition. She is not feeling short of breath, having chest or abdominal pain. She says she has back pain. There has been no fever or rash. She has a critically elevated blood pressure. No gastrointestinal or genitourinary complaint. Does not complain of bruising, bleeding, or swelling. She does not currently have psychiatric concerns. PHYSICAL EXAMINATION: General appearance in subacute distress. HEENT: Normocephalic and nontraumatic. Eyes, nose, ears, and throat are unremarkable. Neck is supple. No lymphadenopathy. No Crepitus. Cardiovascular: S1, S2, regular rate and rhythm. Pulmonary: Clear to auscultation bilaterally. Abdomen: Bowel sounds are positive. Abdomen is soft, nontender, and nondistended. Extremities: No rash, lesions, or edema. No restriction of range of motion NEUROLOGICAL EXAMINATION: Drowsiness but arousable. Oriented to time, place and person. PERRL. EOMI. CN: no focal findings. Muscle tone: within normal. Muscle strength: 5 DTR: 2 Plantar reflex: Flexor response bilaterally Gait: not examined in bed. Sensory exam: no abnormal findings. No cerebellar signs elicited. F-T-N test not performed due to drowsiness. Objective Objective Vital Signs Date Time Temp Pulse Resp B/P (MAP) Pulse Ox O2 Delivery O2 Flow Rate FiO2 11/14/18 15:09 20 95 Room Air 11/14/18 15:08 84 149/81 11/14/18 12:00 98.5 98.5 11/13/18 18:54 2.0 Intake and Output 11/14/18 07:00 Intake Total 460 ml Output Total 100 ml Balance 360 ml Intake Oral 460 ml Output Urine Total 100 ml Vitals Signs Vitals VS - Last 72 Hours, by Label Date Time Temp Pulse Resp B/P (MAP) Pulse Ox O2 Delivery O2 Flow Rate FiO2 11/14/18 15:09 20 95 Room Air 11/14/18 15:08 84 149/81 11/14/18 12:04 79 189/118 11/14/18 12:00 98.5 81 13 189/118 (141) 95 Room Air 98.5 11/14/18 10:58 18 99 11/14/18 09:45 99 Room Air 11/14/18 09:02 95 175/107 11/14/18 09:01 95 175/107 11/14/18 08:14 18 99 11/14/18 08:00 98.6 94 16 158/98 (118) 95 Room Air 98.6 11/14/18 08:00 Room Air 11/14/18 06:30 92 155/78 (103) 11/14/18 05:34 110 198/107 11/14/18 04:00 98.3 92 16 185/110 (135) 95 Room Air 98.3 11/14/18 03:53 89 185/110 11/14/18 02:28 16 11/14/18 01:58 18 94 Room Air 11/14/18 00:00 98.3 103 18 187/103 (131) 96 Room Air 98.3 11/13/18 23:34 85 187/103 11/13/18 20:44 82 157/88 11/13/18 20:00 98.5 73 17 157/88 (111) 94 Room Air 98.5 11/13/18 19:53 Room Air 11/13/18 18:54 96 Nasal Cannula 2.0 11/13/18 17:50 96 Nasal Cannula 2.0 11/13/18 16:39 98.5 71 132/70 (90) 96 Nasal Cannula 2.0 98.5 11/13/18 13:00 77 16 128/70 (89) 96 Nasal Cannula 11/13/18 12:00 Nasal Cannula 2.0 11/13/18 12:00 79 16 132/69 (90) 96 Nasal Cannula 11/13/18 11:00 78 16 133/65 (87) 97 Nasal Cannula 11/13/18 10:00 79 16 132/65 (87) 97 Nasal Cannula 11/13/18 09:19 74 126/63 11/13/18 09:00 82 14 129/63 (85) 97 Room Air 11/13/18 08:00 78 14 126/65 (85) 97 Room Air 11/13/18 08:00 Nasal Cannula 2.0 11/13/18 07:00 98.5 72 13 124/65 (84) 97 Room Air 98.5 Laboratory Laboratory Laboratory Tests Test 11/14/18 05:40 White Blood Count 3.0 x10^3/uL (4.0-11.0) Red Blood Count 3.48 x10^6/uL (3.50-5.40) Hemoglobin 9.7 g/dL (12.0-15.5) Hematocrit 30.1 % (36.0-47.0) Mean Corpuscular Volume 87 fL (79-100) Mean Corpuscular Hemoglobin 28 pg (25-35) Mean Corpuscular Hemoglobin Concent 32 g/dL (31-37) Red Cell Distribution Width 15.5 % (11.5-14.5) Platelet Count 118 x10^3/uL (140-400) Neutrophils (%) (Auto) 56 % (31-73) Lymphocytes (%) (Auto) 20 % (24-48) Monocytes (%) (Auto) 13 % (0-9) Eosinophils (%) (Auto) 11 % (0-3) Basophils (%) (Auto) 1 % (0-3) Neutrophils # (Auto) 1.7 x10^3uL (1.8-7.7) Lymphocytes # (Auto) 0.6 x10^3/uL (1.0-4.8) Monocytes # (Auto) 0.4 x10^3/uL (0.0-1.1) Eosinophils # (Auto) 0.3 x10^3/uL (0.0-0.7) Basophils # (Auto) 0.0 x10^3/uL (0.0-0.2) Sodium Level 141 mmol/L (136-145) Potassium Level 3.2 mmol/L (3.5-5.1) Chloride Level 102 mmol/L (98-107) Carbon Dioxide Level 27 mmol/L (21-32) Anion Gap 12 (6-14) Blood Urea Nitrogen 34 mg/dL (7-20) Creatinine 6.0 mg/dL (0.6-1.0) Estimated GFR (Cockcroft-Gault) 10.0 Glucose Level 96 mg/dL (70-99) Calcium Level 8.7 mg/dL (8.5-10.1) Medication Medications Current Medications Amlodipine Besylate (Norvasc) 10 mg DAILY PO Last administered on 11/14/18at 15: 08; Start 11/14/18 at 15:00 Darbepoetin Chris (Aranesp) 60 mcg WEEKLYHS SQ Last administered on 11/13/18at 20 :44; Start 11/13/18 at 21:00 Info (PHARMACY MONITORING -- do not chart) 1 each PRN DAILY PRN MC SEE COMMENTS ; Start 11/14/18 at 07:30 Info (PHARMACY MONITORING -- do not chart) 1 each PRN DAILY PRN MC SEE COMMENTS ; Start 11/14/18 at 07:30; Status UNV Labetalol HCl (Normodyne Iv Push) 20 mg PRN Q2HR PRN IVP HYPERTENSION, SEE COMMENTS; Start 11/14/18 at 15:00 Lidocaine HCl (Lidocaine 1% 20ml Vial) 20 ml 1X ONCE ID ; Start 11/14/18 at 07: 30; Stop 11/14/18 at 07:34; Status DC Morphine Sulfate (Morphine Sulfate) 1 mg PRN Q2HR PRN IV PAIN Last administered on 11/14/18at 15:09; Start 11/14/18 at 01:15 Non-Formulary Medication 1 ea Q4D@0900 PO Last administered on 11/14/18 15:13 ; Start 11/14/18 at 15:30 Non-Formulary Medication (Abacavir Sulfate/ Lamivudine (Epzicom Tablet)) 300 mg DAILY PO Last administered on 11/14/18 15:13; Start 11/14/18 at 15:30 Non-Formulary Medication (Dolutegravir Sodium (Tivicay)) 50 mg DAILY PO Last administered on 11/14/18 15:12; Start 11/14/18 at 15:30 Non-Formulary Medication (Sulfamethoxazole/ Trimethoprim (Bactrim 400-80 Mg Tablet)) 1 tab QODAY PO Last administered on 11/14/18 15:12; Start 11/14/18 at 15:30 Potassium Chloride (Klor-Con) 20 meq 1X ONCE PO Last administered on 15:08; Start 11/14/18 at 15:00; Stop 11/14/18 at 15:01; Status DC Sodium Chloride 1,000 ml @ 400 mls/hr Q2H30M PRN IV PATENCY; Start 11/14/18 at 07:24; Stop 11/14/18 at 19:23 Sodium Chloride 1,000 ml @ 1,000 mls/hr Q1H PRN IV hypotension; Start 11/14/18 at 07:24; Stop 11/14/18 at 13:23; Status DC Comment Review of Relevant I have reviewed the following items fiona (where applicable) has been applied. RAY COMBS MD Nov 14, 2018 17:04
[2018-11-14] MEDS: traZODone 100 MG TABLET. PO SCH (21:00)
[2018-11-14] MEDS ORDERED: POTASSIUM CHLORIDE 10 MEQ TABLET.ER. PO ONE (22:00)
[2018-11-15 03:00] VITALS: BP 134/76
[2018-11-15 06:12] LABS: BASO % 1 % (0-3); EOS # 0.3 x10^3/uL (0.0-0.7); EOS % 14 % (0-3); HEMATOCRIT 30.4 % (36.0-47.0); HEMOGLOBIN 9.6 g/dL (12.0-15.5); LYMPH # 0.5 x10^3/uL (1.0-4.8); LYMPH % 22 % (24-48); MEAN CORPUSCULAR HEMOGLOBIN 27 pg (25-35); MEAN CORPUSCULAR HGB CONC 32 g/dL (31-37); MEAN CORPUSCULAR VOLUME 86 fL (79-100); MONO # 0.4 x10^3/uL (0.0-1.1); MONO % 16 % (0-9); NEUT # 1.1 x10^3uL (1.8-7.7); NEUT % 47 % (31-73); PLATELET COUNT 131 x10^3/uL (140-400); RED BLOOD COUNT 3.53 x10^6/uL (3.50-5.40); RED CELL DISTRIBUTION WIDTH 15.3 % (11.5-14.5); WHITE BLOOD COUNT 2.3 x10^3/uL (4.0-11.0)
[2018-11-15 06:30] LABS: ALBUMIN 2.9 g/dL (3.4-5.0); CALCIUM 9.1 mg/dL (8.5-10.1); CREATININE 3.9 mg/dL (0.6-1.0); GFR 16.4; PHOSPHORUS 4.8 mg/dL (2.6-4.7)
[2018-11-15 07:38] VITALS: BP 137/82
[2018-11-15] MEDS: SUCRALFATE 1 GM TABLET. PO SCH ×2 (08:33→17:08)
[2018-11-15] MEDS: LACOSAMIDE 50 MG TABLET PO SCH ×2 (08:33→20:42)
[2018-11-15] MEDS: PANTOPRAZOLE 40 MG TABLET.DR. PO SCH (08:33)
[2018-11-15] MEDS: amLODIPine BESYLATE 10 MG TABLET PO SCH ×2 (08:34→20:43)
[2018-11-15] MEDS: cloNIDine HCL 0.2 MG TABLET PO SCH (08:35)
[2018-11-15] MEDS: levETIRAcetam 500 MG TABLET PO SCH ×2 (08:35→20:42)
[2018-11-15] MEDS: MORPHINE SULFATE 2 MG/ML VIAL. IV PRN ×2 (08:49→20:44)
--- NOTE | 2018-11-15 09:02 | PDOC ---
SUBJECTIVE Subjective S: doing ok, still w/ LEIJA, still w/ hi BP 180s/100s O: Gen: NAD, resting in bed Resp: breathing comfortably Psych: pleasant mood and affect Labs: wbc 2.3, hb 9.6, plt 131, ANC 1100 A/P: She is a 28-year-old female with HIV, pancytopenia, history of Hodgkin's, admitted for hypertensive emergency and history of medical noncompliance with end-stage renal disease on dialysis HIV: Would continue her antiretroviral therapy, her HIV viral load was undetectable earlier this month at , she has Bactrim prophylactic, recent CD4 count is less than 200 History of seizures: Per neuro History of hypertensive urgency emergency with chest pain: Per cardiology End-stage renal disease: On dialysis, with Aranesp, recent ferr 286 and Fe Sat 36% in Sep 2018 History of Hodgkin's lymphoma: w/ pancytopenia that is mild and splenomegaly, will order bone marrow biopsy today to assess if cytopenias due to HIV, recurrent HD vs other, she'll also continue follow-up with her outpatient oncologist after discharge Pancytopenia: On Aranesp, counts slightly improved from earlier this month, suspect much related to HIV, supportive care for now w/ BMBx Dispo: per others, do not have to await BMBx results prior to dc Thank you kindly and please don't hesitate to call w/ ?s. OBJECTIVE Vital Signs Vital Signs Date Time Temp Pulse Resp B/P (MAP) Pulse Ox O2 Delivery O2 Flow Rate FiO2 11/15/18 08:49 99 Room Air 2.0 11/15/18 08:35 79 181/103 11/15/18 08:34 79 181/103 11/15/18 07:38 98.2 82 16 137/82 (100) 99 Room Air 98.2 11/15/18 03:00 98.1 66 16 134/76 (95) 98 Room Air 98.1 11/15/18 00:29 Room Air 11/14/18 23:59 Room Air 11/14/18 23:58 84 166/96 11/14/18 23:00 98.1 84 16 166/96 (119) 98 Room Air 98.1 11/14/18 22:14 92 170/86 11/14/18 20:13 Room Air 3/26/19 20:00 Room Air 2.0 11/14/18 16:00 92 15 176/102 (126) 96 Room Air 11/14/18 15:09 20 95 Room Air 11/14/18 15:08 84 149/81 11/14/18 12:04 79 189/118 11/14/18 12:00 98.5 81 13 189/118 (141) 95 Room Air 98.5 11/14/18 10:58 18 99 11/14/18 09:45 99 11/14/18 09:02 95 175/107 11/14/18 09:01 95 175/107 I & O Intake and Output 11/15/18 07:00 Intake Total 300 ml Output Total 0 ml Balance 300 ml Intake Oral 300 ml Output Urine Total 0 ml # Voids 1 COMMENT Lab Laboratory Tests Test 11/15/18 05:50 White Blood Count 2.3 x10^3/uL (4.0-11.0) Red Blood Count 3.53 x10^6/uL (3.50-5.40) Hemoglobin 9.6 g/dL (12.0-15.5) Hematocrit 30.4 % (36.0-47.0) Mean Corpuscular Volume 86 fL (79-100) Mean Corpuscular Hemoglobin 27 pg (25-35) Mean Corpuscular Hemoglobin Concent 32 g/dL (31-37) Red Cell Distribution Width 15.3 % (11.5-14.5) Platelet Count 131 x10^3/uL (140-400) Neutrophils (%) (Auto) 47 % (31-73) Lymphocytes (%) (Auto) 22 % (24-48) Monocytes (%) (Auto) 16 % (0-9) Eosinophils (%) (Auto) 14 % (0-3) Basophils (%) (Auto) 1 % (0-3) Neutrophils # (Auto) 1.1 x10^3uL (1.8-7.7) Lymphocytes # (Auto) 0.5 x10^3/uL (1.0-4.8) Monocytes # (Auto) 0.4 x10^3/uL (0.0-1.1) Eosinophils # (Auto) 0.3 x10^3/uL (0.0-0.7) Basophils # (Auto) 0.0 x10^3/uL (0.0-0.2) Sodium Level 140 mmol/L (136-145) Potassium Level 4.0 mmol/L (3.5-5.1) Chloride Level 101 mmol/L (98-107) Carbon Dioxide Level 31 mmol/L (21-32) Anion Gap 8 (6-14) Blood Urea Nitrogen 19 mg/dL (7-20) Creatinine 3.9 mg/dL (0.6-1.0) Estimated GFR (Cockcroft-Gault) 16.4 Glucose Level 89 mg/dL (70-99) Calcium Level 9.1 mg/dL (8.5-10.1) Phosphorus Level 4.8 mg/dL (2.6-4.7) Albumin 2.9 g/dL (3.4-5.0) SANGITA WEBBER MD Nov 15, 2018 09:02
[2018-11-15 10:42] VITALS: BP 157/81
--- NOTE | 2018-11-15 11:09 | PDOC ---
PROGRESS NOTES History of Present Illness History of Present Illness Assessment/Plan Assessment/Plan Impression: Hypertensive emergency, NOT IMPROVED ESRD ON DIALYSIS Seizure HX History of Hodgkin's lymphoma Anemia of chronic renal dz Pancytopenia chest pain MODERATE TRICUSPID REGURG PULM HTN Hypertensive encephalopathy. HIV PLAN DIALYSIS TOMORROW CONSULT NEPHROLOGY D/W DR GENNARO URIBE LONG POOR COMPLIANCE CONSULT CARDIOLOGY ECHO ICU ADMIT DUE TO HYPERTENSIVE EMERGENCY SERIAL TROPONIN I IV HYDRALAZINE PRN BP SUPPORT home meds INC NORVASC DOSE 10MG PO BID, CATAPRESS .3 MG PO BID 25 min pt exam, chart review,> 50% of time spent with exam, chart review, pt care coordination Vitals Vitals Vital Signs Date Time Temp Pulse Resp B/P (MAP) Pulse Ox O2 Delivery O2 Flow Rate FiO2 11/15/18 10:42 97.9 75 16 157/81 (106) 99 Room Air 97.9 11/15/18 09:19 2.0 Physical Exam Physical Exam Neck: Normal range of motion, no tenderness, supple, no stridor. [] Cardiovascular:Heart rate regular rhythm, 3/6 SYSTOLIC MURMUR NOTED Lungs & Thorax: Bilateral breath sounds clear to auscultation [] Abdomen: Bowel sounds normal, soft, no tenderness, no masses, no pulsatile masses. [] Skin: Warm, dry, no erythema, no rash. [] Back: No tenderness, no CVA tenderness. [] Extremities: No tenderness, no cyanosis, no clubbing, ROM intact,TWO PLUS EDEMA Neurologic: Alert and oriented X 3, normal motor function, normal sensory function, no focal deficits noted. [] Psychologic: Affect normal, judgement normal, mood MILD ANXIETY NOTED Breasts: Not examined General: Alert, Oriented X3, Cooperative, No acute distress Heart: Regular rate, Normal S1, Normal S2, Gallops Lungs: Clear Abdomen: Normal bowel sounds, Soft, No tenderness Extremities: No clubbing, No cyanosis, No tenderness/swelling Skin: No significant lesion Labs LABS Laboratory Tests Test 11/15/18 05:50 White Blood Count 2.3 x10^3/uL (4.0-11.0) Red Blood Count 3.53 x10^6/uL (3.50-5.40) Hemoglobin 9.6 g/dL (12.0-15.5) Hematocrit 30.4 % (36.0-47.0) Mean Corpuscular Volume 86 fL (79-100) Mean Corpuscular Hemoglobin 27 pg (25-35) Mean Corpuscular Hemoglobin Concent 32 g/dL (31-37) Red Cell Distribution Width 15.3 % (11.5-14.5) Platelet Count 131 x10^3/uL (140-400) Neutrophils (%) (Auto) 47 % (31-73) Lymphocytes (%) (Auto) 22 % (24-48) Monocytes (%) (Auto) 16 % (0-9) Eosinophils (%) (Auto) 14 % (0-3) Basophils (%) (Auto) 1 % (0-3) Neutrophils # (Auto) 1.1 x10^3uL (1.8-7.7) Lymphocytes # (Auto) 0.5 x10^3/uL (1.0-4.8) Monocytes # (Auto) 0.4 x10^3/uL (0.0-1.1) Eosinophils # (Auto) 0.3 x10^3/uL (0.0-0.7) Basophils # (Auto) 0.0 x10^3/uL (0.0-0.2) Sodium Level 140 mmol/L (136-145) Potassium Level 4.0 mmol/L (3.5-5.1) Chloride Level 101 mmol/L (98-107) Carbon Dioxide Level 31 mmol/L (21-32) Anion Gap 8 (6-14) Blood Urea Nitrogen 19 mg/dL (7-20) Creatinine 3.9 mg/dL (0.6-1.0) Estimated GFR (Cockcroft-Gault) 16.4 Glucose Level 89 mg/dL (70-99) Calcium Level 9.1 mg/dL (8.5-10.1) Phosphorus Level 4.8 mg/dL (2.6-4.7) Albumin 2.9 g/dL (3.4-5.0) Comment Review of Relevant I have reviewed the following items fiona (where applicable) has been applied. Labs Laboratory Tests Test 11/14/18 05:40 11/15/18 05:50 White Blood Count 3.0 x10^3/uL (4.0-11.0) 2.3 x10^3/uL (4.0-11.0) Red Blood Count 3.48 x10^6/uL (3.50-5.40) 3.53 x10^6/uL (3.50-5.40) Hemoglobin 9.7 g/dL (12.0-15.5) 9.6 g/dL (12.0-15.5) Hematocrit 30.1 % (36.0-47.0) 30.4 % (36.0-47.0) Mean Corpuscular Volume 87 fL (79-100) 86 fL (79-100) Mean Corpuscular Hemoglobin 28 pg (25-35) 27 pg (25-35) Mean Corpuscular Hemoglobin Concent 32 g/dL (31-37) 32 g/dL (31-37) Red Cell Distribution Width 15.5 % (11.5-14.5) 15.3 % (11.5-14.5) Platelet Count 118 x10^3/uL (140-400) 131 x10^3/uL (140-400) Neutrophils (%) (Auto) 56 % (31-73) 47 % (31-73) Lymphocytes (%) (Auto) 20 % (24-48) 22 % (24-48) Monocytes (%) (Auto) 13 % (0-9) 16 % (0-9) Eosinophils (%) (Auto) 11 % (0-3) 14 % (0-3) Basophils (%) (Auto) 1 % (0-3) 1 % (0-3) Neutrophils # (Auto) 1.7 x10^3uL (1.8-7.7) 1.1 x10^3uL (1.8-7.7) Lymphocytes # (Auto) 0.6 x10^3/uL (1.0-4.8) 0.5 x10^3/uL (1.0-4.8) Monocytes # (Auto) 0.4 x10^3/uL (0.0-1.1) 0.4 x10^3/uL (0.0-1.1) Eosinophils # (Auto) 0.3 x10^3/uL (0.0-0.7) 0.3 x10^3/uL (0.0-0.7) Basophils # (Auto) 0.0 x10^3/uL (0.0-0.2) 0.0 x10^3/uL (0.0-0.2) Sodium Level 141 mmol/L (136-145) 140 mmol/L (136-145) Potassium Level 3.2 mmol/L (3.5-5.1) 4.0 mmol/L (3.5-5.1) Chloride Level 102 mmol/L (98-107) 101 mmol/L (98-107) Carbon Dioxide Level 27 mmol/L (21-32) 31 mmol/L (21-32) Anion Gap 12 (6-14) 8 (6-14) Blood Urea Nitrogen 34 mg/dL (7-20) 19 mg/dL (7-20) Creatinine 6.0 mg/dL (0.6-1.0) 3.9 mg/dL (0.6-1.0) Estimated GFR (Cockcroft-Gault) 10.0 16.4 Glucose Level 96 mg/dL (70-99) 89 mg/dL (70-99) Calcium Level 8.7 mg/dL (8.5-10.1) 9.1 mg/dL (8.5-10.1) Phosphorus Level 4.8 mg/dL (2.6-4.7) Albumin 2.9 g/dL (3.4-5.0) Laboratory Tests Test 11/15/18 05:50 White Blood Count 2.3 x10^3/uL (4.0-11.0) Red Blood Count 3.53 x10^6/uL (3.50-5.40) Hemoglobin 9.6 g/dL (12.0-15.5) Hematocrit 30.4 % (36.0-47.0) Mean Corpuscular Volume 86 fL (79-100) Mean Corpuscular Hemoglobin 27 pg (25-35) Mean Corpuscular Hemoglobin Concent 32 g/dL (31-37) Red Cell Distribution Width 15.3 % (11.5-14.5) Platelet Count 131 x10^3/uL (140-400) Neutrophils (%) (Auto) 47 % (31-73) Lymphocytes (%) (Auto) 22 % (24-48) Monocytes (%) (Auto) 16 % (0-9) Eosinophils (%) (Auto) 14 % (0-3) Basophils (%) (Auto) 1 % (0-3) Neutrophils # (Auto) 1.1 x10^3uL (1.8-7.7) Lymphocytes # (Auto) 0.5 x10^3/uL (1.0-4.8) Monocytes # (Auto) 0.4 x10^3/uL (0.0-1.1) Eosinophils # (Auto) 0.3 x10^3/uL (0.0-0.7) Basophils # (Auto) 0.0 x10^3/uL (0.0-0.2) Sodium Level 140 mmol/L (136-145) Potassium Level 4.0 mmol/L (3.5-5.1) Chloride Level 101 mmol/L (98-107) Carbon Dioxide Level 31 mmol/L (21-32) Anion Gap 8 (6-14) Blood Urea Nitrogen 19 mg/dL (7-20) Creatinine 3.9 mg/dL (0.6-1.0) Estimated GFR (Cockcroft-Gault) 16.4 Glucose Level 89 mg/dL (70-99) Calcium Level 9.1 mg/dL (8.5-10.1) Phosphorus Level 4.8 mg/dL (2.6-4.7) Albumin 2.9 g/dL (3.4-5.0) Medications Current Medications Labetalol HCl (Normodyne Iv Push) 20 mg 1X ONCE IVP Last administered on at 21:00; Start 11/11/18 at 20:45; Stop 11/11/18 at 20:46; Status DC Nitroglycerin (Nitro-Bid Oint) 2 inch 1X ONCE TP Last administered on at 21:00; Start 11/11/18 at 20:45; Stop 11/11/18 at 20:46; Status DC Magnesium Sulfate/ Dextrose 100 ml @ 100 mls/hr 1X ONCE IV Last administered on 11/11/18at 21:38; Start 11/11/18 at 21:30; Stop 11/11/18 at 22:29; Status DC Acetaminophen/ Hydrocodone Bitart (Lortab 5/325) 2 tab 1X ONCE PO Last administered on 11/11/18at 21:37; Start 11/11/18 at 21:30; Stop 11/11/18 at 21:31 ; Status DC Labetalol HCl (Normodyne Iv Push) 20 mg 1X ONCE IVP Last administered on 22:19; Start 11/11/18 at 22:15; Stop 11/11/18 at 22:16; Status DC Lorazepam (Ativan) 1 mg 1X ONCE IV Last administered on 11/11/18at 22:16; Start 11/11/18 at 22:00; Stop 11/11/18 at 22:01; Status DC Levetiracetam 1000 mg/Dextrose 110 ml @ 440 mls/hr 1X ONCE IV Last administered on 11/11/18at 22:20; Start 11/11/18 at 22:15; Stop 11/11/18 at 22:29 ; Status DC Ondansetron HCl (Zofran) 4 mg PRN Q8HRS PRN IV NAUSEA/VOMITING Last administered on 11/12/18 08:22; Start 11/11/18 at 22:30; Stop 11/12/18 at 22:29 ; Status DC Morphine Sulfate (Morphine Sulfate) 4 mg PRN Q2HR PRN IV PAIN Last administered on 11/12/18at 19:00; Start 11/11/18 at 22:30; Stop 11/12/18 at 22:29 ; Status DC Labetalol HCl (Normodyne Iv Push) 20 mg PRN Q2HR PRN IVP ELEVATED BP, SEE COMMENTS Last administered on 11/14/18at 09:02; Start 11/11/18 at 23:00; Stop at 15:03; Status DC Hydralazine HCl (Apresoline Inj) 10 mg PRN Q4HRS PRN IVP ELEVATED BP, SEE COMMENTS Last administered on 11/14/18at 23:58; Start 11/12/18 at 09:00 Clonidine HCl (Catapres) 0.2 mg BID PO Last administered on 11/15/18at 08:35; Start 11/12/18 at 09:00 Clonidine HCl (Catapres) 0.2 mg BID PO ; Start 11/12/18 at 11:00; Status Cancel Acetaminophen/ Hydrocodone Bitart (Lortab 5/325) 1 tab PRN Q6HRS PRN PO MODERATE PAIN Last administered on 11/13/18at 17:50; Start 11/12/18 at 11:15 Lacosamide (Vimpat) 50 mg DAILY PO Last administered on 11/14/18 12:04; Start 11/12/18 at 11:00; Stop 11/14/18 at 17:06; Status DC Levetiracetam (Keppra) 500 mg BID PO Last administered on 11/15/18 08:35; Start 11/12/18 at 11:00 Oxycodone HCl (Roxicodone) 5 mg PRN DAILY PRN PO SEVERE PAIN Last administered on 11/12/18at 12:05; Start 11/12/18 at 11:15 Trazodone HCl (Desyrel) 100 mg QHS PO Last administered on 11/12/18at 21:55; Start 11/12/18 at 21:00 Pantoprazole Sodium (Protonix) 40 mg DAILYAC PO Last administered on 11/15/18 08:33; Start 11/12/18 at 11:00 Sucralfate (Carafate) 1 gm BIDAC PO Last administered on 11/15/18 08:33; Start 11/12/18 at 16:30 Nicardipine HCl 50 mg/Sodium Chloride 250 ml @ 25 mls/hr CONT PRN IV SEE I/O RECORD Last administered on 11/12/18at 20:20; Start 11/12/18 at 19:30 Lorazepam (Ativan) 2 mg STK-MED ONCE .ROUTE ; Start 11/12/18 at 20:09; Stop at 20:12; Status DC Lorazepam (Ativan) 2 mg PRN Q30MIN PRN IV ANXIETY / AGITATION Last administered on 11/14/18at 09:02; Start 11/12/18 at 20:15 Lorazepam (Ativan) 4 mg PRN Q30MIN PRN IV ANXIETY / AGITATION; Start 11/12/18 at 20:30 Emtricitabine (Emtriva) 200 mg Q4DAYS PO ; Start 11/13/18 at 09:00; Stop at 14:59; Status DC Non-Formulary Medication (Abacavir Sulfate/ Lamivudine (Epzicom Tablet)) 300 mg DAILY PO ; Start 11/13/18 at 09:00; Stop 11/14/18 at 14:55; Status DC Non-Formulary Medication (Dolutegravir Sodium (Tivicay)) 50 mg DAILY PO ; Start 11/13/18 at 09:00; Stop 11/14/18 at 14:53; Status DC Non-Formulary Medication (Sulfamethoxazole/ Trimethoprim (Bactrim 400-80 Mg Tablet)) 1 tab QODAY PO Last administered on 11/14/18at 15:12; Start 11/14/18 at 15:30 Darbepoetin Chris (Aranesp) 60 mcg WEEKLYHS SQ Last administered on 11/13/18at 20 :44; Start 11/13/18 at 21:00 Potassium Chloride (Klor-Con) 20 meq 1X ONCE PO Last administered on at 14:38; Start 11/13/18 at 14:00; Stop 11/13/18 at 14:01; Status DC Morphine Sulfate (Morphine Sulfate) 1 mg PRN Q2HR PRN IV PAIN Last administered on 11/15/18at 08:49; Start 11/14/18 at 01:15 Sodium Chloride 1,000 ml @ 1,000 mls/hr Q1H PRN IV hypotension; Start 11/14/18 at 07:24; Stop 11/14/18 at 13:23; Status DC Sodium Chloride 1,000 ml @ 400 mls/hr Q2H30M PRN IV PATENCY; Start 11/14/18 at 07:24; Stop 11/14/18 at 19:23; Status DC Lidocaine HCl (Lidocaine 1% 20ml Vial) 20 ml 1X ONCE ID ; Start 11/14/18 at 07: 30; Stop 11/14/18 at 07:34; Status DC Info (PHARMACY MONITORING -- do not chart) 1 each PRN DAILY PRN MC SEE COMMENTS ; Start 11/14/18 at 07:30; Status UNV Info (PHARMACY MONITORING -- do not chart) 1 each PRN DAILY PRN MC SEE COMMENTS ; Start 11/14/18 at 07:30 Amlodipine Besylate (Norvasc) 10 mg DAILY PO Last administered on 11/15/18at 08: 34; Start 11/14/18 at 15:00 Labetalol HCl (Normodyne Iv Push) 20 mg PRN Q2HR PRN IVP HYPERTENSION, SEE COMMENTS; Start 11/14/18 at 15:00 Potassium Chloride (Klor-Con) 20 meq 1X ONCE PO Last administered on 15:08; Start 11/14/18 at 15:00; Stop 11/14/18 at 15:01; Status DC Non-Formulary Medication (Dolutegravir Sodium (Tivicay)) 50 mg DAILY PO Last administered on 11/15/18 08:31; Start 11/14/18 at 15:30 Non-Formulary Medication (Abacavir Sulfate/ Lamivudine (Epzicom Tablet)) 300 mg DAILY PO Last administered on 11/15/18 08:32; Start 11/14/18 at 15:30 Non-Formulary Medication 1 ea Q4D@0900 PO Last administered on 11/14/18 15:13 ; Start 11/14/18 at 15:30 Lacosamide (Vimpat) 50 mg BID PO Last administered on 11/15/18 08:33; Start at 21:00 Potassium Chloride (Klor-Con) 10 meq 1X ONCE PO Last administered on 22:14; Start 11/14/18 at 22:00; Stop 11/14/18 at 22:01; Status DC Active Scripts Active [place] 5-325 Tablet (Acetaminophen/Hydrocodone Bitart) 1 Each Tablet 1-2 Each PO PRN Q6HRS PRN as needed for pain Trazodone Hcl 100 Mg Tablet 1 Tab PO QHS 30 Days Oxycodone Hcl Immed.release (Oxycodone Hcl) 5 Mg Tablet 5 Mg PO PRN DAILY PRN 6 Days Carafate (Sucralfate) 1 Gm Tablet 1 Gm PO BIDWMEALS 30 Days Reported Ketorolac Tromethamine 5 Ml Drops 1 Drop OS QID Metronidazole 500 Mg Tablet 1 Tab PO BID Flonase Allergy Relief (Fluticasone Propionate) 9.9 Ml [place].susp 2 Sprays NS DAILY Labetalol Hcl 200 Mg Tablet 1 Tab PO BID Diltiazem 24HR Cd (Diltiazem Hcl) 120 Mg Cap.er.24h 2 Cap PO DAILY Lamotrigine 25 Mg Tablet 1 Tab PO HS Doxazosin Mesylate 2 Mg Tablet 1.5 Tab PO DAILY Bactrim 400-80 Mg Tablet (Sulfamethoxazole/Trimethoprim) 1 Each Tablet 1 Tab PO QODAY Tivicay (Dolutegravir Sodium) 50 Mg Tablet 50 Mg PO DAILY Emtriva (Emtricitabine) 200 Mg Capsule 200 Mg PO Q4DAYS Epzicom Tablet (Abacavir Sulfate/Lamivudine) 1 Each Tablet 300 Mg PO DAILY Vimpat (Lacosamide) 50 Mg Tablet 50 Mg PO BID Protonix (Pantoprazole Sodium) 20 Mg Tablet.dr 40 Mg PO DAILY Keppra (Levetiracetam) 500 Mg Tablet 250 Mg PO BID Clonidine Hcl 0.2 Mg Tablet 1 Tab PO BID Vitals/I & O Vital Sign - Last 24 Hours 11/14/18 11/14/18 11/14/18 11/14/18 12:00 12:04 15:08 15:09 Temp 98.5 98.5 Pulse 81 79 84 Resp 13 20 B/P (MAP) 189/118 (141) 189/118 149/81 Pulse Ox 95 95 O2 Delivery Room Air Room Air 11/14/18 11/14/18 11/14/18 11/14/18 16:00 20:00 20:13 22:14 Pulse 92 92 Resp 15 B/P (MAP) 176/102 (126) 170/86 Pulse Ox 96 O2 Delivery Room Air Room Air Room Air O2 Flow Rate 2.0 11/14/18 11/14/18 11/14/18 11/15/18 23:00 23:58 23:59 03:00 Temp 98.1 98.1 98.1 98.1 Pulse 84 84 66 Resp 16 16 B/P (MAP) 166/96 (119) 166/96 134/76 (95) Pulse Ox 98 98 O2 Delivery Room Air Room Air Room Air 11/15/18 11/15/18 11/15/18 11/15/18 07:38 08:34 08:35 08:49 Temp 98.2 98.2 Pulse 82 79 79 Resp 16 B/P (MAP) 137/82 (100) 181/103 181/103 Pulse Ox 99 99 O2 Delivery Room Air Room Air O2 Flow Rate 2.0 11/15/18 11/15/18 09:19 10:42 Temp 97.9 97.9 Pulse 75 Resp 16 B/P (MAP) 157/81 (106) Pulse Ox 99 99 O2 Delivery Room Air Room Air O2 Flow Rate 2.0 Intake and Output 11/14/18 11/14/18 11/15/18 15:00 23:00 07:00 Intake Total 300 ml Output Total 0 ml Balance 300 ml 0 ml FUNMILAYO EMERSON MD Nov 15, 2018 11:09
[2018-11-15] MEDS ORDERED: ALTEPLASE 1MG SYRINGE. INT CAT ONE ×2 (12:15→15:30)
[2018-11-15 13:40] LABS: PROTHROMBIN TIME PATIENT 14.8 SEC (11.7-14.0)
--- NOTE | 2018-11-15 13:48 | PDOC ---
PROGRESS NOTES Assessment Assessment Metabolic encephalopathy. Hypertensive encephalopathy. Hypertensive emergency, BP 226/123 mmHg. HTN. Seizure. Lymphoma. HIV positive. Renal failure. RECOMMENDATIONS/PLAN: Continue Keppra 500 mg bid. Continue Vimpat 50 mg, increased to 50 mg bid. BP control. Treat medical diseases. Past Medical History HIV, Hypertension, Renal Disease, Renal Failure, Seizure, dialysis, Hodgkin's lymphoma. Cardiovascular: HTN CENTRAL NERVOUS SYSTEM: Seizure GI: GERD Heme/Onc: Cancer Psych: Anxiety, Depression Rheumatologic: Fibromyalgia Infectious disease: HIV Renal/: Chronic renal failure Endocrine: Hyperparathyroidism Past Surgical History Appendectomy, Cholecystectomy, , upper arm fistula,R)upper chest port Family History Heart Disease. Parent, Grandparents Allergies Coded Allergies: povidone-iodine (Verified Allergy, Intermediate, 08/17/18) soap (Verified Allergy, Intermediate, 08/17/18) diphenhydramine (Verified Adverse Reaction, Severe, Anxiety, 08/18/18) Makes her feel "crazy" lisinopril (Verified Adverse Reaction, Intermediate, 08/17/18) Altered mental status per pt DIPHENHYDRAMINE, LISINOPRIL, POVIDONE IODINE, AND SOAP. SOCIAL HISTORY: She is single. She has 2 boys, age 8 and 10 years of age. Her mom watches the boys for her. She does not smoke tobacco or drink alcohol. She is on disability. REVIEW OF SYSTEMS: She complains of headache. She has had no change of vision, hearing, or cognition. She is not feeling short of breath, having chest or abdominal pain. She says she has back pain. There has been no fever or rash. She has a critically elevated blood pressure. No gastrointestinal or genitourinary complaint. Does not complain of bruising, bleeding, or swelling. She does not currently have psychiatric concerns. PHYSICAL EXAMINATION: General appearance in subacute distress. HEENT: Normocephalic and nontraumatic. Eyes, nose, ears, and throat are unremarkable. Neck is supple. No lymphadenopathy. No Crepitus. Cardiovascular: S1, S2, regular rate and rhythm. Pulmonary: Clear to auscultation bilaterally. Abdomen: Bowel sounds are positive. Abdomen is soft, nontender, and nondistended. Extremities: No rash, lesions, or edema. No restriction of range of motion NEUROLOGICAL EXAMINATION: Drowsiness but arousable. Oriented to time, place and person. PERRL. EOMI. CN: no focal findings. Muscle tone: within normal. Muscle strength: 5 DTR: 2 Plantar reflex: Flexor response bilaterally Gait: not examined in bed. Sensory exam: no abnormal findings. No cerebellar signs elicited. F-T-N test fine Objective Objective Vital Signs Date Time Temp Pulse Resp B/P (MAP) Pulse Ox O2 Delivery O2 Flow Rate FiO2 11/15/18 10:42 97.9 75 16 157/81 (106) 99 Room Air 97.9 11/15/18 09:19 2.0 Intake and Output 11/15/18 07:00 Intake Total 300 ml Output Total 0 ml Balance 300 ml Intake Oral 300 ml Output Urine Total 0 ml # Voids 1 Vitals Signs Vitals VS - Last 72 Hours, by Label Date Time Temp Pulse Resp B/P (MAP) Pulse Ox O2 Delivery O2 Flow Rate FiO2 11/15/18 10:42 97.9 75 16 157/81 (106) 99 Room Air 97.9 11/15/18 09:19 99 Room Air 2.0 11/15/18 08:49 99 Room Air 2.0 11/15/18 08:35 79 181/103 11/15/18 08:34 79 181/103 11/15/18 08:00 Nasal Cannula 2.0 11/15/18 08:00 Room Air 11/15/18 07:38 98.2 82 16 137/82 (100) 99 Room Air 98.2 11/15/18 03:00 98.1 66 16 134/76 (95) 98 Room Air 98.1 11/14/18 23:59 Room Air 11/14/18 23:58 84 166/96 11/14/18 23:00 98.1 84 16 166/96 (119) 98 Room Air 98.1 11/14/18 22:14 92 170/86 11/14/18 20:13 Room Air 11/14/18 20:00 Room Air 2.0 11/14/18 16:00 92 15 176/102 (126) 96 Room Air 11/14/18 15:09 20 95 Room Air 11/14/18 15:08 84 149/81 11/14/18 12:04 79 189/118 11/14/18 12:00 98.5 81 13 189/118 (141) 95 Room Air 98.5 11/14/18 10:58 18 99 11/14/18 09:02 95 175/107 11/14/18 09:01 95 175/107 11/14/18 08:14 18 99 11/14/18 08:00 98.6 94 16 158/98 (118) 95 Room Air 98.6 11/14/18 08:00 Room Air Laboratory Laboratory Laboratory Tests Test 11/15/18 05:50 11/15/18 13:25 White Blood Count 2.3 x10^3/uL (4.0-11.0) Red Blood Count 3.53 x10^6/uL (3.50-5.40) Hemoglobin 9.6 g/dL (12.0-15.5) Hematocrit 30.4 % (36.0-47.0) Mean Corpuscular Volume 86 fL (79-100) Mean Corpuscular Hemoglobin 27 pg (25-35) Mean Corpuscular Hemoglobin Concent 32 g/dL (31-37) Red Cell Distribution Width 15.3 % (11.5-14.5) Platelet Count 131 x10^3/uL (140-400) Neutrophils (%) (Auto) 47 % (31-73) Lymphocytes (%) (Auto) 22 % (24-48) Monocytes (%) (Auto) 16 % (0-9) Eosinophils (%) (Auto) 14 % (0-3) Basophils (%) (Auto) 1 % (0-3) Neutrophils # (Auto) 1.1 x10^3uL (1.8-7.7) Lymphocytes # (Auto) 0.5 x10^3/uL (1.0-4.8) Monocytes # (Auto) 0.4 x10^3/uL (0.0-1.1) Eosinophils # (Auto) 0.3 x10^3/uL (0.0-0.7) Basophils # (Auto) 0.0 x10^3/uL (0.0-0.2) Sodium Level 140 mmol/L (136-145) Potassium Level 4.0 mmol/L (3.5-5.1) Chloride Level 101 mmol/L (98-107) Carbon Dioxide Level 31 mmol/L (21-32) Anion Gap 8 (6-14) Blood Urea Nitrogen 19 mg/dL (7-20) Creatinine 3.9 mg/dL (0.6-1.0) Estimated GFR (Cockcroft-Gault) 16.4 Glucose Level 89 mg/dL (70-99) Calcium Level 9.1 mg/dL (8.5-10.1) Phosphorus Level 4.8 mg/dL (2.6-4.7) Albumin 2.9 g/dL (3.4-5.0) Prothrombin Time 14.8 SEC (11.7-14.0) Prothromb Time International Ratio 1.2 (0.8-1.1) Activated Partial Thromboplast Time 34 SEC (24-38) Medication Medications Current Medications Alteplase, Recombinant (Cathflo For Central Catheter Clearance) 1 mg 1X ONCE INT CAT Last administered on 11/15/18 12:31; Start 11/15/18 at 12:15; Stop at 12:16; Status DC Amlodipine Besylate (Norvasc) 10 mg DAILY PO Last administered on 11/15/18 08: 34; Start 11/14/18 at 15:00 Labetalol HCl (Normodyne Iv Push) 20 mg PRN Q2HR PRN IVP HYPERTENSION, SEE COMMENTS; Start 11/14/18 at 15:00 Lacosamide (Vimpat) 50 mg BID PO Last administered on 11/15/18 08:33; Start at 21:00 Non-Formulary Medication 1 ea Q4D@0900 PO Last administered on 11/14/18 15:13 ; Start 11/14/18 at 15:30 Non-Formulary Medication (Abacavir Sulfate/ Lamivudine (Epzicom Tablet)) 300 mg DAILY PO Last administered on 11/15/18 08:32; Start 11/14/18 at 15:30 Non-Formulary Medication (Dolutegravir Sodium (Tivicay)) 50 mg DAILY PO Last administered on 11/15/18 08:31; Start 11/14/18 at 15:30 Non-Formulary Medication (Sulfamethoxazole/ Trimethoprim (Bactrim 400-80 Mg Tablet)) 1 tab QODAY PO Last administered on 11/14/18at 15:12; Start 11/14/18 at 15:30 Potassium Chloride (Klor-Con) 10 meq 1X ONCE PO Last administered on at 22:14; Start 11/14/18 at 22:00; Stop 11/14/18 at 22:01; Status DC Potassium Chloride (Klor-Con) 20 meq 1X ONCE PO Last administered on at 15:08; Start 11/14/18 at 15:00; Stop 11/14/18 at 15:01; Status DC Comment Review of Relevant I have reviewed the following items fiona (where applicable) has been applied. RAY COMBS MD Nov 15, 2018 13:48
--- NOTE | 2018-11-15 14:09 | PDOC ---
Renal-Progress Notes Subjective Notes Notes NONE History of Present Illness Hx of present illness NO CHANGE Vitals Vitals Vital Signs Date Time Temp Pulse Resp B/P (MAP) Pulse Ox O2 Delivery O2 Flow Rate FiO2 11/15/18 10:42 97.9 75 16 157/81 (106) 99 Room Air 97.9 11/15/18 09:19 2.0 Weight Weight [ ] I.O. Intake and Output Intake and Output 11/15/18 07:00 Intake Total 300 ml Output Total 0 ml Balance 300 ml Intake Oral 300 ml Output Urine Total 0 ml # Voids 1 Labs Labs Laboratory Tests Test 11/15/18 05:50 11/15/18 13:25 White Blood Count 2.3 x10^3/uL (4.0-11.0) Red Blood Count 3.53 x10^6/uL (3.50-5.40) Hemoglobin 9.6 g/dL (12.0-15.5) Hematocrit 30.4 % (36.0-47.0) Mean Corpuscular Volume 86 fL (79-100) Mean Corpuscular Hemoglobin 27 pg (25-35) Mean Corpuscular Hemoglobin Concent 32 g/dL (31-37) Red Cell Distribution Width 15.3 % (11.5-14.5) Platelet Count 131 x10^3/uL (140-400) Neutrophils (%) (Auto) 47 % (31-73) Lymphocytes (%) (Auto) 22 % (24-48) Monocytes (%) (Auto) 16 % (0-9) Eosinophils (%) (Auto) 14 % (0-3) Basophils (%) (Auto) 1 % (0-3) Neutrophils # (Auto) 1.1 x10^3uL (1.8-7.7) Lymphocytes # (Auto) 0.5 x10^3/uL (1.0-4.8) Monocytes # (Auto) 0.4 x10^3/uL (0.0-1.1) Eosinophils # (Auto) 0.3 x10^3/uL (0.0-0.7) Basophils # (Auto) 0.0 x10^3/uL (0.0-0.2) Sodium Level 140 mmol/L (136-145) Potassium Level 4.0 mmol/L (3.5-5.1) Chloride Level 101 mmol/L (98-107) Carbon Dioxide Level 31 mmol/L (21-32) Anion Gap 8 (6-14) Blood Urea Nitrogen 19 mg/dL (7-20) Creatinine 3.9 mg/dL (0.6-1.0) Estimated GFR (Cockcroft-Gault) 16.4 Glucose Level 89 mg/dL (70-99) Calcium Level 9.1 mg/dL (8.5-10.1) Phosphorus Level 4.8 mg/dL (2.6-4.7) Albumin 2.9 g/dL (3.4-5.0) Prothrombin Time 14.8 SEC (11.7-14.0) Prothromb Time International Ratio 1.2 (0.8-1.1) Activated Partial Thromboplast Time 34 SEC (24-38) Review of Systems Constitutional: yes: alert, oriented Ears/Nose/Throat: Yes: no symptom reported Eyes: Yes: no symptom reported Pulmonary: Yes no symptom reported Cardiovascular: Yes no symptom reported Gastrointestional: Yes: no symptom reported Genitourinary: Yes: no symptom reported Musculoskeletal: Yes: no symptom reported Skin: Yes no symptom reported Psychiatric/Neurological: Yes: seizures Endocrine: Yes: no symptom reported Hematologic/Lymphatic: Yes: no symptom reported Physical Exam General Appearance: no apparent distress Skin: warm Respiratory: bilateral CTA Heart: S1S2 Abdomen: soft Genitourinary: bladder flat Neurology: alert, follow commands Assessment Assessment IMP HTN EMERGENCY-IMPROVED SEIZURE ESRD ANEMIA SEVERE NON COMPLIANCE HIV HX PANCYTOPENIA-ISTABLE CHEST PAIN RESOLVED PLAN HD TOMORROW INCREASE CLONIDINE INCREASE NORVASC ENC COMPLIANCE EVERARDO BURDICK MD Nov 15, 2018 14:09
[2018-11-15 14:47] VITALS: BP 121/73
[2018-11-15 19:00] VITALS: BP 133/86
[2018-11-15] MEDS: cloNIDine HCL 0.3 MG TABLET PO SCH (20:43)
[2018-11-15] MEDS: traZODone 100 MG TABLET. PO SCH (20:44)
[2018-11-15 22:45] VITALS: BP 157/99
[2018-11-16 02:54] VITALS: BP 143/94
[2018-11-16 07:36] VITALS: BP 154/95
[2018-11-16 08:46] LABS: BASO % 1 % (0-3); EOS # 0.4 x10^3/uL (0.0-0.7); EOS % 18 % (0-3); HEMATOCRIT 32.1 % (36.0-47.0); HEMOGLOBIN 10.5 g/dL (12.0-15.5); LYMPH # 0.5 x10^3/uL (1.0-4.8); LYMPH % 26 % (24-48); MEAN CORPUSCULAR HEMOGLOBIN 28 pg (25-35); MEAN CORPUSCULAR HGB CONC 33 g/dL (31-37); MEAN CORPUSCULAR VOLUME 86 fL (79-100); MONO # 0.3 x10^3/uL (0.0-1.1); MONO % 13 % (0-9); NEUT # 0.9 x10^3uL (1.8-7.7); NEUT % 43 % (31-73); PLATELET COUNT 129 x10^3/uL (140-400); RED BLOOD COUNT 3.72 x10^6/uL (3.50-5.40); RED CELL DISTRIBUTION WIDTH 14.9 % (11.5-14.5); WHITE BLOOD COUNT 2.1 x10^3/uL (4.0-11.0)
[2018-11-16] MEDS ORDERED: LIDOCAINE WITH 8.4% SOD BICARB 3 ML DISP.SYRIN. ONE (08:54)
--- NOTE | 2018-11-16 09:23 | PDOC ---
PROGRESS NOTES History of Present Illness History of Present Illness Assessment/Plan Assessment/Plan Impression: Hypertensive emergency, NOT IMPROVED ESRD ON DIALYSIS Seizure HX History of Hodgkin's lymphoma Anemia of chronic renal dz Pancytopenia chest pain MODERATE TRICUSPID REGURG PULM HTN Hypertensive encephalopathy. HIV PLAN DIALYSIS TODAY, D/C LATER CONSULT NEPHROLOGY D/W DR BURDICK HX LONG POOR COMPLIANCE CONSULT CARDIOLOGY ECHO ICU ADMIT DUE TO HYPERTENSIVE EMERGENCY SERIAL TROPONIN I IV HYDRALAZINE PRN BP SUPPORT home meds INC NORVASC DOSE 10MG PO BID, CATAPRESS .3 MG PO BID 38 min pt exam, D/C PLANNING TIME Vitals Vitals Vital Signs Date Time Temp Pulse Resp B/P (MAP) Pulse Ox O2 Delivery O2 Flow Rate FiO2 11/16/18 07:36 98.2 75 17 154/95 (114) 100 Room Air 98.2 11/15/18 09:19 2.0 Physical Exam Physical Exam Neck: Normal range of motion, no tenderness, supple, no stridor. [] Cardiovascular:Heart rate regular rhythm, 3/6 SYSTOLIC MURMUR NOTED Lungs & Thorax: Bilateral breath sounds clear to auscultation [] Abdomen: Bowel sounds normal, soft, no tenderness, no masses, no pulsatile masses. [] Skin: Warm, dry, no erythema, no rash. [] Back: No tenderness, no CVA tenderness. [] Extremities: No tenderness, no cyanosis, no clubbing, ROM intact,TWO PLUS EDEMA Neurologic: Alert and oriented X 3, normal motor function, normal sensory function, no focal deficits noted. [] Psychologic: Affect normal, judgement normal, mood MILD ANXIETY NOTED Breasts: Not examined General: Alert, Oriented X3, Cooperative, No acute distress Heart: Regular rate, Normal S1, Normal S2, Gallops Lungs: Clear Abdomen: Normal bowel sounds, Soft, No tenderness Extremities: No clubbing, No cyanosis, No tenderness/swelling Skin: No significant lesion Labs LABS Laboratory Tests Test 11/15/18 13:25 11/16/18 08:10 Prothrombin Time 14.8 SEC (11.7-14.0) Prothromb Time International Ratio 1.2 (0.8-1.1) Activated Partial Thromboplast Time 34 SEC (24-38) White Blood Count 2.1 x10^3/uL (4.0-11.0) Red Blood Count 3.72 x10^6/uL (3.50-5.40) Hemoglobin 10.5 g/dL (12.0-15.5) Hematocrit 32.1 % (36.0-47.0) Mean Corpuscular Volume 86 fL (79-100) Mean Corpuscular Hemoglobin 28 pg (25-35) Mean Corpuscular Hemoglobin Concent 33 g/dL (31-37) Red Cell Distribution Width 14.9 % (11.5-14.5) Platelet Count 129 x10^3/uL (140-400) Neutrophils (%) (Auto) 43 % (31-73) Lymphocytes (%) (Auto) 26 % (24-48) Monocytes (%) (Auto) 13 % (0-9) Eosinophils (%) (Auto) 18 % (0-3) Basophils (%) (Auto) 1 % (0-3) Neutrophils # (Auto) 0.9 x10^3uL (1.8-7.7) Lymphocytes # (Auto) 0.5 x10^3/uL (1.0-4.8) Monocytes # (Auto) 0.3 x10^3/uL (0.0-1.1) Eosinophils # (Auto) 0.4 x10^3/uL (0.0-0.7) Basophils # (Auto) 0.0 x10^3/uL (0.0-0.2) Comment Review of Relevant I have reviewed the following items fiona (where applicable) has been applied. Labs Laboratory Tests Test 11/15/18 05:50 11/15/18 13:25 11/16/18 08:10 White Blood Count 2.3 x10^3/uL (4.0-11.0) 2.1 x10^3/uL (4.0-11.0) Red Blood Count 3.53 x10^6/uL (3.50-5.40) 3.72 x10^6/uL (3.50-5.40) Hemoglobin 9.6 g/dL (12.0-15.5) 10.5 g/dL (12.0-15.5) Hematocrit 30.4 % (36.0-47.0) 32.1 % (36.0-47.0) Mean Corpuscular Volume 86 fL (79-100) 86 fL (79-100) Mean Corpuscular Hemoglobin 27 pg (25-35) 28 pg (25-35) Mean Corpuscular Hemoglobin Concent 32 g/dL (31-37) 33 g/dL (31-37) Red Cell Distribution Width 15.3 % (11.5-14.5) 14.9 % (11.5-14.5) Platelet Count 131 x10^3/uL (140-400) 129 x10^3/uL (140-400) Neutrophils (%) (Auto) 47 % (31-73) 43 % (31-73) Lymphocytes (%) (Auto) 22 % (24-48) 26 % (24-48) Monocytes (%) (Auto) 16 % (0-9) 13 % (0-9) Eosinophils (%) (Auto) 14 % (0-3) 18 % (0-3) Basophils (%) (Auto) 1 % (0-3) 1 % (0-3) Neutrophils # (Auto) 1.1 x10^3uL (1.8-7.7) 0.9 x10^3uL (1.8-7.7) Lymphocytes # (Auto) 0.5 x10^3/uL (1.0-4.8) 0.5 x10^3/uL (1.0-4.8) Monocytes # (Auto) 0.4 x10^3/uL (0.0-1.1) 0.3 x10^3/uL (0.0-1.1) Eosinophils # (Auto) 0.3 x10^3/uL (0.0-0.7) 0.4 x10^3/uL (0.0-0.7) Basophils # (Auto) 0.0 x10^3/uL (0.0-0.2) 0.0 x10^3/uL (0.0-0.2) Sodium Level 140 mmol/L (136-145) Potassium Level 4.0 mmol/L (3.5-5.1) Chloride Level 101 mmol/L (98-107) Carbon Dioxide Level 31 mmol/L (21-32) Anion Gap 8 (6-14) Blood Urea Nitrogen 19 mg/dL (7-20) Creatinine 3.9 mg/dL (0.6-1.0) Estimated GFR (Cockcroft-Gault) 16.4 Glucose Level 89 mg/dL (70-99) Calcium Level 9.1 mg/dL (8.5-10.1) Phosphorus Level 4.8 mg/dL (2.6-4.7) Albumin 2.9 g/dL (3.4-5.0) Prothrombin Time 14.8 SEC (11.7-14.0) Prothromb Time International Ratio 1.2 (0.8-1.1) Activated Partial Thromboplast Time 34 SEC (24-38) Laboratory Tests Test 11/15/18 13:25 11/16/18 08:10 Prothrombin Time 14.8 SEC (11.7-14.0) Prothromb Time International Ratio 1.2 (0.8-1.1) Activated Partial Thromboplast Time 34 SEC (24-38) White Blood Count 2.1 x10^3/uL (4.0-11.0) Red Blood Count 3.72 x10^6/uL (3.50-5.40) Hemoglobin 10.5 g/dL (12.0-15.5) Hematocrit 32.1 % (36.0-47.0) Mean Corpuscular Volume 86 fL (79-100) Mean Corpuscular Hemoglobin 28 pg (25-35) Mean Corpuscular Hemoglobin Concent 33 g/dL (31-37) Red Cell Distribution Width 14.9 % (11.5-14.5) Platelet Count 129 x10^3/uL (140-400) Neutrophils (%) (Auto) 43 % (31-73) Lymphocytes (%) (Auto) 26 % (24-48) Monocytes (%) (Auto) 13 % (0-9) Eosinophils (%) (Auto) 18 % (0-3) Basophils (%) (Auto) 1 % (0-3) Neutrophils # (Auto) 0.9 x10^3uL (1.8-7.7) Lymphocytes # (Auto) 0.5 x10^3/uL (1.0-4.8) Monocytes # (Auto) 0.3 x10^3/uL (0.0-1.1) Eosinophils # (Auto) 0.4 x10^3/uL (0.0-0.7) Basophils # (Auto) 0.0 x10^3/uL (0.0-0.2) Medications Current Medications Labetalol HCl (Normodyne Iv Push) 20 mg 1X ONCE IVP Last administered on 21:00; Start 11/11/18 at 20:45; Stop 11/11/18 at 20:46; Status DC Nitroglycerin (Nitro-Bid Oint) 2 inch 1X ONCE TP Last administered on 21:00; Start 11/11/18 at 20:45; Stop 11/11/18 at 20:46; Status DC Magnesium Sulfate/ Dextrose 100 ml @ 100 mls/hr 1X ONCE IV Last administered on 11/11/18at 21:38; Start 11/11/18 at 21:30; Stop 11/11/18 at 22:29; Status DC Acetaminophen/ Hydrocodone Bitart (Lortab 5/325) 2 tab 1X ONCE PO Last administered on 11/11/18at 21:37; Start 11/11/18 at 21:30; Stop 11/11/18 at 21:31 ; Status DC Labetalol HCl (Normodyne Iv Push) 20 mg 1X ONCE IVP Last administered on 22:19; Start 11/11/18 at 22:15; Stop 11/11/18 at 22:16; Status DC Lorazepam (Ativan) 1 mg 1X ONCE IV Last administered on 11/11/18at 22:16; Start 11/11/18 at 22:00; Stop 11/11/18 at 22:01; Status DC Levetiracetam 1000 mg/Dextrose 110 ml @ 440 mls/hr 1X ONCE IV Last administered on 11/11/18at 22:20; Start 11/11/18 at 22:15; Stop 11/11/18 at 22:29 ; Status DC Ondansetron HCl (Zofran) 4 mg PRN Q8HRS PRN IV NAUSEA/VOMITING Last administered on 11/12/18at 08:22; Start 11/11/18 at 22:30; Stop 11/12/18 at 22:29 ; Status DC Morphine Sulfate (Morphine Sulfate) 4 mg PRN Q2HR PRN IV PAIN Last administered on 11/12/18 19:00; Start 11/11/18 at 22:30; Stop 11/12/18 at 22:29 ; Status DC Labetalol HCl (Normodyne Iv Push) 20 mg PRN Q2HR PRN IVP ELEVATED BP, SEE COMMENTS Last administered on 11/14/18at 09:02; Start 11/11/18 at 23:00; Stop at 15:03; Status DC Hydralazine HCl (Apresoline Inj) 10 mg PRN Q4HRS PRN IVP ELEVATED BP, SEE COMMENTS Last administered on 11/14/18at 23:58; Start 11/12/18 at 09:00 Clonidine HCl (Catapres) 0.2 mg BID PO Last administered on 11/15/18at 08:35; Start 11/12/18 at 09:00; Stop 11/15/18 at 14:10; Status DC Clonidine HCl (Catapres) 0.2 mg BID PO ; Start 11/12/18 at 11:00; Status Cancel Acetaminophen/ Hydrocodone Bitart (Lortab 5/325) 1 tab PRN Q6HRS PRN PO MODERATE PAIN Last administered on 11/13/18at 17:50; Start 11/12/18 at 11:15 Lacosamide (Vimpat) 50 mg DAILY PO Last administered on 11/14/18at 12:04; Start 11/12/18 at 11:00; Stop 11/14/18 at 17:06; Status DC Levetiracetam (Keppra) 500 mg BID PO Last administered on 11/15/18at 20:42; Start 11/12/18 at 11:00 Oxycodone HCl (Roxicodone) 5 mg PRN DAILY PRN PO SEVERE PAIN Last administered on 11/12/18at 12:05; Start 11/12/18 at 11:15 Trazodone HCl (Desyrel) 100 mg QHS PO Last administered on 11/12/18at 21:55; Start 11/12/18 at 21:00 Pantoprazole Sodium (Protonix) 40 mg DAILYAC PO Last administered on 11/15/18at 08:33; Start 11/12/18 at 11:00 Sucralfate (Carafate) 1 gm BIDAC PO Last administered on 11/15/18at 17:08; Start 11/12/18 at 16:30 Nicardipine HCl 50 mg/Sodium Chloride 250 ml @ 25 mls/hr CONT PRN IV SEE I/O RECORD Last administered on 11/12/18at 20:20; Start 11/12/18 at 19:30; Stop 11/15 at 14:10; Status DC Lorazepam (Ativan) 2 mg STK-MED ONCE .ROUTE ; Start 11/12/18 at 20:09; Stop at 20:12; Status DC Lorazepam (Ativan) 2 mg PRN Q30MIN PRN IV ANXIETY / AGITATION Last administered on 11/14/18at 09:02; Start 11/12/18 at 20:15 Lorazepam (Ativan) 4 mg PRN Q30MIN PRN IV ANXIETY / AGITATION; Start 11/12/18 at 20:30 Emtricitabine (Emtriva) 200 mg Q4DAYS PO ; Start 11/13/18 at 09:00; Stop at 14:59; Status DC Non-Formulary Medication (Abacavir Sulfate/ Lamivudine (Epzicom Tablet)) 300 mg DAILY PO ; Start 11/13/18 at 09:00; Stop 11/14/18 at 14:55; Status DC Non-Formulary Medication (Dolutegravir Sodium (Tivicay)) 50 mg DAILY PO ; Start 11/13/18 at 09:00; Stop 11/14/18 at 14:53; Status DC Non-Formulary Medication (Sulfamethoxazole/ Trimethoprim (Bactrim 400-80 Mg Tablet)) 1 tab QODAY PO Last administered on 11/14/18at 15:12; Start 11/14/18 at 15:30 Darbepoetin Chris (Aranesp) 60 mcg WEEKLYHS SQ Last administered on 11/13/18at 20 :44; Start 11/13/18 at 21:00 Potassium Chloride (Klor-Con) 20 meq 1X ONCE PO Last administered on at 14:38; Start 11/13/18 at 14:00; Stop 11/13/18 at 14:01; Status DC Morphine Sulfate (Morphine Sulfate) 1 mg PRN Q2HR PRN IV PAIN Last administered on 11/15/18at 20:44; Start 11/14/18 at 01:15 Sodium Chloride 1,000 ml @ 1,000 mls/hr Q1H PRN IV hypotension; Start 11/14/18 at 07:24; Stop 11/14/18 at 13:23; Status DC Sodium Chloride 1,000 ml @ 400 mls/hr Q2H30M PRN IV PATENCY; Start 11/14/18 at 07:24; Stop 11/14/18 at 19:23; Status DC Lidocaine HCl (Lidocaine 1% 20ml Vial) 20 ml 1X ONCE ID ; Start 11/14/18 at 07: 30; Stop 11/14/18 at 07:34; Status DC Info (PHARMACY MONITORING -- do not chart) 1 each PRN DAILY PRN MC SEE COMMENTS ; Start 11/14/18 at 07:30; Status UNV Info (PHARMACY MONITORING -- do not chart) 1 each PRN DAILY PRN MC SEE COMMENTS ; Start 11/14/18 at 07:30 Amlodipine Besylate (Norvasc) 10 mg DAILY PO Last administered on 11/15/18at 08: 34; Start 11/14/18 at 15:00; Stop 11/15/18 at 14:10; Status DC Labetalol HCl (Normodyne Iv Push) 20 mg PRN Q2HR PRN IVP HYPERTENSION, SEE COMMENTS; Start 11/14/18 at 15:00 Potassium Chloride (Klor-Con) 20 meq 1X ONCE PO Last administered on at 15:08; Start 11/14/18 at 15:00; Stop 11/14/18 at 15:01; Status DC Non-Formulary Medication (Dolutegravir Sodium (Tivicay)) 50 mg DAILY PO Last administered on 11/15/18at 08:31; Start 11/14/18 at 15:30 Non-Formulary Medication (Abacavir Sulfate/ Lamivudine (Epzicom Tablet)) 300 mg DAILY PO Last administered on 11/15/18at 08:32; Start 11/14/18 at 15:30 Non-Formulary Medication 1 ea Q4D@0900 PO Last administered on 11/14/18at 15:13 ; Start 11/14/18 at 15:30 Lacosamide (Vimpat) 50 mg BID PO Last administered on 11/15/18at 20:42; Start at 21:00 Potassium Chloride (Klor-Con) 10 meq 1X ONCE PO Last administered on at 22:14; Start 11/14/18 at 22:00; Stop 11/14/18 at 22:01; Status DC Alteplase, Recombinant (Cathflo For Central Catheter Clearance) 1 mg 1X ONCE INT CAT Last administered on 11/15/18at 12:31; Start 11/15/18 at 12:15; Stop at 12:16; Status DC Amlodipine Besylate (Norvasc) 10 mg BID PO Last administered on 11/15/18at 20:43 ; Start 11/15/18 at 21:00 Clonidine HCl (Catapres) 0.3 mg BID PO Last administered on 11/15/18at 20:43; Start 11/15/18 at 21:00 Alteplase, Recombinant (Cathflo For Central Catheter Clearance) 1 mg 1X ONCE INT CAT Last administered on 11/15/18at 17:09; Start 11/15/18 at 15:30; Stop at 15:39; Status DC Lidocaine/Sodium Bicarbonate (Buffered Lidocaine 1%) 3 ml STK-MED ONCE .ROUTE ; Start 11/16/18 at 08:54; Stop 11/16/18 at 08:55; Status DC Active Scripts Active [place] 5-325 Tablet (Acetaminophen/Hydrocodone Bitart) 1 Each Tablet 1-2 Each PO PRN Q6HRS PRN as needed for pain Trazodone Hcl 100 Mg Tablet 1 Tab PO QHS 30 Days Oxycodone Hcl Immed.release (Oxycodone Hcl) 5 Mg Tablet 5 Mg PO PRN DAILY PRN 6 Days Carafate (Sucralfate) 1 Gm Tablet 1 Gm PO BIDWMEALS 30 Days Reported Ketorolac Tromethamine 5 Ml Drops 1 Drop OS QID Metronidazole 500 Mg Tablet 1 Tab PO BID Flonase Allergy Relief (Fluticasone Propionate) 9.9 Ml [place].susp 2 Sprays NS DAILY Labetalol Hcl 200 Mg Tablet 1 Tab PO BID Diltiazem 24HR Cd (Diltiazem Hcl) 120 Mg Cap.er.24h 2 Cap PO DAILY Lamotrigine 25 Mg Tablet 1 Tab PO HS Doxazosin Mesylate 2 Mg Tablet 1.5 Tab PO DAILY Bactrim 400-80 Mg Tablet (Sulfamethoxazole/Trimethoprim) 1 Each Tablet 1 Tab PO QODAY Tivicay (Dolutegravir Sodium) 50 Mg Tablet 50 Mg PO DAILY Emtriva (Emtricitabine) 200 Mg Capsule 200 Mg PO Q4DAYS Epzicom Tablet (Abacavir Sulfate/Lamivudine) 1 Each Tablet 300 Mg PO DAILY Vimpat (Lacosamide) 50 Mg Tablet 50 Mg PO BID Protonix (Pantoprazole Sodium) 20 Mg Tablet.dr 40 Mg PO DAILY Keppra (Levetiracetam) 500 Mg Tablet 250 Mg PO BID Clonidine Hcl 0.2 Mg Tablet 1 Tab PO BID Vitals/I & O Vital Sign - Last 24 Hours 11/15/18 11/15/18 11/15/18 11/15/18 10:42 14:47 19:00 19:45 Temp 97.9 97.9 98.2 97.9 97.9 98.2 Pulse 75 69 67 Resp 16 16 17 B/P (MAP) 157/81 (106) 121/73 (89) 133/86 (102) Pulse Ox 99 98 98 O2 Delivery Room Air Room Air Room Air Room Air 11/15/18 11/15/18 11/15/18 11/15/18 20:43 20:43 20:44 21:29 Pulse 67 67 B/P (MAP) 133/86 133/86 O2 Delivery Room Air Room Air 11/15/18 11/16/18 11/16/18 22:45 02:54 07:36 Temp 98.5 98.0 98.2 98.5 98.0 98.2 Pulse 99 71 75 Resp 18 17 17 B/P (MAP) 157/99 (118) 143/94 (110) 154/95 (114) Pulse Ox 99 98 100 O2 Delivery Room Air Room Air Room Air Intake and Output 11/15/18 11/15/18 11/16/18 15:00 23:00 07:00 Intake Total 360 ml Balance 360 ml FUNMILAYO EMERSON MD Nov 16, 2018 09:23
[2018-11-16] MEDS ORDERED: MIDAZOLAM HCL/PF 2 MG/2 ML VIAL. ONE (09:33)
[2018-11-16] MEDS ORDERED: fentaNYL PF VIAL 100 MCG/2 ML VIAL ONE (09:34)
[2018-11-16 09:43] VITALS: BP 177/111
[2018-11-16 09:51] VITALS: BP 142/92
[2018-11-16] MEDS ORDERED: LIDOCAINE WITH 8.4% SOD BICARB 3 ML DISP.SYRIN. IJ ONE (10:00)
[2018-11-16] MEDS ORDERED: fentaNYL PF VIAL 100 MCG/2 ML VIAL IV ONE (10:00)
[2018-11-16] MEDS ORDERED: MIDAZOLAM HCL/PF 2 MG/2 ML VIAL. IV ONE (10:00)
[2018-11-16] MEDS: PANTOPRAZOLE 40 MG TABLET.DR. PO SCH (10:45)
[2018-11-16] MEDS: LACOSAMIDE 50 MG TABLET PO SCH (10:45)
[2018-11-16] MEDS: levETIRAcetam 500 MG TABLET PO SCH (10:45)
[2018-11-16] MEDS: SUCRALFATE 1 GM TABLET. PO SCH ×2 (10:45→16:30)
[2018-11-16] MEDS: cloNIDine HCL 0.3 MG TABLET PO SCH (10:46)
[2018-11-16] MEDS: amLODIPine BESYLATE 10 MG TABLET PO SCH (10:46)
[2018-11-16] MEDS: SULFAMETHOXAZOLE PO SCH (10:47)
[2018-11-16] MEDS: TRIMETHOPRIM PO SCH (10:47)
[2018-11-16 10:48] VITALS: BP 154/95
--- NOTE | 2018-11-16 11:45 | PDOC ---
Renal-Progress Notes Subjective Notes Notes SLEEPY AFTER BM BX History of Present Illness Hx of present illness STABLE Vitals Vitals Vital Signs Date Time Temp Pulse Resp B/P (MAP) Pulse Ox O2 Delivery O2 Flow Rate FiO2 11/16/18 10:48 97.6 65 16 154/95 (114) 97 Room Air 97.6 11/16/18 09:51 2.0 Weight Weight [ ] I.O. Intake and Output Intake and Output 11/16/18 07:00 Intake Total 360 ml Balance 360 ml Intake Oral 360 ml # Voids 1 Labs Labs Laboratory Tests Test 11/15/18 13:25 11/16/18 08:10 Prothrombin Time 14.8 SEC (11.7-14.0) Prothromb Time International Ratio 1.2 (0.8-1.1) Activated Partial Thromboplast Time 34 SEC (24-38) White Blood Count 2.1 x10^3/uL (4.0-11.0) Red Blood Count 3.72 x10^6/uL (3.50-5.40) Hemoglobin 10.5 g/dL (12.0-15.5) Hematocrit 32.1 % (36.0-47.0) Mean Corpuscular Volume 86 fL (79-100) Mean Corpuscular Hemoglobin 28 pg (25-35) Mean Corpuscular Hemoglobin Concent 33 g/dL (31-37) Red Cell Distribution Width 14.9 % (11.5-14.5) Platelet Count 129 x10^3/uL (140-400) Neutrophils (%) (Auto) 43 % (31-73) Lymphocytes (%) (Auto) 26 % (24-48) Monocytes (%) (Auto) 13 % (0-9) Eosinophils (%) (Auto) 18 % (0-3) Basophils (%) (Auto) 1 % (0-3) Neutrophils # (Auto) 0.9 x10^3uL (1.8-7.7) Lymphocytes # (Auto) 0.5 x10^3/uL (1.0-4.8) Monocytes # (Auto) 0.3 x10^3/uL (0.0-1.1) Eosinophils # (Auto) 0.4 x10^3/uL (0.0-0.7) Basophils # (Auto) 0.0 x10^3/uL (0.0-0.2) Review of Systems Constitutional: yes: alert, oriented Ears/Nose/Throat: Yes: no symptom reported Eyes: Yes: no symptom reported Pulmonary: Yes no symptom reported Cardiovascular: Yes no symptom reported Gastrointestional: Yes: no symptom reported Genitourinary: Yes: no symptom reported Musculoskeletal: Yes: no symptom reported Skin: Yes no symptom reported Psychiatric/Neurological: Yes: seizures Endocrine: Yes: no symptom reported Hematologic/Lymphatic: Yes: no symptom reported Physical Exam General Appearance: no apparent distress Skin: warm Respiratory: bilateral CTA Heart: S1S2 Abdomen: soft Genitourinary: bladder flat Neurology: alert, follow commands Assessment Assessment IMP HTN EMERGENCY-IMPROVED SEIZURE ESRD ANEMIA SEVERE NON COMPLIANCE HIV HX PANCYTOPENIA-ISTABLE CHEST PAIN RESOLVED S/P BM BX TODAY HIV + PLAN HD TODAY UF TO DW ADD BETA MATT ENC COMPLIANCE EVERARDO BURDICK MD Nov 16, 2018 11:45
--- NOTE | 2018-11-16 11:52 | RAD ---
CT-guided bone marrow biopsy. 11/16/2018 11:48 AM Indication: 28 yo female w/ HIV, cytopenias, Hodgkin's in 2016, BMBx for recurrent HD? Discussion: The risks and benefits of the procedure, including but not limited to, bleeding and infection were discussed patient. Informed consent was obtained. The patient was brought to the CT scanner and placed in the prone position. A timeout procedure was performed. [employer] CT imaging of the pelvis demonstrated left ilium amenable to bone marrow biopsy. The overlying soft tissues were prepped and draped using maximum sterile barrier technique. 1% lidocaine without epinephrine was administered for local anesthesia. Under intermittent CT guidance, an OncControl needle was advanced into the bone marrow of the left iliac crest. 2 Aspirates and 1 core biopsy samples were obtained. Samples were delivered to pathology was present at the time of procedure. The needle was removed and manual pressure held to achieve hemostasis. No immediate complications were identified. The procedure was performed under conscious sedation including continuous cardiopulmonary monitoring via dedicated sedation nurse. Sedation time: 20 minutes Impression: Successful CT-guided bone marrow biopsy of the left iliac crest . PQRS Compliance Statement: One or more of the following individualized dose reduction techniques were utilized for this examination: 1. Automated exposure control 2. Adjustment of the mA and/or kV according to patient size 3. Use of iterative reconstruction technique
[2018-11-16] MEDS ORDERED: ATENOLOL 50 MG TABLET. PO SCH (12:00)
[2018-11-16] MEDS: hydrALAZINE 20 MG/ML VIAL. IVP PRN (12:47)
[2018-11-16] MEDS: MORPHINE SULFATE 2 MG/ML VIAL. IV PRN (12:48)
--- NOTE | 2018-11-16 14:00 | PDOC3 ---
Discharge Summary Date of Admission: Nov 11, 2018 Date of Discharge: Nov 16, 2018 Follow-Up: 1-2 days Admitting Diagnosis comment: DISCHARGE DX Assessment/Plan Impression: Hypertensive emergency, IMPROVED ESRD ON DIALYSIS Seizure HX History of Hodgkin's lymphoma Anemia of chronic renal dz Pancytopenia chest pain MODERATE TRICUSPID REGURG PULM HTN Hypertensive encephalopathy. HIV BREAK-THRU SEIZURE 11/11 PLAN DIALYSIS TODAY, D/C LATER CONSULT NEPHROLOGY D/W DR BURDICK HX LONG POOR COMPLIANCE CONSULT CARDIOLOGY ECHO ICU ADMIT DUE TO HYPERTENSIVE EMERGENCY SERIAL TROPONIN I IV HYDRALAZINE PRN BP SUPPORT home meds INC NORVASC DOSE 10MG PO BID, CATAPRESS .3 MG PO BID 38 min pt exam, D/C PLANNING TIME Vitals Vitals Vital Signs Date Time Temp Pulse Resp B/P (MAP) Pulse Ox O2 Delivery O2 Flow Rate FiO2 11/16/18 07:36 98.2 75 17 154/95 (114) 100 Room Air 98.2 11/15/18 09:19 2.0 Physical Exam Physical Exam Neck: Normal range of motion, no tenderness, supple, no stridor. [] Cardiovascular:Heart rate regular rhythm, 3/6 SYSTOLIC MURMUR NOTED Lungs & Thorax: Bilateral breath sounds clear to auscultation [] Abdomen: Bowel sounds normal, soft, no tenderness, no masses, no pulsatile masses. [] Skin: Warm, dry, no erythema, no rash. [] Back: No tenderness, no CVA tenderness. [] Extremities: No tenderness, no cyanosis, no clubbing, ROM intact,TWO PLUS EDEMA Neurologic: Alert and oriented X 3, normal motor function, normal sensory function, no focal deficits noted. [] Psychologic: Affect normal, judgement normal, mood MILD ANXIETY NOTED Breasts: Not examined General: Alert, Oriented X3, Cooperative, No acute distress Heart: Regular rate, Normal S1, Normal S2, Gallops Lungs: Clear Abdomen: Normal bowel sounds, Soft, No tenderness Extremities: No clubbing, No cyanosis, No tenderness/swelling Skin: No significant lesion Brief Hospital Course Ms. Patterson is a 28 old [sex] who presented with [ HYPERTENSIVE EMERGENCY/ ESRD ON DIALYSIS] CONDITION AT DISCHARGE: Improved Discharge Medications Current Medications Labetalol HCl (Normodyne Iv Push) 20 mg 1X ONCE IVP Last administered on 21:00; Start 11/11/18 at 20:45; Stop 11/11/18 at 20:46; Status DC Nitroglycerin (Nitro-Bid Oint) 2 inch 1X ONCE TP Last administered on at 21:00; Start 11/11/18 at 20:45; Stop 11/11/18 at 20:46; Status DC Magnesium Sulfate/ Dextrose 100 ml @ 100 mls/hr 1X ONCE IV Last administered on 11/11/18at 21:38; Start 11/11/18 at 21:30; Stop 11/11/18 at 22:29; Status DC Acetaminophen/ Hydrocodone Bitart (Lortab 5/325) 2 tab 1X ONCE PO Last administered on 11/11/18at 21:37; Start 11/11/18 at 21:30; Stop 11/11/18 at 21:31 ; Status DC Labetalol HCl (Normodyne Iv Push) 20 mg 1X ONCE IVP Last administered on at 22:19; Start 11/11/18 at 22:15; Stop 11/11/18 at 22:16; Status DC Lorazepam (Ativan) 1 mg 1X ONCE IV Last administered on 11/11/18at 22:16; Start 11/11/18 at 22:00; Stop 11/11/18 at 22:01; Status DC Levetiracetam 1000 mg/Dextrose 110 ml @ 440 mls/hr 1X ONCE IV Last administered on 11/11/18at 22:20; Start 11/11/18 at 22:15; Stop 11/11/18 at 22:29 ; Status DC Ondansetron HCl (Zofran) 4 mg PRN Q8HRS PRN IV NAUSEA/VOMITING Last administered on 11/12/18 08:22; Start 11/11/18 at 22:30; Stop 11/12/18 at 22:29 ; Status DC Morphine Sulfate (Morphine Sulfate) 4 mg PRN Q2HR PRN IV PAIN Last administered on 11/12/18 19:00; Start 11/11/18 at 22:30; Stop 11/12/18 at 22:29 ; Status DC Labetalol HCl (Normodyne Iv Push) 20 mg PRN Q2HR PRN IVP ELEVATED BP, SEE COMMENTS Last administered on 11/14/18 09:02; Start 11/11/18 at 23:00; Stop at 15:03; Status DC Hydralazine HCl (Apresoline Inj) 10 mg PRN Q4HRS PRN IVP ELEVATED BP, SEE COMMENTS Last administered on 11/16/18 12:47; Start 11/12/18 at 09:00 Clonidine HCl (Catapres) 0.2 mg BID PO Last administered on 11/15/18 08:35; Start 11/12/18 at 09:00; Stop 11/15/18 at 14:10; Status DC Clonidine HCl (Catapres) 0.2 mg BID PO ; Start 11/12/18 at 11:00; Status Cancel Acetaminophen/ Hydrocodone Bitart (Lortab 5/325) 1 tab PRN Q6HRS PRN PO MODERATE PAIN Last administered on 11/13/18 17:50; Start 11/12/18 at 11:15 Lacosamide (Vimpat) 50 mg DAILY PO Last administered on 11/14/18 12:04; Start 11/12/18 at 11:00; Stop 11/14/18 at 17:06; Status DC Levetiracetam (Keppra) 500 mg BID PO Last administered on 11/16/18 10:45; Start 11/12/18 at 11:00 Oxycodone HCl (Roxicodone) 5 mg PRN DAILY PRN PO SEVERE PAIN Last administered on 11/12/18 12:05; Start 11/12/18 at 11:15 Trazodone HCl (Desyrel) 100 mg QHS PO Last administered on 11/12/18 21:55; Start 11/12/18 at 21:00 Pantoprazole Sodium (Protonix) 40 mg DAILYAC PO Last administered on 11/16/18 10:45; Start 11/12/18 at 11:00 Sucralfate (Carafate) 1 gm BIDAC PO Last administered on 11/16/18 10:45; Start 11/12/18 at 16:30 Nicardipine HCl 50 mg/Sodium Chloride 250 ml @ 25 mls/hr CONT PRN IV SEE I/O RECORD Last administered on 11/12/18at 20:20; Start 11/12/18 at 19:30; Stop 11/15 at 14:10; Status DC Lorazepam (Ativan) 2 mg STK-MED ONCE .ROUTE ; Start 11/12/18 at 20:09; Stop at 20:12; Status DC Lorazepam (Ativan) 2 mg PRN Q30MIN PRN IV ANXIETY / AGITATION Last administered on 11/16/18at 12:49; Start 11/12/18 at 20:15 Lorazepam (Ativan) 4 mg PRN Q30MIN PRN IV ANXIETY / AGITATION; Start 11/12/18 at 20:30 Emtricitabine (Emtriva) 200 mg Q4DAYS PO ; Start 11/13/18 at 09:00; Stop at 14:59; Status DC Non-Formulary Medication (Abacavir Sulfate/ Lamivudine (Epzicom Tablet)) 300 mg DAILY PO ; Start 11/13/18 at 09:00; Stop 11/14/18 at 14:55; Status DC Non-Formulary Medication (Dolutegravir Sodium (Tivicay)) 50 mg DAILY PO ; Start 11/13/18 at 09:00; Stop 11/14/18 at 14:53; Status DC Non-Formulary Medication (Sulfamethoxazole/ Trimethoprim (Bactrim 400-80 Mg Tablet)) 1 tab QODAY PO Last administered on 11/16/18at 10:47; Start 11/14/18 at 15:30 Darbepoetin Chris (Aranesp) 60 mcg WEEKLYHS SQ Last administered on 11/13/18at 20 :44; Start 11/13/18 at 21:00 Potassium Chloride (Klor-Con) 20 meq 1X ONCE PO Last administered on at 14:38; Start 11/13/18 at 14:00; Stop 11/13/18 at 14:01; Status DC Morphine Sulfate (Morphine Sulfate) 1 mg PRN Q2HR PRN IV PAIN Last administered on 11/16/18at 12:48; Start 11/14/18 at 01:15 Sodium Chloride 1,000 ml @ 1,000 mls/hr Q1H PRN IV hypotension; Start 11/14/18 at 07:24; Stop 11/14/18 at 13:23; Status DC Sodium Chloride 1,000 ml @ 400 mls/hr Q2H30M PRN IV PATENCY; Start 11/14/18 at 07:24; Stop 11/14/18 at 19:23; Status DC Lidocaine HCl (Lidocaine 1% 20ml Vial) 20 ml 1X ONCE ID ; Start 11/14/18 at 07: 30; Stop 11/14/18 at 07:34; Status DC Info (PHARMACY MONITORING -- do not chart) 1 each PRN DAILY PRN MC SEE COMMENTS ; Start 11/14/18 at 07:30; Status UNV Info (PHARMACY MONITORING -- do not chart) 1 each PRN DAILY PRN MC SEE COMMENTS ; Start 11/14/18 at 07:30 Amlodipine Besylate (Norvasc) 10 mg DAILY PO Last administered on 11/15/18at 08: 34; Start 11/14/18 at 15:00; Stop 11/15/18 at 14:10; Status DC Labetalol HCl (Normodyne Iv Push) 20 mg PRN Q2HR PRN IVP HYPERTENSION, SEE COMMENTS; Start 11/14/18 at 15:00 Potassium Chloride (Klor-Con) 20 meq 1X ONCE PO Last administered on at 15:08; Start 11/14/18 at 15:00; Stop 11/14/18 at 15:01; Status DC Non-Formulary Medication (Dolutegravir Sodium (Tivicay)) 50 mg DAILY PO Last administered on 11/16/18at 10:46; Start 11/14/18 at 15:30 Non-Formulary Medication (Abacavir Sulfate/ Lamivudine (Epzicom Tablet)) 300 mg DAILY PO Last administered on 11/16/18at 10:47; Start 11/14/18 at 15:30 Non-Formulary Medication 1 ea Q4D@0900 PO Last administered on 11/14/18at 15:13 ; Start 11/14/18 at 15:30 Lacosamide (Vimpat) 50 mg BID PO Last administered on 11/16/18at 10:45; Start at 21:00 Potassium Chloride (Klor-Con) 10 meq 1X ONCE PO Last administered on at 22:14; Start 11/14/18 at 22:00; Stop 11/14/18 at 22:01; Status DC Alteplase, Recombinant (Cathflo For Central Catheter Clearance) 1 mg 1X ONCE INT CAT Last administered on 11/15/18at 12:31; Start 11/15/18 at 12:15; Stop at 12:16; Status DC Amlodipine Besylate (Norvasc) 10 mg BID PO Last administered on 11/16/18at 10:46 ; Start 11/15/18 at 21:00 Clonidine HCl (Catapres) 0.3 mg BID PO Last administered on 11/16/18at 10:46; Start 11/15/18 at 21:00 Alteplase, Recombinant (Cathflo For Central Catheter Clearance) 1 mg 1X ONCE INT CAT Last administered on 11/15/18at 17:09; Start 11/15/18 at 15:30; Stop at 15:39; Status DC Lidocaine/Sodium Bicarbonate (Buffered Lidocaine 1%) 3 ml STK-MED ONCE .ROUTE ; Start 11/16/18 at 08:54; Stop 11/16/18 at 08:55; Status DC Midazolam HCl (Versed) 2 mg STK-MED ONCE .ROUTE ; Start 11/16/18 at 09:33; Stop 11/16/18 at 09:34; Status DC Fentanyl Citrate (Fentanyl 2ml Vial) 100 mcg STK-MED ONCE .ROUTE ; Start at 09:34; Stop 11/16/18 at 09:35; Status DC Lidocaine/Sodium Bicarbonate (Buffered Lidocaine 1%) 10 ml 1X ONCE IJ Last administered on 11/16/18at 09:49; Start 11/16/18 at 10:00; Stop 11/16/18 at 10:01 ; Status DC Midazolam HCl (Versed) 2 mg 1X ONCE IV Last administered on 11/16/18at 09:50; Start 11/16/18 at 10:00; Stop 11/16/18 at 10:01; Status DC Fentanyl Citrate (Fentanyl 2ml Vial) 50 mcg 1X ONCE IV Last administered on at 09:50; Start 11/16/18 at 10:00; Stop 11/16/18 at 10:01; Status DC Atenolol (Tenormin) 50 mg DAILY PO ; Start 11/16/18 at 12:00 Active Scripts Active [place] 5-325 Tablet (Acetaminophen/Hydrocodone Bitart) 1 Each Tablet 1-2 Each PO PRN Q6HRS PRN as needed for pain Trazodone Hcl 100 Mg Tablet 1 Tab PO QHS 30 Days Oxycodone Hcl Immed.release (Oxycodone Hcl) 5 Mg Tablet 5 Mg PO PRN DAILY PRN 6 Days Carafate (Sucralfate) 1 Gm Tablet 1 Gm PO BIDWMEALS 30 Days Reported Ketorolac Tromethamine 5 Ml Drops 1 Drop OS QID Metronidazole 500 Mg Tablet 1 Tab PO BID Flonase Allergy Relief (Fluticasone Propionate) 9.9 Ml [place].susp 2 Sprays NS DAILY Labetalol Hcl 200 Mg Tablet 1 Tab PO BID Diltiazem 24HR Cd (Diltiazem Hcl) 120 Mg Cap.er.24h 2 Cap PO DAILY Lamotrigine 25 Mg Tablet 1 Tab PO HS Doxazosin Mesylate 2 Mg Tablet 1.5 Tab PO DAILY Bactrim 400-80 Mg Tablet (Sulfamethoxazole/Trimethoprim) 1 Each Tablet 1 Tab PO QODAY Tivicay (Dolutegravir Sodium) 50 Mg Tablet 50 Mg PO DAILY Emtriva (Emtricitabine) 200 Mg Capsule 200 Mg PO Q4DAYS Epzicom Tablet (Abacavir Sulfate/Lamivudine) 1 Each Tablet 300 Mg PO DAILY Vimpat (Lacosamide) 50 Mg Tablet 50 Mg PO BID Protonix (Pantoprazole Sodium) 20 Mg Tablet.dr 40 Mg PO DAILY Keppra (Levetiracetam) 500 Mg Tablet 250 Mg PO BID Clonidine Hcl 0.2 Mg Tablet 1 Tab PO BID Vital Signs Vital Signs Date Time Temp Pulse Resp B/P (MAP) Pulse Ox O2 Delivery O2 Flow Rate FiO2 11/16/18 12:48 Room Air 11/16/18 12:47 165/117 11/16/18 10:48 97.6 65 16 97 97.6 11/16/18 09:51 2.0 Labs Laboratory Tests Test 11/15/18 05:50 11/15/18 13:25 11/16/18 08:10 White Blood Count 2.3 x10^3/uL (4.0-11.0) 2.1 x10^3/uL (4.0-11.0) Red Blood Count 3.53 x10^6/uL (3.50-5.40) 3.72 x10^6/uL (3.50-5.40) Hemoglobin 9.6 g/dL (12.0-15.5) 10.5 g/dL (12.0-15.5) Hematocrit 30.4 % (36.0-47.0) 32.1 % (36.0-47.0) Mean Corpuscular Volume 86 fL (79-100) 86 fL (79-100) Mean Corpuscular Hemoglobin 27 pg (25-35) 28 pg (25-35) Mean Corpuscular Hemoglobin Concent 32 g/dL (31-37) 33 g/dL (31-37) Red Cell Distribution Width 15.3 % (11.5-14.5) 14.9 % (11.5-14.5) Platelet Count 131 x10^3/uL (140-400) 129 x10^3/uL (140-400) Neutrophils (%) (Auto) 47 % (31-73) 43 % (31-73) Lymphocytes (%) (Auto) 22 % (24-48) 26 % (24-48) Monocytes (%) (Auto) 16 % (0-9) 13 % (0-9) Eosinophils (%) (Auto) 14 % (0-3) 18 % (0-3) Basophils (%) (Auto) 1 % (0-3) 1 % (0-3) Neutrophils # (Auto) 1.1 x10^3uL (1.8-7.7) 0.9 x10^3uL (1.8-7.7) Lymphocytes # (Auto) 0.5 x10^3/uL (1.0-4.8) 0.5 x10^3/uL (1.0-4.8) Monocytes # (Auto) 0.4 x10^3/uL (0.0-1.1) 0.3 x10^3/uL (0.0-1.1) Eosinophils # (Auto) 0.3 x10^3/uL (0.0-0.7) 0.4 x10^3/uL (0.0-0.7) Basophils # (Auto) 0.0 x10^3/uL (0.0-0.2) 0.0 x10^3/uL (0.0-0.2) Sodium Level 140 mmol/L (136-145) Potassium Level 4.0 mmol/L (3.5-5.1) Chloride Level 101 mmol/L (98-107) Carbon Dioxide Level 31 mmol/L (21-32) Anion Gap 8 (6-14) Blood Urea Nitrogen 19 mg/dL (7-20) Creatinine 3.9 mg/dL (0.6-1.0) Estimated GFR (Cockcroft-Gault) 16.4 Glucose Level 89 mg/dL (70-99) Calcium Level 9.1 mg/dL (8.5-10.1) Phosphorus Level 4.8 mg/dL (2.6-4.7) Albumin 2.9 g/dL (3.4-5.0) Prothrombin Time 14.8 SEC (11.7-14.0) Prothromb Time International Ratio 1.2 (0.8-1.1) Activated Partial Thromboplast Time 34 SEC (24-38) Laboratory Tests Test 11/16/18 08:10 White Blood Count 2.1 x10^3/uL (4.0-11.0) Red Blood Count 3.72 x10^6/uL (3.50-5.40) Hemoglobin 10.5 g/dL (12.0-15.5) Hematocrit 32.1 % (36.0-47.0) Mean Corpuscular Volume 86 fL (79-100) Mean Corpuscular Hemoglobin 28 pg (25-35) Mean Corpuscular Hemoglobin Concent 33 g/dL (31-37) Red Cell Distribution Width 14.9 % (11.5-14.5) Platelet Count 129 x10^3/uL (140-400) Neutrophils (%) (Auto) 43 % (31-73) Lymphocytes (%) (Auto) 26 % (24-48) Monocytes (%) (Auto) 13 % (0-9) Eosinophils (%) (Auto) 18 % (0-3) Basophils (%) (Auto) 1 % (0-3) Neutrophils # (Auto) 0.9 x10^3uL (1.8-7.7) Lymphocytes # (Auto) 0.5 x10^3/uL (1.0-4.8) Monocytes # (Auto) 0.3 x10^3/uL (0.0-1.1) Eosinophils # (Auto) 0.4 x10^3/uL (0.0-0.7) Basophils # (Auto) 0.0 x10^3/uL (0.0-0.2) Allergies Allergies Coded Allergies Type Severity Reaction Last Updated Verified povidone-iodine Allergy Intermediate 08/17/18 Yes soap Allergy Intermediate 08/17/18 Yes diphenhydramine Adverse Reaction Severe Anxiety 08/18/18 Yes lisinopril Adverse Reaction Intermediate 08/17/18 Yes Disposition/Orders: D/C to Home Patient Instructions D/C PLANNING 38 MIN FUNMILAYO EMERSON MD Nov 16, 2018 14:00
[2018-11-16] MEDS ORDERED: AMLO10TA8 PO (14:03)
[2018-11-16] MEDS ORDERED: CLON0.3T4 PO (14:03)
[2018-11-16] MEDS ORDERED: IV NORMAL SALINE 1000ML BAG 1,000 ML IV PRN ×2 (14:07)
[2018-11-16] MEDS ORDERED: DIALYSIS PATIENT. MC PRN (14:15)
--- NOTE | 2018-11-16 15:53 | PDOC ---
PROGRESS NOTES Assessment Assessment Metabolic encephalopathy. Hypertensive encephalopathy. Hypertensive emergency, BP 226/123 mmHg. HTN. Seizure. Lymphoma. HIV positive. Renal failure. RECOMMENDATIONS/PLAN: Continue Keppra 500 mg bid. Continue Vimpat 50 mg, increased to 50 mg bid. BP control. BM biopsy on 11/16/18. Treat medical diseases. FU with PCP. Past Medical History HIV, Hypertension, Renal Disease, Renal Failure, Seizure, dialysis, Hodgkin's lymphoma. Cardiovascular: HTN CENTRAL NERVOUS SYSTEM: Seizure GI: GERD Heme/Onc: Cancer Psych: Anxiety, Depression Rheumatologic: Fibromyalgia Infectious disease: HIV Renal/: Chronic renal failure Endocrine: Hyperparathyroidism Past Surgical History Appendectomy, Cholecystectomy, , upper arm fistula,R)upper chest port Family History Heart Disease. Parent, Grandparents Allergies Coded Allergies: povidone-iodine (Verified Allergy, Intermediate, 08/17/18) soap (Verified Allergy, Intermediate, 08/17/18) diphenhydramine (Verified Adverse Reaction, Severe, Anxiety, 08/18/18) Makes her feel "crazy" lisinopril (Verified Adverse Reaction, Intermediate, 08/17/18) Altered mental status per pt DIPHENHYDRAMINE, LISINOPRIL, POVIDONE IODINE, AND SOAP. SOCIAL HISTORY: She is single. She has 2 boys, age 8 and 10 years of age. Her mom watches the boys for her. She does not smoke tobacco or drink alcohol. She is on disability. REVIEW OF SYSTEMS: She complains of headache. She has had no change of vision, hearing, or cognition. She is not feeling short of breath, having chest or abdominal pain. She says she has back pain. There has been no fever or rash. She has a critically elevated blood pressure. No gastrointestinal or genitourinary complaint. Does not complain of bruising, bleeding, or swelling. She does not currently have psychiatric concerns. PHYSICAL EXAMINATION: General appearance in no acute distress. HEENT: Normocephalic and nontraumatic. Eyes, nose, ears, and throat are unremarkable. Neck is supple. No lymphadenopathy. No Crepitus. Cardiovascular: S1, S2, regular rate and rhythm. Pulmonary: Clear to auscultation bilaterally. Abdomen: Bowel sounds are positive. Abdomen is soft, nontender, and nondistended. Extremities: No rash, lesions, or edema. No restriction of range of motion NEUROLOGICAL EXAMINATION: Awake. Oriented to time, place and person. PERRL. EOMI. CN: no focal findings. Muscle tone: within normal. Muscle strength: 5 DTR: 2 Plantar reflex: Flexor response bilaterally Gait: not examined in bed. Sensory exam: no abnormal findings. No cerebellar signs elicited. F-T-N test fine Objective Objective Vital Signs Date Time Temp Pulse Resp B/P (MAP) Pulse Ox O2 Delivery O2 Flow Rate FiO2 11/16/18 12:48 Room Air 11/16/18 12:47 165/117 11/16/18 10:48 97.6 65 16 97 97.6 11/16/18 09:51 2.0 Intake and Output 11/16/18 07:00 Intake Total 360 ml Balance 360 ml Intake Oral 360 ml # Voids 1 Vitals Signs Vitals VS - Last 72 Hours, by Label Date Time Temp Pulse Resp B/P (MAP) Pulse Ox O2 Delivery O2 Flow Rate FiO2 11/16/18 12:48 Room Air 11/16/18 12:47 165/117 11/16/18 10:48 97.6 65 16 154/95 (114) 97 Room Air 97.6 11/16/18 10:46 72 147/90 11/16/18 10:46 72 147/90 11/16/18 09:51 72 12 100 Nasal Cannula 2.0 11/16/18 09:50 12 100 Nasal Cannula 2.0 11/16/18 09:43 80 18 100 Nasal Cannula 2.0 11/16/18 07:36 98.2 75 17 154/95 (114) 100 Room Air 98.2 11/16/18 02:54 98.0 71 17 143/94 (110) 98 Room Air 98.0 11/15/18 22:45 98.5 99 18 157/99 (118) 99 Room Air 98.5 11/15/18 21:29 Room Air 11/15/18 20:44 Room Air 11/15/18 20:43 67 133/86 11/15/18 20:43 67 133/86 11/15/18 19:45 Room Air 11/15/18 19:00 98.2 67 17 133/86 (102) 98 Room Air 98.2 11/15/18 14:47 97.9 69 16 121/73 (89) 98 Room Air 97.9 11/15/18 10:42 97.9 75 16 157/81 (106) 99 Room Air 97.9 11/15/18 09:19 99 2.0 11/15/18 08:49 99 Room Air 2.0 11/15/18 08:35 79 181/103 11/15/18 08:34 79 181/103 11/15/18 08:00 Nasal Cannula 2.0 11/15/18 08:00 Room Air 11/15/18 07:38 98.2 82 16 137/82 (100) 99 Room Air 98.2 Laboratory Laboratory Laboratory Tests Test 11/16/18 08:10 White Blood Count 2.1 x10^3/uL (4.0-11.0) Red Blood Count 3.72 x10^6/uL (3.50-5.40) Hemoglobin 10.5 g/dL (12.0-15.5) Hematocrit 32.1 % (36.0-47.0) Mean Corpuscular Volume 86 fL (79-100) Mean Corpuscular Hemoglobin 28 pg (25-35) Mean Corpuscular Hemoglobin Concent 33 g/dL (31-37) Red Cell Distribution Width 14.9 % (11.5-14.5) Platelet Count 129 x10^3/uL (140-400) Neutrophils (%) (Auto) 43 % (31-73) Lymphocytes (%) (Auto) 26 % (24-48) Monocytes (%) (Auto) 13 % (0-9) Eosinophils (%) (Auto) 18 % (0-3) Basophils (%) (Auto) 1 % (0-3) Neutrophils # (Auto) 0.9 x10^3uL (1.8-7.7) Lymphocytes # (Auto) 0.5 x10^3/uL (1.0-4.8) Monocytes # (Auto) 0.3 x10^3/uL (0.0-1.1) Eosinophils # (Auto) 0.4 x10^3/uL (0.0-0.7) Basophils # (Auto) 0.0 x10^3/uL (0.0-0.2) Medication Medications Current Medications Amlodipine Besylate (Norvasc) 10 mg BID PO Last administered on 11/16/18at 10:46 ; Start 11/15/18 at 21:00 Atenolol (Tenormin) 50 mg DAILY PO ; Start 11/16/18 at 12:00 Clonidine HCl (Catapres) 0.3 mg BID PO Last administered on 11/16/18at 10:46; Start 11/15/18 at 21:00 Fentanyl Citrate (Fentanyl 2ml Vial) 50 mcg 1X ONCE IV Last administered on at 09:50; Start 11/16/18 at 10:00; Stop 11/16/18 at 10:01; Status DC Fentanyl Citrate (Fentanyl 2ml Vial) 100 mcg STK-MED ONCE .ROUTE ; Start at 09:34; Stop 11/16/18 at 09:35; Status DC Info (PHARMACY MONITORING -- do not chart) 1 each PRN DAILY PRN MC SEE COMMENTS ; Start 11/16/18 at 14:15; Status UNV Lidocaine/Sodium Bicarbonate (Buffered Lidocaine 1%) 3 ml STK-MED ONCE .ROUTE ; Start 11/16/18 at 08:54; Stop 11/16/18 at 08:55; Status DC Lidocaine/Sodium Bicarbonate (Buffered Lidocaine 1%) 10 ml 1X ONCE IJ Last administered on 11/16/18at 09:49; Start 11/16/18 at 10:00; Stop 11/16/18 at 10:01 ; Status DC Midazolam HCl (Versed) 2 mg 1X ONCE IV Last administered on 11/16/18at 09:50; Start 11/16/18 at 10:00; Stop 11/16/18 at 10:01; Status DC Midazolam HCl (Versed) 2 mg STK-MED ONCE .ROUTE ; Start 11/16/18 at 09:33; Stop 11/16/18 at 09:34; Status DC Sodium Chloride 1,000 ml @ 400 mls/hr Q2H30M PRN IV PATENCY; Start 11/16/18 at 14:07; Stop 11/17/18 at 02:06 Sodium Chloride 1,000 ml @ 1,000 mls/hr Q1H PRN IV hypotension; Start 11/16/18 at 14:07; Stop 11/16/18 at 20:06 Comment Review of Relevant I have reviewed the following items fiona (where applicable) has been applied. RAY COMBS MD Nov 16, 2018 15:53
[2018-11-16 17:31] VITALS: BP 127/79
[2018-11-16] MEDS ORDERED: HEPARIN PF 500 UNIT/5 ML DISP.SYRIN. IV ONE (17:45)
--- NOTE | 2018-11-24 11:09 | PATHOLOGY ---
[facility] Accession Number: [id number] . 01 Material submitted: . PART A: BONE MARROW BIOPSY PART B: BONE MARROW CLOT PART C: BONE MARROW ASPIRATE SLIDES PART D: PERIPHERAL BLOOD SMEARS PART E: BONE MARROW FLOW . 01 Clinical history: . Thrombocytopenia, anemia, HIV, leukopenia, Hx Hodgkin's History of Hodgkin's disease, HIV, pancytopenia . 02 Diagnosis: Peripheral smear: - Moderate leukopenia with moderate absolute neutropenia and absolute lymphopenia and with relative eosinophilia and monocytosis. - Normocytic normochromic anemia, mild. - Thrombocytopenia, mild. . Bone marrow, aspirate smears, clot section, and core biopsy: - Normocellular marrow showing trilineage hematopoiesis, no significant dyspoiesis, adequate to mildly increased iron stores, and mild osteosclerosis and paratrabecular fibrosis. See comment. LBQ/11/24/2018 . 02 Comment: . . The peripheral smear shows moderate leukopenia with moderate absolute neutropenia and absolute lymphopenia, mild normocytic normochromic anemia, and mild thrombocytopenia. The bone marrow is essentially normocellular for age and shows trilineage hematopoiesis, no significant dyspoiesis, adequate to mildly increased reticuloendothelial iron stores, and mild osteosclerosis and paratrabecular fibrosis. The etiology of the pancytopenia is likely multifactorial and includes HIV infection, anemia of chronic renal disease, and medication effect. The bone marrow biopsy shows mild osteosclerosis and paratrabecular fibrosis, a feature which may be seen with end stage renal disease and dialysis. There is no evidence of involvement by Hodgkin's lymphoma. There is also no evidence of involvement by non-Hodgkin's lymphoma, acute leukemia, increase in blasts, or plasma cell neoplasm. Special stains for acid fast bacilli and yeast/fungal organisms are negative. (JPM/db; 11/23/2018) . Special stains performed: Iron stain on C1 and on B1 Reticulin stain on A1 AFB stain on A1 and B1 GMS stain for yeast/fungi on A1 and B1 . 02 Electronically signed: . Bret Villarreal MD, Pathologist NPI- [id number] . 01 Gross description: . A. Received in formalin labeled "Cory Patterson." The container is not labeled with the specimen site. Per the requisition, the specimen site is "BM BX." Received is a single needle core of wilkins bone measuring 1.7 cm in length and 0.3 cm in diameter. The specimen is submitted entirely in cassette A1, following decalcification. . B. Received in formalin labeled "Cory Patterson, BM ASP clot," is an aggregate of dark wilkins blood clot measuring 0.4 x 0.3 x 0.1 cm. The specimen is filtered and entirely submitted in cassette B1. (TSD; 11/16/2018) TOB/TOB . 02 Microscopic: . Laboratory Data: The WBC count is 2.1 K/CMM, and the automated WBC differential reveals 43% neutrophils, 26% lymphs, 13% monos, 18% eos, and 1% baso. The RBC count is 3.72 M/CMM, hemoglobin 10.5 G/DL, hematocrit 32.1%, MCV 86 FL, MCH 28 PG, MCHC 33 G/DL, and the RDW is 14.9%. The platelet count is 129 K/CMM. The total protein is 8.1 G/DL, albumin 3.4 G/DL, and the globulin is 4.7 G/DL. The creatinine is 3.9 MG/DL. . Peripheral Smear: The peripheral smear is reviewed. The WBC count is moderately decreased. There is a moderate absolute neutropenia and absolute lymphopenia, and a relative monocytosis and eosinophilia. The WBC differential reveals a predominance of segmented neutrophils, with smaller populations of lymphocytes, monocytes and eosinophils noted. Neutrophils do not show dysplastic changes. There is no significant neutrophilic left shift. There are no circulating blasts. There is no leukoerythroblastic reaction. The lymphocyte population consists predominantly of small lymphocytes. There are a few reactive lymphocytes and large granular lymphocytes noted. Red blood cells predominantly appear normochromic and normocytic. Red blood cells show no significant anisocytosis, and mild poikilocytosis with occasional red blood cell fragments and teardrop red blood cells noted. Platelets are mildly decreased with an occasional large platelet noted. . Aspirate Smears: Two Chance's-stained and one iron-stained aspirate smears are examined. The smears contain multiple marrow particles. The M/E ratio overall appears to be within normal range. Erythroid maturation predominantly appears normoblastic. There are no megaloblastic or overt dysplastic changes. Granulopoiesis qualitatively appears normal. There is no significant left shift or dysplastic changes. There is no increase of blasts. Megakaryocytes appear adequate in number and are focally loosely clustered. The megakaryocytes are of variable ploidy. Eosinophils focally appear mildly increased. Plasma cells are not increased and appear normal in morphology. Lymphocytes are not increased, and there is no atypical lymphoreticular infiltrate. There are no other cells foreign to the marrow. The iron stain shows adequate to mildly increased iron stores. No ringed sideroblasts are identified. . Bone Marrow Biopsy and Clot Sections: Sections of the bone marrow biopsy reveal a segment of bone marrow which is on the order of 60% to 70% cellular. The clot section contains multiple marrow particles, the majority of which range between 30-40% and 60% cellular. There is a good admixture of erythroid and granulocytic precursors, which are present in varying stages of maturation. There is no increase of blasts. Megakaryocytes appear adequate in number and are focally loosely clustered. The megakaryocytes are of variable ploidy. Eosinophils focally appear mildly increased. Plasma cells are not increased. There is no atypical lymphoreticular infiltrate. More specifically, there is no evidence of involvement by Hodgkin's lymphoma. There are no granulomas. There are no other cells foreign to the marrow. The bony trabeculae in the biopsy do appear thickened, are focally lined by osteoblasts, and are surrounded by a thin rim of paratrabecular fibrosis. Properly controlled stains for acid fast bacilli and fungi are obtained and yield the following results: . AFB stain (A1) - Negative for acid fast bacilli GMS stain for yeast/fungi (A1) - Negative for yeast/fungal organisms AFB stain (B1) - Negative for acid fast bacilli GMS stain for yeast/fungi (B1) - Negative for yeast/fungal organisms . A reticulin stain obtained on the biopsy shows focally increased paratrabecular reticulin fibers but otherwise no significant reticulin fibrosis. The iron stain of the clot section shows adequate to focally mildly increased reticuloendothelial iron stores. No ringed sideroblasts are identified. . Special Studies: Bone marrow submitted for flow cytometric analysis has a viability of 97.2%. Granulocytes comprise 84.1% of total cells and show phenotypic evidence of maturation. Monocytes comprise 2.0% of total cells. CD45 dim, CD34 positive cells comprise 2.1% of total cells. Plasma cells comprise 0.2% of total cells. Lymphocytes comprise 3.2% of total cells. T-cells comprise 70% of lymphoid cells and show a decreased CD4/CD8 ratio of 0.4. NK-cells comprise 4% of lymphoid cells. Mature B-cells comprise 10% of lymphoid cells and are polyclonal with a kappa:lambda ratio of 1.0. (JPM:jared; 11/21/2018) . 02 Pathologist provided ICD-10: D72.819, D72.810, D72.821, D69.6, D75.89 . 02 CPT . 442864, 357653, 767123, 328446, 779373, 349532, 937511, 824741, 274848, 099467, 309508 Specimen Comment: A courtesy copy of this report has been sent to Specimen Comment: [phone], , . Specimen Comment: Report sent to ,DR RIDLEY / DR WYNNE Performed at: 01 [facility] [address], [place], [place] [id number] MD Kapil Richter MD Phone: [phone] Performed at: 02 [facility] [address], [place] [id number] MD Bret Villarreal MD Phone: [phone]
== END 2018-11-16 18:00 | disposition home or self-care (01) | DRG 304 ==
LOC: ER 19:43 → 2 NORTH 22:21 → 1 WEST ICU 11-12 19:45 → 2 NORTH 11-14 19:50
PROVIDERS: ADMIT Internal Medicine; ATTEND Internal Medicine
PROC: 07DR3ZX Extraction of Iliac Bone Marrow, Percutaneous Approach, Diagnostic (ICD-10-PCS; principal; 2018-11-16)
DX: I16.1 Hypertensive emergency (principal); N18.6 End stage renal disease; G93.41 Metabolic encephalopathy; D61.818 Other pancytopenia; I16.9 Hypertensive crisis, unspecified; C85.90 Non-Hodgkin lymphoma, unspecified, unspecified site; I12.0 Hypertensive chronic kidney disease with stage 5 chronic kidney disease or end stage renal disease; I27.20 Pulmonary hypertension, unspecified; I07.1 Rheumatic tricuspid insufficiency; F41.9 Anxiety disorder, unspecified; F32.9 Major depressive disorder, single episode, unspecified; G40.909 Epilepsy, unspecified, not intractable, without status epilepticus; D63.1 Anemia in chronic kidney disease; K21.9 Gastro-esophageal reflux disease without esophagitis; M79.7 Fibromyalgia; E21.3 Hyperparathyroidism, unspecified; Z99.2 Dependence on renal dialysis; Z85.71 Personal history of Hodgkin lymphoma; Z92.21 Personal history of antineoplastic chemotherapy; Z88.8 Allergy status to other drugs, medicaments and biological substances; Z79.899 Other long term (current) drug therapy; Z72.820 Sleep deprivation; Z91.14 Patient's other noncompliance with medication regimen; Z91.19 Patient's noncompliance with other medical treatment and regimen; Z90.49 Acquired absence of other specified parts of digestive tract; Z82.49 Family history of ischemic heart disease and other diseases of the circulatory system; Z21 Asymptomatic human immunodeficiency virus [HIV] infection status
CPT/HCPCS: 36415; 38222; 70450; 71045; 77012; 80048; 80053; 80069; 81001; 81025; 82962; 83690; 83735; 83880; 84484; 84702; 85025; 85610; 85730; 88112; 88184; 88185; 88305; 88312; 88313; 93005; 96365; 96368; 96375; 96376; 99152; 99291; J0360; J0881; J1953; J2060; J2250; J2270; J2405; J3010; J3475; J3490; J7050; J7030

== ENCOUNTER 2018-11-18 14:47 | Emergency (ER) | payer OTHER ==
[~2018-11-18] VITALS: Ht 165.1 cm; Wt 64.4 kg
[~2018-11-18 14:47] MED LIST changes: +ABAC1TAB7 PO; +CLON0.3T4 PO; +DOLU50TA PO; +EMTR200C4 PO; +FLUT9.9S NS; +KETO5DRO24 OS; +LACO50TA PO; +LAMO25TA9 PO; +METR-34 PO; +SULF1TAB23 PO; +TRIM100T13 PO
[2018-11-18] MEDS ORDERED: METHOCARBAMOL 750 MG TABLET PO ONE (15:45)
--- NOTE | 2018-11-18 15:55 | PHYS DOC ---
Past Medical History Past Medical History: Cancer, HIV, Hypertension, Renal Disease, Renal Failure, Seizure Additional Past Medical Histor: dialysis, hodgkins Past Surgical History: Appendectomy, Cholecystectomy Additional Past Surgical Histo: L)upper arm fistula,R)upper chest port Alcohol Use: None Drug Use: None Adult General Chief Complaint Chief Complaint: Neck Pain HPI HPI 28-year-old female presents to ER for complaints of right-sided neck pain into her right upper back. Patient states she was discharged from the hospital on and had had this type of neck pain during her admission. Patient states she is on prescribed oxycodone which she took this morning. Patient denies swelling in her upper extremities. Patient denies pain has changed since being admitted. Patient states only thing that worked for her was IV morphine. Patient came from her dialysis center and had all but 15 minutes of her full dialysis this morning. Patient reports she has not call to schedule an appointment with her primary care physician since discharge from the hospital. Patient denies any falls, dizziness, or confusion. Patient states this pain has been ongoing for a while denies fever, chills, or flulike illness. Review of Systems Review of Systems Constitutional: Denies fever or chills [] Eyes: Denies change in visual acuity, redness, or eye pain [] HENT: Denies nasal congestion or sore throat [] Respiratory: Denies cough or shortness of breath [] Cardiovascular: No additional information not addressed in HPI [] GI: Denies abdominal pain, nausea, vomiting, bloody stools or diarrhea [] : Denies dysuria or hematuria [] Musculoskeletal: Denies joint pain. Reports rt side neck pain into rt upper back - which is worse with palp. of area- denies swelling Integument: Denies rash or skin lesions [] Neurologic: Denies headache, focal weakness or sensory changes. Denies dizziness Endocrine: Denies polyuria or polydipsia [] All other systems were reviewed and found to be within normal limits, except as documented in this note. Current Medications Current Medications Current Medications Medications (Trade) Dose Ordered Sig/Jackelyn Start Time Stop Time Status Last Admin Dose Admin Lidocaine (Lidoderm) 1 patch DAILY 11/18/18 16:00 11/18/18 16:37 DC 11/18/18 16:12 1 PATCH Methocarbamol (Robaxin) 750 mg 1X ONCE 11/18/18 15:45 11/18/18 15:48 DC 11/18/18 15:55 750 MG Allergies Allergies Allergies Coded Allergies Type Severity Reaction Last Updated Verified povidone-iodine Allergy Intermediate 08/17/18 Yes soap Allergy Intermediate 08/17/18 Yes diphenhydramine Adverse Reaction Severe Anxiety 08/18/18 Yes lisinopril Adverse Reaction Intermediate 08/17/18 Yes Physical Exam Physical Exam Constitutional: Well developed, well nourished, no acute distress, non-toxic appearance. [] HENT: Normocephalic, atraumatic, bilateral ears normal, mucous membranes pink/ dry , nose normal. [] Eyes: Pupils equal, no nystagmus, conjunctiva normal, no discharge. [] Neck: Normal range of motion, supple, no stridor. Tender on palp. rt lateral neck into rt upper back- no crepitus. No midline cervical tenderness on palpation or palpable deformity. Trachea midline. Cardiovascular: Heart rate regular rhythm, no murmur [] Lungs & Thorax: Bilateral breath sounds clear to auscultation. Resp. equal/ nonlabored Abdomen: Bowel sounds normal, soft, no tenderness, no masses, no pulsatile masses. [] Skin: Warm, dry Back: Tender on palp. rt upper back- no swelling Extremities: No tenderness, no cyanosis, no clubbing, ROM intact, no edema. 2+ radial bilat. Neurologic: Alert and oriented X 3, normal motor function, normal sensory function, no focal deficits noted. [] Psychologic: Affect normal, judgement normal, mood normal. [] Current Patient Data Vital Signs Vital Signs Date Time Temp Pulse Resp B/P (MAP) Pulse Ox O2 Delivery O2 Flow Rate FiO2 11/18/18 16:30 72 170/101 (124) 100 Room Air 11/18/18 15:00 98.5 18 98.5 EKG EKG [] Radiology/Procedures Radiology/Procedures [] Course & Med Decision Making Course & Med Decision Making Patient was evaluated in the ER today for complaints of ongoing right side neck pain into her right upper back. Patient states this pain has been ongoing for awhile denying acute changes. She reports while inpt last wk she did have similar neck pain. She denies any injury or falls since her discharge on . She reports she took her prescribed oxycodone this morning and was able to complete all but 15 minutes of her dialysis. Patient was treated with dose of Robaxin and had Lidoderm patch applied to area where she was tender in right upper right lateral side of neck. Pt was educated on use of ice/heat compress at home as she had reported she had used heat in past with improvement in rt neck pain. She has full range of motion of neck and his vascular intact in bilateral upper extremities. Will provide patient with prescription for Robaxin and Lidoderm patches with discharge paperwork. Pt advised on need to call her PCP on Tuesday for re-eval. appt. Patient has prescribed oxycodone at home which she can also use for pain relief-feisty use that medication as directed. Education provided on signs and symptoms to return to ER. Discharge instructions were discussed. Patient to follow-up with primary care physician if symptoms persist or with any concerns. RN reported pt had steady unassisted gait at time of d/c. Dragon Disclaimer Dragon Disclaimer This electronic medical record was generated, in whole or in part, using a voice recognition dictation system. Departure Departure Impression: Primary Impression: Musculoskeletal pain Additional Impression: Cervical radiculopathy Disposition: HOME, SELF-CARE Condition: STABLE Referrals: NO PCP (PCP) Patient Instructions: Cervical Radiculopathy, Musculoskeletal Pain Additional Instructions: Apply heat and/or ice compress to affected area every 3-4 hours for 20-30 minutes at a time. Avoid direct ice contact with skin. Continue taking your prescription for pain medication as prescribed. Call as soon as possible and schedule follow-up with your primary doctor for re- evaluation. You can also follow-up with an orthopedic doctor for further evaluation/care. You can reapply the lidoderm patch every 12 hours as needed to affected area- and then remove after 12 hours. Over the counter sports cream (Rodrick Maradiaga/[employer]cy [employer] examples) as directed on container. Scripts Methocarbamol (ROBAXIN-750) 750 Mg Tablet 1 TAB PO BID, #6 TAB 0 Refills No driving or drinking alcohol while taking this medication Prov: MAXIM TRAYLOR APRN 11/18/18 Problem Qualifiers MAXIM TRAYLOR APRN Nov 18, 2018 15:55
[2018-11-18] MEDS ORDERED: LIDOCAINE (700MG/PATCH) PATCH. TD SCH (16:00)
[2018-11-18] MEDS ORDERED: METH-38 PO (16:23)
[2018-11-18 16:30] VITALS: BP 170/101
== END 2018-11-18 16:37 | disposition home or self-care (01) ==
LOC: ER 14:47
DX: M54.12 Radiculopathy, cervical region (principal); M54.6 Pain in thoracic spine; N18.9 Chronic kidney disease, unspecified; I12.9 Hypertensive chronic kidney disease with stage 1 through stage 4 chronic kidney disease, or unspecified chronic kidney disease; Z90.89 Acquired absence of other organs; Z90.49 Acquired absence of other specified parts of digestive tract; Z99.2 Dependence on renal dialysis; Z88.5 Allergy status to narcotic agent; Z91.041 Radiographic dye allergy status; Z88.8 Allergy status to other drugs, medicaments and biological substances
CPT/HCPCS: 99283